=== PATIENT | female | born 1975 | race Caucasian/White ===

== ENCOUNTER 2019-08-08 11:59 | Inpatient (IN) | payer OTHER, MEDICARE ==
[~2019-08-08] VITALS: Ht 172.7 cm; Wt 72.6 kg
[~2019-08-08 11:59] MED LIST: DILAUDID2 MG PO; KEPPRA XR500 MG PO; KLONOPIN1 MG PO; LEXAPRO20 MG PO; LYRICA150 MG PO; TRAZODONE HCL150 MG PO
--- OUTSIDE RECORDS SUMMARY | 2019-08-08 12:09 | XMS REPORT ---
Author Author [facility] Address Unknown Phone Unavailable Care Team Providers Care Mechanical Test Engineer Name Role Phone Unavailable Unavailable Payers Payer Name Policy Type Policy Number Effective Date Expiration Date Problems This patient has no known problems. Allergies, Adverse Reactions, Alerts Allergy Name Allergy Type Status Severity Reaction(s) Onset Date Inactive Date Treating Clinician Comments ketorolac tromethamine DA Active CA 2019-05-03 00:00:00 Penicillins DA Active SV 2019-05-03 00:00:00 latex DA Active CA 2019-05-03 00:00:00 desvenlafaxine DA Active U 2019-05-03 00:00:00 latex DA Active CA 2018-04-27 00:00:00 desvenlafaxine DA Active U 2018-04-21 00:00:00 ketorolac tromethamine DA Active CA 2016-05-13 00:00:00 Penicillins DA Active SV 2016-05-13 00:00:00 Medications This patient has no known medications. Results Test Description Test Time Test Comments Text Results Atomic Results Result Comments BASIC METABOLIC PANEL 2019-07-31 08:18:00 SODIUM (test code=NA) 143 mmol/L 136-145 POTASSIUM (test code=K) 3.6 mmol/L 3.5-5.1 CHLORIDE (test code=CL) 118.0 mmol/L 98-107 CARBON DIOXIDE (test code=CO2) 19.0 mmol/L 21-32 ANION GAP (test code=GAP) 9.6 10-20 GLUCOSE (test code=GLU) 114 mg/dL 74-106 BLOOD UREA NITROGEN (test code=BUN) 5 mg/dL 7-18 GLOMERULAR FILTRATION RATE (test code=GFR) > 60 mL/min >=60 Estimated GFR by using Modified MDRD formula.Chronic kidney disease is defined as either kidney damageor GFR <60 mL/min/1.73 m2 for >3 months. CREATININE (test code=CREAT) 0.50 mg/dL 0.55-1.02 Note change in reference range due to change in reagent. BUN/CREATININE RATIO (test code=BUN/CREA) 9.2 10-20 CALCIUM (test code=CA) 7.2 mg/dL 8.5-10.1 BASIC METABOLIC [id number] 08:15:00* Test Item Value Reference Range Comments SODIUM (test code=NA) 143 mmol/L 136-145 POTASSIUM (test code=K) 3.6 mmol/L 3.5-5.1 CHLORIDE (test code=CL) 118.0 mmol/L 98-107 CARBON DIOXIDE (test code=CO2) mmol/L 21-32 ANION GAP (test code=GAP) 10-20 GLUCOSE (test code=GLU) mg/dL 74-106 BLOOD UREA NITROGEN (test code=BUN) mg/dL 7-18 GLOMERULAR FILTRATION RATE (test code=GFR) mL/min >=60 CREATININE (test code=CREAT) mg/dL 0.55-1.02 BUN/CREATININE RATIO (test code=BUN/CREA) 10-20 CALCIUM (test code=CA) 7.2 mg/dL 8.5-10.1 [id number] 14:40:00* Test Item Value Reference Range Comments MAGNESIUM (test code=MAG) 2.0 mg/dL 1.8-2.4 BASIC METABOLIC [id number] 07:05:00* Test Item Value Reference Range Comments SODIUM (test code=NA) 145 mmol/L 136-145 POTASSIUM (test code=K) 3.4 mmol/L 3.5-5.1 CHLORIDE (test code=CL) 117.0 mmol/L 98-107 CARBON DIOXIDE (test code=CO2) 20.0 mmol/L 21-32 ANION GAP (test code=GAP) 11.4 10-20 GLUCOSE (test code=GLU) 92 mg/dL 74-106 BLOOD UREA NITROGEN (test code=BUN) 6 mg/dL 7-18 GLOMERULAR FILTRATION RATE (test code=GFR) > 60 mL/min >=60 Estimated GFR by using Modified MDRD formula.Chronic kidney disease is defined as either kidney damageor GFR <60 mL/min/1.73 m2 for >3 months. CREATININE (test code=CREAT) 0.60 mg/dL 0.55-1.02 Note change in reference range due to change in reagent. BUN/CREATININE RATIO (test code=BUN/CREA) 9.7 10-20 CALCIUM (test code=CA) 7.5 mg/dL 8.5-10.1 BASIC METABOLIC [id number] 07:00:00* Test Item Value Reference Range Comments SODIUM (test code=NA) 145 mmol/L 136-145 POTASSIUM (test code=K) 3.4 mmol/L 3.5-5.1 CHLORIDE (test code=CL) 117.0 mmol/L 98-107 CARBON DIOXIDE (test code=CO2) mmol/L 21-32 ANION GAP (test code=GAP) 10-20 GLUCOSE (test code=GLU) mg/dL 74-106 BLOOD UREA NITROGEN (test code=BUN) mg/dL 7-18 GLOMERULAR FILTRATION RATE (test code=GFR) mL/min >=60 CREATININE (test code=CREAT) mg/dL 0.55-1.02 BUN/CREATININE RATIO (test code=BUN/CREA) 10-20 CALCIUM (test code=CA) mg/dL 8.5-10.1 BASIC METABOLIC [id number] 09:48:00* Test Item Value Reference Range Comments SODIUM (test code=NA) 146 mmol/L 136-145 POTASSIUM (test code=K) 3.4 mmol/L 3.5-5.1 CHLORIDE (test code=CL) 118.0 mmol/L 98-107 CARBON DIOXIDE (test code=CO2) 21.0 mmol/L 21-32 ANION GAP (test code=GAP) 10.4 10-20 GLUCOSE (test code=GLU) 114 mg/dL 74-106 BLOOD UREA NITROGEN (test code=BUN) 7 mg/dL 7-18 GLOMERULAR FILTRATION RATE (test code=GFR) > 60 mL/min >=60 Estimated GFR by using Modified MDRD formula.Chronic kidney disease is defined as either kidney damageor GFR <60 mL/min/1.73 m2 for >3 months. CREATININE (test code=CREAT) 0.70 mg/dL 0.55-1.02 Note change in reference range due to change in reagent. BUN/CREATININE RATIO (test code=BUN/CREA) 10.5 10-20 CALCIUM (test code=CA) 7.4 mg/dL 8.5-10.1 [id number] 09:48:00* Test Item Value Reference Range Comments MAGNESIUM (test code=MAG) 2.2 mg/dL 1.8-2.4 BASIC METABOLIC [id number] 07:42:00* Test Item Value Reference Range Comments SODIUM (test code=NA) 148 mmol/L 136-145 POTASSIUM (test code=K) 3.3 mmol/L 3.5-5.1 CHLORIDE (test code=CL) 119.0 mmol/L 98-107 CARBON DIOXIDE (test code=CO2) 22.0 mmol/L 21-32 ANION GAP (test code=GAP) 10.3 10-20 GLUCOSE (test code=GLU) 128 mg/dL 74-106 BLOOD UREA NITROGEN (test code=BUN) 9 mg/dL 7-18 GLOMERULAR FILTRATION RATE (test code=GFR) > 60 mL/min >=60 Estimated GFR by using Modified MDRD formula.Chronic kidney disease is defined as either kidney damageor GFR <60 mL/min/1.73 m2 for >3 months. CREATININE (test code=CREAT) 0.70 mg/dL 0.55-1.02 Note change in reference range due to change in reagent. BUN/CREATININE RATIO (test code=BUN/CREA) 12.9 10-20 CALCIUM (test code=CA) 7.1 mg/dL 8.5-10.1 [id number] 07:42:00* Test Item Value Reference Range Comments MAGNESIUM (test code=MAG) 1.7 mg/dL 1.8-2.4 BASIC METABOLIC [id number] 07:33:00* Test Item Value Reference Range Comments SODIUM (test code=NA) 148 mmol/L 136-145 POTASSIUM (test code=K) 3.3 mmol/L 3.5-5.1 CHLORIDE (test code=CL) 119.0 mmol/L 98-107 CARBON DIOXIDE (test code=CO2) mmol/L 21-32 ANION GAP (test code=GAP) 10-20 GLUCOSE (test code=GLU) mg/dL 74-106 BLOOD UREA NITROGEN (test code=BUN) mg/dL 7-18 GLOMERULAR FILTRATION RATE (test code=GFR) mL/min >=60 CREATININE (test code=CREAT) mg/dL 0.55-1.02 BUN/CREATININE RATIO (test code=BUN/CREA) 10-20 CALCIUM (test code=CA) mg/dL 8.5-10.1 [id number] 07:33:00* Test Item Value Reference Range Comments MAGNESIUM (test code=MAG) mg/dL 1.8-2.4 CBC W/AUTO [id number] 06:17:00* Test Item Value Reference Range Comments WHITE BLOOD CELL (test code=WBC) 6.0 K/mm3 4.5-12.5 RED BLOOD CELL (test code=RBC) 3.42 mill/mm3 3.7-5.2 HEMOGLOBIN (test code=HGB) 9.5 gram/dL 11.5-15.5 HEMATOCRIT (test code=HCT) 32.3 % 36.0-46.0 MEAN CELL VOLUME (test code=MCV) 94.4 fL 80-98 MEAN CELL HGB (test code=MCH) 27.8 picogram 27.0-33.0 MEAN CELL HGB CONCETRATION (test code=MCHC) 29.4 gram/dL 33.0-36.0 RED CELL DISTRIBUTION WIDTH (test code=RDW) 17.2 % 11.6-16.2 RED CELL DISTRIBUTION WIDTH SD (test code=RDW-SD) 60.0 fL 37.0-51.0 PLATELET COUNT (test code=PLT) 86 K/mm3 150-450 MEAN PLATELET VOLUME (test code=MPV) 10.2 fL 6.7-11.0 NEUTROPHIL % (test code=NT%) 69.6 % 39.0-69.0 IMMATURE GRANULOCYTE % (test code=IG%) 0.5 % 0.0-5.0 LYMPHOCYTE % (test code=LY%) 19.0 % 25.0-55.0 MONOCYTE % (test code=MO%) 7.2 % 0.0-10.0 EOSINOPHIL % (test code=EO%) 3.4 % 0.0-5.0 BASOPHIL % (test code=BA%) 0.3 % 0.0-1.0 NUCLEATED RBC % (test code=NRBC%) 0.0 % 0-0 NEUTROPHIL # (test code=NT#) 4.14 K/mm3 1.8-7.7 IMMATURE GRANULOCYTE # (test code=IG#) 0.03 x10 3/uL 0-0.03 LYMPHOCYTE # (test code=LY#) 1.13 K/mm3 1.0-5.0 MONOCYTE # (test code=MO#) 0.43 K/mm3 0-0.8 EOSINOPHIL # (test code=EO#) 0.20 K/mm3 0.0-0.5 BASOPHIL # (test code=BA#) 0.02 K/mm3 0.0-0.2 NUCLEATED RBC # (test code=NRBC#) 0.00 K/mm3 0.0-0.1 MANUAL DIFF REQUIRED (test code=MDIFF) NO, ONLY SCAN NEEDED DIFFERENTIAL [id number] 06:17:00* Test Item Value Reference Range Comments STAIN ACCEPTABILITY (test code=STN ACCEPTABLE) STAIN ACCEPTABLE POIKILOCYTOSIS (test code=POIK) 1+ ANISOCYTOSIS (test code=ANISO) 1+ MACROCYTOSIS (test code=MACR) 1+ PLATELET ESTIMATE (test code=PLTEST) DECREASED PLATELET MORPHOLOGY (test code=PLTMORPH) NORMAL BASIC METABOLIC [id number] 06:16:00* Test Item Value Reference Range Comments SODIUM (test code=NA) 145 mmol/L 136-145 POTASSIUM (test code=K) 3.0 mmol/L 3.5-5.1 CHLORIDE (test code=CL) 113.0 mmol/L 98-107 CARBON DIOXIDE (test code=CO2) 25.0 mmol/L 21-32 ANION GAP (test code=GAP) 10.0 10-20 GLUCOSE (test code=GLU) 148 mg/dL 74-106 BLOOD UREA NITROGEN (test code=BUN) 12 mg/dL 7-18 GLOMERULAR FILTRATION RATE (test code=GFR) > 60 mL/min >=60 Estimated GFR by using Modified MDRD formula.Chronic kidney disease is defined as either kidney damageor GFR <60 mL/min/1.73 m2 for >3 months. CREATININE (test code=CREAT) 0.90 mg/dL 0.55-1.02 Note change in reference range due to change in reagent. BUN/CREATININE RATIO (test code=BUN/CREA) 14.0 10-20 CALCIUM (test code=CA) 7.1 mg/dL 8.5-10.1 FE W/TOTAL IRON BINDING CAP.[id number] 06:16:00* Test Item Value Reference Range Comments SERUM IRON (test code=IRON) 88 ug/dL 50-175 TOTAL IRON BINDING CAPACITY (test code=TIBC) 119 mcg/dL 250-450 IRON SATURATION (test code=FESAT) 73.95 % 13-45 [id number] 06:16:00* Test Item Value Reference Range Comments FERRITIN (test code=KUSHAL) 51 ng/mL 8-388 BASIC METABOLIC [id number] 06:08:00* Test Item Value Reference Range Comments SODIUM (test code=NA) 145 mmol/L 136-145 POTASSIUM (test code=K) 3.0 mmol/L 3.5-5.1 CHLORIDE (test code=CL) 113.0 mmol/L 98-107 CARBON DIOXIDE (test code=CO2) mmol/L 21-32 ANION GAP (test code=GAP) 10-20 GLUCOSE (test code=GLU) mg/dL 74-106 BLOOD UREA NITROGEN (test code=BUN) mg/dL 7-18 GLOMERULAR FILTRATION RATE (test code=GFR) mL/min >=60 CREATININE (test code=CREAT) mg/dL 0.55-1.02 BUN/CREATININE RATIO (test code=BUN/CREA) 10-20 CALCIUM (test code=CA) mg/dL 8.5-10.1 FE W/TOTAL IRON BINDING CAP.2019-07-27 06:08:00* Test Item Value Reference Range Comments SERUM IRON (test code=IRON) ug/dL 50-175 TOTAL IRON BINDING CAPACITY (test code=TIBC) mcg/dL 250-450 IRON SATURATION (test code=FESAT) % 13-45 [id number] 06:08:00* Test Item Value Reference Range Comments FERRITIN (test code=KUSHAL) ng/mL 8-388 CBC W/AUTO [id number] 05:27:00* Test Item Value Reference Range Comments WHITE BLOOD CELL (test code=WBC) 6.0 K/mm3 4.5-12.5 RED BLOOD CELL (test code=RBC) 3.42 mill/mm3 3.7-5.2 HEMOGLOBIN (test code=HGB) 9.5 gram/dL 11.5-15.5 HEMATOCRIT (test code=HCT) 32.3 % 36.0-46.0 MEAN CELL VOLUME (test code=MCV) 94.4 fL 80-98 MEAN CELL HGB (test code=MCH) 27.8 picogram 27.0-33.0 MEAN CELL HGB CONCETRATION (test code=MCHC) 29.4 gram/dL 33.0-36.0 RED CELL DISTRIBUTION WIDTH (test code=RDW) 17.2 % 11.6-16.2 RED CELL DISTRIBUTION WIDTH SD (test code=RDW-SD) 60.0 fL 37.0-51.0 PLATELET COUNT (test code=PLT) 86 K/mm3 150-450 MEAN PLATELET VOLUME (test code=MPV) 10.2 fL 6.7-11.0 NEUTROPHIL % (test code=NT%) 69.6 % 39.0-69.0 IMMATURE GRANULOCYTE % (test code=IG%) 0.5 % 0.0-5.0 LYMPHOCYTE % (test code=LY%) 19.0 % 25.0-55.0 MONOCYTE % (test code=MO%) 7.2 % 0.0-10.0 EOSINOPHIL % (test code=EO%) 3.4 % 0.0-5.0 BASOPHIL % (test code=BA%) 0.3 % 0.0-1.0 NUCLEATED RBC % (test code=NRBC%) 0.0 % 0-0 NEUTROPHIL # (test code=NT#) 4.14 K/mm3 1.8-7.7 IMMATURE GRANULOCYTE # (test code=IG#) 0.03 x10 3/uL 0-0.03 LYMPHOCYTE # (test code=LY#) 1.13 K/mm3 1.0-5.0 MONOCYTE # (test code=MO#) 0.43 K/mm3 0-0.8 EOSINOPHIL # (test code=EO#) 0.20 K/mm3 0.0-0.5 BASOPHIL # (test code=BA#) 0.02 K/mm3 0.0-0.2 NUCLEATED RBC # (test code=NRBC#) 0.00 K/mm3 0.0-0.1 MANUAL DIFF REQUIRED (test code=MDIFF) NO, ONLY SCAN NEEDED DIFFERENTIAL [id number] 05:27:00* Test Item Value Reference Range Comments STAIN ACCEPTABILITY (test code=STN ACCEPTABLE) CABOT RINGS (test code=CAB) MORPHOLOGY COMMENT (test code=MOC) PLATELET ESTIMATE (test code=PLTEST) PLATELET MORPHOLOGY (test code=PLTMORPH) CBC W/AUTO [id number] 05:27:00* Test Item Value Reference Range Comments WHITE BLOOD CELL (test code=WBC) 6.0 K/mm3 4.5-12.5 RED BLOOD CELL (test code=RBC) 3.42 mill/mm3 3.7-5.2 HEMOGLOBIN (test code=HGB) 9.5 gram/dL 11.5-15.5 HEMATOCRIT (test code=HCT) 32.3 % 36.0-46.0 MEAN CELL VOLUME (test code=MCV) 94.4 fL 80-98 MEAN CELL HGB (test code=MCH) 27.8 picogram 27.0-33.0 MEAN CELL HGB CONCETRATION (test code=MCHC) 29.4 gram/dL 33.0-36.0 RED CELL DISTRIBUTION WIDTH (test code=RDW) 17.2 % 11.6-16.2 RED CELL DISTRIBUTION WIDTH SD (test code=RDW-SD) 60.0 fL 37.0-51.0 PLATELET COUNT (test code=PLT) 86 K/mm3 150-450 MEAN PLATELET VOLUME (test code=MPV) 10.2 fL 6.7-11.0 NEUTROPHIL % (test code=NT%) 69.6 % 39.0-69.0 IMMATURE GRANULOCYTE % (test code=IG%) 0.5 % 0.0-5.0 LYMPHOCYTE % (test code=LY%) 19.0 % 25.0-55.0 MONOCYTE % (test code=MO%) 7.2 % 0.0-10.0 EOSINOPHIL % (test code=EO%) 3.4 % 0.0-5.0 BASOPHIL % (test code=BA%) 0.3 % 0.0-1.0 NUCLEATED RBC % (test code=NRBC%) 0.0 % 0-0 NEUTROPHIL # (test code=NT#) 4.14 K/mm3 1.8-7.7 IMMATURE GRANULOCYTE # (test code=IG#) 0.03 x10 3/uL 0-0.03 LYMPHOCYTE # (test code=LY#) 1.13 K/mm3 1.0-5.0 MONOCYTE # (test code=MO#) 0.43 K/mm3 0-0.8 EOSINOPHIL # (test code=EO#) 0.20 K/mm3 0.0-0.5 BASOPHIL # (test code=BA#) 0.02 K/mm3 0.0-0.2 NUCLEATED RBC # (test code=NRBC#) 0.00 K/mm3 0.0-0.1 MANUAL DIFF REQUIRED (test code=MDIFF) NO, ONLY SCAN NEEDED DIFFERENTIAL [id number] 05:27:00* Test Item Value Reference Range Comments STAIN ACCEPTABILITY (test code=STN ACCEPTABLE) CABOT RINGS (test code=CAB) MORPHOLOGY COMMENT (test code=MOC) PLATELET ESTIMATE (test code=PLTEST) PLATELET MORPHOLOGY (test code=PLTMORPH) CBC W/AUTO [id number] 05:27:00* Test Item Value Reference Range Comments WHITE BLOOD CELL (test code=WBC) 6.0 K/mm3 4.5-12.5 RED BLOOD CELL (test code=RBC) 3.42 mill/mm3 3.7-5.2 HEMOGLOBIN (test code=HGB) 9.5 gram/dL 11.5-15.5 HEMATOCRIT (test code=HCT) 32.3 % 36.0-46.0 MEAN CELL VOLUME (test code=MCV) 94.4 fL 80-98 MEAN CELL HGB (test code=MCH) 27.8 picogram 27.0-33.0 MEAN CELL HGB CONCETRATION (test code=MCHC) 29.4 gram/dL 33.0-36.0 RED CELL DISTRIBUTION WIDTH (test code=RDW) 17.2 % 11.6-16.2 RED CELL DISTRIBUTION WIDTH SD (test code=RDW-SD) 60.0 fL 37.0-51.0 PLATELET COUNT (test code=PLT) 86 K/mm3 150-450 MEAN PLATELET VOLUME (test code=MPV) 10.2 fL 6.7-11.0 NEUTROPHIL % (test code=NT%) 69.6 % 39.0-69.0 IMMATURE GRANULOCYTE % (test code=IG%) 0.5 % 0.0-5.0 LYMPHOCYTE % (test code=LY%) 19.0 % 25.0-55.0 MONOCYTE % (test code=MO%) 7.2 % 0.0-10.0 EOSINOPHIL % (test code=EO%) 3.4 % 0.0-5.0 BASOPHIL % (test code=BA%) 0.3 % 0.0-1.0 NUCLEATED RBC % (test code=NRBC%) 0.0 % 0-0 NEUTROPHIL # (test code=NT#) 4.14 K/mm3 1.8-7.7 IMMATURE GRANULOCYTE # (test code=IG#) 0.03 x10 3/uL 0-0.03 LYMPHOCYTE # (test code=LY#) 1.13 K/mm3 1.0-5.0 MONOCYTE # (test code=MO#) 0.43 K/mm3 0-0.8 EOSINOPHIL # (test code=EO#) 0.20 K/mm3 0.0-0.5 BASOPHIL # (test code=BA#) 0.02 K/mm3 0.0-0.2 NUCLEATED RBC # (test code=NRBC#) 0.00 K/mm3 0.0-0.1 MANUAL DIFF REQUIRED (test code=MDIFF) NO, ONLY SCAN NEEDED DIFFERENTIAL [id number] 05:27:00* Test Item Value Reference Range Comments STAIN ACCEPTABILITY (test code=STN ACCEPTABLE) MORPHOLOGY COMMENT (test code=MOC) PLATELET ESTIMATE (test code=PLTEST) PLATELET MORPHOLOGY (test code=PLTMORPH) CBC W/AUTO [id number] 05:27:00* Test Item Value Reference Range Comments WHITE BLOOD CELL (test code=WBC) 6.0 K/mm3 4.5-12.5 RED BLOOD CELL (test code=RBC) 3.42 mill/mm3 3.7-5.2 HEMOGLOBIN (test code=HGB) 9.5 gram/dL 11.5-15.5 HEMATOCRIT (test code=HCT) 32.3 % 36.0-46.0 MEAN CELL VOLUME (test code=MCV) 94.4 fL 80-98 MEAN CELL HGB (test code=MCH) 27.8 picogram 27.0-33.0 MEAN CELL HGB CONCETRATION (test code=MCHC) 29.4 gram/dL 33.0-36.0 RED CELL DISTRIBUTION WIDTH (test code=RDW) 17.2 % 11.6-16.2 RED CELL DISTRIBUTION WIDTH SD (test code=RDW-SD) 60.0 fL 37.0-51.0 PLATELET COUNT (test code=PLT) 86 K/mm3 150-450 MEAN PLATELET VOLUME (test code=MPV) 10.2 fL 6.7-11.0 NEUTROPHIL % (test code=NT%) 69.6 % 39.0-69.0 IMMATURE GRANULOCYTE % (test code=IG%) 0.5 % 0.0-5.0 LYMPHOCYTE % (test code=LY%) 19.0 % 25.0-55.0 MONOCYTE % (test code=MO%) 7.2 % 0.0-10.0 EOSINOPHIL % (test code=EO%) 3.4 % 0.0-5.0 BASOPHIL % (test code=BA%) 0.3 % 0.0-1.0 NUCLEATED RBC % (test code=NRBC%) 0.0 % 0-0 NEUTROPHIL # (test code=NT#) 4.14 K/mm3 1.8-7.7 IMMATURE GRANULOCYTE # (test code=IG#) 0.03 x10 3/uL 0-0.03 LYMPHOCYTE # (test code=LY#) 1.13 K/mm3 1.0-5.0 MONOCYTE # (test code=MO#) 0.43 K/mm3 0-0.8 EOSINOPHIL # (test code=EO#) 0.20 K/mm3 0.0-0.5 BASOPHIL # (test code=BA#) 0.02 K/mm3 0.0-0.2 NUCLEATED RBC # (test code=NRBC#) 0.00 K/mm3 0.0-0.1 MANUAL DIFF REQUIRED (test code=MDIFF) NO, ONLY SCAN NEEDED DIFFERENTIAL [id number] 05:27:00* Test Item Value Reference Range Comments STAIN ACCEPTABILITY (test code=STN ACCEPTABLE) CABOT RINGS (test code=CAB) MORPHOLOGY COMMENT (test code=MOC) PLATELET ESTIMATE (test code=PLTEST) PLATELET MORPHOLOGY (test code=PLTMORPH) BASIC METABOLIC [id number] 11:17:00* Test Item Value Reference Range Comments SODIUM (test code=NA) 148 mmol/L 136-145 POTASSIUM (test code=K) 3.2 mmol/L 3.5-5.1 CHLORIDE (test code=CL) 114.0 mmol/L 98-107 CARBON DIOXIDE (test code=CO2) 26.0 mmol/L 21-32 ANION GAP (test code=GAP) 11.2 10-20 GLUCOSE (test code=GLU) 133 mg/dL 74-106 BLOOD UREA NITROGEN (test code=BUN) 14 mg/dL 7-18 GLOMERULAR FILTRATION RATE (test code=GFR) 60 mL/min >=60 Estimated GFR by using Modified MDRD formula.Chronic kidney disease is defined as either kidney damageor GFR <60 mL/min/1.73 m2 for >3 months. CREATININE (test code=CREAT) 1.00 mg/dL 0.55-1.02 Note change in reference range due to change in reagent. BUN/CREATININE RATIO (test code=BUN/CREA) 14.0 10-20 CALCIUM (test code=CA) 7.4 mg/dL 8.5-10.1 [id number] 11:17:00* Test Item Value Reference Range Comments MAGNESIUM (test code=MAG) 1.8 mg/dL 1.8-2.4 BASIC METABOLIC [id number] 11:10:00* Test Item Value Reference Range Comments SODIUM (test code=NA) 148 mmol/L 136-145 POTASSIUM (test code=K) 3.2 mmol/L 3.5-5.1 CHLORIDE (test code=CL) 114.0 mmol/L 98-107 CARBON DIOXIDE (test code=CO2) mmol/L 21-32 ANION GAP (test code=GAP) 10-20 GLUCOSE (test code=GLU) mg/dL 74-106 BLOOD UREA NITROGEN (test code=BUN) mg/dL 7-18 GLOMERULAR FILTRATION RATE (test code=GFR) mL/min >=60 CREATININE (test code=CREAT) mg/dL 0.55-1.02 BUN/CREATININE RATIO (test code=BUN/CREA) 10-20 CALCIUM (test code=CA) mg/dL 8.5-10.1 [id number] 11:10:00* Test Item Value Reference Range Comments MAGNESIUM (test code=MAG) mg/dL 1.8-2.4 BASIC METABOLIC [id number] 18:01:00* Test Item Value Reference Range Comments SODIUM (test code=NA) 153 mmol/L 136-145 POTASSIUM (test code=K) 2.6 mmol/L 3.5-5.1 Results called to [id number] by MOY 07/25/19 1801Critical results verified and read back by Nurse? Y CHLORIDE (test code=CL) 118.0 mmol/L 98-107 CARBON DIOXIDE (test code=CO2) 27.0 mmol/L 21-32 ANION GAP (test code=GAP) 10.6 10-20 GLUCOSE (test code=GLU) 195 mg/dL 74-106 BLOOD UREA NITROGEN (test code=BUN) 19 mg/dL 7-18 GLOMERULAR FILTRATION RATE (test code=GFR) 48 mL/min >=60 Estimated GFR by using Modified MDRD formula.Chronic kidney disease is defined as either kidney damageor GFR <60 mL/min/1.73 m2 for >3 months. CREATININE (test code=CREAT) 1.20 mg/dL 0.55-1.02 Note change in reference range due to change in reagent. BUN/CREATININE RATIO (test code=BUN/CREA) 15.3 10-20 CALCIUM (test code=CA) 7.0 mg/dL 8.5-10.1 CBC W/AUTO [id number] 10:23:00* Test Item Value Reference Range Comments WHITE BLOOD CELL (test code=WBC) 4.6 K/mm3 4.5-12.5 RED BLOOD CELL (test code=RBC) 3.20 mill/mm3 3.7-5.2 HEMOGLOBIN (test code=HGB) 9.0 gram/dL 11.5-15.5 HEMATOCRIT (test code=HCT) 30.1 % 36.0-46.0 MEAN CELL VOLUME (test code=MCV) 94.1 fL 80-98 MEAN CELL HGB (test code=MCH) 28.1 picogram 27.0-33.0 MEAN CELL HGB CONCETRATION (test code=MCHC) 29.9 gram/dL 33.0-36.0 RED CELL DISTRIBUTION WIDTH (test code=RDW) 17.3 % 11.6-16.2 RED CELL DISTRIBUTION WIDTH SD (test code=RDW-SD) 60.2 fL 37.0-51.0 PLATELET COUNT (test code=PLT) 117 K/mm3 150-450 MEAN PLATELET VOLUME (test code=MPV) 10.4 fL 6.7-11.0 NEUTROPHIL % (test code=NT%) 73.1 % 39.0-69.0 IMMATURE GRANULOCYTE % (test code=IG%) 0.9 % 0.0-5.0 LYMPHOCYTE % (test code=LY%) 16.9 % 25.0-55.0 MONOCYTE % (test code=MO%) 4.8 % 0.0-10.0 EOSINOPHIL % (test code=EO%) 4.1 % 0.0-5.0 BASOPHIL % (test code=BA%) 0.2 % 0.0-1.0 NUCLEATED RBC % (test code=NRBC%) 0.0 % 0-0 NEUTROPHIL # (test code=NT#) 3.37 K/mm3 1.8-7.7 IMMATURE GRANULOCYTE # (test code=IG#) 0.04 x10 3/uL 0-0.03 LYMPHOCYTE # (test code=LY#) 0.78 K/mm3 1.0-5.0 MONOCYTE # (test code=MO#) 0.22 K/mm3 0-0.8 EOSINOPHIL # (test code=EO#) 0.19 K/mm3 0.0-0.5 BASOPHIL # (test code=BA#) 0.01 K/mm3 0.0-0.2 NUCLEATED RBC # (test code=NRBC#) 0.00 K/mm3 0.0-0.1 MANUAL DIFF REQUIRED (test code=MDIFF) NO, ONLY SCAN NEEDED DIFFERENTIAL [id number] 10:23:00* Test Item Value Reference Range Comments STAIN ACCEPTABILITY (test code=STN ACCEPTABLE) STAIN ACCEPTABLE POLYCHROMASIA (test code=POLC) 1+ HYPOCHROMIA (test code=HYPO) 1+ POIKILOCYTOSIS (test code=POIK) 1+ ANISOCYTOSIS (test code=ANISO) 1+ PLATELET ESTIMATE (test code=PLTEST) SLIGHTLY DECREASED PLATELET MORPHOLOGY (test code=PLTMORPH) NORMAL CBC W/AUTO [id number] 09:32:00* Test Item Value Reference Range Comments WHITE BLOOD CELL (test code=WBC) 4.6 K/mm3 4.5-12.5 RED BLOOD CELL (test code=RBC) 3.20 mill/mm3 3.7-5.2 HEMOGLOBIN (test code=HGB) 9.0 gram/dL 11.5-15.5 HEMATOCRIT (test code=HCT) 30.1 % 36.0-46.0 MEAN CELL VOLUME (test code=MCV) 94.1 fL 80-98 MEAN CELL HGB (test code=MCH) 28.1 picogram 27.0-33.0 MEAN CELL HGB CONCETRATION (test code=MCHC) 29.9 gram/dL 33.0-36.0 RED CELL DISTRIBUTION WIDTH (test code=RDW) 17.3 % 11.6-16.2 RED CELL DISTRIBUTION WIDTH SD (test code=RDW-SD) 60.2 fL 37.0-51.0 PLATELET COUNT (test code=PLT) 117 K/mm3 150-450 MEAN PLATELET VOLUME (test code=MPV) 10.4 fL 6.7-11.0 NEUTROPHIL % (test code=NT%) 73.1 % 39.0-69.0 IMMATURE GRANULOCYTE % (test code=IG%) 0.9 % 0.0-5.0 LYMPHOCYTE % (test code=LY%) 16.9 % 25.0-55.0 MONOCYTE % (test code=MO%) 4.8 % 0.0-10.0 EOSINOPHIL % (test code=EO%) 4.1 % 0.0-5.0 BASOPHIL % (test code=BA%) 0.2 % 0.0-1.0 NUCLEATED RBC % (test code=NRBC%) 0.0 % 0-0 NEUTROPHIL # (test code=NT#) 3.37 K/mm3 1.8-7.7 IMMATURE GRANULOCYTE # (test code=IG#) 0.04 x10 3/uL 0-0.03 LYMPHOCYTE # (test code=LY#) 0.78 K/mm3 1.0-5.0 MONOCYTE # (test code=MO#) 0.22 K/mm3 0-0.8 EOSINOPHIL # (test code=EO#) 0.19 K/mm3 0.0-0.5 BASOPHIL # (test code=BA#) 0.01 K/mm3 0.0-0.2 NUCLEATED RBC # (test code=NRBC#) 0.00 K/mm3 0.0-0.1 MANUAL DIFF REQUIRED (test code=MDIFF) NO, ONLY SCAN NEEDED DIFFERENTIAL [id number] 09:32:00* Test Item Value Reference Range Comments STAIN ACCEPTABILITY (test code=STN ACCEPTABLE) MORPHOLOGY COMMENT (test code=MOC) PLATELET ESTIMATE (test code=PLTEST) PLATELET MORPHOLOGY (test code=PLTMORPH) CBC W/AUTO [id number] 09:31:00* Test Item Value Reference Range Comments WHITE BLOOD CELL (test code=WBC) 4.6 K/mm3 4.5-12.5 RED BLOOD CELL (test code=RBC) 3.20 mill/mm3 3.7-5.2 HEMOGLOBIN (test code=HGB) 9.0 gram/dL 11.5-15.5 HEMATOCRIT (test code=HCT) 30.1 % 36.0-46.0 MEAN CELL VOLUME (test code=MCV) 94.1 fL 80-98 MEAN CELL HGB (test code=MCH) 28.1 picogram 27.0-33.0 MEAN CELL HGB CONCETRATION (test code=MCHC) 29.9 gram/dL 33.0-36.0 RED CELL DISTRIBUTION WIDTH (test code=RDW) 17.3 % 11.6-16.2 RED CELL DISTRIBUTION WIDTH SD (test code=RDW-SD) 60.2 fL 37.0-51.0 PLATELET COUNT (test code=PLT) 117 K/mm3 150-450 MEAN PLATELET VOLUME (test code=MPV) 10.4 fL 6.7-11.0 NEUTROPHIL % (test code=NT%) 73.1 % 39.0-69.0 IMMATURE GRANULOCYTE % (test code=IG%) 0.9 % 0.0-5.0 LYMPHOCYTE % (test code=LY%) 16.9 % 25.0-55.0 MONOCYTE % (test code=MO%) 4.8 % 0.0-10.0 EOSINOPHIL % (test code=EO%) 4.1 % 0.0-5.0 BASOPHIL % (test code=BA%) 0.2 % 0.0-1.0 NUCLEATED RBC % (test code=NRBC%) 0.0 % 0-0 NEUTROPHIL # (test code=NT#) 3.37 K/mm3 1.8-7.7 IMMATURE GRANULOCYTE # (test code=IG#) 0.04 x10 3/uL 0-0.03 LYMPHOCYTE # (test code=LY#) 0.78 K/mm3 1.0-5.0 MONOCYTE # (test code=MO#) 0.22 K/mm3 0-0.8 EOSINOPHIL # (test code=EO#) 0.19 K/mm3 0.0-0.5 BASOPHIL # (test code=BA#) 0.01 K/mm3 0.0-0.2 NUCLEATED RBC # (test code=NRBC#) 0.00 K/mm3 0.0-0.1 MANUAL DIFF REQUIRED (test code=MDIFF) NO, ONLY SCAN NEEDED DIFFERENTIAL [id number] 09:31:00* Test Item Value Reference Range Comments STAIN ACCEPTABILITY (test code=STN ACCEPTABLE) CABOT RINGS (test code=CAB) MORPHOLOGY COMMENT (test code=MOC) PLATELET ESTIMATE (test code=PLTEST) PLATELET MORPHOLOGY (test code=PLTMORPH) CBC W/AUTO [id number] 09:31:00* Test Item Value Reference Range Comments WHITE BLOOD CELL (test code=WBC) 4.6 K/mm3 4.5-12.5 RED BLOOD CELL (test code=RBC) 3.20 mill/mm3 3.7-5.2 HEMOGLOBIN (test code=HGB) 9.0 gram/dL 11.5-15.5 HEMATOCRIT (test code=HCT) 30.1 % 36.0-46.0 MEAN CELL VOLUME (test code=MCV) 94.1 fL 80-98 MEAN CELL HGB (test code=MCH) 28.1 picogram 27.0-33.0 MEAN CELL HGB CONCETRATION (test code=MCHC) 29.9 gram/dL 33.0-36.0 RED CELL DISTRIBUTION WIDTH (test code=RDW) 17.3 % 11.6-16.2 RED CELL DISTRIBUTION WIDTH SD (test code=RDW-SD) 60.2 fL 37.0-51.0 PLATELET COUNT (test code=PLT) 117 K/mm3 150-450 MEAN PLATELET VOLUME (test code=MPV) 10.4 fL 6.7-11.0 NEUTROPHIL % (test code=NT%) 73.1 % 39.0-69.0 IMMATURE GRANULOCYTE % (test code=IG%) 0.9 % 0.0-5.0 LYMPHOCYTE % (test code=LY%) 16.9 % 25.0-55.0 MONOCYTE % (test code=MO%) 4.8 % 0.0-10.0 EOSINOPHIL % (test code=EO%) 4.1 % 0.0-5.0 BASOPHIL % (test code=BA%) 0.2 % 0.0-1.0 NUCLEATED RBC % (test code=NRBC%) 0.0 % 0-0 NEUTROPHIL # (test code=NT#) 3.37 K/mm3 1.8-7.7 IMMATURE GRANULOCYTE # (test code=IG#) 0.04 x10 3/uL 0-0.03 LYMPHOCYTE # (test code=LY#) 0.78 K/mm3 1.0-5.0 MONOCYTE # (test code=MO#) 0.22 K/mm3 0-0.8 EOSINOPHIL # (test code=EO#) 0.19 K/mm3 0.0-0.5 BASOPHIL # (test code=BA#) 0.01 K/mm3 0.0-0.2 NUCLEATED RBC # (test code=NRBC#) 0.00 K/mm3 0.0-0.1 MANUAL DIFF REQUIRED (test code=MDIFF) NO, ONLY SCAN NEEDED DIFFERENTIAL [id number] 09:31:00* Test Item Value Reference Range Comments STAIN ACCEPTABILITY (test code=STN ACCEPTABLE) MORPHOLOGY COMMENT (test code=MOC) PLATELET ESTIMATE (test code=PLTEST) PLATELET MORPHOLOGY (test code=PLTMORPH) CBC W/AUTO [id number] 09:31:00* Test Item Value Reference Range Comments WHITE BLOOD CELL (test code=WBC) 4.6 K/mm3 4.5-12.5 RED BLOOD CELL (test code=RBC) 3.20 mill/mm3 3.7-5.2 HEMOGLOBIN (test code=HGB) 9.0 gram/dL 11.5-15.5 HEMATOCRIT (test code=HCT) 30.1 % 36.0-46.0 MEAN CELL VOLUME (test code=MCV) 94.1 fL 80-98 MEAN CELL HGB (test code=MCH) 28.1 picogram 27.0-33.0 MEAN CELL HGB CONCETRATION (test code=MCHC) 29.9 gram/dL 33.0-36.0 RED CELL DISTRIBUTION WIDTH (test code=RDW) 17.3 % 11.6-16.2 RED CELL DISTRIBUTION WIDTH SD (test code=RDW-SD) 60.2 fL 37.0-51.0 PLATELET COUNT (test code=PLT) 117 K/mm3 150-450 MEAN PLATELET VOLUME (test code=MPV) 10.4 fL 6.7-11.0 NEUTROPHIL % (test code=NT%) 73.1 % 39.0-69.0 IMMATURE GRANULOCYTE % (test code=IG%) 0.9 % 0.0-5.0 LYMPHOCYTE % (test code=LY%) 16.9 % 25.0-55.0 MONOCYTE % (test code=MO%) 4.8 % 0.0-10.0 EOSINOPHIL % (test code=EO%) 4.1 % 0.0-5.0 BASOPHIL % (test code=BA%) 0.2 % 0.0-1.0 NUCLEATED RBC % (test code=NRBC%) 0.0 % 0-0 NEUTROPHIL # (test code=NT#) 3.37 K/mm3 1.8-7.7 IMMATURE GRANULOCYTE # (test code=IG#) 0.04 x10 3/uL 0-0.03 LYMPHOCYTE # (test code=LY#) 0.78 K/mm3 1.0-5.0 MONOCYTE # (test code=MO#) 0.22 K/mm3 0-0.8 EOSINOPHIL # (test code=EO#) 0.19 K/mm3 0.0-0.5 BASOPHIL # (test code=BA#) 0.01 K/mm3 0.0-0.2 NUCLEATED RBC # (test code=NRBC#) 0.00 K/mm3 0.0-0.1 MANUAL DIFF REQUIRED (test code=MDIFF) NO, ONLY SCAN NEEDED DIFFERENTIAL [id number] 09:31:00* Test Item Value Reference Range Comments STAIN ACCEPTABILITY (test code=STN ACCEPTABLE) CABOT RINGS (test code=CAB) MORPHOLOGY COMMENT (test code=MOC) PLATELET ESTIMATE (test code=PLTEST) PLATELET MORPHOLOGY (test code=PLTMORPH) BASIC METABOLIC [id number] 09:08:00* Test Item Value Reference Range Comments SODIUM (test code=NA) 156 mmol/L 136-145 Results called to [id number] by V.LAB.LAG 07/25/19 0907Critical results verified and read back by Nurse? Y POTASSIUM (test code=K) 2.3 mmol/L 3.5-5.1 Results called to [id number] by JACQUELYNLAG 07/25/19 0907Critical results verified and read back by Nurse? Y CHLORIDE (test code=CL) 119.0 mmol/L 98-107 CARBON DIOXIDE (test code=CO2) 31.0 mmol/L 21-32 ANION GAP (test code=GAP) 8.3 10-20 GLUCOSE (test code=GLU) 153 mg/dL 74-106 BLOOD UREA NITROGEN (test code=BUN) 20 mg/dL 7-18 GLOMERULAR FILTRATION RATE (test code=GFR) 48 mL/min >=60 Estimated GFR by using Modified MDRD formula.Chronic kidney disease is defined as either kidney damageor GFR <60 mL/min/1.73 m2 for >3 months. CREATININE (test code=CREAT) 1.20 mg/dL 0.55-1.02 Note change in reference range due to change in reagent. BUN/CREATININE RATIO (test code=BUN/CREA) 16.5 10-20 CALCIUM (test code=CA) 7.1 mg/dL 8.5-10.1 [id number] 11:52:00* Test Item Value Reference Range Comments MAGNESIUM (test code=MAG) 2.1 mg/dL 1.8-2.4 CBC W/AUTO [id number] 09:05:00* Test Item Value Reference Range Comments WHITE BLOOD CELL (test code=WBC) 6.0 K/mm3 4.5-12.5 RED BLOOD CELL (test code=RBC) 3.06 mill/mm3 3.7-5.2 HEMOGLOBIN (test code=HGB) 8.5 gram/dL 11.5-15.5 HEMATOCRIT (test code=HCT) 29.1 % 36.0-46.0 MEAN CELL VOLUME (test code=MCV) 95.1 fL 80-98 MEAN CELL HGB (test code=MCH) 27.8 picogram 27.0-33.0 MEAN CELL HGB CONCETRATION (test code=MCHC) 29.2 gram/dL 33.0-36.0 RED CELL DISTRIBUTION WIDTH (test code=RDW) 17.4 % 11.6-16.2 RED CELL DISTRIBUTION WIDTH SD (test code=RDW-SD) 60.8 fL 37.0-51.0 PLATELET COUNT (test code=PLT) 135 K/mm3 150-450 RESULT VERIFIED BY REPEAT ANALYSIS MEAN PLATELET VOLUME (test code=MPV) 10.3 fL 6.7-11.0 NEUTROPHIL % (test code=NT%) 67.9 % 39.0-69.0 IMMATURE GRANULOCYTE % (test code=IG%) 1.7 % 0.0-5.0 LYMPHOCYTE % (test code=LY%) 20.8 % 25.0-55.0 MONOCYTE % (test code=MO%) 7.2 % 0.0-10.0 EOSINOPHIL % (test code=EO%) 2.2 % 0.0-5.0 BASOPHIL % (test code=BA%) 0.2 % 0.0-1.0 NUCLEATED RBC % (test code=NRBC%) 0.0 % 0-0 NEUTROPHIL # (test code=NT#) 4.09 K/mm3 1.8-7.7 IMMATURE GRANULOCYTE # (test code=IG#) 0.10 x10 3/uL 0-0.03 LYMPHOCYTE # (test code=LY#) 1.25 K/mm3 1.0-5.0 MONOCYTE # (test code=MO#) 0.43 K/mm3 0-0.8 EOSINOPHIL # (test code=EO#) 0.13 K/mm3 0.0-0.5 BASOPHIL # (test code=BA#) 0.01 K/mm3 0.0-0.2 NUCLEATED RBC # (test code=NRBC#) 0.00 K/mm3 0.0-0.1 MANUAL DIFF REQUIRED (test code=MDIFF) NO, ONLY SCAN NEEDED DIFFERENTIAL [id number] 09:05:00* Test Item Value Reference Range Comments STAIN ACCEPTABILITY (test code=STN ACCEPTABLE) STAIN ACCEPTABLE POLYCHROMASIA (test code=POLC) 1+ HYPOCHROMIA (test code=HYPO) 2+ ANISOCYTOSIS (test code=ANISO) 2+ MACROCYTOSIS (test code=MACR) 1+ TARGET CELLS (test code=TGT) 1+ PLATELET ESTIMATE (test code=PLTEST) ADEQUATE PLATELET MORPHOLOGY (test code=PLTMORPH) NORMAL BASIC METABOLIC [id number] 08:02:00* Test Item Value Reference Range Comments SODIUM (test code=NA) 153 mmol/L 136-145 POTASSIUM (test code=K) 2.5 mmol/L 3.5-5.1 Results called to [id number] by LAUREN 07/24/19 0802Critical results verified and read back by Nurse? Y CHLORIDE (test code=CL) 115.0 mmol/L 98-107 CARBON DIOXIDE (test code=CO2) 29.0 mmol/L 21-32 ANION GAP (test code=GAP) 11.5 10-20 GLUCOSE (test code=GLU) 85 mg/dL 74-106 BLOOD UREA NITROGEN (test code=BUN) 23 mg/dL 7-18 GLOMERULAR FILTRATION RATE (test code=GFR) 40 mL/min >=60 Estimated GFR by using Modified MDRD formula.Chronic kidney disease is defined as either kidney damageor GFR <60 mL/min/1.73 m2 for >3 months. CREATININE (test code=CREAT) 1.40 mg/dL 0.55-1.02 Note change in reference range due to change in reagent. BUN/CREATININE RATIO (test code=BUN/CREA) 16.7 10-20 CALCIUM (test code=CA) 7.4 mg/dL 8.5-10.1 CBC W/AUTO [id number] 06:58:00* Test Item Value Reference Range Comments WHITE BLOOD CELL (test code=WBC) 6.0 K/mm3 4.5-12.5 RED BLOOD CELL (test code=RBC) 3.06 mill/mm3 3.7-5.2 HEMOGLOBIN (test code=HGB) 8.5 gram/dL 11.5-15.5 HEMATOCRIT (test code=HCT) 29.1 % 36.0-46.0 MEAN CELL VOLUME (test code=MCV) 95.1 fL 80-98 MEAN CELL HGB (test code=MCH) 27.8 picogram 27.0-33.0 MEAN CELL HGB CONCETRATION (test code=MCHC) 29.2 gram/dL 33.0-36.0 RED CELL DISTRIBUTION WIDTH (test code=RDW) 17.4 % 11.6-16.2 RED CELL DISTRIBUTION WIDTH SD (test code=RDW-SD) 60.8 fL 37.0-51.0 PLATELET COUNT (test code=PLT) 135 K/mm3 150-450 RESULT VERIFIED BY REPEAT ANALYSIS MEAN PLATELET VOLUME (test code=MPV) 10.3 fL 6.7-11.0 NEUTROPHIL % (test code=NT%) 67.9 % 39.0-69.0 IMMATURE GRANULOCYTE % (test code=IG%) 1.7 % 0.0-5.0 LYMPHOCYTE % (test code=LY%) 20.8 % 25.0-55.0 MONOCYTE % (test code=MO%) 7.2 % 0.0-10.0 EOSINOPHIL % (test code=EO%) 2.2 % 0.0-5.0 BASOPHIL % (test code=BA%) 0.2 % 0.0-1.0 NUCLEATED RBC % (test code=NRBC%) 0.0 % 0-0 NEUTROPHIL # (test code=NT#) 4.09 K/mm3 1.8-7.7 IMMATURE GRANULOCYTE # (test code=IG#) 0.10 x10 3/uL 0-0.03 LYMPHOCYTE # (test code=LY#) 1.25 K/mm3 1.0-5.0 MONOCYTE # (test code=MO#) 0.43 K/mm3 0-0.8 EOSINOPHIL # (test code=EO#) 0.13 K/mm3 0.0-0.5 BASOPHIL # (test code=BA#) 0.01 K/mm3 0.0-0.2 NUCLEATED RBC # (test code=NRBC#) 0.00 K/mm3 0.0-0.1 MANUAL DIFF REQUIRED (test code=MDIFF) NO, ONLY SCAN NEEDED DIFFERENTIAL [id number] 06:58:00* Test Item Value Reference Range Comments STAIN ACCEPTABILITY (test code=STN ACCEPTABLE) CABOT RINGS (test code=CAB) MORPHOLOGY COMMENT (test code=MOC) PLATELET ESTIMATE (test code=PLTEST) PLATELET MORPHOLOGY (test code=PLTMORPH) CBC W/AUTO [id number] 06:58:00* Test Item Value Reference Range Comments WHITE BLOOD CELL (test code=WBC) 6.0 K/mm3 4.5-12.5 RED BLOOD CELL (test code=RBC) 3.06 mill/mm3 3.7-5.2 HEMOGLOBIN (test code=HGB) 8.5 gram/dL 11.5-15.5 HEMATOCRIT (test code=HCT) 29.1 % 36.0-46.0 MEAN CELL VOLUME (test code=MCV) 95.1 fL 80-98 MEAN CELL HGB (test code=MCH) 27.8 picogram 27.0-33.0 MEAN CELL HGB CONCETRATION (test code=MCHC) 29.2 gram/dL 33.0-36.0 RED CELL DISTRIBUTION WIDTH (test code=RDW) 17.4 % 11.6-16.2 RED CELL DISTRIBUTION WIDTH SD (test code=RDW-SD) 60.8 fL 37.0-51.0 PLATELET COUNT (test code=PLT) 135 K/mm3 150-450 RESULT VERIFIED BY REPEAT ANALYSIS MEAN PLATELET VOLUME (test code=MPV) 10.3 fL 6.7-11.0 NEUTROPHIL % (test code=NT%) 67.9 % 39.0-69.0 IMMATURE GRANULOCYTE % (test code=IG%) 1.7 % 0.0-5.0 LYMPHOCYTE % (test code=LY%) 20.8 % 25.0-55.0 MONOCYTE % (test code=MO%) 7.2 % 0.0-10.0 EOSINOPHIL % (test code=EO%) 2.2 % 0.0-5.0 BASOPHIL % (test code=BA%) 0.2 % 0.0-1.0 NUCLEATED RBC % (test code=NRBC%) 0.0 % 0-0 NEUTROPHIL # (test code=NT#) 4.09 K/mm3 1.8-7.7 IMMATURE GRANULOCYTE # (test code=IG#) 0.10 x10 3/uL 0-0.03 LYMPHOCYTE # (test code=LY#) 1.25 K/mm3 1.0-5.0 MONOCYTE # (test code=MO#) 0.43 K/mm3 0-0.8 EOSINOPHIL # (test code=EO#) 0.13 K/mm3 0.0-0.5 BASOPHIL # (test code=BA#) 0.01 K/mm3 0.0-0.2 NUCLEATED RBC # (test code=NRBC#) 0.00 K/mm3 0.0-0.1 MANUAL DIFF REQUIRED (test code=MDIFF) NO, ONLY SCAN NEEDED DIFFERENTIAL [id number] 06:58:00* Test Item Value Reference Range Comments STAIN ACCEPTABILITY (test code=STN ACCEPTABLE) MORPHOLOGY COMMENT (test code=MOC) PLATELET ESTIMATE (test code=PLTEST) PLATELET MORPHOLOGY (test code=PLTMORPH) CBC W/AUTO [id number] 06:57:00* Test Item Value Reference Range Comments WHITE BLOOD CELL (test code=WBC) 6.0 K/mm3 4.5-12.5 RED BLOOD CELL (test code=RBC) 3.06 mill/mm3 3.7-5.2 HEMOGLOBIN (test code=HGB) 8.5 gram/dL 11.5-15.5 HEMATOCRIT (test code=HCT) 29.1 % 36.0-46.0 MEAN CELL VOLUME (test code=MCV) 95.1 fL 80-98 MEAN CELL HGB (test code=MCH) 27.8 picogram 27.0-33.0 MEAN CELL HGB CONCETRATION (test code=MCHC) 29.2 gram/dL 33.0-36.0 RED CELL DISTRIBUTION WIDTH (test code=RDW) 17.4 % 11.6-16.2 RED CELL DISTRIBUTION WIDTH SD (test code=RDW-SD) 60.8 fL 37.0-51.0 PLATELET COUNT (test code=PLT) 135 K/mm3 150-450 RESULT VERIFIED BY REPEAT ANALYSIS MEAN PLATELET VOLUME (test code=MPV) 10.3 fL 6.7-11.0 NEUTROPHIL % (test code=NT%) 67.9 % 39.0-69.0 IMMATURE GRANULOCYTE % (test code=IG%) 1.7 % 0.0-5.0 LYMPHOCYTE % (test code=LY%) 20.8 % 25.0-55.0 MONOCYTE % (test code=MO%) 7.2 % 0.0-10.0 EOSINOPHIL % (test code=EO%) 2.2 % 0.0-5.0 BASOPHIL % (test code=BA%) 0.2 % 0.0-1.0 NUCLEATED RBC % (test code=NRBC%) 0.0 % 0-0 NEUTROPHIL # (test code=NT#) 4.09 K/mm3 1.8-7.7 IMMATURE GRANULOCYTE # (test code=IG#) 0.10 x10 3/uL 0-0.03 LYMPHOCYTE # (test code=LY#) 1.25 K/mm3 1.0-5.0 MONOCYTE # (test code=MO#) 0.43 K/mm3 0-0.8 EOSINOPHIL # (test code=EO#) 0.13 K/mm3 0.0-0.5 BASOPHIL # (test code=BA#) 0.01 K/mm3 0.0-0.2 NUCLEATED RBC # (test code=NRBC#) 0.00 K/mm3 0.0-0.1 CBC W/AUTO [id number] 06:57:00* Test Item Value Reference Range Comments WHITE BLOOD CELL (test code=WBC) 6.0 K/mm3 4.5-12.5 RED BLOOD CELL (test code=RBC) 3.06 mill/mm3 3.7-5.2 HEMOGLOBIN (test code=HGB) 8.5 gram/dL 11.5-15.5 HEMATOCRIT (test code=HCT) 29.1 % 36.0-46.0 MEAN CELL VOLUME (test code=MCV) 95.1 fL 80-98 MEAN CELL HGB (test code=MCH) 27.8 picogram 27.0-33.0 MEAN CELL HGB CONCETRATION (test code=MCHC) 29.2 gram/dL 33.0-36.0 RED CELL DISTRIBUTION WIDTH (test code=RDW) 17.4 % 11.6-16.2 RED CELL DISTRIBUTION WIDTH SD (test code=RDW-SD) 60.8 fL 37.0-51.0 PLATELET COUNT (test code=PLT) 135 K/mm3 150-450 RESULT VERIFIED BY REPEAT ANALYSIS MEAN PLATELET VOLUME (test code=MPV) 10.3 fL 6.7-11.0 NEUTROPHIL % (test code=NT%) 67.9 % 39.0-69.0 IMMATURE GRANULOCYTE % (test code=IG%) 1.7 % 0.0-5.0 LYMPHOCYTE % (test code=LY%) 20.8 % 25.0-55.0 MONOCYTE % (test code=MO%) 7.2 % 0.0-10.0 EOSINOPHIL % (test code=EO%) 2.2 % 0.0-5.0 BASOPHIL % (test code=BA%) 0.2 % 0.0-1.0 NUCLEATED RBC % (test code=NRBC%) 0.0 % 0-0 NEUTROPHIL # (test code=NT#) 4.09 K/mm3 1.8-7.7 IMMATURE GRANULOCYTE # (test code=IG#) 0.10 x10 3/uL 0-0.03 LYMPHOCYTE # (test code=LY#) 1.25 K/mm3 1.0-5.0 MONOCYTE # (test code=MO#) 0.43 K/mm3 0-0.8 EOSINOPHIL # (test code=EO#) 0.13 K/mm3 0.0-0.5 BASOPHIL # (test code=BA#) 0.01 K/mm3 0.0-0.2 NUCLEATED RBC # (test code=NRBC#) 0.00 K/mm3 0.0-0.1 MANUAL DIFF REQUIRED (test code=MDIFF) NO, ONLY SCAN NEEDED DIFFERENTIAL [id number] 06:57:00* Test Item Value Reference Range Comments STAIN ACCEPTABILITY (test code=STN ACCEPTABLE) CABOT RINGS (test code=CAB) MORPHOLOGY COMMENT (test code=MOC) PLATELET ESTIMATE (test code=PLTEST) PLATELET MORPHOLOGY (test code=PLTMORPH) CBC W/AUTO [id number] 06:57:00* Test Item Value Reference Range Comments WHITE BLOOD CELL (test code=WBC) 6.0 K/mm3 4.5-12.5 RED BLOOD CELL (test code=RBC) 3.06 mill/mm3 3.7-5.2 HEMOGLOBIN (test code=HGB) 8.5 gram/dL 11.5-15.5 HEMATOCRIT (test code=HCT) 29.1 % 36.0-46.0 MEAN CELL VOLUME (test code=MCV) 95.1 fL 80-98 MEAN CELL HGB (test code=MCH) 27.8 picogram 27.0-33.0 MEAN CELL HGB CONCETRATION (test code=MCHC) 29.2 gram/dL 33.0-36.0 RED CELL DISTRIBUTION WIDTH (test code=RDW) 17.4 % 11.6-16.2 RED CELL DISTRIBUTION WIDTH SD (test code=RDW-SD) 60.8 fL 37.0-51.0 PLATELET COUNT (test code=PLT) 135 K/mm3 150-450 RESULT VERIFIED BY REPEAT ANALYSIS MEAN PLATELET VOLUME (test code=MPV) 10.3 fL 6.7-11.0 NEUTROPHIL % (test code=NT%) 67.9 % 39.0-69.0 IMMATURE GRANULOCYTE % (test code=IG%) 1.7 % 0.0-5.0 LYMPHOCYTE % (test code=LY%) 20.8 % 25.0-55.0 MONOCYTE % (test code=MO%) 7.2 % 0.0-10.0 EOSINOPHIL % (test code=EO%) 2.2 % 0.0-5.0 BASOPHIL % (test code=BA%) 0.2 % 0.0-1.0 NUCLEATED RBC % (test code=NRBC%) 0.0 % 0-0 NEUTROPHIL # (test code=NT#) 4.09 K/mm3 1.8-7.7 IMMATURE GRANULOCYTE # (test code=IG#) 0.10 x10 3/uL 0-0.03 LYMPHOCYTE # (test code=LY#) 1.25 K/mm3 1.0-5.0 MONOCYTE # (test code=MO#) 0.43 K/mm3 0-0.8 EOSINOPHIL # (test code=EO#) 0.13 K/mm3 0.0-0.5 BASOPHIL # (test code=BA#) 0.01 K/mm3 0.0-0.2 NUCLEATED RBC # (test code=NRBC#) 0.00 K/mm3 0.0-0.1 MANUAL DIFF REQUIRED (test code=MDIFF) NO, ONLY SCAN NEEDED DIFFERENTIAL [id number] 06:57:00* Test Item Value Reference Range Comments STAIN ACCEPTABILITY (test code=STN ACCEPTABLE) CABOT RINGS (test code=CAB) MORPHOLOGY COMMENT (test code=MOC) PLATELET ESTIMATE (test code=PLTEST) PLATELET MORPHOLOGY (test code=PLTMORPH) CBC W/AUTO [id number] 06:42:00* Test Item Value Reference Range Comments WHITE BLOOD CELL (test code=WBC) 7.9 K/mm3 4.5-12.5 RED BLOOD CELL (test code=RBC) 3.82 mill/mm3 3.7-5.2 HEMOGLOBIN (test code=HGB) 10.4 gram/dL 11.5-15.5 HEMATOCRIT (test code=HCT) 35.7 % 36.0-46.0 MEAN CELL VOLUME (test code=MCV) 93.5 fL 80-98 MEAN CELL HGB (test code=MCH) 27.2 picogram 27.0-33.0 MEAN CELL HGB CONCETRATION (test code=MCHC) 29.1 gram/dL 33.0-36.0 RED CELL DISTRIBUTION WIDTH (test code=RDW) 17.4 % 11.6-16.2 RED CELL DISTRIBUTION WIDTH SD (test code=RDW-SD) 59.4 fL 37.0-51.0 PLATELET COUNT (test code=PLT) 212 K/mm3 150-450 MEAN PLATELET VOLUME (test code=MPV) 10.4 fL 6.7-11.0 NEUTROPHIL % (test code=NT%) 78.3 % 39.0-69.0 IMMATURE GRANULOCYTE % (test code=IG%) 0.8 % 0.0-5.0 LYMPHOCYTE % (test code=LY%) 13.5 % 25.0-55.0 MONOCYTE % (test code=MO%) 7.3 % 0.0-10.0 EOSINOPHIL % (test code=EO%) 0.0 % 0.0-5.0 BASOPHIL % (test code=BA%) 0.1 % 0.0-1.0 NUCLEATED RBC % (test code=NRBC%) 0.3 % 0-0 NEUTROPHIL # (test code=NT#) 6.18 K/mm3 1.8-7.7 IMMATURE GRANULOCYTE # (test code=IG#) 0.06 x10 3/uL 0-0.03 LYMPHOCYTE # (test code=LY#) 1.07 K/mm3 1.0-5.0 MONOCYTE # (test code=MO#) 0.58 K/mm3 0-0.8 EOSINOPHIL # (test code=EO#) 0.00 K/mm3 0.0-0.5 BASOPHIL # (test code=BA#) 0.01 K/mm3 0.0-0.2 NUCLEATED RBC # (test code=NRBC#) 0.02 K/mm3 0.0-0.1 MANUAL DIFF REQUIRED (test code=MDIFF) NO, ONLY SCAN NEEDED DIFFERENTIAL [id number] 06:42:00* Test Item Value Reference Range Comments STAIN ACCEPTABILITY (test code=STN ACCEPTABLE) STAIN ACCEPTABLE POLYCHROMASIA (test code=POLC) 1+ POIKILOCYTOSIS (test code=POIK) 2+ ANISOCYTOSIS (test code=ANISO) 2+ MACROCYTOSIS (test code=MACR) 2+ SCHISTOCYTES (test code=ALEJANDRO) 1+ MORPHOLOGY COMMENT (test code=MOC) NORMAL PLATELET ESTIMATE (test code=PLTEST) ADEQUATE PLATELET MORPHOLOGY (test code=PLTMORPH) NORMAL CBC W/AUTO [id number] 06:19:00* Test Item Value Reference Range Comments WHITE BLOOD CELL (test code=WBC) 7.9 K/mm3 4.5-12.5 RED BLOOD CELL (test code=RBC) 3.82 mill/mm3 3.7-5.2 HEMOGLOBIN (test code=HGB) 10.4 gram/dL 11.5-15.5 HEMATOCRIT (test code=HCT) 35.7 % 36.0-46.0 MEAN CELL VOLUME (test code=MCV) 93.5 fL 80-98 MEAN CELL HGB (test code=MCH) 27.2 picogram 27.0-33.0 MEAN CELL HGB CONCETRATION (test code=MCHC) 29.1 gram/dL 33.0-36.0 RED CELL DISTRIBUTION WIDTH (test code=RDW) 17.4 % 11.6-16.2 RED CELL DISTRIBUTION WIDTH SD (test code=RDW-SD) 59.4 fL 37.0-51.0 PLATELET COUNT (test code=PLT) 212 K/mm3 150-450 MEAN PLATELET VOLUME (test code=MPV) 10.4 fL 6.7-11.0 NEUTROPHIL % (test code=NT%) 78.3 % 39.0-69.0 IMMATURE GRANULOCYTE % (test code=IG%) 0.8 % 0.0-5.0 LYMPHOCYTE % (test code=LY%) 13.5 % 25.0-55.0 MONOCYTE % (test code=MO%) 7.3 % 0.0-10.0 EOSINOPHIL % (test code=EO%) 0.0 % 0.0-5.0 BASOPHIL % (test code=BA%) 0.1 % 0.0-1.0 NUCLEATED RBC % (test code=NRBC%) 0.3 % 0-0 NEUTROPHIL # (test code=NT#) 6.18 K/mm3 1.8-7.7 IMMATURE GRANULOCYTE # (test code=IG#) 0.06 x10 3/uL 0-0.03 LYMPHOCYTE # (test code=LY#) 1.07 K/mm3 1.0-5.0 MONOCYTE # (test code=MO#) 0.58 K/mm3 0-0.8 EOSINOPHIL # (test code=EO#) 0.00 K/mm3 0.0-0.5 BASOPHIL # (test code=BA#) 0.01 K/mm3 0.0-0.2 NUCLEATED RBC # (test code=NRBC#) 0.02 K/mm3 0.0-0.1 MANUAL DIFF REQUIRED (test code=MDIFF) NO, ONLY SCAN NEEDED DIFFERENTIAL [id number] 06:19:00* Test Item Value Reference Range Comments STAIN ACCEPTABILITY (test code=STN ACCEPTABLE) CABOT RINGS (test code=CAB) MORPHOLOGY COMMENT (test code=MOC) PLATELET ESTIMATE (test code=PLTEST) PLATELET MORPHOLOGY (test code=PLTMORPH) CBC W/AUTO [id number] 06:19:00* Test Item Value Reference Range Comments WHITE BLOOD CELL (test code=WBC) 7.9 K/mm3 4.5-12.5 RED BLOOD CELL (test code=RBC) 3.82 mill/mm3 3.7-5.2 HEMOGLOBIN (test code=HGB) 10.4 gram/dL 11.5-15.5 HEMATOCRIT (test code=HCT) 35.7 % 36.0-46.0 MEAN CELL VOLUME (test code=MCV) 93.5 fL 80-98 MEAN CELL HGB (test code=MCH) 27.2 picogram 27.0-33.0 MEAN CELL HGB CONCETRATION (test code=MCHC) 29.1 gram/dL 33.0-36.0 RED CELL DISTRIBUTION WIDTH (test code=RDW) 17.4 % 11.6-16.2 RED CELL DISTRIBUTION WIDTH SD (test code=RDW-SD) 59.4 fL 37.0-51.0 PLATELET COUNT (test code=PLT) 212 K/mm3 150-450 MEAN PLATELET VOLUME (test code=MPV) 10.4 fL 6.7-11.0 NEUTROPHIL % (test code=NT%) 78.3 % 39.0-69.0 IMMATURE GRANULOCYTE % (test code=IG%) 0.8 % 0.0-5.0 LYMPHOCYTE % (test code=LY%) 13.5 % 25.0-55.0 MONOCYTE % (test code=MO%) 7.3 % 0.0-10.0 EOSINOPHIL % (test code=EO%) 0.0 % 0.0-5.0 BASOPHIL % (test code=BA%) 0.1 % 0.0-1.0 NUCLEATED RBC % (test code=NRBC%) 0.3 % 0-0 NEUTROPHIL # (test code=NT#) 6.18 K/mm3 1.8-7.7 IMMATURE GRANULOCYTE # (test code=IG#) 0.06 x10 3/uL 0-0.03 LYMPHOCYTE # (test code=LY#) 1.07 K/mm3 1.0-5.0 MONOCYTE # (test code=MO#) 0.58 K/mm3 0-0.8 EOSINOPHIL # (test code=EO#) 0.00 K/mm3 0.0-0.5 BASOPHIL # (test code=BA#) 0.01 K/mm3 0.0-0.2 NUCLEATED RBC # (test code=NRBC#) 0.02 K/mm3 0.0-0.1 MANUAL DIFF REQUIRED (test code=MDIFF) NO, ONLY SCAN NEEDED DIFFERENTIAL [id number] 06:19:00* Test Item Value Reference Range Comments STAIN ACCEPTABILITY (test code=STN ACCEPTABLE) CABOT RINGS (test code=CAB) MORPHOLOGY COMMENT (test code=MOC) PLATELET ESTIMATE (test code=PLTEST) PLATELET MORPHOLOGY (test code=PLTMORPH) CBC W/AUTO [id number] 06:19:00* Test Item Value Reference Range Comments WHITE BLOOD CELL (test code=WBC) 7.9 K/mm3 4.5-12.5 RED BLOOD CELL (test code=RBC) 3.82 mill/mm3 3.7-5.2 HEMOGLOBIN (test code=HGB) 10.4 gram/dL 11.5-15.5 HEMATOCRIT (test code=HCT) 35.7 % 36.0-46.0 MEAN CELL VOLUME (test code=MCV) 93.5 fL 80-98 MEAN CELL HGB (test code=MCH) 27.2 picogram 27.0-33.0 MEAN CELL HGB CONCETRATION (test code=MCHC) 29.1 gram/dL 33.0-36.0 RED CELL DISTRIBUTION WIDTH (test code=RDW) 17.4 % 11.6-16.2 RED CELL DISTRIBUTION WIDTH SD (test code=RDW-SD) 59.4 fL 37.0-51.0 PLATELET COUNT (test code=PLT) 212 K/mm3 150-450 MEAN PLATELET VOLUME (test code=MPV) 10.4 fL 6.7-11.0 NEUTROPHIL % (test code=NT%) 78.3 % 39.0-69.0 IMMATURE GRANULOCYTE % (test code=IG%) 0.8 % 0.0-5.0 LYMPHOCYTE % (test code=LY%) 13.5 % 25.0-55.0 MONOCYTE % (test code=MO%) 7.3 % 0.0-10.0 EOSINOPHIL % (test code=EO%) 0.0 % 0.0-5.0 BASOPHIL % (test code=BA%) 0.1 % 0.0-1.0 NUCLEATED RBC % (test code=NRBC%) 0.3 % 0-0 NEUTROPHIL # (test code=NT#) 6.18 K/mm3 1.8-7.7 IMMATURE GRANULOCYTE # (test code=IG#) 0.06 x10 3/uL 0-0.03 LYMPHOCYTE # (test code=LY#) 1.07 K/mm3 1.0-5.0 MONOCYTE # (test code=MO#) 0.58 K/mm3 0-0.8 EOSINOPHIL # (test code=EO#) 0.00 K/mm3 0.0-0.5 BASOPHIL # (test code=BA#) 0.01 K/mm3 0.0-0.2 NUCLEATED RBC # (test code=NRBC#) 0.02 K/mm3 0.0-0.1 MANUAL DIFF REQUIRED (test code=MDIFF) NO, ONLY SCAN NEEDED DIFFERENTIAL [id number] 06:19:00* Test Item Value Reference Range Comments STAIN ACCEPTABILITY (test code=STN ACCEPTABLE) MORPHOLOGY COMMENT (test code=MOC) PLATELET ESTIMATE (test code=PLTEST) PLATELET MORPHOLOGY (test code=PLTMORPH) CBC W/AUTO [id number] 06:19:00* Test Item Value Reference Range Comments WHITE BLOOD CELL (test code=WBC) 7.9 K/mm3 4.5-12.5 RED BLOOD CELL (test code=RBC) 3.82 mill/mm3 3.7-5.2 HEMOGLOBIN (test code=HGB) 10.4 gram/dL 11.5-15.5 HEMATOCRIT (test code=HCT) 35.7 % 36.0-46.0 MEAN CELL VOLUME (test code=MCV) 93.5 fL 80-98 MEAN CELL HGB (test code=MCH) 27.2 picogram 27.0-33.0 MEAN CELL HGB CONCETRATION (test code=MCHC) 29.1 gram/dL 33.0-36.0 RED CELL DISTRIBUTION WIDTH (test code=RDW) 17.4 % 11.6-16.2 RED CELL DISTRIBUTION WIDTH SD (test code=RDW-SD) 59.4 fL 37.0-51.0 PLATELET COUNT (test code=PLT) 212 K/mm3 150-450 MEAN PLATELET VOLUME (test code=MPV) 10.4 fL 6.7-11.0 NEUTROPHIL % (test code=NT%) 78.3 % 39.0-69.0 IMMATURE GRANULOCYTE % (test code=IG%) 0.8 % 0.0-5.0 LYMPHOCYTE % (test code=LY%) 13.5 % 25.0-55.0 MONOCYTE % (test code=MO%) 7.3 % 0.0-10.0 EOSINOPHIL % (test code=EO%) 0.0 % 0.0-5.0 BASOPHIL % (test code=BA%) 0.1 % 0.0-1.0 NUCLEATED RBC % (test code=NRBC%) 0.3 % 0-0 NEUTROPHIL # (test code=NT#) 6.18 K/mm3 1.8-7.7 IMMATURE GRANULOCYTE # (test code=IG#) 0.06 x10 3/uL 0-0.03 LYMPHOCYTE # (test code=LY#) 1.07 K/mm3 1.0-5.0 MONOCYTE # (test code=MO#) 0.58 K/mm3 0-0.8 EOSINOPHIL # (test code=EO#) 0.00 K/mm3 0.0-0.5 BASOPHIL # (test code=BA#) 0.01 K/mm3 0.0-0.2 NUCLEATED RBC # (test code=NRBC#) 0.02 K/mm3 0.0-0.1 MANUAL DIFF REQUIRED (test code=MDIFF) NO, ONLY SCAN NEEDED DIFFERENTIAL [id number] 06:19:00* Test Item Value Reference Range Comments STAIN ACCEPTABILITY (test code=STN ACCEPTABLE) CABOT RINGS (test code=CAB) MORPHOLOGY COMMENT (test code=MOC) PLATELET ESTIMATE (test code=PLTEST) PLATELET MORPHOLOGY (test code=PLTMORPH) BASIC METABOLIC [id number] 06:09:00* Test Item Value Reference Range Comments SODIUM (test code=NA) 150 mmol/L 136-145 POTASSIUM (test code=K) 3.1 mmol/L 3.5-5.1 CHLORIDE (test code=CL) 114.0 mmol/L 98-107 CARBON DIOXIDE (test code=CO2) 26.0 mmol/L 21-32 ANION GAP (test code=GAP) 13.1 10-20 GLUCOSE (test code=GLU) 60 mg/dL 74-106 BLOOD UREA NITROGEN (test code=BUN) 21 mg/dL 7-18 GLOMERULAR FILTRATION RATE (test code=GFR) 44 mL/min >=60 Estimated GFR by using Modified MDRD formula.Chronic kidney disease is defined as either kidney damageor GFR <60 mL/min/1.73 m2 for >3 months. CREATININE (test code=CREAT) 1.30 mg/dL 0.55-1.02 Note change in reference range due to change in reagent. BUN/CREATININE RATIO (test code=BUN/CREA) 16.4 10-20 CALCIUM (test code=CA) 7.7 mg/dL 8.5-10.1 CBC W/AUTO [id number] 16:04:00* Test Item Value Reference Range Comments WHITE BLOOD CELL (test code=WBC) 8.3 K/mm3 4.5-12.5 RED BLOOD CELL (test code=RBC) 3.73 mill/mm3 3.7-5.2 HEMOGLOBIN (test code=HGB) 10.3 gram/dL 11.5-15.5 HEMATOCRIT (test code=HCT) 33.6 % 36.0-46.0 MEAN CELL VOLUME (test code=MCV) 90.1 fL 80-98 MEAN CELL HGB (test code=MCH) 27.6 picogram 27.0-33.0 MEAN CELL HGB CONCETRATION (test code=MCHC) 30.7 gram/dL 33.0-36.0 RED CELL DISTRIBUTION WIDTH (test code=RDW) 16.8 % 11.6-16.2 RED CELL DISTRIBUTION WIDTH SD (test code=RDW-SD) 55.0 fL 37.0-51.0 PLATELET COUNT (test code=PLT) 242 K/mm3 150-450 RESULT VERIFIED BY REPEAT ANALYSIS MEAN PLATELET VOLUME (test code=MPV) 10.1 fL 6.7-11.0 NEUTROPHIL % (test code=NT%) 82.1 % 39.0-69.0 IMMATURE GRANULOCYTE % (test code=IG%) 0.6 % 0.0-5.0 LYMPHOCYTE % (test code=LY%) 10.2 % 25.0-55.0 MONOCYTE % (test code=MO%) 7.0 % 0.0-10.0 EOSINOPHIL % (test code=EO%) 0.0 % 0.0-5.0 BASOPHIL % (test code=BA%) 0.1 % 0.0-1.0 NUCLEATED RBC % (test code=NRBC%) 0.0 % 0-0 NEUTROPHIL # (test code=NT#) 6.81 K/mm3 1.8-7.7 IMMATURE GRANULOCYTE # (test code=IG#) 0.05 x10 3/uL 0-0.03 LYMPHOCYTE # (test code=LY#) 0.85 K/mm3 1.0-5.0 MONOCYTE # (test code=MO#) 0.58 K/mm3 0-0.8 EOSINOPHIL # (test code=EO#) 0.00 K/mm3 0.0-0.5 BASOPHIL # (test code=BA#) 0.01 K/mm3 0.0-0.2 NUCLEATED RBC # (test code=NRBC#) 0.00 K/mm3 0.0-0.1 MANUAL DIFF REQUIRED (test code=MDIFF) NO HARDSTICK COULD NOT FIND TRACEY VALLADARESKP2 07/22/19 1202Drawn From PICC LineGLUBED 2019-07-22 15:50:00* Test Item Value Reference Range Comments GLUBED (test code=GLUBED) 76 mg/dL 74-106 Performed by certified tracing lathe set up operator at [facility] BASIC METABOLIC [id number] 14:44:00* Test Item Value Reference Range Comments SODIUM (test code=NA) 149 mmol/L 136-145 POTASSIUM (test code=K) 2.5 mmol/L 3.5-5.1 Results called to [id number] by V.LAB.GP 07/22/19 1444Critical results verified and read back by Nurse? Y CHLORIDE (test code=CL) 108.0 mmol/L 98-107 CARBON DIOXIDE (test code=CO2) 31.0 mmol/L 21-32 ANION GAP (test code=GAP) 12.5 10-20 GLUCOSE (test code=GLU) 88 mg/dL 74-106 BLOOD UREA NITROGEN (test code=BUN) 19 mg/dL 7-18 GLOMERULAR FILTRATION RATE (test code=GFR) 48 mL/min >=60 Estimated GFR by using Modified MDRD formula.Chronic kidney disease is defined as either kidney damageor GFR <60 mL/min/1.73 m2 for >3 months. CREATININE (test code=CREAT) 1.20 mg/dL 0.55-1.02 Note change in reference range due to change in reagent. BUN/CREATININE RATIO (test code=BUN/CREA) 16.0 10-20 CALCIUM (test code=CA) 7.8 mg/dL 8.5-10.1 HARDSTICK COULD NOT FIND RN V.LAB.[facility] 07/22/19 [id number] 05:58:00 * Test Item Value Reference Range Comments TROPONIN-I (test code=TROPI) 0.017 ng/mL 0-0.045 COMMENTS TO FLOOR PLAN ADJUSTER: COLLECT 3 HOURS AFTER PREVIOUS [id number] 04:01:00* Test Item Value Reference Range Comments TROPONIN-I (test code=TROPI) 0.017 ng/mL 0-0.045 COMMENTS TO FLOOR PLAN ADJUSTER: COLLECT 3 HOURS AFTER PREVIOUS SAMPLEPROTHROMBIN [id number] 00:17:00* Test Item Value Reference Range Comments PROTHROMBIN TIME PATIENT (test code=PTP) 25.4 seconds 9.0-14.0 INTERNATIONAL NORMAL RATIO (test code=INR) 2.2 0.8-1.2 The therapeutic range for oral anticoagulant therapy formost indications is an international normalized ratio (INR)of between 2.0 and 3.0. The recommended therapeutic INRrange for various clinical situations is listed below: Clinical Situation INR range Pulmonary e mbolism treatment (2.0-3.0)Venous thrombosis treatmentVenous thrombosis prophylaxis (high risk surgery)Prevention of systemic embolism from: Acute myocardial infarction Valvular heart disease Atrial fibrillation Mechanical prosthetic heart valves (2.5-3.5) CBC W/O [id number] 23:57:00* Test Item Value Reference Range Comments WHITE BLOOD CELL (test code=WBC) 9.4 K/mm3 4.5-12.5 RED BLOOD CELL (test code=RBC) 4.02 mill/mm3 3.7-5.2 HEMOGLOBIN (test code=HGB) 11.2 gram/dL 11.5-15.5 HEMATOCRIT (test code=HCT) 36.2 % 36.0-46.0 MEAN CELL VOLUME (test code=MCV) 90.0 fL 80-98 MEAN CELL HGB (test code=MCH) 27.9 picogram 27.0-33.0 MEAN CELL HGB CONCETRATION (test code=MCHC) 30.9 gram/dL 33.0-36.0 RED CELL DISTRIBUTION WIDTH (test code=RDW) 16.7 % 11.6-16.2 PLATELET COUNT (test code=PLT) 304 K/mm3 150-450 MEAN PLATELET VOLUME (test code=MPV) 10.0 fL 6.7-11.0 CBC W/O [id number] 23:54:00* Test Item Value Reference Range Comments WHITE BLOOD CELL (test code=WBC) K/mm3 4.5-12.5 RED BLOOD CELL (test code=RBC) mill/mm3 3.7-5.2 HEMOGLOBIN (test code=HGB) gram/dL 11.5-15.5 HEMATOCRIT (test code=HCT) 36.2 % 36.0-46.0 MEAN CELL VOLUME (test code=MCV) fL 80-98 MEAN CELL HGB (test code=MCH) picogram 27.0-33.0 MEAN CELL HGB CONCETRATION (test code=MCHC) gram/dL 33.0-36.0 RED CELL DISTRIBUTION WIDTH (test code=RDW) % 11.6-16.2 PLATELET COUNT (test code=PLT) K/mm3 150-450 MEAN PLATELET VOLUME (test code=MPV) fL 6.7-11.0 - CT ABD PELVIS [id number] 21:54:00 Name: MARI HORVATH [facility] : 1975 Age/S: 44 / [facility] [address] [facility]: [id number] Loc: [place] [address] Phys: Jose F Hobbs MD Acct: [id number] Dis Date: Status: ADM IN PHONE #: [phone] Exam Date: 07/21/20192129 FAX #: [phone] Reason: abd pain, hematemesis EXAMS: CPT CODE: [id number] CT ABD PELVIS W/CONT 81411 HISTORY: Abdominal pain and hematemesis. COMPARISON: CT scan from May 03, 2019. CT abdomen and pelvis with IV contrast: 100 mL of Isovue-370. Automated exposure control. CT of abdomen: The lung bases are clear. The liver is severely fatty infiltrated. The liver is measuring 20.5 cm in length. Areas of fatty sparing as well. Portal vein and hepatic artery are patent. The spleen is not enlarged. The stomach is distended incompletely however it is within normal limits. Pancreas is demonstrating extensive coarse calcifications suggesting dystrophic calcifications with chronic pancreatitis. No acute pancreatitis. No ductal dilatation. Unremarkable adrenals. Kidneys are free from hydroureteronephrosis with homogeneous enhancement and bilateral excretion. 1.3 cm right interpolar Bosniak 1 lesion with average Hounsfield unit measurement of 14. Excretion is not seen which may suggest timing of imaging or renal insufficiency. Correlate with renal function tests. No pathologic adenopathy. IVC filter noted caudal to the level of the renal veins. Well-opacified abdominal and pelvic vasculature. No bowel obstruction. The small bowel loops demonstrating mild thickening of the jejunal loops suggesting mild enteritis. Severe thickening of the entire colon consistent with severe acute pancolitis. Pericolonic inflammation. CT PELVIS: Appendix is normal. Severe pancolitis with severe circumferential wall thickening of the entire colon. The small bowel loops in the pelvis are unremarkable. No free fluid or free air or abscess. Small amount of air within the urinary bladder. Correlate if patient has been instrumented. The uterus is unremarkable. Tubal l igation clips. Ovaries are not clearly visible. Small free fluid in the PAGE 1 Signed Report (CONTINUED) N tess: MARI HORVATH [facility] : 0 1975 Age/S: 44 / F [address] Unit #: [id number] Loc: [place], [place] [address] Phys: Jose F Hobbs MD Acct: [id number] Dis D ate: Status: ADM IN PHONE #: Exam Date: 07/21/20192129 FAX #: [phone] Reason: abd pain, hematemesis EXAMS: CPT CODE: [id number] CT ABD PELVIS W/ CONT 72677 <Continued> pelvis. No free air or abscess. No pelvic pathologic adenopathy. Subcutaneous tissues and the musculature are normal in appearance. No lytic or blastic lesions are noted within the bony skeleton. Osteoporosis and DJD. Severe old compression fracture deformity of L3 vertebral body noted again. Schmorl's node at T11. IMPRESSION: Severe circumferential wall thickening of the entire colon consistent with severe acute pancolitis. Mild thickening of the proximal jejunal loops with suggest mild enteritis. Severe fatty infiltration of the liver with hepatomegaly. Small amount of air within the urinary bladder. Correlate if patient has been instrumented otherwise this could re present gas-forming organism. at 2154 Reported and signed by: Aaron Timmons M.D. CC: Jose F Hobbs MD Technologist:Nando Gonzalez, RT(R)(CT) CTDI: DLP: Trnscb Date/Time: 07/21/2019 (2153) [email or web address] Orig Print D/T: S: 07/21/2019 (2) PAGE 2 Signed Report - XR CHEST 1 [id number] 21:03:00 FAX: Jose F Hobbs MD [phone] [place]: [address] St: ADM Name: MARI WILLIAM [facility] : [birth year] Age/S: 44/F Lamar Benjamin Unit #: [id number] Loc: [place] [address] Phys: Jose F Hobbs MD Acct: [id number] Dis Date: Status: ADM IN PHONE #: [phone] Exam Date: 07/21/20192039 FAX #: [phone] Reason: post central line EXAMS: CPT CODE: [id number] XR CHEST 1 V 49367 HISTORY: Post central line placement. COMPARISON: June 02, 2019. Right jugular central line with the tip projected over the SVC without pneumothorax. No acute infiltrates, effusion or congestion is noted. The c ardiac and mediastinal silhouette are within normal limits. IMP RESSION: No acute infiltrates, effusion or congestion. No pne umothorax after right jugular central line placement with the tip projec antonia over the SVC. at 2102 Reported and signed by: Aaron mccray M.D. CC: Jose F Hobbs MD Technologist: Moises Neumann, RT(R; ... Trnscrd Date/Time/By: 07/21/2019 (2102) : By: BassamTH4 Orig Print D /T: S: 07/21/2019 (2105) PAGE 1 S igned Report BASIC METABOLIC [id number] 19:15:00* Test Item Value Reference Range Comments SODIUM (test code=NA) 148 mmol/L 136-145 POTASSIUM (test code=K) 2.2 mmol/L 3.5-5.1 Results called to [id number] by JACQUELYNLT 07/21/19 1915Critical results verified and read back by Nurse? Y CHLORIDE (test code=CL) 109.0 mmol/L 98-107 CARBON DIOXIDE (test code=CO2) 32.0 mmol/L 21-32 ANION GAP (test code=GAP) 9.2 10-20 GLUCOSE (test code=GLU) 86 mg/dL 74-106 BLOOD UREA NITROGEN (test code=BUN) 18 mg/dL 7-18 GLOMERULAR FILTRATION RATE (test code=GFR) 53 mL/min >=60 Estimated GFR by using Modified MDRD formula.Chronic kidney disease is defined as either kidney damageor GFR <60 mL/min/1.73 m2 for >3 months. CREATININE (test code=CREAT) 1.10 mg/dL 0.55-1.02 Note change in reference range due to change in reagent. BUN/CREATININE RATIO (test code=BUN/CREA) 16.5 10-20 CALCIUM (test code=CA) 7.8 mg/dL 8.5-10.1 HEPATIC FUNCTION [id number] 19:15:00* Test Item Value Reference Range Comments TOTAL PROTEIN (test code=PROT) 6.3 gram/dL 6.4-8.2 ALBUMIN (test code=ALB) 1.9 g/dL 3.4-5.0 GLOBULIN (test code=GLOB) 4.4 gram/dL 2.7-4.2 ALBUMIN/GLOBULIN RATIO (test code=A/G) 0.4 0.75-1.50 BILIRUBIN TOTAL (test code=BILT) 0.70 mg/dL 0.0-1.0 BILIRUBIN DIRECT (test code=BILD) 0.41 mg/dL 0.0-0.20 SGOT/AST (test code=AST) 36 IUnit/L 15-37 SGPT/ALT (test code=ALT) 17 IUnit/L 12-78 ALKALINE PHOSPHATASE TOTAL (test code=ALKP) 229 IUnit/L 45-117 Note change in reference range due to change in reagent. [id number] 19:15:00* Test Item Value Reference Range Comments LIPASE (test code=LIP) 66 U/L 73.0-393.0 [id number] 04:32:00* Test Item Value Reference Range Comments GLUBED (test code=GLUBED) 76 mg/dL 74-106 Performed by certified tracing lathe set up operator at [facility] [id number] 21:11:00* Test Item Value Reference Range Comments GLUBED (test code=GLUBED) 116 mg/dL 74-106 Performed by certified tracing lathe set up operator at [facility] - XR CHEST 1 [id number] 19:52:00 FAX: Jayme Garcia MD [phone] [place]: St: ADM Name: MARI WILLIAM [facility] : [birth year] Age/S: 44/F [address] Unit #: [id number] Loc: V[address] [place] [address] Phys: Cuauhtemoc Benjamin MD Acct: [id number] Dis Date: Status: ADM IN PHONE #: [phone] Exam Date: 06/02/2019 174 FAX #: [phone] Reason: POST LINE REMOVAL EXAMS: CPT CODE: [id number] XR CHEST 1 V 86215 EXAM: Chest x-ray, one view; INFORMATION: HISTORY of septic shock; status post removal of central line; IMPRESSION: 1. No acute abnormalities after re moval of a right subclavian tunneled central line. 2. A previous ly seen tracheostomy tube is also been removed. 3. Small platelike atele ctasis in the right lung base; otherwise, lungs are clear; 4. Un remarkable cardiomediastinal silhouette. Electronically Sig zee by Mita Stevens on 06/02/2019 at 1951 Reported and signed by: Michael Stevens M.D. CC: Jayme Guillen Technologist: СВЕТЛАНА MUHAMMAD, RT(R); ... Trnbarbara Date/Time/By: 06/02/2019 (1951) : By: Jhonatan Orig Print D/T: S: 06/02/2019 (1954) PAGE 1 Signed R eport [id number] 16:27:00* Test Item Value Reference Range Comments GLUBED (test code=GLUBED) 96 mg/dL 74-106 Performed by certified tracing lathe set up operator at [facility] BASIC METABOLIC [id number] 09:03:00* Test Item Value Reference Range Comments SODIUM (test code=NA) 142 mmol/L 136-145 POTASSIUM (test code=K) 3.5 mmol/L 3.5-5.1 CHLORIDE (test code=CL) 105.0 mmol/L 98-107 CARBON DIOXIDE (test code=CO2) 31.0 mmol/L 21-32 ANION GAP (test code=GAP) 9.5 10-20 GLUCOSE (test code=GLU) 91 mg/dL 74-106 BLOOD UREA NITROGEN (test code=BUN) 10 mg/dL 7-18 GLOMERULAR FILTRATION RATE (test code=GFR) > 60 mL/min >=60 Estimated GFR by using Modified MDRD formula.Chronic kidney disease is defined as either kidney damageor GFR <60 mL/min/1.73 m2 for >3 months. CREATININE (test code=CREAT) 0.40 mg/dL 0.55-1.02 Note change in reference range due to change in reagent. BUN/CREATININE RATIO (test code=BUN/CREA) 24.8 10-20 CALCIUM (test code=CA) 8.4 mg/dL 8.5-10.1 BASIC METABOLIC [id number] 08:50:00* Test Item Value Reference Range Comments SODIUM (test code=NA) 142 mmol/L 136-145 POTASSIUM (test code=K) 3.5 mmol/L 3.5-5.1 CHLORIDE (test code=CL) 105.0 mmol/L 98-107 CARBON DIOXIDE (test code=CO2) mmol/L 21-32 ANION GAP (test code=GAP) 10-20 GLUCOSE (test code=GLU) mg/dL 74-106 BLOOD UREA NITROGEN (test code=BUN) mg/dL 7-18 GLOMERULAR FILTRATION RATE (test code=GFR) mL/min >=60 CREATININE (test code=CREAT) mg/dL 0.55-1.02 BUN/CREATININE RATIO (test code=BUN/CREA) 10-20 CALCIUM (test code=CA) mg/dL 8.5-10.1 [id number] 06:09:00* Test Item Value Reference Range Comments GLUBED (test code=GLUBED) 84 mg/dL 74-106 Performed by certified tracing lathe set up operator at [facility] [id number] 00:12:00* Test Item Value Reference Range Comments GLUBED (test code=GLUBED) 103 mg/dL 74-106 Performed by certified tracing lathe set up operator at [facility] [id number] 20:43:00* Test Item Value Reference Range Comments GLUBED (test code=GLUBED) 92 mg/dL 74-106 Performed by certified tracing lathe set up operator at [facility] BASIC METABOLIC [id number] 19:57:00* Test Item Value Reference Range Comments SODIUM (test code=NA) 139 mmol/L 136-145 POTASSIUM (test code=K) 3.5 mmol/L 3.5-5.1 CHLORIDE (test code=CL) 103.0 mmol/L 98-107 CARBON DIOXIDE (test code=CO2) 31.0 mmol/L 21-32 ANION GAP (test code=GAP) 8.5 10-20 GLUCOSE (test code=GLU) 128 mg/dL 74-106 BLOOD UREA NITROGEN (test code=BUN) 11 mg/dL 7-18 GLOMERULAR FILTRATION RATE (test code=GFR) > 60 mL/min >=60 Estimated GFR by using Modified MDRD formula.Chronic kidney disease is defined as either kidney damageor GFR <60 mL/min/1.73 m2 for >3 months. CREATININE (test code=CREAT) 0.50 mg/dL 0.55-1.02 Note change in reference range due to change in reagent. BUN/CREATININE RATIO (test code=BUN/CREA) 24.0 10-20 CALCIUM (test code=CA) 8.4 mg/dL 8.5-10.1 06/01/19 1201BASIC METABOLIC [id number] 19:50:00* Test Item Value Reference Range Comments SODIUM (test code=NA) 139 mmol/L 136-145 POTASSIUM (test code=K) 3.5 mmol/L 3.5-5.1 CHLORIDE (test code=CL) 103.0 mmol/L 98-107 CARBON DIOXIDE (test code=CO2) mmol/L 21-32 ANION GAP (test code=GAP) 10-20 GLUCOSE (test code=GLU) mg/dL 74-106 BLOOD UREA NITROGEN (test code=BUN) mg/dL 7-18 GLOMERULAR FILTRATION RATE (test code=GFR) mL/min >=60 CREATININE (test code=CREAT) mg/dL 0.55-1.02 BUN/CREATININE RATIO (test code=BUN/CREA) 10-20 CALCIUM (test code=CA) mg/dL 8.5-10.1 06/01/19 1201CBC W/AUTO [id number] 19:17:00* Test Item Value Reference Range Comments WHITE BLOOD CELL (test code=WBC) 4.6 K/mm3 4.5-12.5 RED BLOOD CELL (test code=RBC) 2.58 mill/mm3 3.7-5.2 HEMOGLOBIN (test code=HGB) 7.9 gram/dL 11.5-15.5 HEMATOCRIT (test code=HCT) 25.7 % 36.0-46.0 MEAN CELL VOLUME (test code=MCV) 99.6 fL 80-98 MEAN CELL HGB (test code=MCH) 30.6 picogram 27.0-33.0 MEAN CELL HGB CONCETRATION (test code=MCHC) 30.7 gram/dL 33.0-36.0 RED CELL DISTRIBUTION WIDTH (test code=RDW) 19.0 % 11.6-16.2 RED CELL DISTRIBUTION WIDTH SD (test code=RDW-SD) 69.7 fL 37.0-51.0 PLATELET COUNT (test code=PLT) 177 K/mm3 150-450 MEAN PLATELET VOLUME (test code=MPV) 10.4 fL 6.7-11.0 NEUTROPHIL % (test code=NT%) 69.0 % 39.0-69.0 IMMATURE GRANULOCYTE % (test code=IG%) 0.9 % 0.0-5.0 LYMPHOCYTE % (test code=LY%) 17.5 % 25.0-55.0 MONOCYTE % (test code=MO%) 7.5 % 0.0-10.0 EOSINOPHIL % (test code=EO%) 4.4 % 0.0-5.0 BASOPHIL % (test code=BA%) 0.7 % 0.0-1.0 NUCLEATED RBC % (test code=NRBC%) 0.0 % 0-0 NEUTROPHIL # (test code=NT#) 3.15 K/mm3 1.8-7.7 IMMATURE GRANULOCYTE # (test code=IG#) 0.04 x10 3/uL 0-0.03 LYMPHOCYTE # (test code=LY#) 0.80 K/mm3 1.0-5.0 MONOCYTE # (test code=MO#) 0.34 K/mm3 0-0.8 EOSINOPHIL # (test code=EO#) 0.20 K/mm3 0.0-0.5 BASOPHIL # (test code=BA#) 0.03 K/mm3 0.0-0.2 NUCLEATED RBC # (test code=NRBC#) 0.00 K/mm3 0.0-0.1 TRACEY ROMERO NOT WORKINGV.LAB. 06/01/19 [id number] 16:47:00* Test Item Value Reference Range Comments GLUBED (test code=GLUBED) 80 mg/dL 74-106 Performed by certified tracing lathe set up operator at [facility] [id number] 12:06:00* Test Item Value Reference Range Comments GLUBED (test code=GLUBED) 88 mg/dL 74-106 Performed by certified tracing lathe set up operator at [facility] [id number] 05:30:00* Test Item Value Reference Range Comments GLUBED (test code=GLUBED) 98 mg/dL 74-106 Performed by certified tracing lathe set up operator at [facility] [id number] 01:24:00* Test Item Value Reference Range Comments GLUBED (test code=GLUBED) 101 mg/dL 74-106 Performed by certified tracing lathe set up operator at [facility] [id number] 20:19:00* Test Item Value Reference Range Comments GLUBED (test code=GLUBED) 118 mg/dL 74-106 Performed by certified tracing lathe set up operator at [facility] [id number] 17:30:00* Test Item Value Reference Range Comments GLUBED (test code=GLUBED) 102 mg/dL 74-106 Performed by certified tracing lathe set up operator at [facility] - XR SWLW FUNC W/C [id number] 13:18:00 FAX: Jayme Garcia MD [phone] [place]: [address] St: ADM Name: MARI WILLIAM [facility] : [birth year] Age/S: 44/F [address] [facility] Unit #: [id number] Loc: [address] [place] [address] Phys: Jayme Guillen MD Acct: [id number] Dis Date: Status: ADM IN PHONE #: [phone] Exam Date: 05/31/2019 1010 FAX #: [phone] Reason: DYSPHAGIA EXAMS: CPT CODE: [id number] XR SWLW FUN W/C V 63152 REASON FOR EXAM: DYSPHAGIA EXAM ORDER DATE: 05/31/2019 12:00 AM Attending MAgustin.: Jayme Guillen MD PROCEDURE: Barium swallow FINDI NGS: The exam was performed to assist the speech pathologist in performing the barium swallow exam for assessment of aspiration, penetration, and fu nction and motility of the oropharynx. The patient was giving teaspoon, c up, straw of thin liquid, teaspoon, cup, straw of thick liquid, puree, me chanical soft food coated with barium and regular food coated with barium to swallow. Fluoroscopic time:162 sec Fluoroscopic dose:5 .3 mGy Number of images obtained: 15 IMPRESSION: Penetrati on and silent aspiration with thin liquid. Please see the speech patholo gist report. Electronically Signed by Mita Benjamin on 05/05 at 1318 Reported and signed by: Cuauhtemoc Benjamin M.D. CC: Jayme Guillen Technol ogist: Keisha Lucas RT(R) Trnscrd Date/Time/ By: 05/31/2019 (7243) : By: Shelia Orig Print D/T: S: 05/31/2019 (6 438) PAGE 1 Signed Report [id number] 11:52:00* Test Item Value Reference Range Comments GLUBED (test code=GLUBED) 118 mg/dL 74-106 Performed by certified tracing lathe set up operator at [facility] BASIC METABOLIC [id number] 11:45:00* Test Item Value Reference Range Comments SODIUM (test code=NA) 139 mmol/L 136-145 POTASSIUM (test code=K) 3.4 mmol/L 3.5-5.1 CHLORIDE (test code=CL) 101.0 mmol/L 98-107 CARBON DIOXIDE (test code=CO2) 33.0 mmol/L 21-32 ANION GAP (test code=GAP) 8.4 10-20 GLUCOSE (test code=GLU) 137 mg/dL 74-106 BLOOD UREA NITROGEN (test code=BUN) 15 mg/dL 7-18 GLOMERULAR FILTRATION RATE (test code=GFR) > 60 mL/min >=60 Estimated GFR by using Modified MDRD formula.Chronic kidney disease is defined as either kidney damageor GFR <60 mL/min/1.73 m2 for >3 months. CREATININE (test code=CREAT) 0.40 mg/dL 0.55-1.02 Note change in reference range due to change in reagent. BUN/CREATININE RATIO (test code=BUN/CREA) 37.5 10-20 CALCIUM (test code=CA) 8.5 mg/dL 8.5-10.1 [id number] 11:45:00* Test Item Value Reference Range Comments MAGNESIUM (test code=MAG) 2.1 mg/dL 1.8-2.4 BASIC METABOLIC [id number] 11:36:00* Test Item Value Reference Range Comments SODIUM (test code=NA) 139 mmol/L 136-145 POTASSIUM (test code=K) 3.4 mmol/L 3.5-5.1 CHLORIDE (test code=CL) 101.0 mmol/L 98-107 CARBON DIOXIDE (test code=CO2) mmol/L 21-32 ANION GAP (test code=GAP) 10-20 GLUCOSE (test code=GLU) mg/dL 74-106 BLOOD UREA NITROGEN (test code=BUN) mg/dL 7-18 GLOMERULAR FILTRATION RATE (test code=GFR) mL/min >=60 CREATININE (test code=CREAT) mg/dL 0.55-1.02 BUN/CREATININE RATIO (test code=BUN/CREA) 10-20 CALCIUM (test code=CA) mg/dL 8.5-10.1 [id number] 11:36:00* Test Item Value Reference Range Comments MAGNESIUM (test code=MAG) mg/dL 1.8-2.4 CBC W/AUTO [id number] 11:08:00* Test Item Value Reference Range Comments WHITE BLOOD CELL (test code=WBC) 4.4 K/mm3 4.5-12.5 RED BLOOD CELL (test code=RBC) 2.47 mill/mm3 3.7-5.2 HEMOGLOBIN (test code=HGB) 7.7 gram/dL 11.5-15.5 HEMATOCRIT (test code=HCT) 25.3 % 36.0-46.0 MEAN CELL VOLUME (test code=MCV) 102.4 fL 80-98 MEAN CELL HGB (test code=MCH) 31.2 picogram 27.0-33.0 MEAN CELL HGB CONCETRATION (test code=MCHC) 30.4 gram/dL 33.0-36.0 RED CELL DISTRIBUTION WIDTH (test code=RDW) 19.9 % 11.6-16.2 RED CELL DISTRIBUTION WIDTH SD (test code=RDW-SD) 75.7 fL 37.0-51.0 PLATELET COUNT (test code=PLT) 178 K/mm3 150-450 MEAN PLATELET VOLUME (test code=MPV) 10.3 fL 6.7-11.0 NEUTROPHIL % (test code=NT%) 64.8 % 39.0-69.0 IMMATURE GRANULOCYTE % (test code=IG%) 0.7 % 0.0-5.0 LYMPHOCYTE % (test code=LY%) 21.8 % 25.0-55.0 MONOCYTE % (test code=MO%) 7.6 % 0.0-10.0 EOSINOPHIL % (test code=EO%) 4.6 % 0.0-5.0 BASOPHIL % (test code=BA%) 0.5 % 0.0-1.0 NUCLEATED RBC % (test code=NRBC%) 0.0 % 0-0 NEUTROPHIL # (test code=NT#) 2.83 K/mm3 1.8-7.7 IMMATURE GRANULOCYTE # (test code=IG#) 0.03 x10 3/uL 0-0.03 LYMPHOCYTE # (test code=LY#) 0.95 K/mm3 1.0-5.0 MONOCYTE # (test code=MO#) 0.33 K/mm3 0-0.8 EOSINOPHIL # (test code=EO#) 0.20 K/mm3 0.0-0.5 BASOPHIL # (test code=BA#) 0.02 K/mm3 0.0-0.2 NUCLEATED RBC # (test code=NRBC#) 0.00 K/mm3 0.0-0.1 [id number] 06:17:00* Test Item Value Reference Range Comments GLUBED (test code=GLUBED) 104 mg/dL 74-106 Performed by certified tracing lathe set up operator at [facility] [id number] 02:28:00* Test Item Value Reference Range Comments GLUBED (test code=GLUBED) 106 mg/dL 74-106 Performed by certified tracing lathe set up operator at [facility] [id number] 00:07:00* Test Item Value Reference Range Comments GLUBED (test code=GLUBED) 105 mg/dL 74-106 Performed by certified tracing lathe set up operator at [facility] CBC W/AUTO [id number] 08:02:00* Test Item Value Reference Range Comments WHITE BLOOD CELL (test code=WBC) 4.6 K/mm3 4.5-12.5 RED BLOOD CELL (test code=RBC) 2.33 mill/mm3 3.7-5.2 HEMOGLOBIN (test code=HGB) 7.2 gram/dL 11.5-15.5 HEMATOCRIT (test code=HCT) 23.8 % 36.0-46.0 MEAN CELL VOLUME (test code=MCV) 102.1 fL 80-98 MEAN CELL HGB (test code=MCH) 30.9 picogram 27.0-33.0 MEAN CELL HGB CONCETRATION (test code=MCHC) 30.3 gram/dL 33.0-36.0 RED CELL DISTRIBUTION WIDTH (test code=RDW) 20.8 % 11.6-16.2 RED CELL DISTRIBUTION WIDTH SD (test code=RDW-SD) 77.1 fL 37.0-51.0 PLATELET COUNT (test code=PLT) 176 K/mm3 150-450 MEAN PLATELET VOLUME (test code=MPV) 10.3 fL 6.7-11.0 NEUTROPHIL % (test code=NT%) 61.4 % 39.0-69.0 IMMATURE GRANULOCYTE % (test code=IG%) 0.7 % 0.0-5.0 LYMPHOCYTE % (test code=LY%) 24.4 % 25.0-55.0 MONOCYTE % (test code=MO%) 8.3 % 0.0-10.0 EOSINOPHIL % (test code=EO%) 4.8 % 0.0-5.0 BASOPHIL % (test code=BA%) 0.4 % 0.0-1.0 NUCLEATED RBC % (test code=NRBC%) 0.0 % 0-0 NEUTROPHIL # (test code=NT#) 2.82 K/mm3 1.8-7.7 IMMATURE GRANULOCYTE # (test code=IG#) 0.03 x10 3/uL 0-0.03 LYMPHOCYTE # (test code=LY#) 1.12 K/mm3 1.0-5.0 MONOCYTE # (test code=MO#) 0.38 K/mm3 0-0.8 EOSINOPHIL # (test code=EO#) 0.22 K/mm3 0.0-0.5 BASOPHIL # (test code=BA#) 0.02 K/mm3 0.0-0.2 NUCLEATED RBC # (test code=NRBC#) 0.00 K/mm3 0.0-0.1 MANUAL DIFF REQUIRED (test code=MDIFF) NO, ONLY SCAN NEEDED DIFFERENTIAL [id number] 08:02:00* Test Item Value Reference Range Comments STAIN ACCEPTABILITY (test code=STN ACCEPTABLE) STAIN ACCEPTABLE POLYCHROMASIA (test code=POLC) 1+ ANISOCYTOSIS (test code=ANISO) 2+ MACROCYTOSIS (test code=MACR) 1+ PLATELET ESTIMATE (test code=PLTEST) ADEQUATE PLATELET MORPHOLOGY (test code=PLTMORPH) NORMAL BASIC METABOLIC [id number] 07:07:00* Test Item Value Reference Range Comments SODIUM (test code=NA) 142 mmol/L 136-145 POTASSIUM (test code=K) 3.5 mmol/L 3.5-5.1 CHLORIDE (test code=CL) 103.0 mmol/L 98-107 CARBON DIOXIDE (test code=CO2) 32.0 mmol/L 21-32 ANION GAP (test code=GAP) 10.5 10-20 GLUCOSE (test code=GLU) 121 mg/dL 74-106 BLOOD UREA NITROGEN (test code=BUN) 15 mg/dL 7-18 GLOMERULAR FILTRATION RATE (test code=GFR) > 60 mL/min >=60 Estimated GFR by using Modified MDRD formula.Chronic kidney disease is defined as either kidney damageor GFR <60 mL/min/1.73 m2 for >3 months. CREATININE (test code=CREAT) 0.40 mg/dL 0.55-1.02 Note change in reference range due to change in reagent. BUN/CREATININE RATIO (test code=BUN/CREA) 37.5 10-20 CALCIUM (test code=CA) 8.2 mg/dL 8.5-10.1 [id number] 07:07:00* Test Item Value Reference Range Comments MAGNESIUM (test code=MAG) 1.7 mg/dL 1.8-2.4 BASIC METABOLIC [id number] 06:59:00* Test Item Value Reference Range Comments SODIUM (test code=NA) 142 mmol/L 136-145 POTASSIUM (test code=K) 3.5 mmol/L 3.5-5.1 CHLORIDE (test code=CL) 103.0 mmol/L 98-107 CARBON DIOXIDE (test code=CO2) mmol/L 21-32 ANION GAP (test code=GAP) 10-20 GLUCOSE (test code=GLU) mg/dL 74-106 BLOOD UREA NITROGEN (test code=BUN) mg/dL 7-18 GLOMERULAR FILTRATION RATE (test code=GFR) mL/min >=60 CREATININE (test code=CREAT) mg/dL 0.55-1.02 BUN/CREATININE RATIO (test code=BUN/CREA) 10-20 CALCIUM (test code=CA) mg/dL 8.5-10.1 [id number] 06:59:00* Test Item Value Reference Range Comments MAGNESIUM (test code=MAG) mg/dL 1.8-2.4 CBC W/AUTO [id number] 06:47:00* Test Item Value Reference Range Comments WHITE BLOOD CELL (test code=WBC) 4.6 K/mm3 4.5-12.5 RED BLOOD CELL (test code=RBC) 2.33 mill/mm3 3.7-5.2 HEMOGLOBIN (test code=HGB) 7.2 gram/dL 11.5-15.5 HEMATOCRIT (test code=HCT) 23.8 % 36.0-46.0 MEAN CELL VOLUME (test code=MCV) 102.1 fL 80-98 MEAN CELL HGB (test code=MCH) 30.9 picogram 27.0-33.0 MEAN CELL HGB CONCETRATION (test code=MCHC) 30.3 gram/dL 33.0-36.0 RED CELL DISTRIBUTION WIDTH (test code=RDW) 20.8 % 11.6-16.2 RED CELL DISTRIBUTION WIDTH SD (test code=RDW-SD) 77.1 fL 37.0-51.0 PLATELET COUNT (test code=PLT) 176 K/mm3 150-450 MEAN PLATELET VOLUME (test code=MPV) 10.3 fL 6.7-11.0 NEUTROPHIL % (test code=NT%) 61.4 % 39.0-69.0 IMMATURE GRANULOCYTE % (test code=IG%) 0.7 % 0.0-5.0 LYMPHOCYTE % (test code=LY%) 24.4 % 25.0-55.0 MONOCYTE % (test code=MO%) 8.3 % 0.0-10.0 EOSINOPHIL % (test code=EO%) 4.8 % 0.0-5.0 BASOPHIL % (test code=BA%) 0.4 % 0.0-1.0 NUCLEATED RBC % (test code=NRBC%) 0.0 % 0-0 NEUTROPHIL # (test code=NT#) 2.82 K/mm3 1.8-7.7 IMMATURE GRANULOCYTE # (test code=IG#) 0.03 x10 3/uL 0-0.03 LYMPHOCYTE # (test code=LY#) 1.12 K/mm3 1.0-5.0 MONOCYTE # (test code=MO#) 0.38 K/mm3 0-0.8 EOSINOPHIL # (test code=EO#) 0.22 K/mm3 0.0-0.5 BASOPHIL # (test code=BA#) 0.02 K/mm3 0.0-0.2 NUCLEATED RBC # (test code=NRBC#) 0.00 K/mm3 0.0-0.1 MANUAL DIFF REQUIRED (test code=MDIFF) NO, ONLY SCAN NEEDED DIFFERENTIAL [id number] 06:47:00* Test Item Value Reference Range Comments STAIN ACCEPTABILITY (test code=STN ACCEPTABLE) CABOT RINGS (test code=CAB) MORPHOLOGY COMMENT (test code=MOC) PLATELET ESTIMATE (test code=PLTEST) PLATELET MORPHOLOGY (test code=PLTMORPH) CBC W/AUTO [id number] 06:47:00* Test Item Value Reference Range Comments WHITE BLOOD CELL (test code=WBC) 4.6 K/mm3 4.5-12.5 RED BLOOD CELL (test code=RBC) 2.33 mill/mm3 3.7-5.2 HEMOGLOBIN (test code=HGB) 7.2 gram/dL 11.5-15.5 HEMATOCRIT (test code=HCT) 23.8 % 36.0-46.0 MEAN CELL VOLUME (test code=MCV) 102.1 fL 80-98 MEAN CELL HGB (test code=MCH) 30.9 picogram 27.0-33.0 MEAN CELL HGB CONCETRATION (test code=MCHC) 30.3 gram/dL 33.0-36.0 RED CELL DISTRIBUTION WIDTH (test code=RDW) 20.8 % 11.6-16.2 RED CELL DISTRIBUTION WIDTH SD (test code=RDW-SD) 77.1 fL 37.0-51.0 PLATELET COUNT (test code=PLT) 176 K/mm3 150-450 MEAN PLATELET VOLUME (test code=MPV) 10.3 fL 6.7-11.0 NEUTROPHIL % (test code=NT%) 61.4 % 39.0-69.0 IMMATURE GRANULOCYTE % (test code=IG%) 0.7 % 0.0-5.0 LYMPHOCYTE % (test code=LY%) 24.4 % 25.0-55.0 MONOCYTE % (test code=MO%) 8.3 % 0.0-10.0 EOSINOPHIL % (test code=EO%) 4.8 % 0.0-5.0 BASOPHIL % (test code=BA%) 0.4 % 0.0-1.0 NUCLEATED RBC % (test code=NRBC%) 0.0 % 0-0 NEUTROPHIL # (test code=NT#) 2.82 K/mm3 1.8-7.7 IMMATURE GRANULOCYTE # (test code=IG#) 0.03 x10 3/uL 0-0.03 LYMPHOCYTE # (test code=LY#) 1.12 K/mm3 1.0-5.0 MONOCYTE # (test code=MO#) 0.38 K/mm3 0-0.8 EOSINOPHIL # (test code=EO#) 0.22 K/mm3 0.0-0.5 BASOPHIL # (test code=BA#) 0.02 K/mm3 0.0-0.2 NUCLEATED RBC # (test code=NRBC#) 0.00 K/mm3 0.0-0.1 MANUAL DIFF REQUIRED (test code=MDIFF) NO, ONLY SCAN NEEDED DIFFERENTIAL [id number] 06:47:00* Test Item Value Reference Range Comments STAIN ACCEPTABILITY (test code=STN ACCEPTABLE) MORPHOLOGY COMMENT (test code=MOC) PLATELET ESTIMATE (test code=PLTEST) PLATELET MORPHOLOGY (test code=PLTMORPH) CBC W/AUTO [id number] 06:47:00* Test Item Value Reference Range Comments WHITE BLOOD CELL (test code=WBC) 4.6 K/mm3 4.5-12.5 RED BLOOD CELL (test code=RBC) 2.33 mill/mm3 3.7-5.2 HEMOGLOBIN (test code=HGB) 7.2 gram/dL 11.5-15.5 HEMATOCRIT (test code=HCT) 23.8 % 36.0-46.0 MEAN CELL VOLUME (test code=MCV) 102.1 fL 80-98 MEAN CELL HGB (test code=MCH) 30.9 picogram 27.0-33.0 MEAN CELL HGB CONCETRATION (test code=MCHC) 30.3 gram/dL 33.0-36.0 RED CELL DISTRIBUTION WIDTH (test code=RDW) 20.8 % 11.6-16.2 RED CELL DISTRIBUTION WIDTH SD (test code=RDW-SD) 77.1 fL 37.0-51.0 PLATELET COUNT (test code=PLT) 176 K/mm3 150-450 MEAN PLATELET VOLUME (test code=MPV) 10.3 fL 6.7-11.0 NEUTROPHIL % (test code=NT%) 61.4 % 39.0-69.0 IMMATURE GRANULOCYTE % (test code=IG%) 0.7 % 0.0-5.0 LYMPHOCYTE % (test code=LY%) 24.4 % 25.0-55.0 MONOCYTE % (test code=MO%) 8.3 % 0.0-10.0 EOSINOPHIL % (test code=EO%) 4.8 % 0.0-5.0 BASOPHIL % (test code=BA%) 0.4 % 0.0-1.0 NUCLEATED RBC % (test code=NRBC%) 0.0 % 0-0 NEUTROPHIL # (test code=NT#) 2.82 K/mm3 1.8-7.7 IMMATURE GRANULOCYTE # (test code=IG#) 0.03 x10 3/uL 0-0.03 LYMPHOCYTE # (test code=LY#) 1.12 K/mm3 1.0-5.0 MONOCYTE # (test code=MO#) 0.38 K/mm3 0-0.8 EOSINOPHIL # (test code=EO#) 0.22 K/mm3 0.0-0.5 BASOPHIL # (test code=BA#) 0.02 K/mm3 0.0-0.2 NUCLEATED RBC # (test code=NRBC#) 0.00 K/mm3 0.0-0.1 MANUAL DIFF REQUIRED (test code=MDIFF) NO, ONLY SCAN NEEDED DIFFERENTIAL [id number] 06:47:00* Test Item Value Reference Range Comments STAIN ACCEPTABILITY (test code=STN ACCEPTABLE) MORPHOLOGY COMMENT (test code=MOC) PLATELET ESTIMATE (test code=PLTEST) PLATELET MORPHOLOGY (test code=PLTMORPH) CBC W/AUTO [id number] 06:47:00* Test Item Value Reference Range Comments WHITE BLOOD CELL (test code=WBC) 4.6 K/mm3 4.5-12.5 RED BLOOD CELL (test code=RBC) 2.33 mill/mm3 3.7-5.2 HEMOGLOBIN (test code=HGB) 7.2 gram/dL 11.5-15.5 HEMATOCRIT (test code=HCT) 23.8 % 36.0-46.0 MEAN CELL VOLUME (test code=MCV) 102.1 fL 80-98 MEAN CELL HGB (test code=MCH) 30.9 picogram 27.0-33.0 MEAN CELL HGB CONCETRATION (test code=MCHC) 30.3 gram/dL 33.0-36.0 RED CELL DISTRIBUTION WIDTH (test code=RDW) 20.8 % 11.6-16.2 RED CELL DISTRIBUTION WIDTH SD (test code=RDW-SD) 77.1 fL 37.0-51.0 PLATELET COUNT (test code=PLT) 176 K/mm3 150-450 MEAN PLATELET VOLUME (test code=MPV) 10.3 fL 6.7-11.0 NEUTROPHIL % (test code=NT%) 61.4 % 39.0-69.0 IMMATURE GRANULOCYTE % (test code=IG%) 0.7 % 0.0-5.0 LYMPHOCYTE % (test code=LY%) 24.4 % 25.0-55.0 MONOCYTE % (test code=MO%) 8.3 % 0.0-10.0 EOSINOPHIL % (test code=EO%) 4.8 % 0.0-5.0 BASOPHIL % (test code=BA%) 0.4 % 0.0-1.0 NUCLEATED RBC % (test code=NRBC%) 0.0 % 0-0 NEUTROPHIL # (test code=NT#) 2.82 K/mm3 1.8-7.7 IMMATURE GRANULOCYTE # (test code=IG#) 0.03 x10 3/uL 0-0.03 LYMPHOCYTE # (test code=LY#) 1.12 K/mm3 1.0-5.0 MONOCYTE # (test code=MO#) 0.38 K/mm3 0-0.8 EOSINOPHIL # (test code=EO#) 0.22 K/mm3 0.0-0.5 BASOPHIL # (test code=BA#) 0.02 K/mm3 0.0-0.2 NUCLEATED RBC # (test code=NRBC#) 0.00 K/mm3 0.0-0.1 MANUAL DIFF REQUIRED (test code=MDIFF) NO, ONLY SCAN NEEDED DIFFERENTIAL [id number] 06:47:00* Test Item Value Reference Range Comments STAIN ACCEPTABILITY (test code=STN ACCEPTABLE) CABOT RINGS (test code=CAB) MORPHOLOGY COMMENT (test code=MOC) PLATELET ESTIMATE (test code=PLTEST) PLATELET MORPHOLOGY (test code=PLTMORPH) [id number] 06:01:00* Test Item Value Reference Range Comments GLUBED (test code=GLUBED) 111 mg/dL 74-106 Performed by certified tracing lathe set up operator at [facility] [id number] 01:07:00* Test Item Value Reference Range Comments GLUBED (test code=GLUBED) 107 mg/dL 74-106 Performed by certified tracing lathe set up operator at [facility] [id number] 17:49:00* Test Item Value Reference Range Comments GLUBED (test code=GLUBED) 125 mg/dL 74-106 Performed by certified tracing lathe set up operator at [facility] [id number] 11:35:00* Test Item Value Reference Range Comments GLUBED (test code=GLUBED) 143 mg/dL 74-106 Performed by certified tracing lathe set up operator at [facility] CBC W/AUTO [id number] 06:23:00* Test Item Value Reference Range Comments WHITE BLOOD CELL (test code=WBC) 4.4 K/mm3 4.5-12.5 RED BLOOD CELL (test code=RBC) 2.55 mill/mm3 3.7-5.2 HEMOGLOBIN (test code=HGB) 7.9 gram/dL 11.5-15.5 HEMATOCRIT (test code=HCT) 26.0 % 36.0-46.0 MEAN CELL VOLUME (test code=MCV) 102.0 fL 80-98 MEAN CELL HGB (test code=MCH) 31.0 picogram 27.0-33.0 MEAN CELL HGB CONCETRATION (test code=MCHC) 30.4 gram/dL 33.0-36.0 RED CELL DISTRIBUTION WIDTH (test code=RDW) 21.2 % 11.6-16.2 RED CELL DISTRIBUTION WIDTH SD (test code=RDW-SD) 78.8 fL 37.0-51.0 PLATELET COUNT (test code=PLT) 181 K/mm3 150-450 MEAN PLATELET VOLUME (test code=MPV) 9.6 fL 6.7-11.0 NEUTROPHIL % (test code=NT%) 64.9 % 39.0-69.0 IMMATURE GRANULOCYTE % (test code=IG%) 0.9 % 0.0-5.0 LYMPHOCYTE % (test code=LY%) 21.9 % 25.0-55.0 MONOCYTE % (test code=MO%) 7.5 % 0.0-10.0 EOSINOPHIL % (test code=EO%) 3.9 % 0.0-5.0 BASOPHIL % (test code=BA%) 0.9 % 0.0-1.0 NUCLEATED RBC % (test code=NRBC%) 0.0 % 0-0 NEUTROPHIL # (test code=NT#) 2.84 K/mm3 1.8-7.7 IMMATURE GRANULOCYTE # (test code=IG#) 0.04 x10 3/uL 0-0.03 LYMPHOCYTE # (test code=LY#) 0.96 K/mm3 1.0-5.0 MONOCYTE # (test code=MO#) 0.33 K/mm3 0-0.8 EOSINOPHIL # (test code=EO#) 0.17 K/mm3 0.0-0.5 BASOPHIL # (test code=BA#) 0.04 K/mm3 0.0-0.2 NUCLEATED RBC # (test code=NRBC#) 0.00 K/mm3 0.0-0.1 MANUAL DIFF REQUIRED (test code=MDIFF) NO, ONLY SCAN NEEDED DIFFERENTIAL [id number] 06:23:00* Test Item Value Reference Range Comments STAIN ACCEPTABILITY (test code=STN ACCEPTABLE) STAIN ACCEPTABLE POLYCHROMASIA (test code=POLC) 1+ POIKILOCYTOSIS (test code=POIK) 1+ ANISOCYTOSIS (test code=ANISO) 1+ MACROCYTOSIS (test code=MACR) 1+ ELLIPTOCYTES (test code=ELL) 1+ PLATELET ESTIMATE (test code=PLTEST) ADEQUATE PLATELET MORPHOLOGY (test code=PLTMORPH) NORMAL BASIC METABOLIC [id number] 06:13:00* Test Item Value Reference Range Comments SODIUM (test code=NA) 141 mmol/L 136-145 POTASSIUM (test code=K) 3.5 mmol/L 3.5-5.1 CHLORIDE (test code=CL) 103.0 mmol/L 98-107 CARBON DIOXIDE (test code=CO2) 33.0 mmol/L 21-32 ANION GAP (test code=GAP) 8.5 10-20 GLUCOSE (test code=GLU) 124 mg/dL 74-106 BLOOD UREA NITROGEN (test code=BUN) 14 mg/dL 7-18 GLOMERULAR FILTRATION RATE (test code=GFR) > 60 mL/min >=60 Estimated GFR by using Modified MDRD formula.Chronic kidney disease is defined as either kidney damageor GFR <60 mL/min/1.73 m2 for >3 months. CREATININE (test code=CREAT) 0.40 mg/dL 0.55-1.02 Note change in reference range due to change in reagent. BUN/CREATININE RATIO (test code=BUN/CREA) 33.8 10-20 CALCIUM (test code=CA) 8.4 mg/dL 8.5-10.1 [id number] 06:13:00* Test Item Value Reference Range Comments MAGNESIUM (test code=MAG) 1.6 mg/dL 1.8-2.4 BASIC METABOLIC [id number] 06:04:00* Test Item Value Reference Range Comments SODIUM (test code=NA) 141 mmol/L 136-145 POTASSIUM (test code=K) 3.5 mmol/L 3.5-5.1 CHLORIDE (test code=CL) 103.0 mmol/L 98-107 CARBON DIOXIDE (test code=CO2) mmol/L 21-32 ANION GAP (test code=GAP) 10-20 GLUCOSE (test code=GLU) mg/dL 74-106 BLOOD UREA NITROGEN (test code=BUN) mg/dL 7-18 GLOMERULAR FILTRATION RATE (test code=GFR) mL/min >=60 CREATININE (test code=CREAT) mg/dL 0.55-1.02 BUN/CREATININE RATIO (test code=BUN/CREA) 10-20 CALCIUM (test code=CA) mg/dL 8.5-10.1 [id number] 06:04:00* Test Item Value Reference Range Comments MAGNESIUM (test code=MAG) mg/dL 1.8-2.4 [id number] 06:00:00* Test Item Value Reference Range Comments GLUBED (test code=GLUBED) 115 mg/dL 74-106 Performed by certified tracing lathe set up operator at [facility] CBC W/AUTO [id number] 05:57:00* Test Item Value Reference Range Comments WHITE BLOOD CELL (test code=WBC) 4.4 K/mm3 4.5-12.5 RED BLOOD CELL (test code=RBC) 2.55 mill/mm3 3.7-5.2 HEMOGLOBIN (test code=HGB) 7.9 gram/dL 11.5-15.5 HEMATOCRIT (test code=HCT) 26.0 % 36.0-46.0 MEAN CELL VOLUME (test code=MCV) 102.0 fL 80-98 MEAN CELL HGB (test code=MCH) 31.0 picogram 27.0-33.0 MEAN CELL HGB CONCETRATION (test code=MCHC) 30.4 gram/dL 33.0-36.0 RED CELL DISTRIBUTION WIDTH (test code=RDW) 21.2 % 11.6-16.2 RED CELL DISTRIBUTION WIDTH SD (test code=RDW-SD) 78.8 fL 37.0-51.0 PLATELET COUNT (test code=PLT) 181 K/mm3 150-450 MEAN PLATELET VOLUME (test code=MPV) 9.6 fL 6.7-11.0 NEUTROPHIL % (test code=NT%) 64.9 % 39.0-69.0 IMMATURE GRANULOCYTE % (test code=IG%) 0.9 % 0.0-5.0 LYMPHOCYTE % (test code=LY%) 21.9 % 25.0-55.0 MONOCYTE % (test code=MO%) 7.5 % 0.0-10.0 EOSINOPHIL % (test code=EO%) 3.9 % 0.0-5.0 BASOPHIL % (test code=BA%) 0.9 % 0.0-1.0 NUCLEATED RBC % (test code=NRBC%) 0.0 % 0-0 NEUTROPHIL # (test code=NT#) 2.84 K/mm3 1.8-7.7 IMMATURE GRANULOCYTE # (test code=IG#) 0.04 x10 3/uL 0-0.03 LYMPHOCYTE # (test code=LY#) 0.96 K/mm3 1.0-5.0 MONOCYTE # (test code=MO#) 0.33 K/mm3 0-0.8 EOSINOPHIL # (test code=EO#) 0.17 K/mm3 0.0-0.5 BASOPHIL # (test code=BA#) 0.04 K/mm3 0.0-0.2 NUCLEATED RBC # (test code=NRBC#) 0.00 K/mm3 0.0-0.1 MANUAL DIFF REQUIRED (test code=MDIFF) NO, ONLY SCAN NEEDED DIFFERENTIAL [id number] 05:57:00* Test Item Value Reference Range Comments STAIN ACCEPTABILITY (test code=STN ACCEPTABLE) CABOT RINGS (test code=CAB) MORPHOLOGY COMMENT (test code=MOC) PLATELET ESTIMATE (test code=PLTEST) PLATELET MORPHOLOGY (test code=PLTMORPH) CBC W/AUTO [id number] 05:57:00* Test Item Value Reference Range Comments WHITE BLOOD CELL (test code=WBC) 4.4 K/mm3 4.5-12.5 RED BLOOD CELL (test code=RBC) 2.55 mill/mm3 3.7-5.2 HEMOGLOBIN (test code=HGB) 7.9 gram/dL 11.5-15.5 HEMATOCRIT (test code=HCT) 26.0 % 36.0-46.0 MEAN CELL VOLUME (test code=MCV) 102.0 fL 80-98 MEAN CELL HGB (test code=MCH) 31.0 picogram 27.0-33.0 MEAN CELL HGB CONCETRATION (test code=MCHC) 30.4 gram/dL 33.0-36.0 RED CELL DISTRIBUTION WIDTH (test code=RDW) 21.2 % 11.6-16.2 RED CELL DISTRIBUTION WIDTH SD (test code=RDW-SD) 78.8 fL 37.0-51.0 PLATELET COUNT (test code=PLT) 181 K/mm3 150-450 MEAN PLATELET VOLUME (test code=MPV) 9.6 fL 6.7-11.0 NEUTROPHIL % (test code=NT%) 64.9 % 39.0-69.0 IMMATURE GRANULOCYTE % (test code=IG%) 0.9 % 0.0-5.0 LYMPHOCYTE % (test code=LY%) 21.9 % 25.0-55.0 MONOCYTE % (test code=MO%) 7.5 % 0.0-10.0 EOSINOPHIL % (test code=EO%) 3.9 % 0.0-5.0 BASOPHIL % (test code=BA%) 0.9 % 0.0-1.0 NUCLEATED RBC % (test code=NRBC%) 0.0 % 0-0 NEUTROPHIL # (test code=NT#) 2.84 K/mm3 1.8-7.7 IMMATURE GRANULOCYTE # (test code=IG#) 0.04 x10 3/uL 0-0.03 LYMPHOCYTE # (test code=LY#) 0.96 K/mm3 1.0-5.0 MONOCYTE # (test code=MO#) 0.33 K/mm3 0-0.8 EOSINOPHIL # (test code=EO#) 0.17 K/mm3 0.0-0.5 BASOPHIL # (test code=BA#) 0.04 K/mm3 0.0-0.2 NUCLEATED RBC # (test code=NRBC#) 0.00 K/mm3 0.0-0.1 MANUAL DIFF REQUIRED (test code=MDIFF) NO, ONLY SCAN NEEDED DIFFERENTIAL [id number] 05:57:00* Test Item Value Reference Range Comments STAIN ACCEPTABILITY (test code=STN ACCEPTABLE) MORPHOLOGY COMMENT (test code=MOC) PLATELET ESTIMATE (test code=PLTEST) PLATELET MORPHOLOGY (test code=PLTMORPH) CBC W/AUTO [id number] 05:56:00* Test Item Value Reference Range Comments WHITE BLOOD CELL (test code=WBC) 4.4 K/mm3 4.5-12.5 RED BLOOD CELL (test code=RBC) 2.55 mill/mm3 3.7-5.2 HEMOGLOBIN (test code=HGB) 7.9 gram/dL 11.5-15.5 HEMATOCRIT (test code=HCT) 26.0 % 36.0-46.0 MEAN CELL VOLUME (test code=MCV) 102.0 fL 80-98 MEAN CELL HGB (test code=MCH) 31.0 picogram 27.0-33.0 MEAN CELL HGB CONCETRATION (test code=MCHC) 30.4 gram/dL 33.0-36.0 RED CELL DISTRIBUTION WIDTH (test code=RDW) 21.2 % 11.6-16.2 RED CELL DISTRIBUTION WIDTH SD (test code=RDW-SD) 78.8 fL 37.0-51.0 PLATELET COUNT (test code=PLT) 181 K/mm3 150-450 MEAN PLATELET VOLUME (test code=MPV) 9.6 fL 6.7-11.0 NEUTROPHIL % (test code=NT%) 64.9 % 39.0-69.0 IMMATURE GRANULOCYTE % (test code=IG%) 0.9 % 0.0-5.0 LYMPHOCYTE % (test code=LY%) 21.9 % 25.0-55.0 MONOCYTE % (test code=MO%) 7.5 % 0.0-10.0 EOSINOPHIL % (test code=EO%) 3.9 % 0.0-5.0 BASOPHIL % (test code=BA%) 0.9 % 0.0-1.0 NUCLEATED RBC % (test code=NRBC%) 0.0 % 0-0 NEUTROPHIL # (test code=NT#) 2.84 K/mm3 1.8-7.7 IMMATURE GRANULOCYTE # (test code=IG#) 0.04 x10 3/uL 0-0.03 LYMPHOCYTE # (test code=LY#) 0.96 K/mm3 1.0-5.0 MONOCYTE # (test code=MO#) 0.33 K/mm3 0-0.8 EOSINOPHIL # (test code=EO#) 0.17 K/mm3 0.0-0.5 BASOPHIL # (test code=BA#) 0.04 K/mm3 0.0-0.2 NUCLEATED RBC # (test code=NRBC#) 0.00 K/mm3 0.0-0.1 MANUAL DIFF REQUIRED (test code=MDIFF) NO, ONLY SCAN NEEDED DIFFERENTIAL [id number] 05:56:00* Test Item Value Reference Range Comments STAIN ACCEPTABILITY (test code=STN ACCEPTABLE) CABOT RINGS (test code=CAB) MORPHOLOGY COMMENT (test code=MOC) PLATELET ESTIMATE (test code=PLTEST) PLATELET MORPHOLOGY (test code=PLTMORPH) CBC W/AUTO [id number] 05:56:00* Test Item Value Reference Range Comments WHITE BLOOD CELL (test code=WBC) 4.4 K/mm3 4.5-12.5 RED BLOOD CELL (test code=RBC) 2.55 mill/mm3 3.7-5.2 HEMOGLOBIN (test code=HGB) 7.9 gram/dL 11.5-15.5 HEMATOCRIT (test code=HCT) 26.0 % 36.0-46.0 MEAN CELL VOLUME (test code=MCV) 102.0 fL 80-98 MEAN CELL HGB (test code=MCH) 31.0 picogram 27.0-33.0 MEAN CELL HGB CONCETRATION (test code=MCHC) 30.4 gram/dL 33.0-36.0 RED CELL DISTRIBUTION WIDTH (test code=RDW) 21.2 % 11.6-16.2 RED CELL DISTRIBUTION WIDTH SD (test code=RDW-SD) 78.8 fL 37.0-51.0 PLATELET COUNT (test code=PLT) 181 K/mm3 150-450 MEAN PLATELET VOLUME (test code=MPV) 9.6 fL 6.7-11.0 NEUTROPHIL % (test code=NT%) 64.9 % 39.0-69.0 IMMATURE GRANULOCYTE % (test code=IG%) 0.9 % 0.0-5.0 LYMPHOCYTE % (test code=LY%) 21.9 % 25.0-55.0 MONOCYTE % (test code=MO%) 7.5 % 0.0-10.0 EOSINOPHIL % (test code=EO%) 3.9 % 0.0-5.0 BASOPHIL % (test code=BA%) 0.9 % 0.0-1.0 NUCLEATED RBC % (test code=NRBC%) 0.0 % 0-0 NEUTROPHIL # (test code=NT#) 2.84 K/mm3 1.8-7.7 IMMATURE GRANULOCYTE # (test code=IG#) 0.04 x10 3/uL 0-0.03 LYMPHOCYTE # (test code=LY#) 0.96 K/mm3 1.0-5.0 MONOCYTE # (test code=MO#) 0.33 K/mm3 0-0.8 EOSINOPHIL # (test code=EO#) 0.17 K/mm3 0.0-0.5 BASOPHIL # (test code=BA#) 0.04 K/mm3 0.0-0.2 NUCLEATED RBC # (test code=NRBC#) 0.00 K/mm3 0.0-0.1 MANUAL DIFF REQUIRED (test code=MDIFF) NO, ONLY SCAN NEEDED DIFFERENTIAL [id number] 05:56:00* Test Item Value Reference Range Comments STAIN ACCEPTABILITY (test code=STN ACCEPTABLE) CABOT RINGS (test code=CAB) MORPHOLOGY COMMENT (test code=MOC) PLATELET ESTIMATE (test code=PLTEST) PLATELET MORPHOLOGY (test code=PLTMORPH) [id number] 21:08:00* Test Item Value Reference Range Comments GLUBED (test code=GLUBED) 110 mg/dL 74-106 Performed by certified tracing lathe set up operator at [facility] [id number] 19:02:00* Test Item Value Reference Range Comments GLUBED (test code=GLUBED) 94 mg/dL 74-106 Performed by certified tracing lathe set up operator at [facility] [id number] 17:05:00* Test Item Value Reference Range Comments GLUBED (test code=GLUBED) 110 mg/dL 74-106 Performed by certified tracing lathe set up operator at [facility] [id number] 05:35:00* Test Item Value Reference Range Comments GLUBED (test code=GLUBED) 92 mg/dL 74-106 Performed by certified tracing lathe set up operator at [facility] [id number] 20:33:00* Test Item Value Reference Range Comments GLUBED (test code=GLUBED) 90 mg/dL 74-106 Performed by certified tracing lathe set up operator at [facility] [id number] 17:02:00* Test Item Value Reference Range Comments GLUBED (test code=GLUBED) 94 mg/dL 74-106 Performed by certified tracing lathe set up operator at [facility] [id number] 11:11:00* Test Item Value Reference Range Comments GLUBED (test code=GLUBED) 90 mg/dL 74-106 Performed by certified tracing lathe set up operator at [facility] [id number] 05:39:00* Test Item Value Reference Range Comments GLUBED (test code=GLUBED) 95 mg/dL 74-106 Performed by certified tracing lathe set up operator at [facility] [id number] 21:26:00* Test Item Value Reference Range Comments GLUBED (test code=GLUBED) 89 mg/dL 74-106 Performed by certified tracing lathe set up operator at [facility] [id number] 18:52:00* Test Item Value Reference Range Comments GLUBED (test code=GLUBED) 119 mg/dL 74-106 Performed by certified tracing lathe set up operator at [facility] BASIC METABOLIC [id number] 14:22:00* Test Item Value Reference Range Comments SODIUM (test code=NA) 142 mmol/L 136-145 POTASSIUM (test code=K) 3.9 mmol/L 3.5-5.1 CHLORIDE (test code=CL) 105.0 mmol/L 98-107 CARBON DIOXIDE (test code=CO2) 31.0 mmol/L 21-32 ANION GAP (test code=GAP) 9.9 10-20 GLUCOSE (test code=GLU) 118 mg/dL 74-106 BLOOD UREA NITROGEN (test code=BUN) 17 mg/dL 7-18 GLOMERULAR FILTRATION RATE (test code=GFR) > 60 mL/min >=60 Estimated GFR by using Modified MDRD formula.Chronic kidney disease is defined as either kidney damageor GFR <60 mL/min/1.73 m2 for >3 months. CREATININE (test code=CREAT) 0.40 mg/dL 0.55-1.02 Note change in reference range due to change in reagent. BUN/CREATININE RATIO (test code=BUN/CREA) 46.2 10-20 CALCIUM (test code=CA) 8.1 mg/dL 8.5-10.1 NOTIFIED NURSE OF RECOLLECT @ 1015 AM, NURSE [id number].LAB.IN 05/26/19 10 16 TRACEY PAN [id number] WILL COLLECT V.LAB.EP 05/26/19 0627[facility] METABOLIC PANEL 2019-05-26 14:19:00* Test Item Value Reference Range Comments SODIUM (test code=NA) 142 mmol/L 136-145 POTASSIUM (test code=K) 3.9 mmol/L 3.5-5.1 CHLORIDE (test code=CL) 105.0 mmol/L 98-107 CARBON DIOXIDE (test code=CO2) mmol/L 21-32 ANION GAP (test code=GAP) 10-20 GLUCOSE (test code=GLU) mg/dL 74-106 BLOOD UREA NITROGEN (test code=BUN) mg/dL 7-18 GLOMERULAR FILTRATION RATE (test code=GFR) mL/min >=60 CREATININE (test code=CREAT) mg/dL 0.55-1.02 BUN/CREATININE RATIO (test code=BUN/CREA) 10-20 CALCIUM (test code=CA) mg/dL 8.5-10.1 NOTIFIED NURSE OF RECOLLECT @ 1015 AM, NURSE RAMÓNNDT2494U.LAB.IN 05/26/19 10 16 TRACEY PAN [id number] WILL COLLECT V.LAB. 05/26/19 [id number] 12:42:00* Test Item Value Reference Range Comments GLUBED (test code=GLUBED) 116 mg/dL 74-106 Performed by certified tracing lathe set up operator at [facility] - [facility] MRTL GS/DU/JJ/GJ/[id number] 10:27:00 Name: MARI HORVATH [facility] : 1975 Age/S: 44 / F [address] [facility] Unit #: [id number] Loc: [place] [address] Phys: Jayme Guillen MD Acct: [id number] Dis Date: Status: ADM IN PHONE #: [phone] Exam Date: 05/25/2019 1247 FAX #: [phone] Reason: / EXAMS: CPT CODE: [id number] RMV MRTL GS/DU/JJ/GJ/CC 98312 Fluoro Time: 480 DAP (Gy m2): 73104 Air Kerma (mGy): 0.292 EXAM: Mechanical recanalization of an occluded jejunal feeding tube under fluoroscopic guidance; INFORMATION: Patient with history of CVA and dysphagia. She status post surgical jejunostomy and presents with an occluded jejunal feeding tube. FINDINGS: Informed consent was obtained and the patient was placed supine on the CT table. Initial fluoroscopic imaging showed a an IVC filter in place. Attempts were made to flush the feeding tube but the feeding tube was completely occluded. With some difficulty and using several guidewires and catheters the lumen of the feeding tube was eventually declogged. Contrast material was injected demonstrating restored patency of the feeding tube outlining a a slightly distended jejunal loop with normal fold pattern. No complications. IMPRESSION: Successful mechanical recanalization of an occluded jejunal feeding tube. Fluoroscopy Time: 480 sec CAK : 292.73 mGy DAP : 11896 mGy sq cm at 1027 Reported and signed by: Michael Stevens M.D. CC: Jayme Guillen Technologist: [facility] Trnscb Date/Time: 05/26/2019 (1027) JorgeW Orig Print D/T: S: 05/26/2019 (2722) PAGE 1 Signed Report [id number] 05:52:00* Test Item Value Reference Range Comments GLUBED (test code=GLUBED) 113 mg/dL 74-106 Performed by certified tracing lathe set up operator at [facility] - CT CHEST W/O [id number] 00:01:00 Name: MARI HORVATH [facility] : 1975 Age/S: 44 / F [address] [facility] Unit #: [id number] Loc: [place] [address] Phys: Mono Bentley MD Acct: [id number] Dis Date: Status: ADM IN PHONE #: [phone] Exam Date: 05/25/20191715 FAX #: [phone] Reason: hemoptysis, lost crown EXAMS: CPT CODE: [id number] CT CHEST W/O CONTRAST 37723 REASON FOR EXAM: hemoptysis, lost crown EXAM ORDER DATE: 05/25/2019 11:14 AM Ordering M.Jae.: Mono Bentley MD PROCEDURE: - CT CHEST W/O CONTRAST Comparison:Frontal chest x-ray the previous afternoon. Axial CT images of the chest were obtained without the use of IV contrast. Reconstructed sagittal and coronal images of the chest were provided for interpretation. Dose reduction techniques were applied. FINDINGS: The absence of IV contrast limits the sensitivity of this exam for detecting soft tissue pathology and differentiating atelec tasis from consolidations. Visualized neck: Tracheostomy tub e is present. Thyroid gland is within normal limits. Airways , Lungs and Pleura: Tracheostomy tube terminates at the level of the aorti c arch. There is a small amount of mucus within the trachea. The airways a re otherwise patent. There is a small right-sided pleural effusion. There is subsegmental atelectasis in the lung bases. Superimposed consolidation in the right lung base cannot be excluded. Heart, great vess els, pulmonary vessels, mediastinum: Right subclavian central line termina juan josé in the distal SVC. Pulmonary trunk and aorta are within normal limits and size. No appreciable atherosclerotic disease. No cardiomegaly. Lymph nodes: No mediastinal or internal mammary or axillary adenopa thy. Hilar lymph nodes are suboptimally evaluated due to the absence of IV contrast. Musculoskeletal/chest wall: Mild degenerative changes a re present in the spine. Visualized upper abdomen: Severe he patic steatosis. Spleen appears prominent in size. PAGE 1 Signed Report (CONTINUED) Name: MARI HORVATH [facility] : 1975 Age/S: 44 / F [address] [facility] Unit #: [id number] [place] [address] Phys: Mono Bentley MD Acct: [id number] Dis Date: atus: ADM IN PHONE #: [phone] Exam Julián e: 05/25/20191715 FAX #: [phone] Reason: hemopty sis, lost crown EXAMS: CPT CODE: [id number] CT CHEST W/O CONTRAST 86186 <Continued> IMPRESSION: Small right-sided pleural effusion with subsegmental atelectasis in the bilateral lower lobes, worse on the right side. Superimposed aspiration and/or infection cannot be excluded. No radiodense foreign bodies in the airways or lungs to suggest aspirated crown. Severe hepatic steatosis. at 0001 Reported and signed by: Lincoln Pace MD CC: Mono Bentley MD; Jayme Guillen Technologist:Paula Cooney RT(R); PRABHA rBitton CTDI: DLP: Trnscb Date/Time: 05/26/2019 (0001) t.SDR.RR31 Orig Print D/T: S: 05/26/2019 (0004) PAGE 2 Signed Report [id number] 23:51:00* Test Item Value Reference Range Comments GLUBED (test code=GLUBED) 119 mg/dL 74-106 Performed by certified tracing lathe set up operator at [facility] [id number] 20:14:00* Test Item Value Reference Range Comments GLUBED (test code=GLUBED) 119 mg/dL 74-106 Performed by certified tracing lathe set up operator at [facility] [id number] 18:35:00* Test Item Value Reference Range Comments MAGNESIUM (test code=MAG) 1.6 mg/dL 1.8-2.4 [id number] 16:26:00* Test Item Value Reference Range Comments GLUBED (test code=GLUBED) 131 mg/dL 74-106 Performed by certified tracing lathe set up operator at [facility] [id number] 14:28:00* Test Item Value Reference Range Comments GLUBED (test code=GLUBED) 112 mg/dL 74-106 Performed by certified tracing lathe set up operator at [facility] [id number] 11:39:00* Test Item Value Reference Range Comments MAGNESIUM (test code=MAG) 1.7 mg/dL 1.8-2.4 CBC W/AUTO [id number] 10:49:00* Test Item Value Reference Range Comments WHITE BLOOD CELL (test code=WBC) 5.5 K/mm3 4.5-12.5 RED BLOOD CELL (test code=RBC) 2.93 mill/mm3 3.7-5.2 HEMOGLOBIN (test code=HGB) 9.0 gram/dL 11.5-15.5 HEMATOCRIT (test code=HCT) 29.9 % 36.0-46.0 MEAN CELL VOLUME (test code=MCV) 102.0 fL 80-98 MEAN CELL HGB (test code=MCH) 30.7 picogram 27.0-33.0 MEAN CELL HGB CONCETRATION (test code=MCHC) 30.1 gram/dL 33.0-36.0 RED CELL DISTRIBUTION WIDTH (test code=RDW) 22.3 % 11.6-16.2 RED CELL DISTRIBUTION WIDTH SD (test code=RDW-SD) 82.4 fL 37.0-51.0 PLATELET COUNT (test code=PLT) 183 K/mm3 150-450 MEAN PLATELET VOLUME (test code=MPV) 9.4 fL 6.7-11.0 NEUTROPHIL % (test code=NT%) 70.9 % 39.0-69.0 IMMATURE GRANULOCYTE % (test code=IG%) 0.9 % 0.0-5.0 LYMPHOCYTE % (test code=LY%) 17.9 % 25.0-55.0 MONOCYTE % (test code=MO%) 6.9 % 0.0-10.0 EOSINOPHIL % (test code=EO%) 2.7 % 0.0-5.0 BASOPHIL % (test code=BA%) 0.7 % 0.0-1.0 NUCLEATED RBC % (test code=NRBC%) 0.0 % 0-0 NEUTROPHIL # (test code=NT#) 3.92 K/mm3 1.8-7.7 IMMATURE GRANULOCYTE # (test code=IG#) 0.05 x10 3/uL 0-0.03 LYMPHOCYTE # (test code=LY#) 0.99 K/mm3 1.0-5.0 MONOCYTE # (test code=MO#) 0.38 K/mm3 0-0.8 EOSINOPHIL # (test code=EO#) 0.15 K/mm3 0.0-0.5 BASOPHIL # (test code=BA#) 0.04 K/mm3 0.0-0.2 NUCLEATED RBC # (test code=NRBC#) 0.00 K/mm3 0.0-0.1 MANUAL DIFF REQUIRED (test code=MDIFF) NO, ONLY SCAN NEEDED PT LINE DRAW RN MM [id number] WILL DRAWV.LAB. [id number] SCAN 2019-05-25 10:49:00* Test Item Value Reference Range Comments STAIN ACCEPTABILITY (test code=STN ACCEPTABLE) STAIN ACCEPTABLE ANISOCYTOSIS (test code=ANISO) 2+ MACROCYTOSIS (test code=MACR) 1+ PLATELET ESTIMATE (test code=PLTEST) ADEQUATE PLATELET MORPHOLOGY (test code=PLTMORPH) CLUMPING PRESENT PT LINE DRAW TRACEY GALLEGOS [id number] WILL DRAWV.LAB. [id number] TIME 2019-05-25 10:46:00* Test Item Value Reference Range Comments PROTHROMBIN TIME PATIENT (test code=PTP) 17.8 seconds 9.0-14.0 INTERNATIONAL NORMAL RATIO (test code=INR) 1.5 0.8-1.2 The therapeutic range for oral anticoagulant therapy formost indications is an international normalized ratio (INR)of between 2.0 and 3.0. The recommended therapeutic INRrange for various clinical situations is listed below: Clinical Situation INR range Pulmonary e mbolism treatment (2.0-3.0)Venous thrombosis treatmentVenous thrombosis prophylaxis (high risk surgery)Prevention of systemic embolism from: Acute myocardial infarction Valvular heart disease Atrial fibrillation Mechanical prosthetic heart valves (2.5-3.5) IS PATIENT ON ANTICOAGULANTS? YLIST ANTICOAGULANTS HEPARINCOMMENTS TO PHLEBO TOMIST: NEED FOR PROCEDURE 05/25/19THROMBOPLASTIN TIME [id number] 10:46:00* Test Item Value Reference Range Comments THROMBOPLASTIN TIME PARTIAL (test code=PTT) 31.1 seconds 25.0-36.5 IS PATIENT ON ANTICOAGULANTS? YLIST ANTICOAGULANTS HEPARINCOMMENTS TO PHLEBO TOMIST: NEED FOR PROCEDURE 05/25/19BASIC METABOLIC [id number] 10:37:00* Test Item Value Reference Range Comments SODIUM (test code=NA) 143 mmol/L 136-145 POTASSIUM (test code=K) 3.1 mmol/L 3.5-5.1 CHLORIDE (test code=CL) 105.0 mmol/L 98-107 CARBON DIOXIDE (test code=CO2) 31.0 mmol/L 21-32 ANION GAP (test code=GAP) 10.1 10-20 GLUCOSE (test code=GLU) 128 mg/dL 74-106 BLOOD UREA NITROGEN (test code=BUN) 15 mg/dL 7-18 GLOMERULAR FILTRATION RATE (test code=GFR) > 60 mL/min >=60 Estimated GFR by using Modified MDRD formula.Chronic kidney disease is defined as either kidney damageor GFR <60 mL/min/1.73 m2 for >3 months. CREATININE (test code=CREAT) 0.40 mg/dL 0.55-1.02 Note change in reference range due to change in reagent. BUN/CREATININE RATIO (test code=BUN/CREA) 37.5 10-20 CALCIUM (test code=CA) 8.2 mg/dL 8.5-10.1 PT IS LINE DRAW RN MM [id number] WILL DRAW V.LAB. [id number] METABOLIC [id number] 10:31:00* Test Item Value Reference Range Comments SODIUM (test code=NA) 143 mmol/L 136-145 POTASSIUM (test code=K) 3.1 mmol/L 3.5-5.1 CHLORIDE (test code=CL) 105.0 mmol/L 98-107 CARBON DIOXIDE (test code=CO2) mmol/L 21-32 ANION GAP (test code=GAP) 10-20 GLUCOSE (test code=GLU) mg/dL 74-106 BLOOD UREA NITROGEN (test code=BUN) mg/dL 7-18 GLOMERULAR FILTRATION RATE (test code=GFR) mL/min >=60 CREATININE (test code=CREAT) mg/dL 0.55-1.02 BUN/CREATININE RATIO (test code=BUN/CREA) 10-20 CALCIUM (test code=CA) mg/dL 8.5-10.1 PT IS LINE DRAW RN MM [id number] WILL DRAW V.LAB. [id number] W/AUTO DIFF 2019-05-25 10:15:00* Test Item Value Reference Range Comments WHITE BLOOD CELL (test code=WBC) 5.5 K/mm3 4.5-12.5 RED BLOOD CELL (test code=RBC) 2.93 mill/mm3 3.7-5.2 HEMOGLOBIN (test code=HGB) 9.0 gram/dL 11.5-15.5 HEMATOCRIT (test code=HCT) 29.9 % 36.0-46.0 MEAN CELL VOLUME (test code=MCV) 102.0 fL 80-98 MEAN CELL HGB (test code=MCH) 30.7 picogram 27.0-33.0 MEAN CELL HGB CONCETRATION (test code=MCHC) 30.1 gram/dL 33.0-36.0 RED CELL DISTRIBUTION WIDTH (test code=RDW) 22.3 % 11.6-16.2 RED CELL DISTRIBUTION WIDTH SD (test code=RDW-SD) 82.4 fL 37.0-51.0 PLATELET COUNT (test code=PLT) 183 K/mm3 150-450 MEAN PLATELET VOLUME (test code=MPV) 9.4 fL 6.7-11.0 NEUTROPHIL % (test code=NT%) 70.9 % 39.0-69.0 IMMATURE GRANULOCYTE % (test code=IG%) 0.9 % 0.0-5.0 LYMPHOCYTE % (test code=LY%) 17.9 % 25.0-55.0 MONOCYTE % (test code=MO%) 6.9 % 0.0-10.0 EOSINOPHIL % (test code=EO%) 2.7 % 0.0-5.0 BASOPHIL % (test code=BA%) 0.7 % 0.0-1.0 NUCLEATED RBC % (test code=NRBC%) 0.0 % 0-0 NEUTROPHIL # (test code=NT#) 3.92 K/mm3 1.8-7.7 IMMATURE GRANULOCYTE # (test code=IG#) 0.05 x10 3/uL 0-0.03 LYMPHOCYTE # (test code=LY#) 0.99 K/mm3 1.0-5.0 MONOCYTE # (test code=MO#) 0.38 K/mm3 0-0.8 EOSINOPHIL # (test code=EO#) 0.15 K/mm3 0.0-0.5 BASOPHIL # (test code=BA#) 0.04 K/mm3 0.0-0.2 NUCLEATED RBC # (test code=NRBC#) 0.00 K/mm3 0.0-0.1 MANUAL DIFF REQUIRED (test code=MDIFF) NO, ONLY SCAN NEEDED PT LINE DRAW RN MM [id number] WILL DRAWV.LAB. [id number] SCAN 2019-05-25 10:15:00* Test Item Value Reference Range Comments STAIN ACCEPTABILITY (test code=STN ACCEPTABLE) CABOT RINGS (test code=CAB) MORPHOLOGY COMMENT (test code=MOC) PLATELET ESTIMATE (test code=PLTEST) PLATELET MORPHOLOGY (test code=PLTMORPH) PT LINE DRAW RN MM [id number] WILL DRAWV.LAB. [id number] W/AUTO DIFF 2019-05-25 10:15:00* Test Item Value Reference Range Comments WHITE BLOOD CELL (test code=WBC) 5.5 K/mm3 4.5-12.5 RED BLOOD CELL (test code=RBC) 2.93 mill/mm3 3.7-5.2 HEMOGLOBIN (test code=HGB) 9.0 gram/dL 11.5-15.5 HEMATOCRIT (test code=HCT) 29.9 % 36.0-46.0 MEAN CELL VOLUME (test code=MCV) 102.0 fL 80-98 MEAN CELL HGB (test code=MCH) 30.7 picogram 27.0-33.0 MEAN CELL HGB CONCETRATION (test code=MCHC) 30.1 gram/dL 33.0-36.0 RED CELL DISTRIBUTION WIDTH (test code=RDW) 22.3 % 11.6-16.2 RED CELL DISTRIBUTION WIDTH SD (test code=RDW-SD) 82.4 fL 37.0-51.0 PLATELET COUNT (test code=PLT) 183 K/mm3 150-450 MEAN PLATELET VOLUME (test code=MPV) 9.4 fL 6.7-11.0 NEUTROPHIL % (test code=NT%) 70.9 % 39.0-69.0 IMMATURE GRANULOCYTE % (test code=IG%) 0.9 % 0.0-5.0 LYMPHOCYTE % (test code=LY%) 17.9 % 25.0-55.0 MONOCYTE % (test code=MO%) 6.9 % 0.0-10.0 EOSINOPHIL % (test code=EO%) 2.7 % 0.0-5.0 BASOPHIL % (test code=BA%) 0.7 % 0.0-1.0 NUCLEATED RBC % (test code=NRBC%) 0.0 % 0-0 NEUTROPHIL # (test code=NT#) 3.92 K/mm3 1.8-7.7 IMMATURE GRANULOCYTE # (test code=IG#) 0.05 x10 3/uL 0-0.03 LYMPHOCYTE # (test code=LY#) 0.99 K/mm3 1.0-5.0 MONOCYTE # (test code=MO#) 0.38 K/mm3 0-0.8 EOSINOPHIL # (test code=EO#) 0.15 K/mm3 0.0-0.5 BASOPHIL # (test code=BA#) 0.04 K/mm3 0.0-0.2 NUCLEATED RBC # (test code=NRBC#) 0.00 K/mm3 0.0-0.1 MANUAL DIFF REQUIRED (test code=MDIFF) NO, ONLY SCAN NEEDED PT LINE DRAW RN MM [id number] WILL DRAWV.LAB. [id number] SCAN 2019-05-25 10:15:00* Test Item Value Reference Range Comments STAIN ACCEPTABILITY (test code=STN ACCEPTABLE) MORPHOLOGY COMMENT (test code=MOC) PLATELET ESTIMATE (test code=PLTEST) PLATELET MORPHOLOGY (test code=PLTMORPH) PT LINE DRAW RN MM [id number] WILL DRAWV.LAB. [id number] W/AUTO DIFF 2019-05-25 10:14:00* Test Item Value Reference Range Comments WHITE BLOOD CELL (test code=WBC) 5.5 K/mm3 4.5-12.5 RED BLOOD CELL (test code=RBC) 2.93 mill/mm3 3.7-5.2 HEMOGLOBIN (test code=HGB) 9.0 gram/dL 11.5-15.5 HEMATOCRIT (test code=HCT) 29.9 % 36.0-46.0 MEAN CELL VOLUME (test code=MCV) 102.0 fL 80-98 MEAN CELL HGB (test code=MCH) 30.7 picogram 27.0-33.0 MEAN CELL HGB CONCETRATION (test code=MCHC) 30.1 gram/dL 33.0-36.0 RED CELL DISTRIBUTION WIDTH (test code=RDW) 22.3 % 11.6-16.2 RED CELL DISTRIBUTION WIDTH SD (test code=RDW-SD) 82.4 fL 37.0-51.0 PLATELET COUNT (test code=PLT) 183 K/mm3 150-450 MEAN PLATELET VOLUME (test code=MPV) 9.4 fL 6.7-11.0 NEUTROPHIL % (test code=NT%) 70.9 % 39.0-69.0 IMMATURE GRANULOCYTE % (test code=IG%) 0.9 % 0.0-5.0 LYMPHOCYTE % (test code=LY%) 17.9 % 25.0-55.0 MONOCYTE % (test code=MO%) 6.9 % 0.0-10.0 EOSINOPHIL % (test code=EO%) 2.7 % 0.0-5.0 BASOPHIL % (test code=BA%) 0.7 % 0.0-1.0 NUCLEATED RBC % (test code=NRBC%) 0.0 % 0-0 NEUTROPHIL # (test code=NT#) 3.92 K/mm3 1.8-7.7 IMMATURE GRANULOCYTE # (test code=IG#) 0.05 x10 3/uL 0-0.03 LYMPHOCYTE # (test code=LY#) 0.99 K/mm3 1.0-5.0 MONOCYTE # (test code=MO#) 0.38 K/mm3 0-0.8 EOSINOPHIL # (test code=EO#) 0.15 K/mm3 0.0-0.5 BASOPHIL # (test code=BA#) 0.04 K/mm3 0.0-0.2 NUCLEATED RBC # (test code=NRBC#) 0.00 K/mm3 0.0-0.1 MANUAL DIFF REQUIRED (test code=MDIFF) NO, ONLY SCAN NEEDED PT LINE DRAW RN MM [id number] WILL DRAWV.LAB. [id number] SCAN 2019-05-25 10:14:00* Test Item Value Reference Range Comments STAIN ACCEPTABILITY (test code=STN ACCEPTABLE) CABOT RINGS (test code=CAB) MORPHOLOGY COMMENT (test code=MOC) PLATELET ESTIMATE (test code=PLTEST) PLATELET MORPHOLOGY (test code=PLTMORPH) PT LINE DRAW RN MM [id number] WILL DRAWV.LAB. [id number] W/AUTO DIFF 2019-05-25 10:14:00* Test Item Value Reference Range Comments WHITE BLOOD CELL (test code=WBC) 5.5 K/mm3 4.5-12.5 RED BLOOD CELL (test code=RBC) 2.93 mill/mm3 3.7-5.2 HEMOGLOBIN (test code=HGB) 9.0 gram/dL 11.5-15.5 HEMATOCRIT (test code=HCT) 29.9 % 36.0-46.0 MEAN CELL VOLUME (test code=MCV) 102.0 fL 80-98 MEAN CELL HGB (test code=MCH) 30.7 picogram 27.0-33.0 MEAN CELL HGB CONCETRATION (test code=MCHC) 30.1 gram/dL 33.0-36.0 RED CELL DISTRIBUTION WIDTH (test code=RDW) 22.3 % 11.6-16.2 RED CELL DISTRIBUTION WIDTH SD (test code=RDW-SD) 82.4 fL 37.0-51.0 PLATELET COUNT (test code=PLT) 183 K/mm3 150-450 MEAN PLATELET VOLUME (test code=MPV) 9.4 fL 6.7-11.0 NEUTROPHIL % (test code=NT%) 70.9 % 39.0-69.0 IMMATURE GRANULOCYTE % (test code=IG%) 0.9 % 0.0-5.0 LYMPHOCYTE % (test code=LY%) 17.9 % 25.0-55.0 MONOCYTE % (test code=MO%) 6.9 % 0.0-10.0 EOSINOPHIL % (test code=EO%) 2.7 % 0.0-5.0 BASOPHIL % (test code=BA%) 0.7 % 0.0-1.0 NUCLEATED RBC % (test code=NRBC%) 0.0 % 0-0 NEUTROPHIL # (test code=NT#) 3.92 K/mm3 1.8-7.7 IMMATURE GRANULOCYTE # (test code=IG#) 0.05 x10 3/uL 0-0.03 LYMPHOCYTE # (test code=LY#) 0.99 K/mm3 1.0-5.0 MONOCYTE # (test code=MO#) 0.38 K/mm3 0-0.8 EOSINOPHIL # (test code=EO#) 0.15 K/mm3 0.0-0.5 BASOPHIL # (test code=BA#) 0.04 K/mm3 0.0-0.2 NUCLEATED RBC # (test code=NRBC#) 0.00 K/mm3 0.0-0.1 MANUAL DIFF REQUIRED (test code=MDIFF) NO, ONLY SCAN NEEDED PT LINE DRAW RN MM [id number] WILL DRAWV.LAB. 05/25/[id number] SCAN 2019-05-25 10:14:00* Test Item Value Reference Range Comments STAIN ACCEPTABILITY (test code=STN ACCEPTABLE) CABOT RINGS (test code=CAB) MORPHOLOGY COMMENT (test code=MOC) PLATELET ESTIMATE (test code=PLTEST) PLATELET MORPHOLOGY (test code=PLTMORPH) PT LINE DRAW RN MM [id number] WILL DRAWV.LAB. [id number] 06:57:00* Test Item Value Reference Range Comments GLUBED (test code=GLUBED) 103 mg/dL 74-106 Performed by certified tracing lathe set up operator at [facility] [id number] 00:53:00* Test Item Value Reference Range Comments GLUBED (test code=GLUBED) 129 mg/dL 74-106 Performed by certified tracing lathe set up operator at [facility] [id number] 21:53:00* Test Item Value Reference Range Comments GLUBED (test code=GLUBED) 128 mg/dL 74-106 Performed by certified tracing lathe set up operator at [facility] BASIC METABOLIC [id number] 20:28:00* Test Item Value Reference Range Comments SODIUM (test code=NA) 140 mmol/L 136-145 RESULT VERIFIED BY REPEAT ANALYSIS POTASSIUM (test code=K) 4.6 mmol/L 3.5-5.1 CHLORIDE (test code=CL) 102.0 mmol/L 98-107 CARBON DIOXIDE (test code=CO2) 26.0 mmol/L 21-32 ANION GAP (test code=GAP) 16.6 10-20 GLUCOSE (test code=GLU) 353 mg/dL 74-106 BLOOD UREA NITROGEN (test code=BUN) 12 mg/dL 7-18 GLOMERULAR FILTRATION RATE (test code=GFR) > 60 mL/min >=60 Estimated GFR by using Modified MDRD formula.Chronic kidney disease is defined as either kidney damageor GFR <60 mL/min/1.73 m2 for >3 months. CREATININE (test code=CREAT) 0.50 mg/dL 0.55-1.02 Note change in reference range due to change in reagent. BUN/CREATININE RATIO (test code=BUN/CREA) 24.0 10-20 CALCIUM (test code=CA) 8.0 mg/dL 8.5-10.1 - XR CHEST 1 [id number] 17:58:00 FAX: Mono Preciado MD [phone] [place]: St: ADM FAX: Jayme Garcia MD [phone] Name: MARI HORVATH [facility] : 1975 Age/S: 44/F [address] [facility] Unit #: [id number] Loc: V.2078 [place] [address] Phys: Mono Bentley MD Acct: [id number] Dis Date: Status: ADM IN PHONE #: [phone] Exam Date: 05/24/2019 1640 FAX #: [phone] Reason: POSSIBLY ASPIRATED CROWN EXAMS: CPT CODE: [id number] XR CHEST 1 V [id number] REASON FOR EXAM: POSSIBLY ASPIRATED CROWN Exam Order Date: 05/24/2019 12:00 AM Ordering M.D.: Mono Bentley MD PROCEDURE: - XR CHEST 1 V COMPARISON: Frontal chest x-ray May 18, 2019 6 FINDINGS: Right lung volume is diminished. There is a right-sided pleural effusion. There is subsegmental atelectasis in the right lung base. The left lung is clear. No radiopaque foreign bodies are seen in the lungs. Tracheostomy tube and right subclavian central line are unchanged in position. C ardiomediastinal silhouette is normal in size for technique. The mediastin al contours are within normal limits. Musculoskeletal structures a re within normal limits. Incompletely visualized IVC filter is pre sent. There is been a prior cholecystectomy. Additional hardware projects over the midline of the abdomen. IMPRESSION: Elevation of the right hemidiaphragm with subsegmental atelectasis in the right lung base and right-sided pleural effusion. This is unchanged from the previous exam. The left lung is clear. No visualized r adiopaque foreign bodies in either lung. at 1758 Reported and signed b y: Lincoln Pace MD PAGE 1 Signed Report (CONTINUED) FAX: Mono Preciado MD [phone] [place]: St: ADM FAX: Jayme Garcia MD [phone] Name: MARI HORVATH [facility] : 1975 Age/S: 44/F [address] [facility] Unit #: [id number] Loc: V. [address] [place] [address] Phys: Mono Bentley MD Acct: [id number] Dis Date: Status: ADM IN PHONE #: [phone] Exam Date: 05/24/2019 1640 FAX #: [phone] Reason: POSSIBLY ASPIRATED CROWN EXAMS: CPT CODE: [id number] XR CHEST 1 V [id number] <Continued> CC: Mono Bentley MD; Jayme Guillen Technologist: ANI NOLASCO, RT(R); ... Rajeevscrd Date/Time/By: 05/24/2019 (520) : By: [email or web address] Orig Print D/T: S: 05/24/2019 (1307) PAGE 2 Signed Report [id number] 17:15:00* Test Item Value Reference Range Comments GLUBED (test code=GLUBED) 124 mg/dL 74-106 Performed by certified tracing lathe set up operator at [facility] [id number] 14:47:00* Test Item Value Reference Range Comments MAGNESIUM (test code=MAG) 1.5 mg/dL 1.8-2.4 [id number] 12:07:00* Test Item Value Reference Range Comments GLUBED (test code=GLUBED) 134 mg/dL 74-106 Performed by certified tracing lathe set up operator at [facility] PROTHROMBIN [id number] 09:09:00* Test Item Value Reference Range Comments PROTHROMBIN TIME PATIENT (test code=PTP) 42.3 seconds 9.0-14.0 INTERNATIONAL NORMAL RATIO (test code=INR) 3.6 0.8-1.2 The therapeutic range for oral anticoagulant therapy formost indications is an international normalized ratio (INR)of between 2.0 and 3.0. The recommended therapeutic INRrange for various clinical situations is listed below: Clinical Situation INR range Pulmonary e mbolism treatment (2.0-3.0)Venous thrombosis treatmentVenous thrombosis prophylaxis (high risk surgery)Prevention of systemic embolism from: Acute myocardial infarction Valvular heart disease Atrial fibrillation Mechanical prosthetic heart valves (2.5-3.5) IS PATIENT ON ANTICOAGULANTS? YLIST ANTICOAGULANTS HEPARINTHROMBOPLASTIN TIME [id number] 09:09:00* Test Item Value Reference Range Comments THROMBOPLASTIN TIME PARTIAL (test code=PTT) 44.2 seconds 25.0-36.5 IS PATIENT ON ANTICOAGULANTS? YLIST ANTICOAGULANTS [id number] 05:34:00* Test Item Value Reference Range Comments GLUBED (test code=GLUBED) 119 mg/dL 74-106 Performed by certified tracing lathe set up operator at [facility] CBC W/AUTO [id number] 04:30:00* Test Item Value Reference Range Comments WHITE BLOOD CELL (test code=WBC) 6.4 K/mm3 4.5-12.5 RED BLOOD CELL (test code=RBC) 2.70 mill/mm3 3.7-5.2 HEMOGLOBIN (test code=HGB) 8.4 gram/dL 11.5-15.5 HEMATOCRIT (test code=HCT) 27.6 % 36.0-46.0 MEAN CELL VOLUME (test code=MCV) 102.2 fL 80-98 MEAN CELL HGB (test code=MCH) 31.1 picogram 27.0-33.0 MEAN CELL HGB CONCETRATION (test code=MCHC) 30.4 gram/dL 33.0-36.0 RED CELL DISTRIBUTION WIDTH (test code=RDW) 22.9 % 11.6-16.2 RED CELL DISTRIBUTION WIDTH SD (test code=RDW-SD) 82.7 fL 37.0-51.0 PLATELET COUNT (test code=PLT) 179 K/mm3 150-450 MEAN PLATELET VOLUME (test code=MPV) 9.6 fL 6.7-11.0 NEUTROPHIL % (test code=NT%) 64.1 % 39.0-69.0 IMMATURE GRANULOCYTE % (test code=IG%) 0.8 % 0.0-5.0 LYMPHOCYTE % (test code=LY%) 24.1 % 25.0-55.0 MONOCYTE % (test code=MO%) 7.3 % 0.0-10.0 EOSINOPHIL % (test code=EO%) 2.8 % 0.0-5.0 BASOPHIL % (test code=BA%) 0.9 % 0.0-1.0 NUCLEATED RBC % (test code=NRBC%) 0.0 % 0-0 NEUTROPHIL # (test code=NT#) 4.12 K/mm3 1.8-7.7 IMMATURE GRANULOCYTE # (test code=IG#) 0.05 x10 3/uL 0-0.03 LYMPHOCYTE # (test code=LY#) 1.55 K/mm3 1.0-5.0 MONOCYTE # (test code=MO#) 0.47 K/mm3 0-0.8 EOSINOPHIL # (test code=EO#) 0.18 K/mm3 0.0-0.5 BASOPHIL # (test code=BA#) 0.06 K/mm3 0.0-0.2 NUCLEATED RBC # (test code=NRBC#) 0.00 K/mm3 0.0-0.1 MANUAL DIFF REQUIRED (test code=MDIFF) NO, ONLY SCAN NEEDED DIFFERENTIAL [id number] 04:30:00* Test Item Value Reference Range Comments STAIN ACCEPTABILITY (test code=STN ACCEPTABLE) STAIN ACCEPTABLE ANISOCYTOSIS (test code=ANISO) 1+ MACROCYTOSIS (test code=MACR) 1+ PLATELET ESTIMATE (test code=PLTEST) ADEQUATE PLATELET MORPHOLOGY (test code=PLTMORPH) NORMAL PROTHROMBIN [id number] 04:14:00* Test Item Value Reference Range Comments PROTHROMBIN TIME PATIENT (test code=PTP) 38.7 seconds 9.0-14.0 INTERNATIONAL NORMAL RATIO (test code=INR) 3.3 0.8-1.2 The therapeutic range for oral anticoagulant therapy formost indications is an international normalized ratio (INR)of between 2.0 and 3.0. The recommended therapeutic INRrange for various clinical situations is listed below: Clinical Situation INR range Pulmonary e mbolism treatment (2.0-3.0)Venous thrombosis treatmentVenous thrombosis prophylaxis (high risk surgery)Prevention of systemic embolism from: Acute myocardial infarction Valvular heart disease Atrial fibrillation Mechanical prosthetic heart valves (2.5-3.5) IS PATIENT ON ANTICOAGULANTS? YLIST ANTICOAGULANTS HEPARINCOMMENTS TO PHLEBO TOMIST: NEED FOR PROCEDURE 05/24/19THROMBOPLASTIN TIME [id number] 04:14:00* Test Item Value Reference Range Comments THROMBOPLASTIN TIME PARTIAL (test code=PTT) 38.9 seconds 25.0-36.5 IS PATIENT ON ANTICOAGULANTS? YLIST ANTICOAGULANTS HEPARINCOMMENTS TO PHLEBO TOMIST: NEED FOR PROCEDURE 05/24/19BASIC METABOLIC [id number] 04:05:00* Test Item Value Reference Range Comments SODIUM (test code=NA) 146 mmol/L 136-145 POTASSIUM (test code=K) 3.1 mmol/L 3.5-5.1 CHLORIDE (test code=CL) 106.0 mmol/L 98-107 CARBON DIOXIDE (test code=CO2) 32.0 mmol/L 21-32 ANION GAP (test code=GAP) 11.1 10-20 GLUCOSE (test code=GLU) 108 mg/dL 74-106 BLOOD UREA NITROGEN (test code=BUN) 10 mg/dL 7-18 GLOMERULAR FILTRATION RATE (test code=GFR) > 60 mL/min >=60 Estimated GFR by using Modified MDRD formula.Chronic kidney disease is defined as either kidney damageor GFR <60 mL/min/1.73 m2 for >3 months. CREATININE (test code=CREAT) 0.50 mg/dL 0.55-1.02 Note change in reference range due to change in reagent. BUN/CREATININE RATIO (test code=BUN/CREA) 20.1 10-20 CALCIUM (test code=CA) 7.7 mg/dL 8.5-10.1 NURSE WILL SEND LAB DOWN [id number] 05/24/19 0241CBC W/AUTO [id number] 04:02:00* Test Item Value Reference Range Comments WHITE BLOOD CELL (test code=WBC) 6.4 K/mm3 4.5-12.5 RED BLOOD CELL (test code=RBC) 2.70 mill/mm3 3.7-5.2 HEMOGLOBIN (test code=HGB) 8.4 gram/dL 11.5-15.5 HEMATOCRIT (test code=HCT) 27.6 % 36.0-46.0 MEAN CELL VOLUME (test code=MCV) 102.2 fL 80-98 MEAN CELL HGB (test code=MCH) 31.1 picogram 27.0-33.0 MEAN CELL HGB CONCETRATION (test code=MCHC) 30.4 gram/dL 33.0-36.0 RED CELL DISTRIBUTION WIDTH (test code=RDW) 22.9 % 11.6-16.2 RED CELL DISTRIBUTION WIDTH SD (test code=RDW-SD) 82.7 fL 37.0-51.0 PLATELET COUNT (test code=PLT) 179 K/mm3 150-450 MEAN PLATELET VOLUME (test code=MPV) 9.6 fL 6.7-11.0 NEUTROPHIL % (test code=NT%) 64.1 % 39.0-69.0 IMMATURE GRANULOCYTE % (test code=IG%) 0.8 % 0.0-5.0 LYMPHOCYTE % (test code=LY%) 24.1 % 25.0-55.0 MONOCYTE % (test code=MO%) 7.3 % 0.0-10.0 EOSINOPHIL % (test code=EO%) 2.8 % 0.0-5.0 BASOPHIL % (test code=BA%) 0.9 % 0.0-1.0 NUCLEATED RBC % (test code=NRBC%) 0.0 % 0-0 NEUTROPHIL # (test code=NT#) 4.12 K/mm3 1.8-7.7 IMMATURE GRANULOCYTE # (test code=IG#) 0.05 x10 3/uL 0-0.03 LYMPHOCYTE # (test code=LY#) 1.55 K/mm3 1.0-5.0 MONOCYTE # (test code=MO#) 0.47 K/mm3 0-0.8 EOSINOPHIL # (test code=EO#) 0.18 K/mm3 0.0-0.5 BASOPHIL # (test code=BA#) 0.06 K/mm3 0.0-0.2 NUCLEATED RBC # (test code=NRBC#) 0.00 K/mm3 0.0-0.1 MANUAL DIFF REQUIRED (test code=MDIFF) NO, ONLY SCAN NEEDED DIFFERENTIAL [id number] 04:02:00* Test Item Value Reference Range Comments STAIN ACCEPTABILITY (test code=STN ACCEPTABLE) MORPHOLOGY COMMENT (test code=MOC) PLATELET ESTIMATE (test code=PLTEST) PLATELET MORPHOLOGY (test code=PLTMORPH) CBC W/AUTO [id number] 03:59:00* Test Item Value Reference Range Comments WHITE BLOOD CELL (test code=WBC) 6.4 K/mm3 4.5-12.5 RED BLOOD CELL (test code=RBC) 2.70 mill/mm3 3.7-5.2 HEMOGLOBIN (test code=HGB) 8.4 gram/dL 11.5-15.5 HEMATOCRIT (test code=HCT) 27.6 % 36.0-46.0 MEAN CELL VOLUME (test code=MCV) 102.2 fL 80-98 MEAN CELL HGB (test code=MCH) 31.1 picogram 27.0-33.0 MEAN CELL HGB CONCETRATION (test code=MCHC) 30.4 gram/dL 33.0-36.0 RED CELL DISTRIBUTION WIDTH (test code=RDW) 22.9 % 11.6-16.2 RED CELL DISTRIBUTION WIDTH SD (test code=RDW-SD) 82.7 fL 37.0-51.0 PLATELET COUNT (test code=PLT) 179 K/mm3 150-450 MEAN PLATELET VOLUME (test code=MPV) 9.6 fL 6.7-11.0 NEUTROPHIL % (test code=NT%) 64.1 % 39.0-69.0 IMMATURE GRANULOCYTE % (test code=IG%) 0.8 % 0.0-5.0 LYMPHOCYTE % (test code=LY%) 24.1 % 25.0-55.0 MONOCYTE % (test code=MO%) 7.3 % 0.0-10.0 EOSINOPHIL % (test code=EO%) 2.8 % 0.0-5.0 BASOPHIL % (test code=BA%) 0.9 % 0.0-1.0 NUCLEATED RBC % (test code=NRBC%) 0.0 % 0-0 NEUTROPHIL # (test code=NT#) 4.12 K/mm3 1.8-7.7 IMMATURE GRANULOCYTE # (test code=IG#) 0.05 x10 3/uL 0-0.03 LYMPHOCYTE # (test code=LY#) 1.55 K/mm3 1.0-5.0 MONOCYTE # (test code=MO#) 0.47 K/mm3 0-0.8 EOSINOPHIL # (test code=EO#) 0.18 K/mm3 0.0-0.5 BASOPHIL # (test code=BA#) 0.06 K/mm3 0.0-0.2 NUCLEATED RBC # (test code=NRBC#) 0.00 K/mm3 0.0-0.1 MANUAL DIFF REQUIRED (test code=MDIFF) NO, ONLY SCAN NEEDED DIFFERENTIAL [id number] 03:59:00* Test Item Value Reference Range Comments STAIN ACCEPTABILITY (test code=STN ACCEPTABLE) CABOT RINGS (test code=CAB) MORPHOLOGY COMMENT (test code=MOC) PLATELET ESTIMATE (test code=PLTEST) PLATELET MORPHOLOGY (test code=PLTMORPH) CBC W/AUTO [id number] 03:59:00* Test Item Value Reference Range Comments WHITE BLOOD CELL (test code=WBC) 6.4 K/mm3 4.5-12.5 RED BLOOD CELL (test code=RBC) 2.70 mill/mm3 3.7-5.2 HEMOGLOBIN (test code=HGB) 8.4 gram/dL 11.5-15.5 HEMATOCRIT (test code=HCT) 27.6 % 36.0-46.0 MEAN CELL VOLUME (test code=MCV) 102.2 fL 80-98 MEAN CELL HGB (test code=MCH) 31.1 picogram 27.0-33.0 MEAN CELL HGB CONCETRATION (test code=MCHC) 30.4 gram/dL 33.0-36.0 RED CELL DISTRIBUTION WIDTH (test code=RDW) 22.9 % 11.6-16.2 RED CELL DISTRIBUTION WIDTH SD (test code=RDW-SD) 82.7 fL 37.0-51.0 PLATELET COUNT (test code=PLT) 179 K/mm3 150-450 MEAN PLATELET VOLUME (test code=MPV) 9.6 fL 6.7-11.0 NEUTROPHIL % (test code=NT%) 64.1 % 39.0-69.0 IMMATURE GRANULOCYTE % (test code=IG%) 0.8 % 0.0-5.0 LYMPHOCYTE % (test code=LY%) 24.1 % 25.0-55.0 MONOCYTE % (test code=MO%) 7.3 % 0.0-10.0 EOSINOPHIL % (test code=EO%) 2.8 % 0.0-5.0 BASOPHIL % (test code=BA%) 0.9 % 0.0-1.0 NUCLEATED RBC % (test code=NRBC%) 0.0 % 0-0 NEUTROPHIL # (test code=NT#) 4.12 K/mm3 1.8-7.7 IMMATURE GRANULOCYTE # (test code=IG#) 0.05 x10 3/uL 0-0.03 LYMPHOCYTE # (test code=LY#) 1.55 K/mm3 1.0-5.0 MONOCYTE # (test code=MO#) 0.47 K/mm3 0-0.8 EOSINOPHIL # (test code=EO#) 0.18 K/mm3 0.0-0.5 BASOPHIL # (test code=BA#) 0.06 K/mm3 0.0-0.2 NUCLEATED RBC # (test code=NRBC#) 0.00 K/mm3 0.0-0.1 MANUAL DIFF REQUIRED (test code=MDIFF) NO, ONLY SCAN NEEDED DIFFERENTIAL [id number] 03:59:00* Test Item Value Reference Range Comments STAIN ACCEPTABILITY (test code=STN ACCEPTABLE) MORPHOLOGY COMMENT (test code=MOC) PLATELET ESTIMATE (test code=PLTEST) PLATELET MORPHOLOGY (test code=PLTMORPH) CBC W/AUTO [id number] 03:59:00* Test Item Value Reference Range Comments WHITE BLOOD CELL (test code=WBC) 6.4 K/mm3 4.5-12.5 RED BLOOD CELL (test code=RBC) 2.70 mill/mm3 3.7-5.2 HEMOGLOBIN (test code=HGB) 8.4 gram/dL 11.5-15.5 HEMATOCRIT (test code=HCT) 27.6 % 36.0-46.0 MEAN CELL VOLUME (test code=MCV) 102.2 fL 80-98 MEAN CELL HGB (test code=MCH) 31.1 picogram 27.0-33.0 MEAN CELL HGB CONCETRATION (test code=MCHC) 30.4 gram/dL 33.0-36.0 RED CELL DISTRIBUTION WIDTH (test code=RDW) 22.9 % 11.6-16.2 RED CELL DISTRIBUTION WIDTH SD (test code=RDW-SD) 82.7 fL 37.0-51.0 PLATELET COUNT (test code=PLT) 179 K/mm3 150-450 MEAN PLATELET VOLUME (test code=MPV) 9.6 fL 6.7-11.0 NEUTROPHIL % (test code=NT%) 64.1 % 39.0-69.0 IMMATURE GRANULOCYTE % (test code=IG%) 0.8 % 0.0-5.0 LYMPHOCYTE % (test code=LY%) 24.1 % 25.0-55.0 MONOCYTE % (test code=MO%) 7.3 % 0.0-10.0 EOSINOPHIL % (test code=EO%) 2.8 % 0.0-5.0 BASOPHIL % (test code=BA%) 0.9 % 0.0-1.0 NUCLEATED RBC % (test code=NRBC%) 0.0 % 0-0 NEUTROPHIL # (test code=NT#) 4.12 K/mm3 1.8-7.7 IMMATURE GRANULOCYTE # (test code=IG#) 0.05 x10 3/uL 0-0.03 LYMPHOCYTE # (test code=LY#) 1.55 K/mm3 1.0-5.0 MONOCYTE # (test code=MO#) 0.47 K/mm3 0-0.8 EOSINOPHIL # (test code=EO#) 0.18 K/mm3 0.0-0.5 BASOPHIL # (test code=BA#) 0.06 K/mm3 0.0-0.2 NUCLEATED RBC # (test code=NRBC#) 0.00 K/mm3 0.0-0.1 MANUAL DIFF REQUIRED (test code=MDIFF) NO, ONLY SCAN NEEDED DIFFERENTIAL [id number] 03:59:00* Test Item Value Reference Range Comments STAIN ACCEPTABILITY (test code=STN ACCEPTABLE) CABOT RINGS (test code=CAB) MORPHOLOGY COMMENT (test code=MOC) PLATELET ESTIMATE (test code=PLTEST) PLATELET MORPHOLOGY (test code=PLTMORPH) [id number] 21:01:00* Test Item Value Reference Range Comments GLUBED (test code=GLUBED) 103 mg/dL 74-106 Performed by certified tracing lathe set up operator at [facility] [id number] 16:19:00* Test Item Value Reference Range Comments GLUBED (test code=GLUBED) 101 mg/dL 74-106 Performed by certified tracing lathe set up operator at [facility] [id number] 05:11:00* Test Item Value Reference Range Comments GLUBED (test code=GLUBED) 96 mg/dL 74-106 Performed by certified tracing lathe set up operator at [facility] [id number] 01:20:00* Test Item Value Reference Range Comments GLUBED (test code=GLUBED) 79 mg/dL 74-106 Performed by certified tracing lathe set up operator at [facility] BASIC METABOLIC [id number] 21:38:00* Test Item Value Reference Range Comments SODIUM (test code=NA) 144 mmol/L 136-145 POTASSIUM (test code=K) 3.1 mmol/L 3.5-5.1 CHLORIDE (test code=CL) 105.0 mmol/L 98-107 CARBON DIOXIDE (test code=CO2) 31.0 mmol/L 21-32 ANION GAP (test code=GAP) 11.1 10-20 GLUCOSE (test code=GLU) 94 mg/dL 74-106 BLOOD UREA NITROGEN (test code=BUN) 11 mg/dL 7-18 GLOMERULAR FILTRATION RATE (test code=GFR) > 60 mL/min >=60 Estimated GFR by using Modified MDRD formula.Chronic kidney disease is defined as either kidney damageor GFR <60 mL/min/1.73 m2 for >3 months. CREATININE (test code=CREAT) 0.60 mg/dL 0.55-1.02 Note change in reference range due to change in reagent. BUN/CREATININE RATIO (test code=BUN/CREA) 17.9 10-20 CALCIUM (test code=CA) 8.0 mg/dL 8.5-10.1 TRACEY MARTIN([id number]) COULDNT DRAW FROM LINE, WILL LET NIGHTNURSE KNOW TO DRAW.V.L AB.SE 05/22/19 [id number] 06:23:00* Test Item Value Reference Range Comments GLUBED (test code=GLUBED) 97 mg/dL 74-106 Performed by certified tracing lathe set up operator at [facility] [id number] 17:12:00* Test Item Value Reference Range Comments GLUBED (test code=GLUBED) 103 mg/dL 74-106 Performed by certified tracing lathe set up operator at [facility] [id number] 12:41:00* Test Item Value Reference Range Comments GLUBED (test code=GLUBED) 115 mg/dL 74-106 Performed by certified tracing lathe set up operator at [facility] [id number] 08:15:00* Test Item Value Reference Range Comments POTASSIUM (test code=K) 3.4 mmol/L 3.5-5.1 [id number] 05:47:00* Test Item Value Reference Range Comments GLUBED (test code=GLUBED) 98 mg/dL 74-106 Performed by certified tracing lathe set up operator at [facility] [id number] 20:21:00* Test Item Value Reference Range Comments GLUBED (test code=GLUBED) 80 mg/dL 74-106 Performed by certified tracing lathe set up operator at [facility] [id number] 17:37:00* Test Item Value Reference Range Comments GLUBED (test code=GLUBED) 107 mg/dL 74-106 Performed by certified tracing lathe set up operator at [facility] [id number] 16:31:00* Test Item Value Reference Range Comments POTASSIUM (test code=K) 3.2 mmol/L 3.5-5.1 [id number] 12:35:00* Test Item Value Reference Range Comments GLUBED (test code=GLUBED) 115 mg/dL 74-106 Performed by certified tracing lathe set up operator at [facility] BASIC METABOLIC [id number] 07:44:00* Test Item Value Reference Range Comments SODIUM (test code=NA) 142 mmol/L 136-145 POTASSIUM (test code=K) 2.8 mmol/L 3.5-5.1 Results called [place] [address] by V.LAB.CF2 05/20/19 0744Critical results verified and read back by Nurse? Y CHLORIDE (test code=CL) 105.0 mmol/L 98-107 CARBON DIOXIDE (test code=CO2) 28.0 mmol/L 21-32 ANION GAP (test code=GAP) 11.8 10-20 GLUCOSE (test code=GLU) 114 mg/dL 74-106 BLOOD UREA NITROGEN (test code=BUN) 8 mg/dL 7-18 GLOMERULAR FILTRATION RATE (test code=GFR) > 60 mL/min >=60 Estimated GFR by using Modified MDRD formula.Chronic kidney disease is defined as either kidney damageor GFR <60 mL/min/1.73 m2 for >3 months. CREATININE (test code=CREAT) 0.60 mg/dL 0.55-1.02 Note change in reference range due to change in reagent. BUN/CREATININE RATIO (test code=BUN/CREA) 13.2 10-20 CALCIUM (test code=CA) 7.9 mg/dL 8.5-10.1 [id number] 06:44:00* Test Item Value Reference Range Comments GLUBED (test code=GLUBED) 107 mg/dL 74-106 Performed by certified tracing lathe set up operator at [facility] [id number] 22:27:00* Test Item Value Reference Range Comments GLUBED (test code=GLUBED) 117 mg/dL 74-106 Performed by certified tracing lathe set up operator at [facility] [id number] 22:27:00* Test Item Value Reference Range Comments GLUBED (test code=GLUBED) 100 mg/dL 74-106 Performed by certified tracing lathe set up operator at [facility] BASIC METABOLIC [id number] 19:55:00* Test Item Value Reference Range Comments SODIUM (test code=NA) 143 mmol/L 136-145 POTASSIUM (test code=K) 3.0 mmol/L 3.5-5.1 CHLORIDE (test code=CL) 104.0 mmol/L 98-107 CARBON DIOXIDE (test code=CO2) 30.0 mmol/L 21-32 ANION GAP (test code=GAP) 12.0 10-20 GLUCOSE (test code=GLU) 102 mg/dL 74-106 BLOOD UREA NITROGEN (test code=BUN) 8 mg/dL 7-18 GLOMERULAR FILTRATION RATE (test code=GFR) > 60 mL/min >=60 Estimated GFR by using Modified MDRD formula.Chronic kidney disease is defined as either kidney damageor GFR <60 mL/min/1.73 m2 for >3 months. CREATININE (test code=CREAT) 0.60 mg/dL 0.55-1.02 Note change in reference range due to change in reagent. BUN/CREATININE RATIO (test code=BUN/CREA) 13.2 10-20 CALCIUM (test code=CA) 7.9 mg/dL 8.5-10.1 [id number] 19:55:00* Test Item Value Reference Range Comments MAGNESIUM (test code=MAG) 1.8 mg/dL 1.8-2.4 [id number] 16:55:00* Test Item Value Reference Range Comments GLUBED (test code=GLUBED) 115 mg/dL 74-106 Performed by certified tracing lathe set up operator at [facility] [id number] 13:09:00* Test Item Value Reference Range Comments GLUBED (test code=GLUBED) 103 mg/dL 74-106 Performed by certified tracing lathe set up operator at [facility] BASIC METABOLIC [id number] 11:20:00* Test Item Value Reference Range Comments SODIUM (test code=NA) 145 mmol/L 136-145 POTASSIUM (test code=K) 3.1 mmol/L 3.5-5.1 CHLORIDE (test code=CL) 105.0 mmol/L 98-107 CARBON DIOXIDE (test code=CO2) 29.0 mmol/L 21-32 ANION GAP (test code=GAP) 14.1 10-20 GLUCOSE (test code=GLU) 97 mg/dL 74-106 BLOOD UREA NITROGEN (test code=BUN) 8 mg/dL 7-18 GLOMERULAR FILTRATION RATE (test code=GFR) > 60 mL/min >=60 Estimated GFR by using Modified MDRD formula.Chronic kidney disease is defined as either kidney damageor GFR <60 mL/min/1.73 m2 for >3 months. CREATININE (test code=CREAT) 0.70 mg/dL 0.55-1.02 Note change in reference range due to change in reagent. BUN/CREATININE RATIO (test code=BUN/CREA) 11.7 10-20 CALCIUM (test code=CA) 8.2 mg/dL 8.5-10.1 PATIENT HAS A MID LINE TRACEY JAY V.LAB. 0621MAGNESIUM 2019-05-19 11:20:00* Test Item Value Reference Range Comments MAGNESIUM (test code=MAG) 1.8 mg/dL 1.8-2.4 PATIENT HAS A MID LINE TRACEY JAY V.LAB. 0621- SP FLUORO GUID CTRL ACC [id number] 09:49:00 Name: MARI HORVATH [facility] : 1975 Age/S: 44 / F [address] [facility] Unit #: [id number] Loc: [place] [address] Phys: Jayme Guillen MD Acct: [id number] Dis Date: Status: ADM IN PHONE #: [phone] Exam Date: 05/18/2019 1025 FAX #: [phone] Reason: UTI EXAMS: CPT CODE: [id number] SP FLUORO GUID CTRL ACC DEV Fluoro Time: 102 DAP (Gy m2): 2.326 Air Kerma (mGy): 16.85 EXAM: Insertion of a tunneled central line with sonographic and fluoroscopic guidance; CPT: 20031, 92148, 44181; INFORMATION: UTI TECHNIQUE and FINDINGS: After obtaining informed consent, the patient was placed supine on the procedure table and the right neck region was prepped and draped in the usual sterile fashion, applying all elements of maximal sterile barrier technique. Ultrasound of the upper chest region demonstrated a patent and compressible right subclavian vein. Sonographic images were stored in PACS. Xylocaine was administered and using sonographic guidance the right subclavian vein was accessed with a micropuncture system, followed by insertion of a guidewire. Under fluoroscopic guidance, sequential dilata tion was performed and a 7-[place] Islander peel-away sheath was then inserted over the wire. A subcutaneous tunnel was created in the usual sterile fashion a nd a 6 [place] dual-lumen tunneled central line was inserted. The tip of the central line was positioned in the cranial aspect of the right atr ium as demonstrated fluoroscopically. There was no evidence of a pneumoth orax; The patient tolerated the procedure well and there were no apparent complications. IMPRESSION: Successful insertion of a central line via right IJ access, using sonographic and fluoroscopic guidance. Fluoroscopy time:102 sec CAK:16.85 mGy DAP:2326 mGy-sqcm at 0949 Reported and signed by: Michael Stevens M.D. CC: Sendy Guillen Technologist: Luciana Church Trn[facility] Date/Time: 05/19/2019 (0949) oJrgeW Orig Print D/T: S: 05/19/2019 (2453) PAGE 1 Signed Report - US GUIDANCE VASC ACCESS 2019-05-19 09:49:00 Name: MARI HORVATH [facility] : 1975 Age/S: 44 / F [address] [facility] Unit #: [id number] Loc: [place] [address] Phys: Jayme Guillen MD Acct: [id number] Dis Date: Status: ADM IN PHONE #: [phone] Exam Date: 05/18/2019 1024 FAX #: [phone] Reason: UTI EXAMS: CPT CODE: [id number] US GUIDANCE VASC ACCESS 14398 Fluoro Time: DAP (Gy m2): Air Kerma (mGy): EXAM: Insertion of a tunneled central line with sonographic and fluoroscopic guidance; CPT: 43745, 54007, 43049; INFORMATION: UTI TECHNIQUE and FINDINGS: After obtaining informed consent, the patient was placed supine on the procedure table and the right neck region was prepped and draped in the usual sterile fashion, applying all elements of maximal sterile barrier technique. Ultrasound of the upper chest region demonstrated a patent and compressible right subclavian vein. Sonographic images were stored in PACS. Xylocaine was administered and using sonographic guidance the right subclavian vein was accessed with a micropuncture system, followed by insertion of a guidewire. Under fluoroscopic guidance, sequential dilatation was performed and a 7-[place] peel-away sheath was then inserted over the wire. A subcutaneous tunnel was created in the usual sterile fashion and a 6 [place] dual-lumen tunneled central line was inserted. The tip of the central line was positioned in the cranial aspect of the right atrium as demonstrated fluoroscopically. There was no evidence of a pneumothorax; The patient tolerated the procedure well and there were no apparent complications. IMPRESSION: Successful insertion of a central line via right IJ access, using sonographic and fluoroscopic guidance. Fluoroscopy time:102 sec CAK:16.85 mGy DAP:2326 mGy-sqcm at 0949 Reported and signed by: Michael Stevens M.D. CC: Sendy Guillen Technologist: [facility] Date/Time: 05/19/2019 (49) BassamGRW Orig Print D/T: S: 05/19/2019 (0929) PAGE 1 Signed Report [id number] 05:20:00 * Test Item Value Reference Range Comments GLUBED (test code=GLUBED) 94 mg/dL 74-106 Performed by certified tracing lathe set up operator at [facility] [id number] 20:07:00* Test Item Value Reference Range Comments GLUBED (test code=GLUBED) 101 mg/dL 74-106 Performed by certified tracing lathe set up operator at [facility] CBC W/AUTO [id number] 19:47:00* Test Item Value Reference Range Comments WHITE BLOOD CELL (test code=WBC) 8.8 K/mm3 4.5-12.5 RED BLOOD CELL (test code=RBC) 2.84 mill/mm3 3.7-5.2 HEMOGLOBIN (test code=HGB) 8.5 gram/dL 11.5-15.5 HEMATOCRIT (test code=HCT) 27.9 % 36.0-46.0 MEAN CELL VOLUME (test code=MCV) 98.2 fL 80-98 MEAN CELL HGB (test code=MCH) 29.9 picogram 27.0-33.0 MEAN CELL HGB CONCETRATION (test code=MCHC) 30.5 gram/dL 33.0-36.0 RED CELL DISTRIBUTION WIDTH (test code=RDW) 23.1 % 11.6-16.2 RED CELL DISTRIBUTION WIDTH SD (test code=RDW-SD) 82.1 fL 37.0-51.0 PLATELET COUNT (test code=PLT) 169 K/mm3 150-450 MEAN PLATELET VOLUME (test code=MPV) 9.6 fL 6.7-11.0 NEUTROPHIL % (test code=NT%) 73.7 % 39.0-69.0 IMMATURE GRANULOCYTE % (test code=IG%) 2.7 % 0.0-5.0 LYMPHOCYTE % (test code=LY%) 15.7 % 25.0-55.0 MONOCYTE % (test code=MO%) 6.2 % 0.0-10.0 EOSINOPHIL % (test code=EO%) 1.0 % 0.0-5.0 BASOPHIL % (test code=BA%) 0.7 % 0.0-1.0 NUCLEATED RBC % (test code=NRBC%) 0.0 % 0-0 NEUTROPHIL # (test code=NT#) 6.45 K/mm3 1.8-7.7 IMMATURE GRANULOCYTE # (test code=IG#) 0.24 x10 3/uL 0-0.03 LYMPHOCYTE # (test code=LY#) 1.37 K/mm3 1.0-5.0 MONOCYTE # (test code=MO#) 0.54 K/mm3 0-0.8 EOSINOPHIL # (test code=EO#) 0.09 K/mm3 0.0-0.5 BASOPHIL # (test code=BA#) 0.06 K/mm3 0.0-0.2 NUCLEATED RBC # (test code=NRBC#) 0.00 K/mm3 0.0-0.1 MANUAL DIFF REQUIRED (test code=MDIFF) NO, ONLY SCAN NEEDED DIFFERENTIAL [id number] 19:47:00* Test Item Value Reference Range Comments STAIN ACCEPTABILITY (test code=STN ACCEPTABLE) STAIN ACCEPTABLE POLYCHROMASIA (test code=POLC) 1+ ANISOCYTOSIS (test code=ANISO) 1+ MACROCYTOSIS (test code=MACR) 1+ PLATELET ESTIMATE (test code=PLTEST) ADEQUATE PLATELET MORPHOLOGY (test code=PLTMORPH) NORMAL [id number] 16:47:00* Test Item Value Reference Range Comments MAGNESIUM (test code=MAG) 1.6 mg/dL 1.8-2.4 BASIC METABOLIC [id number] 16:46:00* Test Item Value Reference Range Comments SODIUM (test code=NA) 148 mmol/L 136-145 POTASSIUM (test code=K) 3.2 mmol/L 3.5-5.1 CHLORIDE (test code=CL) 107.0 mmol/L 98-107 CARBON DIOXIDE (test code=CO2) 30.0 mmol/L 21-32 ANION GAP (test code=GAP) 14.2 10-20 GLUCOSE (test code=GLU) 102 mg/dL 74-106 BLOOD UREA NITROGEN (test code=BUN) 9 mg/dL 7-18 GLOMERULAR FILTRATION RATE (test code=GFR) > 60 mL/min >=60 Estimated GFR by using Modified MDRD formula.Chronic kidney disease is defined as either kidney damageor GFR <60 mL/min/1.73 m2 for >3 months. CREATININE (test code=CREAT) 0.50 mg/dL 0.55-1.02 Note change in reference range due to change in reagent. BUN/CREATININE RATIO (test code=BUN/CREA) 17.1 10-20 CALCIUM (test code=CA) 7.7 mg/dL 8.5-10.1 PT GETTING MIDLINE PUT IN. PER NURSE [id number] V.LAB.05/18/19 0959CBC W/AUTO [id number] 16:42:00* Test Item Value Reference Range Comments WHITE BLOOD CELL (test code=WBC) 8.8 K/mm3 4.5-12.5 RED BLOOD CELL (test code=RBC) 2.84 mill/mm3 3.7-5.2 HEMOGLOBIN (test code=HGB) 8.5 gram/dL 11.5-15.5 HEMATOCRIT (test code=HCT) 27.9 % 36.0-46.0 MEAN CELL VOLUME (test code=MCV) 98.2 fL 80-98 MEAN CELL HGB (test code=MCH) 29.9 picogram 27.0-33.0 MEAN CELL HGB CONCETRATION (test code=MCHC) 30.5 gram/dL 33.0-36.0 RED CELL DISTRIBUTION WIDTH (test code=RDW) 23.1 % 11.6-16.2 RED CELL DISTRIBUTION WIDTH SD (test code=RDW-SD) 82.1 fL 37.0-51.0 PLATELET COUNT (test code=PLT) 169 K/mm3 150-450 MEAN PLATELET VOLUME (test code=MPV) 9.6 fL 6.7-11.0 NEUTROPHIL % (test code=NT%) 73.7 % 39.0-69.0 IMMATURE GRANULOCYTE % (test code=IG%) 2.7 % 0.0-5.0 LYMPHOCYTE % (test code=LY%) 15.7 % 25.0-55.0 MONOCYTE % (test code=MO%) 6.2 % 0.0-10.0 EOSINOPHIL % (test code=EO%) 1.0 % 0.0-5.0 BASOPHIL % (test code=BA%) 0.7 % 0.0-1.0 NUCLEATED RBC % (test code=NRBC%) 0.0 % 0-0 NEUTROPHIL # (test code=NT#) 6.45 K/mm3 1.8-7.7 IMMATURE GRANULOCYTE # (test code=IG#) 0.24 x10 3/uL 0-0.03 LYMPHOCYTE # (test code=LY#) 1.37 K/mm3 1.0-5.0 MONOCYTE # (test code=MO#) 0.54 K/mm3 0-0.8 EOSINOPHIL # (test code=EO#) 0.09 K/mm3 0.0-0.5 BASOPHIL # (test code=BA#) 0.06 K/mm3 0.0-0.2 NUCLEATED RBC # (test code=NRBC#) 0.00 K/mm3 0.0-0.1 MANUAL DIFF REQUIRED (test code=MDIFF) NO, ONLY SCAN NEEDED DIFFERENTIAL [id number] 16:42:00* Test Item Value Reference Range Comments STAIN ACCEPTABILITY (test code=STN ACCEPTABLE) CABOT RINGS (test code=CAB) MORPHOLOGY COMMENT (test code=MOC) PLATELET ESTIMATE (test code=PLTEST) PLATELET MORPHOLOGY (test code=PLTMORPH) CBC W/AUTO [id number] 16:42:00* Test Item Value Reference Range Comments WHITE BLOOD CELL (test code=WBC) 8.8 K/mm3 4.5-12.5 RED BLOOD CELL (test code=RBC) 2.84 mill/mm3 3.7-5.2 HEMOGLOBIN (test code=HGB) 8.5 gram/dL 11.5-15.5 HEMATOCRIT (test code=HCT) 27.9 % 36.0-46.0 MEAN CELL VOLUME (test code=MCV) 98.2 fL 80-98 MEAN CELL HGB (test code=MCH) 29.9 picogram 27.0-33.0 MEAN CELL HGB CONCETRATION (test code=MCHC) 30.5 gram/dL 33.0-36.0 RED CELL DISTRIBUTION WIDTH (test code=RDW) 23.1 % 11.6-16.2 RED CELL DISTRIBUTION WIDTH SD (test code=RDW-SD) 82.1 fL 37.0-51.0 PLATELET COUNT (test code=PLT) 169 K/mm3 150-450 MEAN PLATELET VOLUME (test code=MPV) 9.6 fL 6.7-11.0 NEUTROPHIL % (test code=NT%) 73.7 % 39.0-69.0 IMMATURE GRANULOCYTE % (test code=IG%) 2.7 % 0.0-5.0 LYMPHOCYTE % (test code=LY%) 15.7 % 25.0-55.0 MONOCYTE % (test code=MO%) 6.2 % 0.0-10.0 EOSINOPHIL % (test code=EO%) 1.0 % 0.0-5.0 BASOPHIL % (test code=BA%) 0.7 % 0.0-1.0 NUCLEATED RBC % (test code=NRBC%) 0.0 % 0-0 NEUTROPHIL # (test code=NT#) 6.45 K/mm3 1.8-7.7 IMMATURE GRANULOCYTE # (test code=IG#) 0.24 x10 3/uL 0-0.03 LYMPHOCYTE # (test code=LY#) 1.37 K/mm3 1.0-5.0 MONOCYTE # (test code=MO#) 0.54 K/mm3 0-0.8 EOSINOPHIL # (test code=EO#) 0.09 K/mm3 0.0-0.5 BASOPHIL # (test code=BA#) 0.06 K/mm3 0.0-0.2 NUCLEATED RBC # (test code=NRBC#) 0.00 K/mm3 0.0-0.1 MANUAL DIFF REQUIRED (test code=MDIFF) NO, ONLY SCAN NEEDED DIFFERENTIAL [id number] 16:42:00* Test Item Value Reference Range Comments STAIN ACCEPTABILITY (test code=STN ACCEPTABLE) CABOT RINGS (test code=CAB) MORPHOLOGY COMMENT (test code=MOC) PLATELET ESTIMATE (test code=PLTEST) PLATELET MORPHOLOGY (test code=PLTMORPH) CBC W/AUTO [id number] 16:42:00* Test Item Value Reference Range Comments WHITE BLOOD CELL (test code=WBC) 8.8 K/mm3 4.5-12.5 RED BLOOD CELL (test code=RBC) 2.84 mill/mm3 3.7-5.2 HEMOGLOBIN (test code=HGB) 8.5 gram/dL 11.5-15.5 HEMATOCRIT (test code=HCT) 27.9 % 36.0-46.0 MEAN CELL VOLUME (test code=MCV) 98.2 fL 80-98 MEAN CELL HGB (test code=MCH) 29.9 picogram 27.0-33.0 MEAN CELL HGB CONCETRATION (test code=MCHC) 30.5 gram/dL 33.0-36.0 RED CELL DISTRIBUTION WIDTH (test code=RDW) 23.1 % 11.6-16.2 RED CELL DISTRIBUTION WIDTH SD (test code=RDW-SD) 82.1 fL 37.0-51.0 PLATELET COUNT (test code=PLT) 169 K/mm3 150-450 MEAN PLATELET VOLUME (test code=MPV) 9.6 fL 6.7-11.0 NEUTROPHIL % (test code=NT%) 73.7 % 39.0-69.0 IMMATURE GRANULOCYTE % (test code=IG%) 2.7 % 0.0-5.0 LYMPHOCYTE % (test code=LY%) 15.7 % 25.0-55.0 MONOCYTE % (test code=MO%) 6.2 % 0.0-10.0 EOSINOPHIL % (test code=EO%) 1.0 % 0.0-5.0 BASOPHIL % (test code=BA%) 0.7 % 0.0-1.0 NUCLEATED RBC % (test code=NRBC%) 0.0 % 0-0 NEUTROPHIL # (test code=NT#) 6.45 K/mm3 1.8-7.7 IMMATURE GRANULOCYTE # (test code=IG#) 0.24 x10 3/uL 0-0.03 LYMPHOCYTE # (test code=LY#) 1.37 K/mm3 1.0-5.0 MONOCYTE # (test code=MO#) 0.54 K/mm3 0-0.8 EOSINOPHIL # (test code=EO#) 0.09 K/mm3 0.0-0.5 BASOPHIL # (test code=BA#) 0.06 K/mm3 0.0-0.2 NUCLEATED RBC # (test code=NRBC#) 0.00 K/mm3 0.0-0.1 MANUAL DIFF REQUIRED (test code=MDIFF) NO, ONLY SCAN NEEDED DIFFERENTIAL [id number] 16:42:00* Test Item Value Reference Range Comments STAIN ACCEPTABILITY (test code=STN ACCEPTABLE) MORPHOLOGY COMMENT (test code=MOC) PLATELET ESTIMATE (test code=PLTEST) PLATELET MORPHOLOGY (test code=PLTMORPH) CBC W/AUTO [id number] 16:42:00* Test Item Value Reference Range Comments WHITE BLOOD CELL (test code=WBC) 8.8 K/mm3 4.5-12.5 RED BLOOD CELL (test code=RBC) 2.84 mill/mm3 3.7-5.2 HEMOGLOBIN (test code=HGB) 8.5 gram/dL 11.5-15.5 HEMATOCRIT (test code=HCT) 27.9 % 36.0-46.0 MEAN CELL VOLUME (test code=MCV) 98.2 fL 80-98 MEAN CELL HGB (test code=MCH) 29.9 picogram 27.0-33.0 MEAN CELL HGB CONCETRATION (test code=MCHC) 30.5 gram/dL 33.0-36.0 RED CELL DISTRIBUTION WIDTH (test code=RDW) 23.1 % 11.6-16.2 RED CELL DISTRIBUTION WIDTH SD (test code=RDW-SD) 82.1 fL 37.0-51.0 PLATELET COUNT (test code=PLT) 169 K/mm3 150-450 MEAN PLATELET VOLUME (test code=MPV) 9.6 fL 6.7-11.0 NEUTROPHIL % (test code=NT%) 73.7 % 39.0-69.0 IMMATURE GRANULOCYTE % (test code=IG%) 2.7 % 0.0-5.0 LYMPHOCYTE % (test code=LY%) 15.7 % 25.0-55.0 MONOCYTE % (test code=MO%) 6.2 % 0.0-10.0 EOSINOPHIL % (test code=EO%) 1.0 % 0.0-5.0 BASOPHIL % (test code=BA%) 0.7 % 0.0-1.0 NUCLEATED RBC % (test code=NRBC%) 0.0 % 0-0 NEUTROPHIL # (test code=NT#) 6.45 K/mm3 1.8-7.7 IMMATURE GRANULOCYTE # (test code=IG#) 0.24 x10 3/uL 0-0.03 LYMPHOCYTE # (test code=LY#) 1.37 K/mm3 1.0-5.0 MONOCYTE # (test code=MO#) 0.54 K/mm3 0-0.8 EOSINOPHIL # (test code=EO#) 0.09 K/mm3 0.0-0.5 BASOPHIL # (test code=BA#) 0.06 K/mm3 0.0-0.2 NUCLEATED RBC # (test code=NRBC#) 0.00 K/mm3 0.0-0.1 MANUAL DIFF REQUIRED (test code=MDIFF) NO, ONLY SCAN NEEDED DIFFERENTIAL [id number] 16:42:00* Test Item Value Reference Range Comments STAIN ACCEPTABILITY (test code=STN ACCEPTABLE) CABOT RINGS (test code=CAB) MORPHOLOGY COMMENT (test code=MOC) PLATELET ESTIMATE (test code=PLTEST) PLATELET MORPHOLOGY (test code=PLTMORPH) [id number] 16:31:00* Test Item Value Reference Range Comments GLUBED (test code=GLUBED) 98 mg/dL 74-106 Performed by certified tracing lathe set up operator at [facility] BASIC METABOLIC [id number] 16:30:00* Test Item Value Reference Range Comments SODIUM (test code=NA) 148 mmol/L 136-145 POTASSIUM (test code=K) 3.2 mmol/L 3.5-5.1 CHLORIDE (test code=CL) 107.0 mmol/L 98-107 CARBON DIOXIDE (test code=CO2) mmol/L 21-32 ANION GAP (test code=GAP) 10-20 GLUCOSE (test code=GLU) mg/dL 74-106 BLOOD UREA NITROGEN (test code=BUN) mg/dL 7-18 GLOMERULAR FILTRATION RATE (test code=GFR) mL/min >=60 CREATININE (test code=CREAT) mg/dL 0.55-1.02 BUN/CREATININE RATIO (test code=BUN/CREA) 10-20 CALCIUM (test code=CA) mg/dL 8.5-10.1 PT GETTING MIDLINE PUT IN. PER NURSE [id number] V.LAB.05/18/19 0959GLUBED 2019-05-18 11:29:00* Test Item Value Reference Range Comments GLUBED (test code=GLUBED) 95 mg/dL 74-106 Performed by certified tracing lathe set up operator at [facility] - XR CHEST 1 [id number] 11:11:00 FAX: Jayme Garcia MD [phone] [place]: St: ADM Name: MARI WILLIAM [facility] : [birth year] Age/S: 44/F [address] Unit #: [id number] Loc: V.2078 [place] [address] Phys: Michael Stevens MD Acct: [id number] Dis Date: Status: ADM IN PHONE #: [phone] Exam Date: 05/18/2019 1034 FAX #: [phone] Reason: UTI; st.p. central line; EXAMS: CPT CODE: [id number] XR CHEST 1 V 98060 REASON FOR EXAM: UTI; st.p. central line; Exam Order Date: 05/18/2019 10:23 AM Ordering Mita: Michael Stevens MD PROCEDURE: - XR CHEST 1 V COMPARISON: Frontal chest x-ray May 11, 2019 FINDING S: Right-sided subclavian central line has been placed into the distal SVC. Previous left IJ central line has been removed. Tracheostomy is unchanged. Previous enteric suction tube has been removed. Lung vo lumes are diminished and there is elevation of the right hemidiaphragm, si milar to the prior exam. There is also a right-sided pleural effusion. The re is subsegmental atelectasis in the lung bases. No pneumothorax. Cardiomediastinal silhouette is prominent however this may be due to low lung volumes. No acute musculoskeletal abnormality. Bone min eralization is decreased. Opacity in the left upper abdomen may represent residual oral contrast from a previous swallow study May 17, 2019. IMPRESSION: No pneumothorax following placemen t of right subclavian central line. Previous left IJ central line and en teric suction tube have been removed. Low lung volumes with biba silar subsegmental atelectasis and right-sided pleural effusion are rede monstrated. at 1111 Reported and signed by: Lincoln Pace MD PA GE 1 Signed Report (CONTINUED) FAX: Jayme Garcia MD [phone] [place]: B St: ADM Name: RAY HORVATH [facility] : 1975 Age /S: 44/F [address] [facility] Unit #: [id number] Loc: V.2077 [place] [address] Phys: Michael Stevens MD Acct: [id number] Dis Date: Status: ADM IN PHONE #: [phone] Exam Date: 05/18/2019 1034 FAX #: [phone] Reason: UTI; st.p. central line; EXAMS: CPT CODE: [id number] XR CHEST 1 V 60124 <Continued> CC: Jayme Guillen Technologist: Keisha Lucas RT(R) Trnscrd Date/Time/By: 05/18/2019 (1111) : By: BassamRR31 Orig Print D/T: S: 05/18/2019 (1115) PAGE 2 Signed Report [id number] 08:43:00* Test Item Value Reference Range Comments GLUBED (test code=GLUBED) 98 mg/dL 74-106 Performed by certified tracing lathe set up operator at [facility] [id number] 08:43:00* Test Item Value Reference Range Comments GLUBED (test code=GLUBED) 104 mg/dL 74-106 Performed by certified tracing lathe set up operator at [facility] [id number] 06:41:00* Test Item Value Reference Range Comments GLUBED (test code=GLUBED) 94 mg/dL 74-106 Performed by certified tracing lathe set up operator at [facility] [id number] 06:41:00* Test Item Value Reference Range Comments GLUBED (test code=GLUBED) 116 mg/dL 74-106 [facility] certified tracing lathe set [facility]~ [id number] 06:41:00* Test Item Value Reference Range Comments GLUBED (test code=GLUBED) 77 mg/dL 74-106 Performed by certified tracing lathe set up operator at [facility] - XR SWLW FUNC W/C [id number] 15:48:00 FAX: Mono Preciado MD [phone] [place]: B St: ADM FAX: Jayme Garcia MD [phone] Name: MARI HORVATH [facility] : 1975 Age/S: 44/F [place] Unit #: [id number] Loc: V.[address] [place] [address] Phys: Mono Bentley MD Acct: [id number] Dis Date: Status: ADM IN PHONE #: [phone] Exam Date: 05/17/2019 1540 FAX #: [phone] Reason: APHASIA EVAL AND TREAT EXAMS: CPT CODE: [id number] XR SWLW FUNC W/C V 70168 REASON FOR EXAM: APHASIA EVAL AND TREAT EXAM ORDER DATE: 05/17/2019 12:00 AM Attending MAgustin.: Mono Bentley MD PROCEDURE: Barium swallow FINDINGS: The exam was p erformed to assist the speech pathologist in performing the barium swallow exam for assessment of aspiration, penetration, and function and motility of the oropharynx. The patient was giving teaspoon, cup, straw of thin l iquid, teaspoon, cup, straw of thick liquid, puree, mechanical soft food coated with barium and regular food coated with barium to swallow. Fluoroscopic time:99.6 sec Fluoroscopic dose:3.3 mGy Number of images obtained: 11 IMPRESSION: Minimal aspiration with thin liquid. Please see the speech pathologist report. at 3911 Reported and signed by: Cuauhtemoc Benjamin M.D. CC: Mono Bentley MD; Jayme Guillen Technologist: Keisha OLIVO(R) Trnscrd Date/Time/By: 05/17/2019 (0983) : By: Shelia Orig Print D/T: S: 05/17/2019 (6337) PAGE 1 Signed Report [id number] 00:47:00* Test Item Value Reference Range Comments GLUBED (test code=GLUBED) 97 mg/dL 74-106 Performed by certified tracing lathe set up operator at [facility] [id number] 17:01:00* Test Item Value Reference Range Comments GLUBED (test code=GLUBED) 76 mg/dL 74-106 Performed by certified tracing lathe set up operator at [facility] BASIC METABOLIC [id number] 13:02:00* Test Item Value Reference Range Comments SODIUM (test code=NA) 160 mmol/L 136-145 Results called to [id number] by V.LAB. 05/16/19 1252Critical results verified and read back by Nurse? Y POTASSIUM (test code=K) 1.8 mmol/L 3.5-5.1 Results called to [id number] by V.LAB. 05/16/19 1252Critical results verified and read back by Nurse? Y CHLORIDE (test code=CL) 137.0 mmol/L 98-107 CARBON DIOXIDE (test code=CO2) 15.0 mmol/L 21-32 ANION GAP (test code=GAP) 9.8 10-20 GLUCOSE (test code=GLU) 54 mg/dL 74-106 BLOOD UREA NITROGEN (test code=BUN) 4 mg/dL 7-18 GLOMERULAR FILTRATION RATE (test code=GFR) > 60 mL/min >=60 Estimated GFR by using Modified MDRD formula.Chronic kidney disease is defined as either kidney damageor GFR <60 mL/min/1.73 m2 for >3 months. CREATININE (test code=CREAT) < 0.20 mg/dL 0.55-1.02 Note change in reference range due to change in reagent. BUN/CREATININE RATIO (test code=BUN/CREA) 26.7 10-20 CALCIUM (test code=CA) < 5.0 mg/dL 8.5-10.1 Results called to [id number] by V.LAB. 05/16/19 1302Critical results verified and read back by Nurse? Y TRACEY MENDOZA [id number] SENDING SPECIMENS DOWN, PULLING FROM LINE.SUPPLIES LEFT IN YELENA [employer].LAB.RP1 05/16/19 [id number] 13:02:00* Test Item Value Reference Range Comments MAGNESIUM (test code=MAG) 0.6 mg/dL 1.8-2.4 Results called to [id number] by V.LAB. 05/16/19 1252Critical results verified and read back by Nurse? Y TRACEY MENDOZA [id number] SENDING SPECIMENS DOWN, PULLING FROM LINE.SUPPLIES LEFT IN YELENA [employer] 05/16/19 0609BASIC METABOLIC [id number] 12:53:00* Test Item Value Reference Range Comments SODIUM (test code=NA) 160 mmol/L 136-145 Results called to [id number] by V.LAB. 05/16/19 1252Critical results verified and read back by Nurse? Y POTASSIUM (test code=K) 1.8 mmol/L 3.5-5.1 Results called to [id number] by V.LAB. 05/16/19 1252Critical results verified and read back by Nurse? Y CHLORIDE (test code=CL) 137.0 mmol/L 98-107 CARBON DIOXIDE (test code=CO2) 15.0 mmol/L 21-32 ANION GAP (test code=GAP) 9.8 10-20 GLUCOSE (test code=GLU) 54 mg/dL 74-106 BLOOD UREA NITROGEN (test code=BUN) 4 mg/dL 7-18 GLOMERULAR FILTRATION RATE (test code=GFR) > 60 mL/min >=60 Estimated GFR by using Modified MDRD formula.Chronic kidney disease is defined as either kidney damageor GFR <60 mL/min/1.73 m2 for >3 months. CREATININE (test code=CREAT) < 0.20 mg/dL 0.55-1.02 Note change in reference range due to change in reagent. BUN/CREATININE RATIO (test code=BUN/CREA) 26.7 10-20 CALCIUM (test code=CA) mg/dL 8.5-10.1 TRACEY [id number] SENDING SPECIMENS DOWN, PULLING FROM LINE.SUPPLIES LEFT IN YELENA [employer]LAB.[facility] 05/16/19 [id number] 12:53:00* Test Item Value Reference Range Comments MAGNESIUM (test code=MAG) 0.6 mg/dL 1.8-2.4 Results called to [id number] by V.LAB. 05/16/19 1252Critical results verified and read back by Nurse? Y TRACEY [id number] SENDING SPECIMENS DOWN, PULLING FROM LINE.SUPPLIES LEFT IN YELENA [employer].LAB.[facility] 05/16/19 0609PROTHROMBIN [id number] 12:32:00* Test Item Value Reference Range Comments PROTHROMBIN TIME PATIENT (test code=PTP) 21.0 seconds 9.0-14.0 INTERNATIONAL NORMAL RATIO (test code=INR) 1.8 0.8-1.2 The therapeutic range for oral anticoagulant therapy formost indications is an international normalized ratio (INR)of between 2.0 and 3.0. The recommended therapeutic INRrange for various clinical situations is listed below: Clinical Situation INR range Pulmonary e mbolism treatment (2.0-3.0)Venous thrombosis treatmentVenous thrombosis prophylaxis (high risk surgery)Prevention of systemic embolism from: Acute myocardial infarction Valvular heart disease Atrial fibrillation Mechanical prosthetic heart valves (2.5-3.5) 05/15/19 224[employer] 05/15/19 1241PCAROLANN BELTRAN([id number]) TO WAIT UNTILL THEY FIX PICC LINE.PTHARD STICK.@[email or web address] 05/15/19 0628THROMBOPLASTIN TIME PARTIAL 2019-05-16 12:32:00* Test Item Value Reference Range Comments THROMBOPLASTIN TIME PARTIAL (test code=PTT) 29.9 seconds 25.0-36.5 05/15/19 2240LAB[employer] 05/15/19 1241PCAROLANN BELTRAN([id number]) TO WAIT UNTILL THEY FIX PICC LINE.PTHARD STICK.@[employer].3 05/15/19 [id number] 11:45:00* Test Item Value Reference Range Comments GLUBED (test code=GLUBED) 95 mg/dL 74-106 Performed by certified tracing lathe set up operator at [facility] [id number] 07:51:00* Test Item Value Reference Range Comments GLUBED (test code=GLUBED) 88 mg/dL 74-106 Performed by certified tracing lathe set up operator at [facility] [id number] 21:27:00* Test Item Value Reference Range Comments GLUBED (test code=GLUBED) 113 mg/dL 74-106 Performed by certified tracing lathe set up operator at [facility] [id number] 21:27:00* Test Item Value Reference Range Comments GLUBED (test code=GLUBED) 122 mg/dL 74-106 Performed by certified tracing lathe set up operator at [facility] [id number] 16:55:00* Test Item Value Reference Range Comments GLUBED (test code=GLUBED) 110 mg/dL 74-106 Performed by certified tracing lathe set up operator at [facility] CBC W/AUTO [id number] 06:26:00* Test Item Value Reference Range Comments WHITE BLOOD CELL (test code=WBC) 5.9 K/mm3 4.5-12.5 RED BLOOD CELL (test code=RBC) 3.05 mill/mm3 3.7-5.2 HEMOGLOBIN (test code=HGB) 9.0 gram/dL 11.5-15.5 RESULT VERIFIED BY REPEAT ANALYSIS HEMATOCRIT (test code=HCT) 31.9 % 36.0-46.0 MEAN CELL VOLUME (test code=MCV) 104.6 fL 80-98 RESULT VERIFIED BY REPEAT ANALYSIS MEAN CELL HGB (test code=MCH) 29.5 picogram 27.0-33.0 MEAN CELL HGB CONCETRATION (test code=MCHC) 28.2 gram/dL 33.0-36.0 RED CELL DISTRIBUTION WIDTH (test code=RDW) 23.6 % 11.6-16.2 RED CELL DISTRIBUTION WIDTH SD (test code=RDW-SD) 69.9 fL 37.0-51.0 PLATELET COUNT (test code=PLT) 142 K/mm3 150-450 MEAN PLATELET VOLUME (test code=MPV) 9.8 fL 6.7-11.0 NEUTROPHIL % (test code=NT%) 51.1 % 39.0-69.0 IMMATURE GRANULOCYTE % (test code=IG%) 10.8 % 0.0-5.0 "The appearance of immature granulocytes (myelocytes,pro-myelocytes, meta-myelocytes) in the peripheral blood ofnon- individuals can indicate a response toinfection, inflammation, or other stimulus to the bonemarrow" LYMPHOCYTE % (test code=LY%) 23.3 % 25.0-55.0 MONOCYTE % (test code=MO%) 10.6 % 0.0-10.0 EOSINOPHIL % (test code=EO%) 3.2 % 0.0-5.0 BASOPHIL % (test code=BA%) 1.0 % 0.0-1.0 NUCLEATED RBC % (test code=NRBC%) 1.9 % 0-0 NEUTROPHIL # (test code=NT#) 3.03 K/mm3 1.8-7.7 IMMATURE GRANULOCYTE # (test code=IG#) 0.64 x10 3/uL 0-0.03 LYMPHOCYTE # (test code=LY#) 1.38 K/mm3 1.0-5.0 MONOCYTE # (test code=MO#) 0.63 K/mm3 0-0.8 EOSINOPHIL # (test code=EO#) 0.19 K/mm3 0.0-0.5 BASOPHIL # (test code=BA#) 0.06 K/mm3 0.0-0.2 NUCLEATED RBC # (test code=NRBC#) 0.11 K/mm3 0.0-0.1 MANUAL DIFF REQUIRED (test code=MDIFF) NO, ONLY SCAN NEEDED WBC [id number] 06:26:00* Test Item Value Reference Range Comments STAIN ACCEPTABILITY (test code=STN ACCEPTABLE) STAIN ACCEPTABLE TOTAL CELLS COUNTED (test code=TCC) 100 #CELLS SEGMENTED NEUTROPHILS (test code=SEG) 58 % 39-69 LYMPHOCYTE (test code=LYMPH) 36 % 25-55 MONOCYTE (test code=MON) 3 % 0-10 EOSINOPHIL (test code=EOS) 3 % 0.0-5.0 NUCLEATED RED BLOOD CELL (test code=NRBC) 2 % 0.0-1.0 POLYCHROMASIA (test code=POLC) 2+ HYPOCHROMIA (test code=HYPO) 1+ MACROCYTOSIS (test code=MACR) 2+ MORPHOLOGY COMMENT (test code=MOC) NORMAL PLATELET ESTIMATE (test code=PLTEST) ADEQUATE PLATELET MORPHOLOGY (test code=PLTMORPH) NORMAL BASIC METABOLIC [id number] 06:19:00* Test Item Value Reference Range Comments SODIUM (test code=NA) 143 mmol/L 136-145 POTASSIUM (test code=K) 4.4 mmol/L 3.5-5.1 CHLORIDE (test code=CL) 109.0 mmol/L 98-107 CARBON DIOXIDE (test code=CO2) 26.0 mmol/L 21-32 ANION GAP (test code=GAP) 12.4 10-20 GLUCOSE (test code=GLU) 117 mg/dL 74-106 BLOOD UREA NITROGEN (test code=BUN) 11 mg/dL 7-18 GLOMERULAR FILTRATION RATE (test code=GFR) > 60 mL/min >=60 Estimated GFR by using Modified MDRD formula.Chronic kidney disease is defined as either kidney damageor GFR <60 mL/min/1.73 m2 for >3 months. CREATININE (test code=CREAT) 0.60 mg/dL 0.55-1.02 Note change in reference range due to change in reagent. BUN/CREATININE RATIO (test code=BUN/CREA) 18.6 10-20 CALCIUM (test code=CA) 7.8 mg/dL 8.5-10.1 [id number] 06:18:00* Test Item Value Reference Range Comments GLUBED (test code=GLUBED) 107 mg/dL 74-106 Performed by certified tracing lathe set up operator at [facility] BASIC METABOLIC [id number] 06:17:00* Test Item Value Reference Range Comments SODIUM (test code=NA) 143 mmol/L 136-145 POTASSIUM (test code=K) 4.4 mmol/L 3.5-5.1 CHLORIDE (test code=CL) 109.0 mmol/L 98-107 CARBON DIOXIDE (test code=CO2) mmol/L 21-32 ANION GAP (test code=GAP) 10-20 GLUCOSE (test code=GLU) mg/dL 74-106 BLOOD UREA NITROGEN (test code=BUN) mg/dL 7-18 GLOMERULAR FILTRATION RATE (test code=GFR) mL/min >=60 CREATININE (test code=CREAT) mg/dL 0.55-1.02 BUN/CREATININE RATIO (test code=BUN/CREA) 10-20 CALCIUM (test code=CA) mg/dL 8.5-10.1 CBC W/AUTO [id number] 05:50:00* Test Item Value Reference Range Comments WHITE BLOOD CELL (test code=WBC) 5.9 K/mm3 4.5-12.5 RED BLOOD CELL (test code=RBC) 3.05 mill/mm3 3.7-5.2 HEMOGLOBIN (test code=HGB) 9.0 gram/dL 11.5-15.5 RESULT VERIFIED BY REPEAT ANALYSIS HEMATOCRIT (test code=HCT) 31.9 % 36.0-46.0 MEAN CELL VOLUME (test code=MCV) 104.6 fL 80-98 RESULT VERIFIED BY REPEAT ANALYSIS MEAN CELL HGB (test code=MCH) 29.5 picogram 27.0-33.0 MEAN CELL HGB CONCETRATION (test code=MCHC) 28.2 gram/dL 33.0-36.0 RED CELL DISTRIBUTION WIDTH (test code=RDW) 23.6 % 11.6-16.2 RED CELL DISTRIBUTION WIDTH SD (test code=RDW-SD) 69.9 fL 37.0-51.0 PLATELET COUNT (test code=PLT) 142 K/mm3 150-450 MEAN PLATELET VOLUME (test code=MPV) 9.8 fL 6.7-11.0 NEUTROPHIL % (test code=NT%) 51.1 % 39.0-69.0 IMMATURE GRANULOCYTE % (test code=IG%) 10.8 % 0.0-5.0 "The appearance of immature granulocytes (myelocytes,pro-myelocytes, meta-myelocytes) in the peripheral blood ofnon- individuals can indicate a response toinfection, inflammation, or other stimulus to the bonemarrow" LYMPHOCYTE % (test code=LY%) 23.3 % 25.0-55.0 MONOCYTE % (test code=MO%) 10.6 % 0.0-10.0 EOSINOPHIL % (test code=EO%) 3.2 % 0.0-5.0 BASOPHIL % (test code=BA%) 1.0 % 0.0-1.0 NUCLEATED RBC % (test code=NRBC%) 1.9 % 0-0 NEUTROPHIL # (test code=NT#) 3.03 K/mm3 1.8-7.7 IMMATURE GRANULOCYTE # (test code=IG#) 0.64 x10 3/uL 0-0.03 LYMPHOCYTE # (test code=LY#) 1.38 K/mm3 1.0-5.0 MONOCYTE # (test code=MO#) 0.63 K/mm3 0-0.8 EOSINOPHIL # (test code=EO#) 0.19 K/mm3 0.0-0.5 BASOPHIL # (test code=BA#) 0.06 K/mm3 0.0-0.2 NUCLEATED RBC # (test code=NRBC#) 0.11 K/mm3 0.0-0.1 MANUAL DIFF REQUIRED (test code=MDIFF) NO, ONLY SCAN NEEDED WBC [id number] 05:50:00* Test Item Value Reference Range Comments STAIN ACCEPTABILITY (test code=STN ACCEPTABLE) TOTAL CELLS COUNTED (test code=TCC) #CELLS SEGMENTED NEUTROPHILS (test code=SEG) % 39-69 LYMPHOCYTE (test code=LYMPH) % 25-55 MONOCYTE (test code=MON) % 0-10 EOSINOPHIL (test code=EOS) % 0.0-5.0 CABOT RINGS (test code=CAB) MORPHOLOGY COMMENT (test code=MOC) PLATELET ESTIMATE (test code=PLTEST) PLATELET MORPHOLOGY (test code=PLTMORPH) CBC W/AUTO [id number] 05:50:00* Test Item Value Reference Range Comments WHITE BLOOD CELL (test code=WBC) 5.9 K/mm3 4.5-12.5 RED BLOOD CELL (test code=RBC) 3.05 mill/mm3 3.7-5.2 HEMOGLOBIN (test code=HGB) 9.0 gram/dL 11.5-15.5 RESULT VERIFIED BY REPEAT ANALYSIS HEMATOCRIT (test code=HCT) 31.9 % 36.0-46.0 MEAN CELL VOLUME (test code=MCV) 104.6 fL 80-98 RESULT VERIFIED BY REPEAT ANALYSIS MEAN CELL HGB (test code=MCH) 29.5 picogram 27.0-33.0 MEAN CELL HGB CONCETRATION (test code=MCHC) 28.2 gram/dL 33.0-36.0 RED CELL DISTRIBUTION WIDTH (test code=RDW) 23.6 % 11.6-16.2 RED CELL DISTRIBUTION WIDTH SD (test code=RDW-SD) 69.9 fL 37.0-51.0 PLATELET COUNT (test code=PLT) 142 K/mm3 150-450 MEAN PLATELET VOLUME (test code=MPV) 9.8 fL 6.7-11.0 NEUTROPHIL % (test code=NT%) 51.1 % 39.0-69.0 IMMATURE GRANULOCYTE % (test code=IG%) 10.8 % 0.0-5.0 "The appearance of immature granulocytes (myelocytes,pro-myelocytes, meta-myelocytes) in the peripheral blood ofnon- individuals can indicate a response toinfection, inflammation, or other stimulus to the bonemarrow" LYMPHOCYTE % (test code=LY%) 23.3 % 25.0-55.0 MONOCYTE % (test code=MO%) 10.6 % 0.0-10.0 EOSINOPHIL % (test code=EO%) 3.2 % 0.0-5.0 BASOPHIL % (test code=BA%) 1.0 % 0.0-1.0 NUCLEATED RBC % (test code=NRBC%) 1.9 % 0-0 NEUTROPHIL # (test code=NT#) 3.03 K/mm3 1.8-7.7 IMMATURE GRANULOCYTE # (test code=IG#) 0.64 x10 3/uL 0-0.03 LYMPHOCYTE # (test code=LY#) 1.38 K/mm3 1.0-5.0 MONOCYTE # (test code=MO#) 0.63 K/mm3 0-0.8 EOSINOPHIL # (test code=EO#) 0.19 K/mm3 0.0-0.5 BASOPHIL # (test code=BA#) 0.06 K/mm3 0.0-0.2 NUCLEATED RBC # (test code=NRBC#) 0.11 K/mm3 0.0-0.1 MANUAL DIFF REQUIRED (test code=MDIFF) NO, ONLY SCAN NEEDED WBC [id number] 05:50:00* Test Item Value Reference Range Comments STAIN ACCEPTABILITY (test code=STN ACCEPTABLE) TOTAL CELLS COUNTED (test code=TCC) #CELLS SEGMENTED NEUTROPHILS (test code=SEG) % 39-69 LYMPHOCYTE (test code=LYMPH) % 25-55 MONOCYTE (test code=MON) % 0-10 EOSINOPHIL (test code=EOS) % 0.0-5.0 MORPHOLOGY COMMENT (test code=MOC) PLATELET ESTIMATE (test code=PLTEST) PLATELET MORPHOLOGY (test code=PLTMORPH) CBC W/AUTO [id number] 05:50:00* Test Item Value Reference Range Comments WHITE BLOOD CELL (test code=WBC) 5.9 K/mm3 4.5-12.5 RED BLOOD CELL (test code=RBC) 3.05 mill/mm3 3.7-5.2 HEMOGLOBIN (test code=HGB) 9.0 gram/dL 11.5-15.5 RESULT VERIFIED BY REPEAT ANALYSIS HEMATOCRIT (test code=HCT) 31.9 % 36.0-46.0 MEAN CELL VOLUME (test code=MCV) 104.6 fL 80-98 RESULT VERIFIED BY REPEAT ANALYSIS MEAN CELL HGB (test code=MCH) 29.5 picogram 27.0-33.0 MEAN CELL HGB CONCETRATION (test code=MCHC) 28.2 gram/dL 33.0-36.0 RED CELL DISTRIBUTION WIDTH (test code=RDW) 23.6 % 11.6-16.2 RED CELL DISTRIBUTION WIDTH SD (test code=RDW-SD) 69.9 fL 37.0-51.0 PLATELET COUNT (test code=PLT) 142 K/mm3 150-450 MEAN PLATELET VOLUME (test code=MPV) 9.8 fL 6.7-11.0 NEUTROPHIL % (test code=NT%) 51.1 % 39.0-69.0 IMMATURE GRANULOCYTE % (test code=IG%) 10.8 % 0.0-5.0 "The appearance of immature granulocytes (myelocytes,pro-myelocytes, meta-myelocytes) in the peripheral blood ofnon- individuals can indicate a response toinfection, inflammation, or other stimulus to the bonemarrow" LYMPHOCYTE % (test code=LY%) 23.3 % 25.0-55.0 MONOCYTE % (test code=MO%) 10.6 % 0.0-10.0 EOSINOPHIL % (test code=EO%) 3.2 % 0.0-5.0 BASOPHIL % (test code=BA%) 1.0 % 0.0-1.0 NUCLEATED RBC % (test code=NRBC%) 1.9 % 0-0 NEUTROPHIL # (test code=NT#) 3.03 K/mm3 1.8-7.7 IMMATURE GRANULOCYTE # (test code=IG#) 0.64 x10 3/uL 0-0.03 LYMPHOCYTE # (test code=LY#) 1.38 K/mm3 1.0-5.0 MONOCYTE # (test code=MO#) 0.63 K/mm3 0-0.8 EOSINOPHIL # (test code=EO#) 0.19 K/mm3 0.0-0.5 BASOPHIL # (test code=BA#) 0.06 K/mm3 0.0-0.2 NUCLEATED RBC # (test code=NRBC#) 0.11 K/mm3 0.0-0.1 MANUAL DIFF REQUIRED (test code=MDIFF) NO, ONLY SCAN NEEDED WBC [id number] 05:50:00* Test Item Value Reference Range Comments STAIN ACCEPTABILITY (test code=STN ACCEPTABLE) TOTAL CELLS COUNTED (test code=TCC) #CELLS SEGMENTED NEUTROPHILS (test code=SEG) % 39-69 LYMPHOCYTE (test code=LYMPH) % 25-55 MONOCYTE (test code=MON) % 0-10 MORPHOLOGY COMMENT (test code=MOC) PLATELET ESTIMATE (test code=PLTEST) PLATELET MORPHOLOGY (test code=PLTMORPH) CBC W/AUTO [id number] 05:49:00* Test Item Value Reference Range Comments WHITE BLOOD CELL (test code=WBC) 5.9 K/mm3 4.5-12.5 RED BLOOD CELL (test code=RBC) 3.05 mill/mm3 3.7-5.2 HEMOGLOBIN (test code=HGB) 9.0 gram/dL 11.5-15.5 RESULT VERIFIED BY REPEAT ANALYSIS HEMATOCRIT (test code=HCT) 31.9 % 36.0-46.0 MEAN CELL VOLUME (test code=MCV) 104.6 fL 80-98 RESULT VERIFIED BY REPEAT ANALYSIS MEAN CELL HGB (test code=MCH) 29.5 picogram 27.0-33.0 MEAN CELL HGB CONCETRATION (test code=MCHC) 28.2 gram/dL 33.0-36.0 RED CELL DISTRIBUTION WIDTH (test code=RDW) 23.6 % 11.6-16.2 RED CELL DISTRIBUTION WIDTH SD (test code=RDW-SD) 69.9 fL 37.0-51.0 PLATELET COUNT (test code=PLT) 142 K/mm3 150-450 MEAN PLATELET VOLUME (test code=MPV) 9.8 fL 6.7-11.0 NEUTROPHIL % (test code=NT%) 51.1 % 39.0-69.0 IMMATURE GRANULOCYTE % (test code=IG%) 10.8 % 0.0-5.0 "The appearance of immature granulocytes (myelocytes,pro-myelocytes, meta-myelocytes) in the peripheral blood ofnon- individuals can indicate a response toinfection, inflammation, or other stimulus to the bonemarrow" LYMPHOCYTE % (test code=LY%) 23.3 % 25.0-55.0 MONOCYTE % (test code=MO%) 10.6 % 0.0-10.0 EOSINOPHIL % (test code=EO%) 3.2 % 0.0-5.0 BASOPHIL % (test code=BA%) 1.0 % 0.0-1.0 NUCLEATED RBC % (test code=NRBC%) 1.9 % 0-0 NEUTROPHIL # (test code=NT#) 3.03 K/mm3 1.8-7.7 IMMATURE GRANULOCYTE # (test code=IG#) 0.64 x10 3/uL 0-0.03 LYMPHOCYTE # (test code=LY#) 1.38 K/mm3 1.0-5.0 MONOCYTE # (test code=MO#) 0.63 K/mm3 0-0.8 EOSINOPHIL # (test code=EO#) 0.19 K/mm3 0.0-0.5 BASOPHIL # (test code=BA#) 0.06 K/mm3 0.0-0.2 NUCLEATED RBC # (test code=NRBC#) 0.11 K/mm3 0.0-0.1 MANUAL DIFF REQUIRED (test code=MDIFF) NO, ONLY SCAN NEEDED DIFFERENTIAL [id number] 05:49:00* Test Item Value Reference Range Comments STAIN ACCEPTABILITY (test code=STN ACCEPTABLE) CABOT RINGS (test code=CAB) MORPHOLOGY COMMENT (test code=MOC) PLATELET ESTIMATE (test code=PLTEST) PLATELET MORPHOLOGY (test code=PLTMORPH) CBC W/AUTO [id number] 05:49:00* Test Item Value Reference Range Comments WHITE BLOOD CELL (test code=WBC) 5.9 K/mm3 4.5-12.5 RED BLOOD CELL (test code=RBC) 3.05 mill/mm3 3.7-5.2 HEMOGLOBIN (test code=HGB) 9.0 gram/dL 11.5-15.5 RESULT VERIFIED BY REPEAT ANALYSIS HEMATOCRIT (test code=HCT) 31.9 % 36.0-46.0 MEAN CELL VOLUME (test code=MCV) 104.6 fL 80-98 RESULT VERIFIED BY REPEAT ANALYSIS MEAN CELL HGB (test code=MCH) 29.5 picogram 27.0-33.0 MEAN CELL HGB CONCETRATION (test code=MCHC) 28.2 gram/dL 33.0-36.0 RED CELL DISTRIBUTION WIDTH (test code=RDW) 23.6 % 11.6-16.2 RED CELL DISTRIBUTION WIDTH SD (test code=RDW-SD) 69.9 fL 37.0-51.0 PLATELET COUNT (test code=PLT) 142 K/mm3 150-450 MEAN PLATELET VOLUME (test code=MPV) 9.8 fL 6.7-11.0 NEUTROPHIL % (test code=NT%) 51.1 % 39.0-69.0 IMMATURE GRANULOCYTE % (test code=IG%) 10.8 % 0.0-5.0 "The appearance of immature granulocytes (myelocytes,pro-myelocytes, meta-myelocytes) in the peripheral blood ofnon- individuals can indicate a response toinfection, inflammation, or other stimulus to the bonemarrow" LYMPHOCYTE % (test code=LY%) 23.3 % 25.0-55.0 MONOCYTE % (test code=MO%) 10.6 % 0.0-10.0 EOSINOPHIL % (test code=EO%) 3.2 % 0.0-5.0 BASOPHIL % (test code=BA%) 1.0 % 0.0-1.0 NUCLEATED RBC % (test code=NRBC%) 1.9 % 0-0 NEUTROPHIL # (test code=NT#) 3.03 K/mm3 1.8-7.7 IMMATURE GRANULOCYTE # (test code=IG#) 0.64 x10 3/uL 0-0.03 LYMPHOCYTE # (test code=LY#) 1.38 K/mm3 1.0-5.0 MONOCYTE # (test code=MO#) 0.63 K/mm3 0-0.8 EOSINOPHIL # (test code=EO#) 0.19 K/mm3 0.0-0.5 BASOPHIL # (test code=BA#) 0.06 K/mm3 0.0-0.2 NUCLEATED RBC # (test code=NRBC#) 0.11 K/mm3 0.0-0.1 MANUAL DIFF REQUIRED (test code=MDIFF) NO, ONLY SCAN NEEDED DIFFERENTIAL [id number] 05:49:00* Test Item Value Reference Range Comments STAIN ACCEPTABILITY (test code=STN ACCEPTABLE) CABOT RINGS (test code=CAB) MORPHOLOGY COMMENT (test code=MOC) PLATELET ESTIMATE (test code=PLTEST) PLATELET MORPHOLOGY (test code=PLTMORPH) [id number] 20:56:00* Test Item Value Reference Range Comments GLUBED (test code=GLUBED) 130 mg/dL 74-106 [facility] [id number] 18:04:00* Test Item Value Reference Range Comments GLUBED (test code=GLUBED) 105 mg/dL 74-106 Performed [facility] certified tracing [facility] BASIC METABOLIC [id number] 13:29:00* Test Item Value Reference Range Comments SODIUM (test code=NA) 141 mmol/L 136-145 POTASSIUM (test code=K) 4.7 mmol/L 3.5-5.1 CHLORIDE (test code=CL) 108.0 mmol/L 98-107 CARBON DIOXIDE (test code=CO2) 25.0 mmol/L 21-32 ANION GAP (test code=GAP) 12.7 10-20 GLUCOSE (test code=GLU) 115 mg/dL 74-106 BLOOD UREA NITROGEN (test code=BUN) 10 mg/dL 7-18 GLOMERULAR FILTRATION RATE (test code=GFR) > 60 mL/min >=60 Estimated GFR by using Modified MDRD formula.Chronic kidney disease is defined as either kidney damageor GFR <60 mL/min/1.73 m2 for >3 months. CREATININE (test code=CREAT) 0.60 mg/dL 0.55-1.02 Note change in reference range due to change in reagent. BUN/CREATININE RATIO (test code=BUN/CREA) 15.5 10-20 CALCIUM (test code=CA) 7.0 mg/dL 8.5-10.1 V.[email or web address].[email or web address] 05/14/19 [id number]/14/[id number] 11:22:00* Test Item Value Reference Range Comments GLUBED (test code=GLUBED) 116 mg/dL 74-106 Performed [facility] certified tracing [facility] [id number] 06:35:00* Test Item Value Reference Range Comments GLUBED (test code=GLUBED) 113 mg/dL 74-106 Performed by certified tracing lathe set up operator at [facility] [id number] 06:35:00* Test Item Value Reference Range Comments GLUBED (test code=GLUBED) 121 mg/dL 74-106 Performed by certified tracing lathe set up operator at [facility] [id number] 18:31:00* Test Item Value Reference Range Comments GLUBED (test code=GLUBED) 91 mg/dL 74-106 Performed by certified tracing lathe set up operator at [facility] [id number] 16:16:00* Test Item Value Reference Range Comments GLUBED (test code=GLUBED) 110 mg/dL 74-106 Performed by certified tracing lathe set up operator at [facility] BASIC METABOLIC [id number] 07:25:00* Test Item Value Reference Range Comments SODIUM (test code=NA) 146 mmol/L 136-145 POTASSIUM (test code=K) 2.6 mmol/L 3.5-5.1 Results called to + by V.LAB.NOLBERTO 05/13/19 0724Critical results verified and read back by Nurse? Results called to [id number] by [employer].LAB.[facility] 05/13/19 0724Critical results verified and read back by Nurse? Y CHLORIDE (test code=CL) 115.0 mmol/L 98-107 CARBON DIOXIDE (test code=CO2) 23.0 mmol/L 21-32 ANION GAP (test code=GAP) 10.6 10-20 GLUCOSE (test code=GLU) 129 mg/dL 74-106 BLOOD UREA NITROGEN (test code=BUN) 11 mg/dL 7-18 GLOMERULAR FILTRATION RATE (test code=GFR) > 60 mL/min >=60 Estimated GFR by using Modified MDRD formula.Chronic kidney disease is defined as either kidney damageor GFR <60 mL/min/1.73 m2 for >3 months. CREATININE (test code=CREAT) 0.40 mg/dL 0.55-1.02 Note change in reference range due to change in reagent. BUN/CREATININE RATIO (test code=BUN/CREA) 30.0 10-20 CALCIUM (test code=CA) 6.1 mg/dL 8.5-10.1 Results called to [id number] by [employer].LAB.NOLBERTO 05/13/19 0724Critical results verified and read back by Nurse? Y CBC W/MANUAL [id number] 06:38:00* Test Item Value Reference Range Comments WHITE BLOOD CELL (test code=WBC) 7.1 K/mm3 4.5-12.5 RED BLOOD CELL (test code=RBC) 2.18 mill/mm3 3.7-5.2 HEMOGLOBIN (test code=HGB) 6.2 gram/dL 11.5-15.5 HEMATOCRIT (test code=HCT) 21.3 % 36.0-46.0 Results called to [id number] by JACQUELYNAG1 05/13/19 0610Critical results verified and read back by Nurse? Y MEAN CELL VOLUME (test code=MCV) 97.7 fL 80-98 MEAN CELL HGB (test code=MCH) 28.4 picogram 27.0-33.0 MEAN CELL HGB CONCETRATION (test code=MCHC) 29.1 gram/dL 33.0-36.0 RED CELL DISTRIBUTION WIDTH (test code=RDW) 22.8 % 11.6-16.2 RED CELL DISTRIBUTION WIDTH SD (test code=RDW-SD) 66.0 fL 37.0-51.0 PLATELET COUNT (test code=PLT) 113 K/mm3 150-450 MEAN PLATELET VOLUME (test code=MPV) 10.7 fL 6.7-11.0 IMMATURE GRANULOCYTE % (test code=IG%) 11.2 % 0.0-5.0 "The appearance of immature granulocytes (myelocytes,pro-myelocytes, meta-myelocytes) in the peripheral blood ofnon- individuals can indicate a response toinfection, inflammation, or other stimulus to the bonemarrow" NUCLEATED RBC % (test code=NRBC%) 3.0 % 0-0 NEUTROPHIL # (test code=NT#) 3.92 K/mm3 1.8-7.7 IMMATURE GRANULOCYTE # (test code=IG#) 0.79 x10 3/uL 0-0.03 LYMPHOCYTE # (test code=LY#) 1.42 K/mm3 1.0-5.0 MONOCYTE # (test code=MO#) 0.79 K/mm3 0-0.8 EOSINOPHIL # (test code=EO#) 0.12 K/mm3 0.0-0.5 BASOPHIL # (test code=BA#) 0.02 K/mm3 0.0-0.2 NUCLEATED RBC # (test code=NRBC#) 0.21 K/mm3 0.0-0.1 MANUAL DIFF REQUIRED (test code=MDIFF) YES STAIN ACCEPTABILITY (test code=STN ACCEPTABLE) STAIN ACCEPTABLE TOTAL CELLS COUNTED (test code=TCC) 112 #CELLS SEGMENTED NEUTROPHILS (test code=SEG) 75.0 % 39-69 BAND NEUTROPHIL (test code=BAND) 0 % 0-10 LYMPHOCYTE (test code=LYMPH) 14.3 % 25-55 REACTIVE LYMPH (test code=RELYMPH) 0 % MONOCYTE (test code=MON) 7.1 % 0-10 EOSINOPHIL (test code=EOS) 2.7 % 0.0-5.0 BASOPHIL (test code=BASO) 0 % 0-1.0 METAMYELOCYTE (test code=META) 0.9 % 0-0 MYELOCYTE (test code=MYELO) 0 % 0.0-0.0 PROMYELOCYTE (test code=PROM) 0 % 0-0 POLYCHROMASIA (test code=POLC) 1+ HYPOCHROMIA (test code=HYPO) 1+ POIKILOCYTOSIS (test code=POIK) 1+ ANISOCYTOSIS (test code=ANISO) 2+ MACROCYTOSIS (test code=MACR) 2+ PLATELET ESTIMATE (test code=PLTEST) DECREASED PLATELET MORPHOLOGY (test code=PLTMORPH) NORMAL IMMATURE FORMS (test code=IMMAT) 0 % 0-0 CBC W/MANUAL [id number] 06:12:00* Test Item Value Reference Range Comments WHITE BLOOD CELL (test code=WBC) 7.1 K/mm3 4.5-12.5 RED BLOOD CELL (test code=RBC) 2.18 mill/mm3 3.7-5.2 HEMOGLOBIN (test code=HGB) 6.2 gram/dL 11.5-15.5 HEMATOCRIT (test code=HCT) 21.3 % 36.0-46.0 Results called to [id number] by V.LAB.AG1 05/13/19 0610Critical results verified and read back by Nurse? Y MEAN CELL VOLUME (test code=MCV) 97.7 fL 80-98 MEAN CELL HGB (test code=MCH) 28.4 picogram 27.0-33.0 MEAN CELL HGB CONCETRATION (test code=MCHC) 29.1 gram/dL 33.0-36.0 RED CELL DISTRIBUTION WIDTH (test code=RDW) 22.8 % 11.6-16.2 RED CELL DISTRIBUTION WIDTH SD (test code=RDW-SD) 66.0 fL 37.0-51.0 PLATELET COUNT (test code=PLT) 113 K/mm3 150-450 MEAN PLATELET VOLUME (test code=MPV) 10.7 fL 6.7-11.0 IMMATURE GRANULOCYTE % (test code=IG%) 11.2 % 0.0-5.0 "The appearance of immature granulocytes (myelocytes,pro-myelocytes, meta-myelocytes) in the peripheral blood ofnon- individuals can indicate a response toinfection, inflammation, or other stimulus to the bonemarrow" NUCLEATED RBC % (test code=NRBC%) 3.0 % 0-0 NEUTROPHIL # (test code=NT#) 3.92 K/mm3 1.8-7.7 IMMATURE GRANULOCYTE # (test code=IG#) 0.79 x10 3/uL 0-0.03 LYMPHOCYTE # (test code=LY#) 1.42 K/mm3 1.0-5.0 MONOCYTE # (test code=MO#) 0.79 K/mm3 0-0.8 EOSINOPHIL # (test code=EO#) 0.12 K/mm3 0.0-0.5 BASOPHIL # (test code=BA#) 0.02 K/mm3 0.0-0.2 NUCLEATED RBC # (test code=NRBC#) 0.21 K/mm3 0.0-0.1 MANUAL DIFF REQUIRED (test code=MDIFF) YES STAIN ACCEPTABILITY (test code=STN ACCEPTABLE) TOTAL CELLS COUNTED (test code=TCC) #CELLS SEGMENTED NEUTROPHILS (test code=SEG) % 39-69 LYMPHOCYTE (test code=LYMPH) % 25-55 MONOCYTE (test code=MON) % 0-10 EOSINOPHIL (test code=EOS) % 0.0-5.0 CABOT RINGS (test code=CAB) MORPHOLOGY COMMENT (test code=MOC) PLATELET ESTIMATE (test code=PLTEST) PLATELET MORPHOLOGY (test code=PLTMORPH) CBC W/MANUAL [id number] 06:12:00* Test Item Value Reference Range Comments WHITE BLOOD CELL (test code=WBC) 7.1 K/mm3 4.5-12.5 RED BLOOD CELL (test code=RBC) 2.18 mill/mm3 3.7-5.2 HEMOGLOBIN (test code=HGB) 6.2 gram/dL 11.5-15.5 HEMATOCRIT (test code=HCT) 21.3 % 36.0-46.0 Results called to [id number] by JACQUELYNAG1 05/13/19 0610Critical results verified and read back by Nurse? Y MEAN CELL VOLUME (test code=MCV) 97.7 fL 80-98 MEAN CELL HGB (test code=MCH) 28.4 picogram 27.0-33.0 MEAN CELL HGB CONCETRATION (test code=MCHC) 29.1 gram/dL 33.0-36.0 RED CELL DISTRIBUTION WIDTH (test code=RDW) 22.8 % 11.6-16.2 RED CELL DISTRIBUTION WIDTH SD (test code=RDW-SD) 66.0 fL 37.0-51.0 PLATELET COUNT (test code=PLT) 113 K/mm3 150-450 MEAN PLATELET VOLUME (test code=MPV) 10.7 fL 6.7-11.0 IMMATURE GRANULOCYTE % (test code=IG%) 11.2 % 0.0-5.0 "The appearance of immature granulocytes (myelocytes,pro-myelocytes, meta-myelocytes) in the peripheral blood ofnon- individuals can indicate a response toinfection, inflammation, or other stimulus to the bonemarrow" NUCLEATED RBC % (test code=NRBC%) 3.0 % 0-0 NEUTROPHIL # (test code=NT#) 3.92 K/mm3 1.8-7.7 IMMATURE GRANULOCYTE # (test code=IG#) 0.79 x10 3/uL 0-0.03 LYMPHOCYTE # (test code=LY#) 1.42 K/mm3 1.0-5.0 MONOCYTE # (test code=MO#) 0.79 K/mm3 0-0.8 EOSINOPHIL # (test code=EO#) 0.12 K/mm3 0.0-0.5 BASOPHIL # (test code=BA#) 0.02 K/mm3 0.0-0.2 NUCLEATED RBC # (test code=NRBC#) 0.21 K/mm3 0.0-0.1 MANUAL DIFF REQUIRED (test code=MDIFF) YES STAIN ACCEPTABILITY (test code=STN ACCEPTABLE) TOTAL CELLS COUNTED (test code=TCC) #CELLS SEGMENTED NEUTROPHILS (test code=SEG) % 39-69 LYMPHOCYTE (test code=LYMPH) % 25-55 MONOCYTE (test code=MON) % 0-10 EOSINOPHIL (test code=EOS) % 0.0-5.0 MORPHOLOGY COMMENT (test code=MOC) PLATELET ESTIMATE (test code=PLTEST) PLATELET MORPHOLOGY (test code=PLTMORPH) CBC W/MANUAL [id number] 06:12:00* Test Item Value Reference Range Comments WHITE BLOOD CELL (test code=WBC) 7.1 K/mm3 4.5-12.5 RED BLOOD CELL (test code=RBC) 2.18 mill/mm3 3.7-5.2 HEMOGLOBIN (test code=HGB) 6.2 gram/dL 11.5-15.5 HEMATOCRIT (test code=HCT) 21.3 % 36.0-46.0 Results called to [id number] by JACQUELYNAG1 05/13/19 0610Critical results verified and read back by Nurse? Y MEAN CELL VOLUME (test code=MCV) 97.7 fL 80-98 MEAN CELL HGB (test code=MCH) 28.4 picogram 27.0-33.0 MEAN CELL HGB CONCETRATION (test code=MCHC) 29.1 gram/dL 33.0-36.0 RED CELL DISTRIBUTION WIDTH (test code=RDW) 22.8 % 11.6-16.2 RED CELL DISTRIBUTION WIDTH SD (test code=RDW-SD) 66.0 fL 37.0-51.0 PLATELET COUNT (test code=PLT) 113 K/mm3 150-450 MEAN PLATELET VOLUME (test code=MPV) 10.7 fL 6.7-11.0 IMMATURE GRANULOCYTE % (test code=IG%) 11.2 % 0.0-5.0 "The appearance of immature granulocytes (myelocytes,pro-myelocytes, meta-myelocytes) in the peripheral blood ofnon- individuals can indicate a response toinfection, inflammation, or other stimulus to the bonemarrow" NUCLEATED RBC % (test code=NRBC%) 3.0 % 0-0 NEUTROPHIL # (test code=NT#) 3.92 K/mm3 1.8-7.7 IMMATURE GRANULOCYTE # (test code=IG#) 0.79 x10 3/uL 0-0.03 LYMPHOCYTE # (test code=LY#) 1.42 K/mm3 1.0-5.0 MONOCYTE # (test code=MO#) 0.79 K/mm3 0-0.8 EOSINOPHIL # (test code=EO#) 0.12 K/mm3 0.0-0.5 BASOPHIL # (test code=BA#) 0.02 K/mm3 0.0-0.2 NUCLEATED RBC # (test code=NRBC#) 0.21 K/mm3 0.0-0.1 MANUAL DIFF REQUIRED (test code=MDIFF) YES STAIN ACCEPTABILITY (test code=STN ACCEPTABLE) TOTAL CELLS COUNTED (test code=TCC) #CELLS SEGMENTED NEUTROPHILS (test code=SEG) % 39-69 LYMPHOCYTE (test code=LYMPH) % 25-55 MONOCYTE (test code=MON) % 0-10 MORPHOLOGY COMMENT (test code=MOC) PLATELET ESTIMATE (test code=PLTEST) PLATELET MORPHOLOGY (test code=PLTMORPH) CBC W/MANUAL [id number] 06:11:00* Test Item Value Reference Range Comments WHITE BLOOD CELL (test code=WBC) 7.1 K/mm3 4.5-12.5 RED BLOOD CELL (test code=RBC) 2.18 mill/mm3 3.7-5.2 HEMOGLOBIN (test code=HGB) 6.2 gram/dL 11.5-15.5 HEMATOCRIT (test code=HCT) 21.3 % 36.0-46.0 Results called to [id number] by [email or web address] 05/13/19 0610Critical results verified and read back by Nurse? Y MEAN CELL VOLUME (test code=MCV) 97.7 fL 80-98 MEAN CELL HGB (test code=MCH) 28.4 picogram 27.0-33.0 MEAN CELL HGB CONCETRATION (test code=MCHC) 29.1 gram/dL 33.0-36.0 RED CELL DISTRIBUTION WIDTH (test code=RDW) 22.8 % 11.6-16.2 RED CELL DISTRIBUTION WIDTH SD (test code=RDW-SD) 66.0 fL 37.0-51.0 PLATELET COUNT (test code=PLT) 113 K/mm3 150-450 MEAN PLATELET VOLUME (test code=MPV) 10.7 fL 6.7-11.0 IMMATURE GRANULOCYTE % (test code=IG%) 11.2 % 0.0-5.0 "The appearance of immature granulocytes (myelocytes,pro-myelocytes, meta-myelocytes) in the peripheral blood ofnon- individuals can indicate a response toinfection, inflammation, or other stimulus to the bonemarrow" NUCLEATED RBC % (test code=NRBC%) 3.0 % 0-0 NEUTROPHIL # (test code=NT#) 3.92 K/mm3 1.8-7.7 IMMATURE GRANULOCYTE # (test code=IG#) 0.79 x10 3/uL 0-0.03 LYMPHOCYTE # (test code=LY#) 1.42 K/mm3 1.0-5.0 MONOCYTE # (test code=MO#) 0.79 K/mm3 0-0.8 EOSINOPHIL # (test code=EO#) 0.12 K/mm3 0.0-0.5 BASOPHIL # (test code=BA#) 0.02 K/mm3 0.0-0.2 NUCLEATED RBC # (test code=NRBC#) 0.21 K/mm3 0.0-0.1 MANUAL DIFF REQUIRED (test code=MDIFF) YES STAIN ACCEPTABILITY (test code=STN ACCEPTABLE) TOTAL CELLS COUNTED (test code=TCC) #CELLS SEGMENTED NEUTROPHILS (test code=SEG) % 39-69 LYMPHOCYTE (test code=LYMPH) % 25-55 MONOCYTE (test code=MON) % 0-10 EOSINOPHIL (test code=EOS) % 0.0-5.0 CABOT RINGS (test code=CAB) MORPHOLOGY COMMENT (test code=MOC) PLATELET ESTIMATE (test code=PLTEST) PLATELET MORPHOLOGY (test code=PLTMORPH) CBC W/MANUAL [id number] 06:11:00* Test Item Value Reference Range Comments WHITE BLOOD CELL (test code=WBC) 7.1 K/mm3 4.5-12.5 RED BLOOD CELL (test code=RBC) 2.18 mill/mm3 3.7-5.2 HEMOGLOBIN (test code=HGB) 6.2 gram/dL 11.5-15.5 HEMATOCRIT (test code=HCT) 21.3 % 36.0-46.0 Results called to [id number] by [email or web address] 05/13/19 0610Critical results verified and read back by Nurse? Y MEAN CELL VOLUME (test code=MCV) 97.7 fL 80-98 MEAN CELL HGB (test code=MCH) 28.4 picogram 27.0-33.0 MEAN CELL HGB CONCETRATION (test code=MCHC) 29.1 gram/dL 33.0-36.0 RED CELL DISTRIBUTION WIDTH (test code=RDW) 22.8 % 11.6-16.2 RED CELL DISTRIBUTION WIDTH SD (test code=RDW-SD) 66.0 fL 37.0-51.0 PLATELET COUNT (test code=PLT) 113 K/mm3 150-450 MEAN PLATELET VOLUME (test code=MPV) 10.7 fL 6.7-11.0 IMMATURE GRANULOCYTE % (test code=IG%) 11.2 % 0.0-5.0 "The appearance of immature granulocytes (myelocytes,pro-myelocytes, meta-myelocytes) in the peripheral blood ofnon- individuals can indicate a response toinfection, inflammation, or other stimulus to the bonemarrow" NUCLEATED RBC % (test code=NRBC%) 3.0 % 0-0 NEUTROPHIL # (test code=NT#) 3.92 K/mm3 1.8-7.7 IMMATURE GRANULOCYTE # (test code=IG#) 0.79 x10 3/uL 0-0.03 LYMPHOCYTE # (test code=LY#) 1.42 K/mm3 1.0-5.0 MONOCYTE # (test code=MO#) 0.79 K/mm3 0-0.8 EOSINOPHIL # (test code=EO#) 0.12 K/mm3 0.0-0.5 BASOPHIL # (test code=BA#) 0.02 K/mm3 0.0-0.2 NUCLEATED RBC # (test code=NRBC#) 0.21 K/mm3 0.0-0.1 MANUAL DIFF REQUIRED (test code=MDIFF) YES STAIN ACCEPTABILITY (test code=STN ACCEPTABLE) TOTAL CELLS COUNTED (test code=TCC) #CELLS SEGMENTED NEUTROPHILS (test code=SEG) % 39-69 LYMPHOCYTE (test code=LYMPH) % 25-55 MONOCYTE (test code=MON) % 0-10 EOSINOPHIL (test code=EOS) % 0.0-5.0 CABOT RINGS (test code=CAB) MORPHOLOGY COMMENT (test code=MOC) PLATELET ESTIMATE (test code=PLTEST) PLATELET MORPHOLOGY (test code=PLTMORPH) [id number] 05:49:00* Test Item Value Reference Range Comments GLUBED (test code=GLUBED) 112 mg/dL 74-106 Performed by certified tracing lathe set up operator at [facility] [place] [id number] 01:56:00* Test Item Value Reference Range Comments GLUBED (test code=GLUBED) 116 mg/dL 74-106 Performed by certified tracing lathe set up operator at [facility] [id number] 18:12:00* Test Item Value Reference Range Comments GLUBED (test code=GLUBED) 108 mg/dL 74-106 Performed by certified tracing lathe set up operator at [facility] PROTHROMBIN [id number] 13:23:00* Test Item Value Reference Range Comments PROTHROMBIN TIME PATIENT (test code=PTP) 15.3 seconds 9.0-14.0 INTERNATIONAL NORMAL RATIO (test code=INR) 1.3 0.8-1.2 The therapeutic range for oral anticoagulant therapy formost indications is an international normalized ratio (INR)of between 2.0 and 3.0. The recommended therapeutic INRrange for various clinical situations is listed below: Clinical Situation INR range Pulmonary e mbolism treatment (2.0-3.0)Venous thrombosis treatmentVenous thrombosis prophylaxis (high risk surgery)Prevention of systemic embolism from: Acute myocardial infarction Valvular heart disease Atrial fibrillation Mechanical prosthetic heart valves (2.5-3.5) IS PATIENT ON ANTICOAGULANTS? YLIST ANTICOAGULANTS PLAVIXTHROMBOPLASTIN TIME [id number] 13:23:00* Test Item Value Reference Range Comments THROMBOPLASTIN TIME PARTIAL (test code=PTT) 24.9 seconds 25.0-36.5 IS PATIENT ON ANTICOAGULANTS? YLIST ANTICOAGULANTS [id number] 12:55:00* Test Item Value Reference Range Comments GLUBED (test code=GLUBED) 97 mg/dL 74-106 Performed by certified tracing lathe set up operator at [facility] BASIC METABOLIC [id number] 06:41:00* Test Item Value Reference Range Comments SODIUM (test code=NA) 142 mmol/L 136-145 POTASSIUM (test code=K) 3.0 mmol/L 3.5-5.1 CHLORIDE (test code=CL) 106.0 mmol/L 98-107 CARBON DIOXIDE (test code=CO2) 27.0 mmol/L 21-32 ANION GAP (test code=GAP) 12.0 10-20 GLUCOSE (test code=GLU) 128 mg/dL 74-106 BLOOD UREA NITROGEN (test code=BUN) 19 mg/dL 7-18 GLOMERULAR FILTRATION RATE (test code=GFR) > 60 mL/min >=60 Estimated GFR by using Modified MDRD formula.Chronic kidney disease is defined as either kidney damageor GFR <60 mL/min/1.73 m2 for >3 months. CREATININE (test code=CREAT) 0.70 mg/dL 0.55-1.02 Note change in reference range due to change in reagent. BUN/CREATININE RATIO (test code=BUN/CREA) 25.8 10-20 CALCIUM (test code=CA) 7.9 mg/dL 8.5-10.1 CBC W/MANUAL [id number] 06:34:00* Test Item Value Reference Range Comments WHITE BLOOD CELL (test code=WBC) 9.7 K/mm3 4.5-12.5 RED BLOOD CELL (test code=RBC) 2.63 mill/mm3 3.7-5.2 HEMOGLOBIN (test code=HGB) 7.4 gram/dL 11.5-15.5 HEMATOCRIT (test code=HCT) 24.3 % 36.0-46.0 MEAN CELL VOLUME (test code=MCV) 92.4 fL 80-98 MEAN CELL HGB (test code=MCH) 28.1 picogram 27.0-33.0 MEAN CELL HGB CONCETRATION (test code=MCHC) 30.5 gram/dL 33.0-36.0 RED CELL DISTRIBUTION WIDTH (test code=RDW) 21.9 % 11.6-16.2 RED CELL DISTRIBUTION WIDTH SD (test code=RDW-SD) 63.0 fL 37.0-51.0 PLATELET COUNT (test code=PLT) 132 K/mm3 150-450 MEAN PLATELET VOLUME (test code=MPV) 10.6 fL 6.7-11.0 IMMATURE GRANULOCYTE % (test code=IG%) 9.2 % 0.0-5.0 "The appearance of immature granulocytes (myelocytes,pro-myelocytes, meta-myelocytes) in the peripheral blood ofnon- individuals can indicate a response toinfection, inflammation, or other stimulus to the bonemarrow" NUCLEATED RBC % (test code=NRBC%) 2.7 % 0-0 RESULT VERIFIED BY REPEAT ANALYSIS NEUTROPHIL # (test code=NT#) 5.88 K/mm3 1.8-7.7 IMMATURE GRANULOCYTE # (test code=IG#) 0.89 x10 3/uL 0-0.03 LYMPHOCYTE # (test code=LY#) 1.54 K/mm3 1.0-5.0 MONOCYTE # (test code=MO#) 1.06 K/mm3 0-0.8 EOSINOPHIL # (test code=EO#) 0.30 K/mm3 0.0-0.5 BASOPHIL # (test code=BA#) 0.05 K/mm3 0.0-0.2 NUCLEATED RBC # (test code=NRBC#) 0.26 K/mm3 0.0-0.1 MANUAL DIFF REQUIRED (test code=MDIFF) YES STAIN ACCEPTABILITY (test code=STN ACCEPTABLE) STAIN ACCEPTABLE TOTAL CELLS COUNTED (test code=TCC) 114 #CELLS SEGMENTED NEUTROPHILS (test code=SEG) 72.8 % 39-69 BAND NEUTROPHIL (test code=BAND) 2.6 % 0-10 LYMPHOCYTE (test code=LYMPH) 13.1 % 25-55 REACTIVE LYMPH (test code=RELYMPH) 0 % MONOCYTE (test code=MON) 5.3 % 0-10 EOSINOPHIL (test code=EOS) 0.9 % 0.0-5.0 BASOPHIL (test code=BASO) 0 % 0-1.0 METAMYELOCYTE (test code=META) 4.4 % 0-0 MYELOCYTE (test code=MYELO) 0.9 % 0.0-0.0 PROMYELOCYTE (test code=PROM) 0 % 0-0 POLYCHROMASIA (test code=POLC) 1+ HYPOCHROMIA (test code=HYPO) 1+ POIKILOCYTOSIS (test code=POIK) 1+ ANISOCYTOSIS (test code=ANISO) 2+ MACROCYTOSIS (test code=MACR) 2+ STOMATOCYTES (test code=STO) 1+ PLATELET ESTIMATE (test code=PLTEST) DECREASED PLATELET MORPHOLOGY (test code=PLTMORPH) NORMAL IMMATURE FORMS (test code=IMMAT) 0 % 0-0 CBC W/MANUAL [id number] 05:59:00* Test Item Value Reference Range Comments WHITE BLOOD CELL (test code=WBC) 9.7 K/mm3 4.5-12.5 RED BLOOD CELL (test code=RBC) 2.63 mill/mm3 3.7-5.2 HEMOGLOBIN (test code=HGB) 7.4 gram/dL 11.5-15.5 HEMATOCRIT (test code=HCT) 24.3 % 36.0-46.0 MEAN CELL VOLUME (test code=MCV) 92.4 fL 80-98 MEAN CELL HGB (test code=MCH) 28.1 picogram 27.0-33.0 MEAN CELL HGB CONCETRATION (test code=MCHC) 30.5 gram/dL 33.0-36.0 RED CELL DISTRIBUTION WIDTH (test code=RDW) 21.9 % 11.6-16.2 RED CELL DISTRIBUTION WIDTH SD (test code=RDW-SD) 63.0 fL 37.0-51.0 PLATELET COUNT (test code=PLT) 132 K/mm3 150-450 MEAN PLATELET VOLUME (test code=MPV) 10.6 fL 6.7-11.0 IMMATURE GRANULOCYTE % (test code=IG%) 9.2 % 0.0-5.0 "The appearance of immature granulocytes (myelocytes,pro-myelocytes, meta-myelocytes) in the peripheral blood ofnon- individuals can indicate a response toinfection, inflammation, or other stimulus to the bonemarrow" NUCLEATED RBC % (test code=NRBC%) 2.7 % 0-0 RESULT VERIFIED BY REPEAT ANALYSIS NEUTROPHIL # (test code=NT#) 5.88 K/mm3 1.8-7.7 IMMATURE GRANULOCYTE # (test code=IG#) 0.89 x10 3/uL 0-0.03 LYMPHOCYTE # (test code=LY#) 1.54 K/mm3 1.0-5.0 MONOCYTE # (test code=MO#) 1.06 K/mm3 0-0.8 EOSINOPHIL # (test code=EO#) 0.30 K/mm3 0.0-0.5 BASOPHIL # (test code=BA#) 0.05 K/mm3 0.0-0.2 NUCLEATED RBC # (test code=NRBC#) 0.26 K/mm3 0.0-0.1 MANUAL DIFF REQUIRED (test code=MDIFF) YES STAIN ACCEPTABILITY (test code=STN ACCEPTABLE) TOTAL CELLS COUNTED (test code=TCC) #CELLS SEGMENTED NEUTROPHILS (test code=SEG) % 39-69 LYMPHOCYTE (test code=LYMPH) % 25-55 MONOCYTE (test code=MON) % 0-10 EOSINOPHIL (test code=EOS) % 0.0-5.0 CABOT RINGS (test code=CAB) MORPHOLOGY COMMENT (test code=MOC) PLATELET ESTIMATE (test code=PLTEST) PLATELET MORPHOLOGY (test code=PLTMORPH) CBC W/MANUAL [id number] 05:59:00* Test Item Value Reference Range Comments WHITE BLOOD CELL (test code=WBC) 9.7 K/mm3 4.5-12.5 RED BLOOD CELL (test code=RBC) 2.63 mill/mm3 3.7-5.2 HEMOGLOBIN (test code=HGB) 7.4 gram/dL 11.5-15.5 HEMATOCRIT (test code=HCT) 24.3 % 36.0-46.0 MEAN CELL VOLUME (test code=MCV) 92.4 fL 80-98 MEAN CELL HGB (test code=MCH) 28.1 picogram 27.0-33.0 MEAN CELL HGB CONCETRATION (test code=MCHC) 30.5 gram/dL 33.0-36.0 RED CELL DISTRIBUTION WIDTH (test code=RDW) 21.9 % 11.6-16.2 RED CELL DISTRIBUTION WIDTH SD (test code=RDW-SD) 63.0 fL 37.0-51.0 PLATELET COUNT (test code=PLT) 132 K/mm3 150-450 MEAN PLATELET VOLUME (test code=MPV) 10.6 fL 6.7-11.0 IMMATURE GRANULOCYTE % (test code=IG%) 9.2 % 0.0-5.0 "The appearance of immature granulocytes (myelocytes,pro-myelocytes, meta-myelocytes) in the peripheral blood ofnon- individuals can indicate a response toinfection, inflammation, or other stimulus to the bonemarrow" NUCLEATED RBC % (test code=NRBC%) 2.7 % 0-0 RESULT VERIFIED BY REPEAT ANALYSIS NEUTROPHIL # (test code=NT#) 5.88 K/mm3 1.8-7.7 IMMATURE GRANULOCYTE # (test code=IG#) 0.89 x10 3/uL 0-0.03 LYMPHOCYTE # (test code=LY#) 1.54 K/mm3 1.0-5.0 MONOCYTE # (test code=MO#) 1.06 K/mm3 0-0.8 EOSINOPHIL # (test code=EO#) 0.30 K/mm3 0.0-0.5 BASOPHIL # (test code=BA#) 0.05 K/mm3 0.0-0.2 NUCLEATED RBC # (test code=NRBC#) 0.26 K/mm3 0.0-0.1 MANUAL DIFF REQUIRED (test code=MDIFF) YES STAIN ACCEPTABILITY (test code=STN ACCEPTABLE) TOTAL CELLS COUNTED (test code=TCC) #CELLS SEGMENTED NEUTROPHILS (test code=SEG) % 39-69 LYMPHOCYTE (test code=LYMPH) % 25-55 MONOCYTE (test code=MON) % 0-10 EOSINOPHIL (test code=EOS) % 0.0-5.0 CABOT RINGS (test code=CAB) MORPHOLOGY COMMENT (test code=MOC) PLATELET ESTIMATE (test code=PLTEST) PLATELET MORPHOLOGY (test code=PLTMORPH) CBC W/MANUAL [id number] 05:59:00* Test Item Value Reference Range Comments WHITE BLOOD CELL (test code=WBC) 9.7 K/mm3 4.5-12.5 RED BLOOD CELL (test code=RBC) 2.63 mill/mm3 3.7-5.2 HEMOGLOBIN (test code=HGB) 7.4 gram/dL 11.5-15.5 HEMATOCRIT (test code=HCT) 24.3 % 36.0-46.0 MEAN CELL VOLUME (test code=MCV) 92.4 fL 80-98 MEAN CELL HGB (test code=MCH) 28.1 picogram 27.0-33.0 MEAN CELL HGB CONCETRATION (test code=MCHC) 30.5 gram/dL 33.0-36.0 RED CELL DISTRIBUTION WIDTH (test code=RDW) 21.9 % 11.6-16.2 RED CELL DISTRIBUTION WIDTH SD (test code=RDW-SD) 63.0 fL 37.0-51.0 PLATELET COUNT (test code=PLT) 132 K/mm3 150-450 MEAN PLATELET VOLUME (test code=MPV) 10.6 fL 6.7-11.0 IMMATURE GRANULOCYTE % (test code=IG%) 9.2 % 0.0-5.0 "The appearance of immature granulocytes (myelocytes,pro-myelocytes, meta-myelocytes) in the peripheral blood ofnon- individuals can indicate a response toinfection, inflammation, or other stimulus to the bonemarrow" NUCLEATED RBC % (test code=NRBC%) 2.7 % 0-0 RESULT VERIFIED BY REPEAT ANALYSIS NEUTROPHIL # (test code=NT#) 5.88 K/mm3 1.8-7.7 IMMATURE GRANULOCYTE # (test code=IG#) 0.89 x10 3/uL 0-0.03 LYMPHOCYTE # (test code=LY#) 1.54 K/mm3 1.0-5.0 MONOCYTE # (test code=MO#) 1.06 K/mm3 0-0.8 EOSINOPHIL # (test code=EO#) 0.30 K/mm3 0.0-0.5 BASOPHIL # (test code=BA#) 0.05 K/mm3 0.0-0.2 NUCLEATED RBC # (test code=NRBC#) 0.26 K/mm3 0.0-0.1 MANUAL DIFF REQUIRED (test code=MDIFF) YES STAIN ACCEPTABILITY (test code=STN ACCEPTABLE) TOTAL CELLS COUNTED (test code=TCC) #CELLS SEGMENTED NEUTROPHILS (test code=SEG) % 39-69 LYMPHOCYTE (test code=LYMPH) % 25-55 MONOCYTE (test code=MON) % 0-10 EOSINOPHIL (test code=EOS) % 0.0-5.0 MORPHOLOGY COMMENT (test code=MOC) PLATELET ESTIMATE (test code=PLTEST) PLATELET MORPHOLOGY (test code=PLTMORPH) CBC W/MANUAL [id number] 05:59:00* Test Item Value Reference Range Comments WHITE BLOOD CELL (test code=WBC) 9.7 K/mm3 4.5-12.5 RED BLOOD CELL (test code=RBC) 2.63 mill/mm3 3.7-5.2 HEMOGLOBIN (test code=HGB) 7.4 gram/dL 11.5-15.5 HEMATOCRIT (test code=HCT) 24.3 % 36.0-46.0 MEAN CELL VOLUME (test code=MCV) 92.4 fL 80-98 MEAN CELL HGB (test code=MCH) 28.1 picogram 27.0-33.0 MEAN CELL HGB CONCETRATION (test code=MCHC) 30.5 gram/dL 33.0-36.0 RED CELL DISTRIBUTION WIDTH (test code=RDW) 21.9 % 11.6-16.2 RED CELL DISTRIBUTION WIDTH SD (test code=RDW-SD) 63.0 fL 37.0-51.0 PLATELET COUNT (test code=PLT) 132 K/mm3 150-450 MEAN PLATELET VOLUME (test code=MPV) 10.6 fL 6.7-11.0 IMMATURE GRANULOCYTE % (test code=IG%) 9.2 % 0.0-5.0 "The appearance of immature granulocytes (myelocytes,pro-myelocytes, meta-myelocytes) in the peripheral blood ofnon- individuals can indicate a response toinfection, inflammation, or other stimulus to the bonemarrow" NUCLEATED RBC % (test code=NRBC%) 2.7 % 0-0 RESULT VERIFIED BY REPEAT ANALYSIS NEUTROPHIL # (test code=NT#) 5.88 K/mm3 1.8-7.7 IMMATURE GRANULOCYTE # (test code=IG#) 0.89 x10 3/uL 0-0.03 LYMPHOCYTE # (test code=LY#) 1.54 K/mm3 1.0-5.0 MONOCYTE # (test code=MO#) 1.06 K/mm3 0-0.8 EOSINOPHIL # (test code=EO#) 0.30 K/mm3 0.0-0.5 BASOPHIL # (test code=BA#) 0.05 K/mm3 0.0-0.2 NUCLEATED RBC # (test code=NRBC#) 0.26 K/mm3 0.0-0.1 MANUAL DIFF REQUIRED (test code=MDIFF) YES STAIN ACCEPTABILITY (test code=STN ACCEPTABLE) TOTAL CELLS COUNTED (test code=TCC) #CELLS SEGMENTED NEUTROPHILS (test code=SEG) % 39-69 LYMPHOCYTE (test code=LYMPH) % 25-55 MONOCYTE (test code=MON) % 0-10 MORPHOLOGY COMMENT (test code=MOC) PLATELET ESTIMATE (test code=PLTEST) PLATELET MORPHOLOGY (test code=PLTMORPH) CBC W/MANUAL [id number] 05:59:00* Test Item Value Reference Range Comments WHITE BLOOD CELL (test code=WBC) 9.7 K/mm3 4.5-12.5 RED BLOOD CELL (test code=RBC) 2.63 mill/mm3 3.7-5.2 HEMOGLOBIN (test code=HGB) 7.4 gram/dL 11.5-15.5 HEMATOCRIT (test code=HCT) 24.3 % 36.0-46.0 MEAN CELL VOLUME (test code=MCV) 92.4 fL 80-98 MEAN CELL HGB (test code=MCH) 28.1 picogram 27.0-33.0 MEAN CELL HGB CONCETRATION (test code=MCHC) 30.5 gram/dL 33.0-36.0 RED CELL DISTRIBUTION WIDTH (test code=RDW) 21.9 % 11.6-16.2 RED CELL DISTRIBUTION WIDTH SD (test code=RDW-SD) 63.0 fL 37.0-51.0 PLATELET COUNT (test code=PLT) 132 K/mm3 150-450 MEAN PLATELET VOLUME (test code=MPV) 10.6 fL 6.7-11.0 IMMATURE GRANULOCYTE % (test code=IG%) 9.2 % 0.0-5.0 "The appearance of immature granulocytes (myelocytes,pro-myelocytes, meta-myelocytes) in the peripheral blood ofnon- individuals can indicate a response toinfection, inflammation, or other stimulus to the bonemarrow" NUCLEATED RBC % (test code=NRBC%) 2.7 % 0-0 RESULT VERIFIED BY REPEAT ANALYSIS NEUTROPHIL # (test code=NT#) 5.88 K/mm3 1.8-7.7 IMMATURE GRANULOCYTE # (test code=IG#) 0.89 x10 3/uL 0-0.03 LYMPHOCYTE # (test code=LY#) 1.54 K/mm3 1.0-5.0 MONOCYTE # (test code=MO#) 1.06 K/mm3 0-0.8 EOSINOPHIL # (test code=EO#) 0.30 K/mm3 0.0-0.5 BASOPHIL # (test code=BA#) 0.05 K/mm3 0.0-0.2 NUCLEATED RBC # (test code=NRBC#) 0.26 K/mm3 0.0-0.1 MANUAL DIFF REQUIRED (test code=MDIFF) YES STAIN ACCEPTABILITY (test code=STN ACCEPTABLE) TOTAL CELLS COUNTED (test code=TCC) #CELLS SEGMENTED NEUTROPHILS (test code=SEG) % 39-69 LYMPHOCYTE (test code=LYMPH) % 25-55 MONOCYTE (test code=MON) % 0-10 EOSINOPHIL (test code=EOS) % 0.0-5.0 CABOT RINGS (test code=CAB) MORPHOLOGY COMMENT (test code=MOC) PLATELET ESTIMATE (test code=PLTEST) PLATELET MORPHOLOGY (test code=PLTMORPH) [id number] 05:57:00* Test Item Value Reference Range Comments GLUBED (test code=GLUBED) 127 mg/dL 74-106 Performed by certified tracing lathe set up operator at [facility] [id number] 00:07:00* Test Item Value Reference Range Comments GLUBED (test code=GLUBED) 121 mg/dL 74-106 Performed by certified tracing lathe set up operator at [facility] [id number] 18:25:00* Test Item Value Reference Range Comments GLUBED (test code=GLUBED) 114 mg/dL 74-106 Performed by certified tracing lathe set up operator at [facility] [id number] 12:24:00* Test Item Value Reference Range Comments GLUBED (test code=GLUBED) 139 mg/dL 74-106 Performed by certified tracing lathe set up operator at [facility] - XR CHEST 1 [id number] 07:13:00 FAX: Darrel Garcia [phone] [place]: [address] St: ADM FAX: Jayme Garcia MD [phone] Name: MARI HORVATH [facility] : 1975 Age/S: 44/F [address] Unit #: [id number] Loc: V.S02 [facility] [place] [address] Phys: Darrel Garcia Acct: [id number] Dis Date: Status: ADM IN PHONE #: [phone] Exam Date: 05/11/2019521 FAX #: [phone] Reason: TRACH EXAMS: CPT CODE: [id number] XR CHEST 1 V 17283 HISTORY: Tracheostomy and septic shock with seizures. COMPARISON: Previous day. Tracheostomy tube and the left catheter and NG tube are unchanged. Suboptimal inspiration with bibasal subsegmental atelectasis with small basilar effusions. Elevated right hemidiaphragm. No infiltrates or congestion. Moderate cardiomegaly. IMPRESSION: Suboptimal inspiration with bibasal subsegmental atelectasis without infiltrates or congestion. Small effusions. at 0713 Reported and signed by: Aaron Timmons M.D. CC: Darrel Garcia; Jayme Guillen Technologist: NICOLE Thompson Trnscrd Date/Time/By: 05/11 (0713) : By: [email or web address] Orig Print D/T: S: 05/11/2019 (0717) PAGE 1 Signed Report CBC W/MANUAL [id number] 06:55:00* Test Item Value Reference Range Comments WHITE BLOOD CELL (test code=WBC) 11.9 K/mm3 4.5-12.5 RED BLOOD CELL (test code=RBC) 2.81 mill/mm3 3.7-5.2 HEMOGLOBIN (test code=HGB) 7.8 gram/dL 11.5-15.5 HEMATOCRIT (test code=HCT) 25.5 % 36.0-46.0 MEAN CELL VOLUME (test code=MCV) 90.7 fL 80-98 MEAN CELL HGB (test code=MCH) 27.8 picogram 27.0-33.0 MEAN CELL HGB CONCETRATION (test code=MCHC) 30.6 gram/dL 33.0-36.0 RED CELL DISTRIBUTION WIDTH (test code=RDW) 21.2 % 11.6-16.2 RED CELL DISTRIBUTION WIDTH SD (test code=RDW-SD) 63.1 fL 37.0-51.0 PLATELET COUNT (test code=PLT) 118 K/mm3 150-450 MEAN PLATELET VOLUME (test code=MPV) 10.6 fL 6.7-11.0 IMMATURE GRANULOCYTE % (test code=IG%) 7.2 % 0.0-5.0 "The appearance of immature granulocytes (myelocytes,pro-myelocytes, meta-myelocytes) in the peripheral blood ofnon- individuals can indicate a response toinfection, inflammation, or other stimulus to the bonemarrow" NUCLEATED RBC % (test code=NRBC%) 1.7 % 0-0 NEUTROPHIL # (test code=NT#) 7.40 K/mm3 1.8-7.7 IMMATURE GRANULOCYTE # (test code=IG#) 0.86 x10 3/uL 0-0.03 LYMPHOCYTE # (test code=LY#) 1.76 K/mm3 1.0-5.0 MONOCYTE # (test code=MO#) 1.53 K/mm3 0-0.8 EOSINOPHIL # (test code=EO#) 0.31 K/mm3 0.0-0.5 BASOPHIL # (test code=BA#) 0.03 K/mm3 0.0-0.2 NUCLEATED RBC # (test code=NRBC#) 0.20 K/mm3 0.0-0.1 MANUAL DIFF REQUIRED (test code=MDIFF) YES STAIN ACCEPTABILITY (test code=STN ACCEPTABLE) STAIN ACCEPTABLE TOTAL CELLS COUNTED (test code=TCC) 115 #CELLS SEGMENTED NEUTROPHILS (test code=SEG) 73.9 % 39-69 BAND NEUTROPHIL (test code=BAND) 0 % 0-10 LYMPHOCYTE (test code=LYMPH) 13.0 % 25-55 REACTIVE LYMPH (test code=RELYMPH) 0 % MONOCYTE (test code=MON) 5.2 % 0-10 EOSINOPHIL (test code=EOS) 6.1 % 0.0-5.0 BASOPHIL (test code=BASO) 0 % 0-1.0 METAMYELOCYTE (test code=META) 0.9 % 0-0 MYELOCYTE (test code=MYELO) 0.9 % 0.0-0.0 PROMYELOCYTE (test code=PROM) 0 % 0-0 POLYCHROMASIA (test code=POLC) 2+ HYPOCHROMIA (test code=HYPO) 1+ POIKILOCYTOSIS (test code=POIK) 2+ ANISOCYTOSIS (test code=ANISO) 2+ MACROCYTOSIS (test code=MACR) 2+ TARGET CELLS (test code=TGT) 1+ MORPHOLOGY COMMENT (test code=MOC) NORMAL PLATELET ESTIMATE (test code=PLTEST) DECREASED PLATELET MORPHOLOGY (test code=PLTMORPH) NORMAL IMMATURE FORMS (test code=IMMAT) 0 % 0-0 BASIC METABOLIC [id number] 06:12:00* Test Item Value Reference Range Comments SODIUM (test code=NA) 143 mmol/L 136-145 POTASSIUM (test code=K) 3.0 mmol/L 3.5-5.1 CHLORIDE (test code=CL) 106.0 mmol/L 98-107 CARBON DIOXIDE (test code=CO2) 28.0 mmol/L 21-32 ANION GAP (test code=GAP) 12.0 10-20 GLUCOSE (test code=GLU) 144 mg/dL 74-106 BLOOD UREA NITROGEN (test code=BUN) 24 mg/dL 7-18 GLOMERULAR FILTRATION RATE (test code=GFR) 60 mL/min >=60 Estimated GFR by using Modified MDRD formula.Chronic kidney disease is defined as either kidney damageor GFR <60 mL/min/1.73 m2 for >3 months. CREATININE (test code=CREAT) 1.00 mg/dL 0.55-1.02 Note change in reference range due to change in reagent. BUN/CREATININE RATIO (test code=BUN/CREA) 24.5 10-20 CALCIUM (test code=CA) 8.0 mg/dL 8.5-10.1 [id number] 06:12:00* Test Item Value Reference Range Comments MAGNESIUM (test code=MAG) 1.9 mg/dL 1.8-2.4 [id number] 05:30:00* Test Item Value Reference Range Comments GLUBED (test code=GLUBED) 138 mg/dL 74-106 Performed by certified tracing lathe set up operator at [facility] CBC W/MANUAL [id number] 05:29:00* Test Item Value Reference Range Comments WHITE BLOOD CELL (test code=WBC) 11.9 K/mm3 4.5-12.5 RED BLOOD CELL (test code=RBC) 2.81 mill/mm3 3.7-5.2 HEMOGLOBIN (test code=HGB) 7.8 gram/dL 11.5-15.5 HEMATOCRIT (test code=HCT) 25.5 % 36.0-46.0 MEAN CELL VOLUME (test code=MCV) 90.7 fL 80-98 MEAN CELL HGB (test code=MCH) 27.8 picogram 27.0-33.0 MEAN CELL HGB CONCETRATION (test code=MCHC) 30.6 gram/dL 33.0-36.0 RED CELL DISTRIBUTION WIDTH (test code=RDW) 21.2 % 11.6-16.2 RED CELL DISTRIBUTION WIDTH SD (test code=RDW-SD) 63.1 fL 37.0-51.0 PLATELET COUNT (test code=PLT) 118 K/mm3 150-450 MEAN PLATELET VOLUME (test code=MPV) 10.6 fL 6.7-11.0 IMMATURE GRANULOCYTE % (test code=IG%) 7.2 % 0.0-5.0 "The appearance of immature granulocytes (myelocytes,pro-myelocytes, meta-myelocytes) in the peripheral blood ofnon- individuals can indicate a response toinfection, inflammation, or other stimulus to the bonemarrow" NUCLEATED RBC % (test code=NRBC%) 1.7 % 0-0 NEUTROPHIL # (test code=NT#) 7.40 K/mm3 1.8-7.7 IMMATURE GRANULOCYTE # (test code=IG#) 0.86 x10 3/uL 0-0.03 LYMPHOCYTE # (test code=LY#) 1.76 K/mm3 1.0-5.0 MONOCYTE # (test code=MO#) 1.53 K/mm3 0-0.8 EOSINOPHIL # (test code=EO#) 0.31 K/mm3 0.0-0.5 BASOPHIL # (test code=BA#) 0.03 K/mm3 0.0-0.2 NUCLEATED RBC # (test code=NRBC#) 0.20 K/mm3 0.0-0.1 MANUAL DIFF REQUIRED (test code=MDIFF) YES STAIN ACCEPTABILITY (test code=STN ACCEPTABLE) TOTAL CELLS COUNTED (test code=TCC) #CELLS SEGMENTED NEUTROPHILS (test code=SEG) % 39-69 LYMPHOCYTE (test code=LYMPH) % 25-55 MONOCYTE (test code=MON) % 0-10 EOSINOPHIL (test code=EOS) % 0.0-5.0 CABOT RINGS (test code=CAB) MORPHOLOGY COMMENT (test code=MOC) PLATELET ESTIMATE (test code=PLTEST) PLATELET MORPHOLOGY (test code=PLTMORPH) CBC W/MANUAL [id number] 05:29:00* Test Item Value Reference Range Comments WHITE BLOOD CELL (test code=WBC) 11.9 K/mm3 4.5-12.5 RED BLOOD CELL (test code=RBC) 2.81 mill/mm3 3.7-5.2 HEMOGLOBIN (test code=HGB) 7.8 gram/dL 11.5-15.5 HEMATOCRIT (test code=HCT) 25.5 % 36.0-46.0 MEAN CELL VOLUME (test code=MCV) 90.7 fL 80-98 MEAN CELL HGB (test code=MCH) 27.8 picogram 27.0-33.0 MEAN CELL HGB CONCETRATION (test code=MCHC) 30.6 gram/dL 33.0-36.0 RED CELL DISTRIBUTION WIDTH (test code=RDW) 21.2 % 11.6-16.2 RED CELL DISTRIBUTION WIDTH SD (test code=RDW-SD) 63.1 fL 37.0-51.0 PLATELET COUNT (test code=PLT) 118 K/mm3 150-450 MEAN PLATELET VOLUME (test code=MPV) 10.6 fL 6.7-11.0 IMMATURE GRANULOCYTE % (test code=IG%) 7.2 % 0.0-5.0 "The appearance of immature granulocytes (myelocytes,pro-myelocytes, meta-myelocytes) in the peripheral blood ofnon- individuals can indicate a response toinfection, inflammation, or other stimulus to the bonemarrow" NUCLEATED RBC % (test code=NRBC%) 1.7 % 0-0 NEUTROPHIL # (test code=NT#) 7.40 K/mm3 1.8-7.7 IMMATURE GRANULOCYTE # (test code=IG#) 0.86 x10 3/uL 0-0.03 LYMPHOCYTE # (test code=LY#) 1.76 K/mm3 1.0-5.0 MONOCYTE # (test code=MO#) 1.53 K/mm3 0-0.8 EOSINOPHIL # (test code=EO#) 0.31 K/mm3 0.0-0.5 BASOPHIL # (test code=BA#) 0.03 K/mm3 0.0-0.2 NUCLEATED RBC # (test code=NRBC#) 0.20 K/mm3 0.0-0.1 MANUAL DIFF REQUIRED (test code=MDIFF) YES STAIN ACCEPTABILITY (test code=STN ACCEPTABLE) TOTAL CELLS COUNTED (test code=TCC) #CELLS SEGMENTED NEUTROPHILS (test code=SEG) % 39-69 LYMPHOCYTE (test code=LYMPH) % 25-55 MONOCYTE (test code=MON) % 0-10 EOSINOPHIL (test code=EOS) % 0.0-5.0 CABOT RINGS (test code=CAB) MORPHOLOGY COMMENT (test code=MOC) PLATELET ESTIMATE (test code=PLTEST) PLATELET MORPHOLOGY (test code=PLTMORPH) CBC W/MANUAL [id number] 05:29:00* Test Item Value Reference Range Comments WHITE BLOOD CELL (test code=WBC) 11.9 K/mm3 4.5-12.5 RED BLOOD CELL (test code=RBC) 2.81 mill/mm3 3.7-5.2 HEMOGLOBIN (test code=HGB) 7.8 gram/dL 11.5-15.5 HEMATOCRIT (test code=HCT) 25.5 % 36.0-46.0 MEAN CELL VOLUME (test code=MCV) 90.7 fL 80-98 MEAN CELL HGB (test code=MCH) 27.8 picogram 27.0-33.0 MEAN CELL HGB CONCETRATION (test code=MCHC) 30.6 gram/dL 33.0-36.0 RED CELL DISTRIBUTION WIDTH (test code=RDW) 21.2 % 11.6-16.2 RED CELL DISTRIBUTION WIDTH SD (test code=RDW-SD) 63.1 fL 37.0-51.0 PLATELET COUNT (test code=PLT) 118 K/mm3 150-450 MEAN PLATELET VOLUME (test code=MPV) 10.6 fL 6.7-11.0 IMMATURE GRANULOCYTE % (test code=IG%) 7.2 % 0.0-5.0 "The appearance of immature granulocytes (myelocytes,pro-myelocytes, meta-myelocytes) in the peripheral blood ofnon- individuals can indicate a response toinfection, inflammation, or other stimulus to the bonemarrow" NUCLEATED RBC % (test code=NRBC%) 1.7 % 0-0 NEUTROPHIL # (test code=NT#) 7.40 K/mm3 1.8-7.7 IMMATURE GRANULOCYTE # (test code=IG#) 0.86 x10 3/uL 0-0.03 LYMPHOCYTE # (test code=LY#) 1.76 K/mm3 1.0-5.0 MONOCYTE # (test code=MO#) 1.53 K/mm3 0-0.8 EOSINOPHIL # (test code=EO#) 0.31 K/mm3 0.0-0.5 BASOPHIL # (test code=BA#) 0.03 K/mm3 0.0-0.2 NUCLEATED RBC # (test code=NRBC#) 0.20 K/mm3 0.0-0.1 MANUAL DIFF REQUIRED (test code=MDIFF) YES STAIN ACCEPTABILITY (test code=STN ACCEPTABLE) TOTAL CELLS COUNTED (test code=TCC) #CELLS SEGMENTED NEUTROPHILS (test code=SEG) % 39-69 LYMPHOCYTE (test code=LYMPH) % 25-55 MONOCYTE (test code=MON) % 0-10 EOSINOPHIL (test code=EOS) % 0.0-5.0 MORPHOLOGY COMMENT (test code=MOC) PLATELET ESTIMATE (test code=PLTEST) PLATELET MORPHOLOGY (test code=PLTMORPH) CBC W/MANUAL [id number] 05:29:00* Test Item Value Reference Range Comments WHITE BLOOD CELL (test code=WBC) 11.9 K/mm3 4.5-12.5 RED BLOOD CELL (test code=RBC) 2.81 mill/mm3 3.7-5.2 HEMOGLOBIN (test code=HGB) 7.8 gram/dL 11.5-15.5 HEMATOCRIT (test code=HCT) 25.5 % 36.0-46.0 MEAN CELL VOLUME (test code=MCV) 90.7 fL 80-98 MEAN CELL HGB (test code=MCH) 27.8 picogram 27.0-33.0 MEAN CELL HGB CONCETRATION (test code=MCHC) 30.6 gram/dL 33.0-36.0 RED CELL DISTRIBUTION WIDTH (test code=RDW) 21.2 % 11.6-16.2 RED CELL DISTRIBUTION WIDTH SD (test code=RDW-SD) 63.1 fL 37.0-51.0 PLATELET COUNT (test code=PLT) 118 K/mm3 150-450 MEAN PLATELET VOLUME (test code=MPV) 10.6 fL 6.7-11.0 IMMATURE GRANULOCYTE % (test code=IG%) 7.2 % 0.0-5.0 "The appearance of immature granulocytes (myelocytes,pro-myelocytes, meta-myelocytes) in the peripheral blood ofnon- individuals can indicate a response toinfection, inflammation, or other stimulus to the bonemarrow" NUCLEATED RBC % (test code=NRBC%) 1.7 % 0-0 NEUTROPHIL # (test code=NT#) 7.40 K/mm3 1.8-7.7 IMMATURE GRANULOCYTE # (test code=IG#) 0.86 x10 3/uL 0-0.03 LYMPHOCYTE # (test code=LY#) 1.76 K/mm3 1.0-5.0 MONOCYTE # (test code=MO#) 1.53 K/mm3 0-0.8 EOSINOPHIL # (test code=EO#) 0.31 K/mm3 0.0-0.5 BASOPHIL # (test code=BA#) 0.03 K/mm3 0.0-0.2 NUCLEATED RBC # (test code=NRBC#) 0.20 K/mm3 0.0-0.1 MANUAL DIFF REQUIRED (test code=MDIFF) YES STAIN ACCEPTABILITY (test code=STN ACCEPTABLE) TOTAL CELLS COUNTED (test code=TCC) #CELLS SEGMENTED NEUTROPHILS (test code=SEG) % 39-69 LYMPHOCYTE (test code=LYMPH) % 25-55 MONOCYTE (test code=MON) % 0-10 MORPHOLOGY COMMENT (test code=MOC) PLATELET ESTIMATE (test code=PLTEST) PLATELET MORPHOLOGY (test code=PLTMORPH) CBC W/MANUAL [id number] 05:29:00* Test Item Value Reference Range Comments WHITE BLOOD CELL (test code=WBC) 11.9 K/mm3 4.5-12.5 RED BLOOD CELL (test code=RBC) 2.81 mill/mm3 3.7-5.2 HEMOGLOBIN (test code=HGB) 7.8 gram/dL 11.5-15.5 HEMATOCRIT (test code=HCT) 25.5 % 36.0-46.0 MEAN CELL VOLUME (test code=MCV) 90.7 fL 80-98 MEAN CELL HGB (test code=MCH) 27.8 picogram 27.0-33.0 MEAN CELL HGB CONCETRATION (test code=MCHC) 30.6 gram/dL 33.0-36.0 RED CELL DISTRIBUTION WIDTH (test code=RDW) 21.2 % 11.6-16.2 RED CELL DISTRIBUTION WIDTH SD (test code=RDW-SD) 63.1 fL 37.0-51.0 PLATELET COUNT (test code=PLT) 118 K/mm3 150-450 MEAN PLATELET VOLUME (test code=MPV) 10.6 fL 6.7-11.0 IMMATURE GRANULOCYTE % (test code=IG%) 7.2 % 0.0-5.0 "The appearance of immature granulocytes (myelocytes,pro-myelocytes, meta-myelocytes) in the peripheral blood ofnon- individuals can indicate a response toinfection, inflammation, or other stimulus to the bonemarrow" NUCLEATED RBC % (test code=NRBC%) 1.7 % 0-0 NEUTROPHIL # (test code=NT#) 7.40 K/mm3 1.8-7.7 IMMATURE GRANULOCYTE # (test code=IG#) 0.86 x10 3/uL 0-0.03 LYMPHOCYTE # (test code=LY#) 1.76 K/mm3 1.0-5.0 MONOCYTE # (test code=MO#) 1.53 K/mm3 0-0.8 EOSINOPHIL # (test code=EO#) 0.31 K/mm3 0.0-0.5 BASOPHIL # (test code=BA#) 0.03 K/mm3 0.0-0.2 NUCLEATED RBC # (test code=NRBC#) 0.20 K/mm3 0.0-0.1 MANUAL DIFF REQUIRED (test code=MDIFF) YES STAIN ACCEPTABILITY (test code=STN ACCEPTABLE) TOTAL CELLS COUNTED (test code=TCC) #CELLS SEGMENTED NEUTROPHILS (test code=SEG) % 39-69 LYMPHOCYTE (test code=LYMPH) % 25-55 MONOCYTE (test code=MON) % 0-10 EOSINOPHIL (test code=EOS) % 0.0-5.0 CABOT RINGS (test code=CAB) MORPHOLOGY COMMENT (test code=MOC) PLATELET ESTIMATE (test code=PLTEST) PLATELET MORPHOLOGY (test code=PLTMORPH) [id number] 00:01:00* Test Item Value Reference Range Comments GLUBED (test code=GLUBED) 111 mg/dL 74-106 Performed by certified tracing lathe set up operator at [facility] [id number] 18:04:00* Test Item Value Reference Range Comments GLUBED (test code=GLUBED) 150 mg/dL 74-106 Performed by certified tracing lathe set up operator at [facility] [id number] 12:17:00* Test Item Value Reference Range Comments GLUTOMMY (test code=GLUBED) 125 mg/dL 74-106 Performed by certified tracing lathe set up operator at [facility] - XR CHEST 1 [id number] 11:43:00 FAX: Cam Brumfield [place]: St: ADM FAX: Jayme Garcia MD [phone] Name: MARI HORVATH [facility] : 1975 Age/S: 44/F [address] [facility] Unit #: [id number] Loc: .[address] [place] [id number] Phys: Cam Brumfield Acct: [id number] Dis Date: Status: ADM IN PHONE #: [phone] Exam Date: 05/10/2019 1045 FAX #: [phone] Reason: NG TUBE PLACEMENT EXAMS: CPT CODE: [id number] XR CHEST 1 V 51354 REASON FOR EXAM: NG TUBE PLACEMENT Exam Order Date: 05/10/2019 10:15 AM Ordering M.D.: DUANE Camara PROCEDURE: - XR CHEST 1 V COMPARISON: AP chest radiograph May 09, 2019 FINDINGS: The ET tube has been replaced with an tracheostomy tube. Enteric suction tube remains within the stomach. Right IJ central line is stable in position and terminates in the right atrium. Left IJ central line is also stable in position and terminates in the cavoatrial junction. Elevation of the right hemidiaphragm is redemonstrated. There is atelectasis in the lung bases, worse on the right side. Superimposed pleural effusion on the right cannot be excluded. Compared to the previous exam the left lung is unchanged but there is worsening opacification of the right mid and lower lung. Cardiomediastinal silhouette is normal in size for technique. The mediast inal contours are within normal limits. Musculoskeletal structures are within normal limits. IVC filter is stable in position. IMPRESSION: Interval replacement of endotracheal tube with tracheostomy tube. Remaining lines and tubes are unchanged. Specif ically the NG tube remains within the stomach. Worsening opacification o f the right mid and lower lung may represent worsening atelectasis howev er superimposed aspiration, pneumonia, or layering effusion cannot be ex cluded. Atelectasis in the left lung base is unchanged. PAGE 1 Signed Report (CONTINUED) FAX: Cam Brumfield [place]: St: ADM FAX: Jayme Garcia MD [phone] Name: YULIETMARI ADONAY [facility] : 1975 Age/S: 44/F [address] [facility] Unit #: [id number] Loc: V.S02 [place] [address] Phys: Cam Brumfield Acct: [id number] Dis Date: Status: ADM IN PHONE #: [phone] Exam Date: 05/10/2019 1045 FAX #: [phone] Reason: NG TUBE PLACEMENT EXAMS: CPT CODE: [id number] XR CHEST 1 V 62022 < Continued> at 1143 Reported and signed by: Lincoln Pace MD CC: Cma Brumfield; Jayme Guillen Technologist: RT HILDA(R) Trnscrd Date/Time/By: 05/10/2019 (5153) : By: [email or web address] Orig Print D/T: S: 05/10/2019 (6894) PAGE 2 Signed Report ARTERIAL BLOOD [id number] 09:50:00* Test Item Value Reference Range Comments ARTERIAL BLOOD GAS PH (test code=PHA) 7.52 7.35-7.45 ARTERIAL BLOOD GAS PCO2 (test code=PCO2A) 28.9 mm Hg 35-45 ARTERIAL BLOOD GAS PO2 (test code=PO2A) 146.6 mmHg 80-100 BICARBONATE TOTAL HCO3 (test code=HCO3) 23.2 mmol/L 23.0-27.0 BASE EXCESS (test code=SUMMER) 0.8 mmol/L -3.0-5.0 ABG O2 SATURATION (test code=SATA) 98.1 % 90.0-98.0 ABG TYPE (test code=TYPEA) Arterial FIO2 (test code=FIO2A) 60.0 ABG VENT MODE (test code=MODEA) Assist Control ABG VENT RESP RATE (test code=RRA) 16.0 per min ABG TIDAL VOLUME (test code=TVA) 430.0 mL ABG PEEP (test code=PEEPA) 5.0 cmH2O ABG SITE (test code=SITEA) ARTERIAL LINE HEMATOCRIT (test code=HCT/ABG) 26 % 35-47 TOTAL HGB (test code=THB) 9.0 gram/dL 11.5-15.5 HGB O2 SAT (test code=HBOSAT) 97.1 % 94.00-98.00 CARBOXYHEMOGLOBIN (test code=HOHGBT) 0.3 %totalHg 0.5-1.5 Results called to and read back by dr land 09:50 - 05/10/2019; by bryan METHEMOGLOBIN (test code=METHGB) 0.7 % 0.0-1.50 O2 CONTENT (test code=O2CT) 12.6 % vol 18.0-22.0 CBC W/AUTO [id number] 07:00:00* Test Item Value Reference Range Comments WHITE BLOOD CELL (test code=WBC) 11.5 K/mm3 4.5-12.5 RED BLOOD CELL (test code=RBC) 2.87 mill/mm3 3.7-5.2 HEMOGLOBIN (test code=HGB) 7.9 gram/dL 11.5-15.5 HEMATOCRIT (test code=HCT) 25.4 % 36.0-46.0 MEAN CELL VOLUME (test code=MCV) 88.5 fL 80-98 MEAN CELL HGB (test code=MCH) 27.5 picogram 27.0-33.0 MEAN CELL HGB CONCETRATION (test code=MCHC) 31.1 gram/dL 33.0-36.0 RED CELL DISTRIBUTION WIDTH (test code=RDW) 20.0 % 11.6-16.2 RED CELL DISTRIBUTION WIDTH SD (test code=RDW-SD) 62.5 fL 37.0-51.0 PLATELET COUNT (test code=PLT) 114 K/mm3 150-450 MEAN PLATELET VOLUME (test code=MPV) 11.9 fL 6.7-11.0 NEUTROPHIL % (test code=NT%) 68.4 % 39.0-69.0 IMMATURE GRANULOCYTE % (test code=IG%) 5.6 % 0.0-5.0 "The appearance of immature granulocytes (myelocytes,pro-myelocytes, meta-myelocytes) in the peripheral blood ofnon- individuals can indicate a response toinfection, inflammation, or other stimulus to the bonemarrow" LYMPHOCYTE % (test code=LY%) 11.4 % 25.0-55.0 MONOCYTE % (test code=MO%) 12.0 % 0.0-10.0 EOSINOPHIL % (test code=EO%) 2.4 % 0.0-5.0 BASOPHIL % (test code=BA%) 0.2 % 0.0-1.0 NUCLEATED RBC % (test code=NRBC%) 1.4 % 0-0 RESULT VERIFIED BY REPEAT ANALYSIS NEUTROPHIL # (test code=NT#) 7.89 K/mm3 1.8-7.7 IMMATURE GRANULOCYTE # (test code=IG#) 0.65 x10 3/uL 0-0.03 LYMPHOCYTE # (test code=LY#) 1.31 K/mm3 1.0-5.0 MONOCYTE # (test code=MO#) 1.39 K/mm3 0-0.8 EOSINOPHIL # (test code=EO#) 0.28 K/mm3 0.0-0.5 BASOPHIL # (test code=BA#) 0.02 K/mm3 0.0-0.2 NUCLEATED RBC # (test code=NRBC#) 0.16 K/mm3 0.0-0.1 MANUAL DIFF REQUIRED (test code=MDIFF) NO, ONLY SCAN NEEDED DIFFERENTIAL [id number] 07:00:00* Test Item Value Reference Range Comments STAIN ACCEPTABILITY (test code=STN ACCEPTABLE) STAIN ACCEPTABLE POLYCHROMASIA (test code=POLC) 1+ HYPOCHROMIA (test code=HYPO) 1+ POIKILOCYTOSIS (test code=POIK) 1+ ANISOCYTOSIS (test code=ANISO) 1+ MICROCYTOSIS (test code=MICR) 1+ MACROCYTOSIS (test code=MACR) 1+ PLATELET ESTIMATE (test code=PLTEST) DECREASED PLATELET MORPHOLOGY (test code=PLTMORPH) NORMAL BASIC METABOLIC [id number] 06:09:00* Test Item Value Reference Range Comments SODIUM (test code=NA) 143 mmol/L 136-145 POTASSIUM (test code=K) 3.1 mmol/L 3.5-5.1 CHLORIDE (test code=CL) 107.0 mmol/L 98-107 CARBON DIOXIDE (test code=CO2) 26.0 mmol/L 21-32 ANION GAP (test code=GAP) 13.1 10-20 GLUCOSE (test code=GLU) 135 mg/dL 74-106 BLOOD UREA NITROGEN (test code=BUN) 24 mg/dL 7-18 GLOMERULAR FILTRATION RATE (test code=GFR) 44 mL/min >=60 Estimated GFR by using Modified MDRD formula.Chronic kidney disease is defined as either kidney damageor GFR <60 mL/min/1.73 m2 for >3 months. CREATININE (test code=CREAT) 1.30 mg/dL 0.55-1.02 Note change in reference range due to change in reagent. BUN/CREATININE RATIO (test code=BUN/CREA) 18.5 10-20 CALCIUM (test code=CA) 8.1 mg/dL 8.5-10.1 CBC W/AUTO [id number] 06:02:00* Test Item Value Reference Range Comments WHITE BLOOD CELL (test code=WBC) 11.5 K/mm3 4.5-12.5 RED BLOOD CELL (test code=RBC) 2.87 mill/mm3 3.7-5.2 HEMOGLOBIN (test code=HGB) 7.9 gram/dL 11.5-15.5 HEMATOCRIT (test code=HCT) 25.4 % 36.0-46.0 MEAN CELL VOLUME (test code=MCV) 88.5 fL 80-98 MEAN CELL HGB (test code=MCH) 27.5 picogram 27.0-33.0 MEAN CELL HGB CONCETRATION (test code=MCHC) 31.1 gram/dL 33.0-36.0 RED CELL DISTRIBUTION WIDTH (test code=RDW) 20.0 % 11.6-16.2 RED CELL DISTRIBUTION WIDTH SD (test code=RDW-SD) 62.5 fL 37.0-51.0 PLATELET COUNT (test code=PLT) 114 K/mm3 150-450 MEAN PLATELET VOLUME (test code=MPV) 11.9 fL 6.7-11.0 NEUTROPHIL % (test code=NT%) 68.4 % 39.0-69.0 IMMATURE GRANULOCYTE % (test code=IG%) 5.6 % 0.0-5.0 "The appearance of immature granulocytes (myelocytes,pro-myelocytes, meta-myelocytes) in the peripheral blood ofnon- individuals can indicate a response toinfection, inflammation, or other stimulus to the bonemarrow" LYMPHOCYTE % (test code=LY%) 11.4 % 25.0-55.0 MONOCYTE % (test code=MO%) 12.0 % 0.0-10.0 EOSINOPHIL % (test code=EO%) 2.4 % 0.0-5.0 BASOPHIL % (test code=BA%) 0.2 % 0.0-1.0 NUCLEATED RBC % (test code=NRBC%) 1.4 % 0-0 RESULT VERIFIED BY REPEAT ANALYSIS NEUTROPHIL # (test code=NT#) 7.89 K/mm3 1.8-7.7 IMMATURE GRANULOCYTE # (test code=IG#) 0.65 x10 3/uL 0-0.03 LYMPHOCYTE # (test code=LY#) 1.31 K/mm3 1.0-5.0 MONOCYTE # (test code=MO#) 1.39 K/mm3 0-0.8 EOSINOPHIL # (test code=EO#) 0.28 K/mm3 0.0-0.5 BASOPHIL # (test code=BA#) 0.02 K/mm3 0.0-0.2 NUCLEATED RBC # (test code=NRBC#) 0.16 K/mm3 0.0-0.1 MANUAL DIFF REQUIRED (test code=MDIFF) NO, ONLY SCAN NEEDED DIFFERENTIAL [id number] 06:02:00* Test Item Value Reference Range Comments STAIN ACCEPTABILITY (test code=STN ACCEPTABLE) CABOT RINGS (test code=CAB) MORPHOLOGY COMMENT (test code=MOC) PLATELET ESTIMATE (test code=PLTEST) PLATELET MORPHOLOGY (test code=PLTMORPH) CBC W/AUTO [id number] 06:02:00* Test Item Value Reference Range Comments WHITE BLOOD CELL (test code=WBC) 11.5 K/mm3 4.5-12.5 RED BLOOD CELL (test code=RBC) 2.87 mill/mm3 3.7-5.2 HEMOGLOBIN (test code=HGB) 7.9 gram/dL 11.5-15.5 HEMATOCRIT (test code=HCT) 25.4 % 36.0-46.0 MEAN CELL VOLUME (test code=MCV) 88.5 fL 80-98 MEAN CELL HGB (test code=MCH) 27.5 picogram 27.0-33.0 MEAN CELL HGB CONCETRATION (test code=MCHC) 31.1 gram/dL 33.0-36.0 RED CELL DISTRIBUTION WIDTH (test code=RDW) 20.0 % 11.6-16.2 RED CELL DISTRIBUTION WIDTH SD (test code=RDW-SD) 62.5 fL 37.0-51.0 PLATELET COUNT (test code=PLT) 114 K/mm3 150-450 MEAN PLATELET VOLUME (test code=MPV) 11.9 fL 6.7-11.0 NEUTROPHIL % (test code=NT%) 68.4 % 39.0-69.0 IMMATURE GRANULOCYTE % (test code=IG%) 5.6 % 0.0-5.0 "The appearance of immature granulocytes (myelocytes,pro-myelocytes, meta-myelocytes) in the peripheral blood ofnon- individuals can indicate a response toinfection, inflammation, or other stimulus to the bonemarrow" LYMPHOCYTE % (test code=LY%) 11.4 % 25.0-55.0 MONOCYTE % (test code=MO%) 12.0 % 0.0-10.0 EOSINOPHIL % (test code=EO%) 2.4 % 0.0-5.0 BASOPHIL % (test code=BA%) 0.2 % 0.0-1.0 NUCLEATED RBC % (test code=NRBC%) 1.4 % 0-0 RESULT VERIFIED BY REPEAT ANALYSIS NEUTROPHIL # (test code=NT#) 7.89 K/mm3 1.8-7.7 IMMATURE GRANULOCYTE # (test code=IG#) 0.65 x10 3/uL 0-0.03 LYMPHOCYTE # (test code=LY#) 1.31 K/mm3 1.0-5.0 MONOCYTE # (test code=MO#) 1.39 K/mm3 0-0.8 EOSINOPHIL # (test code=EO#) 0.28 K/mm3 0.0-0.5 BASOPHIL # (test code=BA#) 0.02 K/mm3 0.0-0.2 NUCLEATED RBC # (test code=NRBC#) 0.16 K/mm3 0.0-0.1 MANUAL DIFF REQUIRED (test code=MDIFF) NO, ONLY SCAN NEEDED DIFFERENTIAL [id number] 06:02:00* Test Item Value Reference Range Comments STAIN ACCEPTABILITY (test code=STN ACCEPTABLE) CABOT RINGS (test code=CAB) MORPHOLOGY COMMENT (test code=MOC) PLATELET ESTIMATE (test code=PLTEST) PLATELET MORPHOLOGY (test code=PLTMORPH) CBC W/AUTO [id number] 06:02:00* Test Item Value Reference Range Comments WHITE BLOOD CELL (test code=WBC) 11.5 K/mm3 4.5-12.5 RED BLOOD CELL (test code=RBC) 2.87 mill/mm3 3.7-5.2 HEMOGLOBIN (test code=HGB) 7.9 gram/dL 11.5-15.5 HEMATOCRIT (test code=HCT) 25.4 % 36.0-46.0 MEAN CELL VOLUME (test code=MCV) 88.5 fL 80-98 MEAN CELL HGB (test code=MCH) 27.5 picogram 27.0-33.0 MEAN CELL HGB CONCETRATION (test code=MCHC) 31.1 gram/dL 33.0-36.0 RED CELL DISTRIBUTION WIDTH (test code=RDW) 20.0 % 11.6-16.2 RED CELL DISTRIBUTION WIDTH SD (test code=RDW-SD) 62.5 fL 37.0-51.0 PLATELET COUNT (test code=PLT) 114 K/mm3 150-450 MEAN PLATELET VOLUME (test code=MPV) 11.9 fL 6.7-11.0 NEUTROPHIL % (test code=NT%) 68.4 % 39.0-69.0 IMMATURE GRANULOCYTE % (test code=IG%) 5.6 % 0.0-5.0 "The appearance of immature granulocytes (myelocytes,pro-myelocytes, meta-myelocytes) in the peripheral blood ofnon- individuals can indicate a response toinfection, inflammation, or other stimulus to the bonemarrow" LYMPHOCYTE % (test code=LY%) 11.4 % 25.0-55.0 MONOCYTE % (test code=MO%) 12.0 % 0.0-10.0 EOSINOPHIL % (test code=EO%) 2.4 % 0.0-5.0 BASOPHIL % (test code=BA%) 0.2 % 0.0-1.0 NUCLEATED RBC % (test code=NRBC%) 1.4 % 0-0 RESULT VERIFIED BY REPEAT ANALYSIS NEUTROPHIL # (test code=NT#) 7.89 K/mm3 1.8-7.7 IMMATURE GRANULOCYTE # (test code=IG#) 0.65 x10 3/uL 0-0.03 LYMPHOCYTE # (test code=LY#) 1.31 K/mm3 1.0-5.0 MONOCYTE # (test code=MO#) 1.39 K/mm3 0-0.8 EOSINOPHIL # (test code=EO#) 0.28 K/mm3 0.0-0.5 BASOPHIL # (test code=BA#) 0.02 K/mm3 0.0-0.2 NUCLEATED RBC # (test code=NRBC#) 0.16 K/mm3 0.0-0.1 MANUAL DIFF REQUIRED (test code=MDIFF) NO, ONLY SCAN NEEDED DIFFERENTIAL [id number] 06:02:00* Test Item Value Reference Range Comments STAIN ACCEPTABILITY (test code=STN ACCEPTABLE) MORPHOLOGY COMMENT (test code=MOC) PLATELET ESTIMATE (test code=PLTEST) PLATELET MORPHOLOGY (test code=PLTMORPH) CBC W/AUTO [id number] 06:02:00* Test Item Value Reference Range Comments WHITE BLOOD CELL (test code=WBC) 11.5 K/mm3 4.5-12.5 RED BLOOD CELL (test code=RBC) 2.87 mill/mm3 3.7-5.2 HEMOGLOBIN (test code=HGB) 7.9 gram/dL 11.5-15.5 HEMATOCRIT (test code=HCT) 25.4 % 36.0-46.0 MEAN CELL VOLUME (test code=MCV) 88.5 fL 80-98 MEAN CELL HGB (test code=MCH) 27.5 picogram 27.0-33.0 MEAN CELL HGB CONCETRATION (test code=MCHC) 31.1 gram/dL 33.0-36.0 RED CELL DISTRIBUTION WIDTH (test code=RDW) 20.0 % 11.6-16.2 RED CELL DISTRIBUTION WIDTH SD (test code=RDW-SD) 62.5 fL 37.0-51.0 PLATELET COUNT (test code=PLT) 114 K/mm3 150-450 MEAN PLATELET VOLUME (test code=MPV) 11.9 fL 6.7-11.0 NEUTROPHIL % (test code=NT%) 68.4 % 39.0-69.0 IMMATURE GRANULOCYTE % (test code=IG%) 5.6 % 0.0-5.0 "The appearance of immature granulocytes (myelocytes,pro-myelocytes, meta-myelocytes) in the peripheral blood ofnon- individuals can indicate a response toinfection, inflammation, or other stimulus to the bonemarrow" LYMPHOCYTE % (test code=LY%) 11.4 % 25.0-55.0 MONOCYTE % (test code=MO%) 12.0 % 0.0-10.0 EOSINOPHIL % (test code=EO%) 2.4 % 0.0-5.0 BASOPHIL % (test code=BA%) 0.2 % 0.0-1.0 NUCLEATED RBC % (test code=NRBC%) 1.4 % 0-0 RESULT VERIFIED BY REPEAT ANALYSIS NEUTROPHIL # (test code=NT#) 7.89 K/mm3 1.8-7.7 IMMATURE GRANULOCYTE # (test code=IG#) 0.65 x10 3/uL 0-0.03 LYMPHOCYTE # (test code=LY#) 1.31 K/mm3 1.0-5.0 MONOCYTE # (test code=MO#) 1.39 K/mm3 0-0.8 EOSINOPHIL # (test code=EO#) 0.28 K/mm3 0.0-0.5 BASOPHIL # (test code=BA#) 0.02 K/mm3 0.0-0.2 NUCLEATED RBC # (test code=NRBC#) 0.16 K/mm3 0.0-0.1 MANUAL DIFF REQUIRED (test code=MDIFF) NO, ONLY SCAN NEEDED DIFFERENTIAL [id number] 06:02:00* Test Item Value Reference Range Comments STAIN ACCEPTABILITY (test code=STN ACCEPTABLE) CABOT RINGS (test code=CAB) MORPHOLOGY COMMENT (test code=MOC) PLATELET ESTIMATE (test code=PLTEST) PLATELET MORPHOLOGY (test code=PLTMORPH) [id number] 00:15:00* Test Item Value Reference Range Comments GLUBED (test code=GLUBED) 117 mg/dL 74-106 Performed by certified tracing lathe set up operator at [facility] - CT HEAD/BRAIN W/O [id number] 20:24:00 Name: MARI HORVATH [facility] : 1975 Age/S: 44 / F [address] [facility] #: [id number] Loc: [place] [address] Phys: Nancy Santos MD Acct: [id number] Dis Date: Status: ADM IN PHONE #: [phone] Exam Date: 05/09/20192014 FAX #: [phone] Reason: Status Epilepticus, H/o CVA's EXAMS: CPT CODE: [id number] CT HEAD/BRAIN W/O CONT [id number] REASON FOR EXAM: Status Epilepticus, H/o CVA's EXAM ORDER DATE: 05/09/2019 5:39 PM Ordering M.D.: Nancy Santos MD PROCEDURE: - CT HEAD/BRAIN W/O CONT COMPARISON: 05/08/2019 FINDINGS: CT images of the brain were obtained without IV contrast. Dose modulation, iterative reconstruction, and/or weight based adjustment of the MA/KV was utilized to reduce the radiation dose to as low as reasonably achievable. The brain parenchyma is within normal limits. The hauser-white matter delineation is unremarkable. The ventricles, cisterns, and sulci are unremarkable. There is no evidence of hemorrhage, mass, mass effect. There is no evidence of acute infarct. 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 No acute findings. Electro nically Signed by Mita Benjamin on 05/09/2019 at 2024 Rep orted and signed by: Cuauhtemoc Benjamin M.D. CC: Nancy Santos MD; Jayme Haddad Technologist:PRABHA MADDEN, RT(R) CT CTDI: DLP: Trnscb Date/Time: 05/09/2019 (2023) Shelia Orig Print D/T: S: 05/09/2019 (2026) PAGE 1 Signed Report [id number] 19:14:00* Test Item Value Reference Range Comments MAGNESIUM (test code=MAG) 2.2 mg/dL 1.8-2.4 [id number] 17:57:00* Test Item Value Reference Range Comments GLUBED (test code=GLUBED) 138 mg/dL 74-106 Performed by certified tracing lathe set up operator at [facility] [id number] 16:48:00* Test Item Value Reference Range Comments GLUBED (test code=GLUBED) 125 mg/dL 74-106 Performed by certified tracing lathe set up operator at [facility] [id number] 07:37:00* Test Item Value Reference Range Comments GLUBED (test code=GLUBED) 82 mg/dL 74-106 Performed by certified tracing lathe set up operator at [facility] - XR CHEST 1 [id number] 07:13:00 FAX: Elodia Scott NP [phone] [place]: [address] St: [facility] FAX: Jayme Garcia MD [phone] Name: MARI HORVATH [facility] : 1975 Age/S: 44/F [address] Unit #: [id number] Loc: Angela [place] [address] Phys: Elodia Scott NP Acct: [id number] Dis Date: Status: ADM IN PHONE #: [phone] Exam Date: 05/09/2019 0512 FAX #: [phone] Reason: sob EXAMS: CPT CODE: [id number] XR CHEST 1 V 45609 HISTORY: Shortness of breath. COMPARISON: Previous day. The bilateral lines and tubes are unchanged. Suboptimal inspiration with bibasal subsegmental atelectasis. No acute infiltrates, effusion or congestion. Cardiac silhouette is mildly enlarged. IMPRESSION: No acute infiltrates, effusion or congestion. Suboptimal inspiration. at 0713 Reported and signed by: Aaron Timmons M.D. CC: Elodia Scott PACKAGE LINER; Jayme Guillen Technologist: NICOLE BUTLER JR Trnscrd Date/Time/By: 05/09/2019 (07) : By: [email or web address] Orig Print D/T: S: 05/09/2019 (0765) PAGE 1 Signed Report BASIC METABOLIC [id number] 06:11:00* Test Item Value Reference Range Comments SODIUM (test code=NA) 142 mmol/L 136-145 POTASSIUM (test code=K) 3.2 mmol/L 3.5-5.1 CHLORIDE (test code=CL) 107.0 mmol/L 98-107 CARBON DIOXIDE (test code=CO2) 22.0 mmol/L 21-32 ANION GAP (test code=GAP) 16.2 10-20 GLUCOSE (test code=GLU) 62 mg/dL 74-106 BLOOD UREA NITROGEN (test code=BUN) 20 mg/dL 7-18 GLOMERULAR FILTRATION RATE (test code=GFR) 35 mL/min >=60 Estimated GFR by using Modified MDRD formula.Chronic kidney disease is defined as either kidney damageor GFR <60 mL/min/1.73 m2 for >3 months. CREATININE (test code=CREAT) 1.60 mg/dL 0.55-1.02 Note change in reference range due to change in reagent. BUN/CREATININE RATIO (test code=BUN/CREA) 12.5 10-20 CALCIUM (test code=CA) 8.0 mg/dL 8.5-10.1 COMPREHENSIVE METABOLIC [id number] 06:11:00* Test Item Value Reference Range Comments TOTAL PROTEIN (test code=PROT) 5.0 gram/dL 6.4-8.2 ALBUMIN (test code=ALB) 2.3 g/dL 3.4-5.0 GLOBULIN (test code=GLOB) 2.7 gram/dL 2.7-4.2 ALBUMIN/GLOBULIN RATIO (test code=A/G) 0.9 0.75-1.50 BILIRUBIN TOTAL (test code=BILT) 1.50 mg/dL 0.0-1.0 SGOT/AST (test code=AST) 26 IUnit/L 15-37 SGPT/ALT (test code=ALT) 25 IUnit/L 12-78 ALKALINE PHOSPHATASE TOTAL (test code=ALKP) 243 IUnit/L 45-117 Note change in reference range due to change in reagent. CALCIUM [id number] 06:11:00* Test Item Value Reference Range Comments CALCIUM IONIZED (test code=JULIETA) 1.23 mmol/L 1.12-1.32 CBC W/AUTO [id number] 06:07:00* Test Item Value Reference Range Comments WHITE BLOOD CELL (test code=WBC) 15.0 K/mm3 4.5-12.5 RED BLOOD CELL (test code=RBC) 3.09 mill/mm3 3.7-5.2 HEMOGLOBIN (test code=HGB) 8.5 gram/dL 11.5-15.5 HEMATOCRIT (test code=HCT) 27.3 % 36.0-46.0 MEAN CELL VOLUME (test code=MCV) 88.3 fL 80-98 MEAN CELL HGB (test code=MCH) 27.5 picogram 27.0-33.0 MEAN CELL HGB CONCETRATION (test code=MCHC) 31.1 gram/dL 33.0-36.0 RED CELL DISTRIBUTION WIDTH (test code=RDW) 20.3 % 11.6-16.2 RED CELL DISTRIBUTION WIDTH SD (test code=RDW-SD) 63.2 fL 37.0-51.0 PLATELET COUNT (test code=PLT) 115 K/mm3 150-450 MEAN PLATELET VOLUME (test code=MPV) 11.6 fL 6.7-11.0 NEUTROPHIL % (test code=NT%) 74.6 % 39.0-69.0 IMMATURE GRANULOCYTE % (test code=IG%) 2.2 % 0.0-5.0 LYMPHOCYTE % (test code=LY%) 9.6 % 25.0-55.0 MONOCYTE % (test code=MO%) 10.8 % 0.0-10.0 EOSINOPHIL % (test code=EO%) 2.6 % 0.0-5.0 BASOPHIL % (test code=BA%) 0.2 % 0.0-1.0 NUCLEATED RBC % (test code=NRBC%) 0.6 % 0-0 NEUTROPHIL # (test code=NT#) 11.15 K/mm3 1.8-7.7 IMMATURE GRANULOCYTE # (test code=IG#) 0.33 x10 3/uL 0-0.03 LYMPHOCYTE # (test code=LY#) 1.44 K/mm3 1.0-5.0 MONOCYTE # (test code=MO#) 1.62 K/mm3 0-0.8 EOSINOPHIL # (test code=EO#) 0.39 K/mm3 0.0-0.5 BASOPHIL # (test code=BA#) 0.03 K/mm3 0.0-0.2 NUCLEATED RBC # (test code=NRBC#) 0.09 K/mm3 0.0-0.1 MANUAL DIFF REQUIRED (test code=MDIFF) NO, ONLY SCAN NEEDED DIFFERENTIAL [id number] 06:07:00* Test Item Value Reference Range Comments STAIN ACCEPTABILITY (test code=STN ACCEPTABLE) STAIN ACCEPTABLE POLYCHROMASIA (test code=POLC) 1+ POIKILOCYTOSIS (test code=POIK) 1+ ANISOCYTOSIS (test code=ANISO) 2+ MACROCYTOSIS (test code=MACR) 1+ OVALOCYTES (test code=OVAL) 1+ PLATELET ESTIMATE (test code=PLTEST) DECREASED PLATELET MORPHOLOGY (test code=PLTMORPH) NORMAL BASIC METABOLIC [id number] 06:06:00* Test Item Value Reference Range Comments SODIUM (test code=NA) 142 mmol/L 136-145 POTASSIUM (test code=K) 3.2 mmol/L 3.5-5.1 CHLORIDE (test code=CL) 107.0 mmol/L 98-107 CARBON DIOXIDE (test code=CO2) mmol/L 21-32 ANION GAP (test code=GAP) 10-20 GLUCOSE (test code=GLU) mg/dL 74-106 BLOOD UREA NITROGEN (test code=BUN) mg/dL 7-18 GLOMERULAR FILTRATION RATE (test code=GFR) mL/min >=60 CREATININE (test code=CREAT) mg/dL 0.55-1.02 BUN/CREATININE RATIO (test code=BUN/CREA) 10-20 CALCIUM (test code=CA) mg/dL 8.5-10.1 COMPREHENSIVE METABOLIC [id number] 06:06:00* Test Item Value Reference Range Comments TOTAL PROTEIN (test code=PROT) gram/dL 6.4-8.2 ALBUMIN (test code=ALB) g/dL 3.4-5.0 GLOBULIN (test code=GLOB) gram/dL 2.7-4.2 ALBUMIN/GLOBULIN RATIO (test code=A/G) 0.75-1.50 BILIRUBIN TOTAL (test code=BILT) mg/dL 0.0-1.0 SGOT/AST (test code=AST) IUnit/L 15-37 SGPT/ALT (test code=ALT) IUnit/L 12-78 ALKALINE PHOSPHATASE TOTAL (test code=ALKP) IUnit/L 45-117 CALCIUM [id number] 06:06:00* Test Item Value Reference Range Comments CALCIUM IONIZED (test code=JULIETA) 1.23 mmol/L 1.12-1.32 BASIC METABOLIC [id number] 06:05:00* Test Item Value Reference Range Comments SODIUM (test code=NA) 142 mmol/L 136-145 POTASSIUM (test code=K) 3.2 mmol/L 3.5-5.1 CHLORIDE (test code=CL) 107.0 mmol/L 98-107 CARBON DIOXIDE (test code=CO2) mmol/L 21-32 ANION GAP (test code=GAP) 10-20 GLUCOSE (test code=GLU) mg/dL 74-106 BLOOD UREA NITROGEN (test code=BUN) mg/dL 7-18 GLOMERULAR FILTRATION RATE (test code=GFR) mL/min >=60 CREATININE (test code=CREAT) mg/dL 0.55-1.02 BUN/CREATININE RATIO (test code=BUN/CREA) 10-20 CALCIUM (test code=CA) mg/dL 8.5-10.1 COMPREHENSIVE METABOLIC [id number] 06:05:00* Test Item Value Reference Range Comments TOTAL PROTEIN (test code=PROT) gram/dL 6.4-8.2 ALBUMIN (test code=ALB) g/dL 3.4-5.0 GLOBULIN (test code=GLOB) gram/dL 2.7-4.2 ALBUMIN/GLOBULIN RATIO (test code=A/G) 0.75-1.50 BILIRUBIN TOTAL (test code=BILT) mg/dL 0.0-1.0 SGOT/AST (test code=AST) IUnit/L 15-37 SGPT/ALT (test code=ALT) IUnit/L 12-78 ALKALINE PHOSPHATASE TOTAL (test code=ALKP) IUnit/L 45-117 CALCIUM [id number] 06:05:00* Test Item Value Reference Range Comments CALCIUM IONIZED (test code=JULIETA) mmol/L 1.12-1.32 CBC W/AUTO [id number] 05:40:00* Test Item Value Reference Range Comments WHITE BLOOD CELL (test code=WBC) 15.0 K/mm3 4.5-12.5 RED BLOOD CELL (test code=RBC) 3.09 mill/mm3 3.7-5.2 HEMOGLOBIN (test code=HGB) 8.5 gram/dL 11.5-15.5 HEMATOCRIT (test code=HCT) 27.3 % 36.0-46.0 MEAN CELL VOLUME (test code=MCV) 88.3 fL 80-98 MEAN CELL HGB (test code=MCH) 27.5 picogram 27.0-33.0 MEAN CELL HGB CONCETRATION (test code=MCHC) 31.1 gram/dL 33.0-36.0 RED CELL DISTRIBUTION WIDTH (test code=RDW) 20.3 % 11.6-16.2 RED CELL DISTRIBUTION WIDTH SD (test code=RDW-SD) 63.2 fL 37.0-51.0 PLATELET COUNT (test code=PLT) 115 K/mm3 150-450 MEAN PLATELET VOLUME (test code=MPV) 11.6 fL 6.7-11.0 NEUTROPHIL % (test code=NT%) 74.6 % 39.0-69.0 IMMATURE GRANULOCYTE % (test code=IG%) 2.2 % 0.0-5.0 LYMPHOCYTE % (test code=LY%) 9.6 % 25.0-55.0 MONOCYTE % (test code=MO%) 10.8 % 0.0-10.0 EOSINOPHIL % (test code=EO%) 2.6 % 0.0-5.0 BASOPHIL % (test code=BA%) 0.2 % 0.0-1.0 NUCLEATED RBC % (test code=NRBC%) 0.6 % 0-0 NEUTROPHIL # (test code=NT#) 11.15 K/mm3 1.8-7.7 IMMATURE GRANULOCYTE # (test code=IG#) 0.33 x10 3/uL 0-0.03 LYMPHOCYTE # (test code=LY#) 1.44 K/mm3 1.0-5.0 MONOCYTE # (test code=MO#) 1.62 K/mm3 0-0.8 EOSINOPHIL # (test code=EO#) 0.39 K/mm3 0.0-0.5 BASOPHIL # (test code=BA#) 0.03 K/mm3 0.0-0.2 NUCLEATED RBC # (test code=NRBC#) 0.09 K/mm3 0.0-0.1 MANUAL DIFF REQUIRED (test code=MDIFF) NO, ONLY SCAN NEEDED DIFFERENTIAL [id number] 05:40:00* Test Item Value Reference Range Comments STAIN ACCEPTABILITY (test code=STN ACCEPTABLE) MORPHOLOGY COMMENT (test code=MOC) PLATELET ESTIMATE (test code=PLTEST) PLATELET MORPHOLOGY (test code=PLTMORPH) CBC W/AUTO [id number] 05:39:00* Test Item Value Reference Range Comments WHITE BLOOD CELL (test code=WBC) 15.0 K/mm3 4.5-12.5 RED BLOOD CELL (test code=RBC) 3.09 mill/mm3 3.7-5.2 HEMOGLOBIN (test code=HGB) 8.5 gram/dL 11.5-15.5 HEMATOCRIT (test code=HCT) 27.3 % 36.0-46.0 MEAN CELL VOLUME (test code=MCV) 88.3 fL 80-98 MEAN CELL HGB (test code=MCH) 27.5 picogram 27.0-33.0 MEAN CELL HGB CONCETRATION (test code=MCHC) 31.1 gram/dL 33.0-36.0 RED CELL DISTRIBUTION WIDTH (test code=RDW) 20.3 % 11.6-16.2 RED CELL DISTRIBUTION WIDTH SD (test code=RDW-SD) 63.2 fL 37.0-51.0 PLATELET COUNT (test code=PLT) 115 K/mm3 150-450 MEAN PLATELET VOLUME (test code=MPV) 11.6 fL 6.7-11.0 NEUTROPHIL % (test code=NT%) 74.6 % 39.0-69.0 IMMATURE GRANULOCYTE % (test code=IG%) 2.2 % 0.0-5.0 LYMPHOCYTE % (test code=LY%) 9.6 % 25.0-55.0 MONOCYTE % (test code=MO%) 10.8 % 0.0-10.0 EOSINOPHIL % (test code=EO%) 2.6 % 0.0-5.0 BASOPHIL % (test code=BA%) 0.2 % 0.0-1.0 NUCLEATED RBC % (test code=NRBC%) 0.6 % 0-0 NEUTROPHIL # (test code=NT#) 11.15 K/mm3 1.8-7.7 IMMATURE GRANULOCYTE # (test code=IG#) 0.33 x10 3/uL 0-0.03 LYMPHOCYTE # (test code=LY#) 1.44 K/mm3 1.0-5.0 MONOCYTE # (test code=MO#) 1.62 K/mm3 0-0.8 EOSINOPHIL # (test code=EO#) 0.39 K/mm3 0.0-0.5 BASOPHIL # (test code=BA#) 0.03 K/mm3 0.0-0.2 NUCLEATED RBC # (test code=NRBC#) 0.09 K/mm3 0.0-0.1 MANUAL DIFF REQUIRED (test code=MDIFF) NO, ONLY SCAN NEEDED DIFFERENTIAL [id number] 05:39:00* Test Item Value Reference Range Comments STAIN ACCEPTABILITY (test code=STN ACCEPTABLE) CABOT RINGS (test code=CAB) MORPHOLOGY COMMENT (test code=MOC) PLATELET ESTIMATE (test code=PLTEST) PLATELET MORPHOLOGY (test code=PLTMORPH) CBC W/AUTO [id number] 05:39:00* Test Item Value Reference Range Comments WHITE BLOOD CELL (test code=WBC) 15.0 K/mm3 4.5-12.5 RED BLOOD CELL (test code=RBC) 3.09 mill/mm3 3.7-5.2 HEMOGLOBIN (test code=HGB) 8.5 gram/dL 11.5-15.5 HEMATOCRIT (test code=HCT) 27.3 % 36.0-46.0 MEAN CELL VOLUME (test code=MCV) 88.3 fL 80-98 MEAN CELL HGB (test code=MCH) 27.5 picogram 27.0-33.0 MEAN CELL HGB CONCETRATION (test code=MCHC) 31.1 gram/dL 33.0-36.0 RED CELL DISTRIBUTION WIDTH (test code=RDW) 20.3 % 11.6-16.2 RED CELL DISTRIBUTION WIDTH SD (test code=RDW-SD) 63.2 fL 37.0-51.0 PLATELET COUNT (test code=PLT) 115 K/mm3 150-450 MEAN PLATELET VOLUME (test code=MPV) 11.6 fL 6.7-11.0 NEUTROPHIL % (test code=NT%) 74.6 % 39.0-69.0 IMMATURE GRANULOCYTE % (test code=IG%) 2.2 % 0.0-5.0 LYMPHOCYTE % (test code=LY%) 9.6 % 25.0-55.0 MONOCYTE % (test code=MO%) 10.8 % 0.0-10.0 EOSINOPHIL % (test code=EO%) 2.6 % 0.0-5.0 BASOPHIL % (test code=BA%) 0.2 % 0.0-1.0 NUCLEATED RBC % (test code=NRBC%) 0.6 % 0-0 NEUTROPHIL # (test code=NT#) 11.15 K/mm3 1.8-7.7 IMMATURE GRANULOCYTE # (test code=IG#) 0.33 x10 3/uL 0-0.03 LYMPHOCYTE # (test code=LY#) 1.44 K/mm3 1.0-5.0 MONOCYTE # (test code=MO#) 1.62 K/mm3 0-0.8 EOSINOPHIL # (test code=EO#) 0.39 K/mm3 0.0-0.5 BASOPHIL # (test code=BA#) 0.03 K/mm3 0.0-0.2 NUCLEATED RBC # (test code=NRBC#) 0.09 K/mm3 0.0-0.1 MANUAL DIFF REQUIRED (test code=MDIFF) NO, ONLY SCAN NEEDED DIFFERENTIAL [id number] 05:39:00* Test Item Value Reference Range Comments STAIN ACCEPTABILITY (test code=STN ACCEPTABLE) MORPHOLOGY COMMENT (test code=MOC) PLATELET ESTIMATE (test code=PLTEST) PLATELET MORPHOLOGY (test code=PLTMORPH) CBC W/AUTO [id number] 05:39:00* Test Item Value Reference Range Comments WHITE BLOOD CELL (test code=WBC) 15.0 K/mm3 4.5-12.5 RED BLOOD CELL (test code=RBC) 3.09 mill/mm3 3.7-5.2 HEMOGLOBIN (test code=HGB) 8.5 gram/dL 11.5-15.5 HEMATOCRIT (test code=HCT) 27.3 % 36.0-46.0 MEAN CELL VOLUME (test code=MCV) 88.3 fL 80-98 MEAN CELL HGB (test code=MCH) 27.5 picogram 27.0-33.0 MEAN CELL HGB CONCETRATION (test code=MCHC) 31.1 gram/dL 33.0-36.0 RED CELL DISTRIBUTION WIDTH (test code=RDW) 20.3 % 11.6-16.2 RED CELL DISTRIBUTION WIDTH SD (test code=RDW-SD) 63.2 fL 37.0-51.0 PLATELET COUNT (test code=PLT) 115 K/mm3 150-450 MEAN PLATELET VOLUME (test code=MPV) 11.6 fL 6.7-11.0 NEUTROPHIL % (test code=NT%) 74.6 % 39.0-69.0 IMMATURE GRANULOCYTE % (test code=IG%) 2.2 % 0.0-5.0 LYMPHOCYTE % (test code=LY%) 9.6 % 25.0-55.0 MONOCYTE % (test code=MO%) 10.8 % 0.0-10.0 EOSINOPHIL % (test code=EO%) 2.6 % 0.0-5.0 BASOPHIL % (test code=BA%) 0.2 % 0.0-1.0 NUCLEATED RBC % (test code=NRBC%) 0.6 % 0-0 NEUTROPHIL # (test code=NT#) 11.15 K/mm3 1.8-7.7 IMMATURE GRANULOCYTE # (test code=IG#) 0.33 x10 3/uL 0-0.03 LYMPHOCYTE # (test code=LY#) 1.44 K/mm3 1.0-5.0 MONOCYTE # (test code=MO#) 1.62 K/mm3 0-0.8 EOSINOPHIL # (test code=EO#) 0.39 K/mm3 0.0-0.5 BASOPHIL # (test code=BA#) 0.03 K/mm3 0.0-0.2 NUCLEATED RBC # (test code=NRBC#) 0.09 K/mm3 0.0-0.1 MANUAL DIFF REQUIRED (test code=MDIFF) NO, ONLY SCAN NEEDED DIFFERENTIAL [id number] 05:39:00* Test Item Value Reference Range Comments STAIN ACCEPTABILITY (test code=STN ACCEPTABLE) CABOT RINGS (test code=CAB) MORPHOLOGY COMMENT (test code=MOC) PLATELET ESTIMATE (test code=PLTEST) PLATELET MORPHOLOGY (test code=PLTMORPH) ARTERIAL BLOOD [id number] 05:11:00* Test Item Value Reference Range Comments ARTERIAL BLOOD GAS PH (test code=PHA) 7.51 7.35-7.45 ARTERIAL BLOOD GAS PCO2 (test code=PCO2A) 27.6 mm Hg 35-45 ARTERIAL BLOOD GAS PO2 (test code=PO2A) 96.0 mmHg 80-100 BICARBONATE TOTAL HCO3 (test code=HCO3) 21.6 mmol/L 23.0-27.0 BASE EXCESS (test code=SUMMER) -0.7 mmol/L -3.0-5.0 ABG O2 SATURATION (test code=SATA) 96.7 % 90.0-98.0 ABG TYPE (test code=TYPEA) Arterial FIO2 (test code=FIO2A) 30.0 ABG VENT MODE (test code=MODEA) Assist Control ABG VENT RESP RATE (test code=RRA) 18.0 per min ABG TIDAL VOLUME (test code=TVA) 430.0 mL ABG PEEP (test code=PEEPA) 5.0 cmH2O ABG SITE (test code=SITEA) ARTERIAL LINE SODIUM (test code=NA/ABG) 134.0 mEq/L 135-148 POTASSIUM (test code=K/ABG) 3.4 mEq/L 3.5-4.5 CHLORIDE (test code=CL/ABG) 105 mEq/L 98-106 GLUCOSE (test code=GLU/ABG) 59 mg/dL 74-99 HEMATOCRIT (test code=HCT/ABG) 28 % 35-47 IONIZED CALCIUM (test code=CAIABG) 1.15 mmol/L 1.1-1.37 TOTAL HGB (test code=THB) 9.4 gram/dL 11.5-15.5 HGB O2 SAT (test code=HBOSAT) 96.0 % 94.00-98.00 CARBOXYHEMOGLOBIN (test code=HOHGBT) 0.3 %totalHg 0.5-1.5 Results called to and read back by Juan 04:38 - 05/09/2019; by William METHEMOGLOBIN (test code=METHGB) 0.4 % 0.0-1.50 O2 CONTENT (test code=O2CT) 12.8 % vol 18.0-22.0 [id number] 00:30:00* Test Item Value Reference Range Comments GLUBED (test code=GLUBED) 154 mg/dL 74-106 [facility] [id number] 18:37:00* Test Item Value Reference Range Comments GLUBED (test code=GLUBED) 129 mg/dL 74-106 Performed by certified tracing lathe set up operator at [facility] LACTIC [id number] 16:27:00* Test Item Value Reference Range Comments LACTIC ACID (test code=LACT) 2.6 mmol/L 0.4-1.9 Results called to [id number] [facility] 05/08/19 1627Critical results verified and read back by Nurse? Y BASIC METABOLIC [id number] 16:19:00* Test Item Value Reference Range Comments SODIUM (test code=NA) 140 mmol/L 136-145 POTASSIUM (test code=K) 3.3 mmol/L 3.5-5.1 CHLORIDE (test code=CL) 106.0 mmol/L 98-107 CARBON DIOXIDE (test code=CO2) 22.0 mmol/L 21-32 ANION GAP (test code=GAP) 15.3 10-20 GLUCOSE (test code=GLU) 131 mg/dL 74-106 BLOOD UREA NITROGEN (test code=BUN) 19 mg/dL 7-18 GLOMERULAR FILTRATION RATE (test code=GFR) 32 mL/min >=60 Estimated GFR by using Modified MDRD formula.Chronic kidney disease is defined as either kidney damageor GFR <60 mL/min/1.73 m2 for >3 months. CREATININE (test code=CREAT) 1.70 mg/dL 0.55-1.02 Note change in reference range due to change in reagent. BUN/CREATININE RATIO (test code=BUN/CREA) 11.2 10-20 CALCIUM (test code=CA) 7.8 mg/dL 8.5-10.1 [id number] 16:19:00* Test Item Value Reference Range Comments PHOSPHORUS (test code=PHOS) 2.3 mg/dL 2.5-4.9 [id number] 16:19:00* Test Item Value Reference Range Comments MAGNESIUM (test code=MAG) 2.3 mg/dL 1.8-2.4 CALCIUM [id number] 16:19:00* Test Item Value Reference Range Comments CALCIUM IONIZED (test code=JULIETA) 1.14 mmol/L 1.12-1.32 BASIC METABOLIC [id number] 16:14:00* Test Item Value Reference Range Comments SODIUM (test code=NA) 140 mmol/L 136-145 POTASSIUM (test code=K) 3.3 mmol/L 3.5-5.1 CHLORIDE (test code=CL) 106.0 mmol/L 98-107 CARBON DIOXIDE (test code=CO2) mmol/L 21-32 ANION GAP (test code=GAP) 10-20 GLUCOSE (test code=GLU) mg/dL 74-106 BLOOD UREA NITROGEN (test code=BUN) mg/dL 7-18 GLOMERULAR FILTRATION RATE (test code=GFR) mL/min >=60 CREATININE (test code=CREAT) mg/dL 0.55-1.02 BUN/CREATININE RATIO (test code=BUN/CREA) 10-20 CALCIUM (test code=CA) mg/dL 8.5-10.1 [id number] 16:14:00* Test Item Value Reference Range Comments PHOSPHORUS (test code=PHOS) mg/dL 2.5-4.9 [id number] 16:14:00* Test Item Value Reference Range Comments MAGNESIUM (test code=MAG) mg/dL 1.8-2.4 CALCIUM [id number] 16:14:00* Test Item Value Reference Range Comments CALCIUM IONIZED (test code=JULIETA) 1.14 mmol/L 1.12-1.32 BASIC METABOLIC [id number] 16:10:00* Test Item Value Reference Range Comments SODIUM (test code=NA) mmol/L 136-145 POTASSIUM (test code=K) mmol/L 3.5-5.1 CHLORIDE (test code=CL) mmol/L 98-107 CARBON DIOXIDE (test code=CO2) mmol/L 21-32 ANION GAP (test code=GAP) 10-20 GLUCOSE (test code=GLU) mg/dL 74-106 BLOOD UREA NITROGEN (test code=BUN) mg/dL 7-18 GLOMERULAR FILTRATION RATE (test code=GFR) mL/min >=60 CREATININE (test code=CREAT) mg/dL 0.55-1.02 BUN/CREATININE RATIO (test code=BUN/CREA) 10-20 CALCIUM (test code=CA) mg/dL 8.5-10.1 [id number] 16:10:00* Test Item Value Reference Range Comments PHOSPHORUS (test code=PHOS) mg/dL 2.5-4.9 [id number] 16:10:00* Test Item Value Reference Range Comments MAGNESIUM (test code=MAG) mg/dL 1.8-2.4 CALCIUM [id number] 16:10:00* Test Item Value Reference Range Comments CALCIUM IONIZED (test code=JULIETA) 1.14 mmol/L 1.12-1.32 [id number] 13:45:00* Test Item Value Reference Range Comments GLUBED (test code=GLUBED) 144 mg/dL 74-106 Performed by certified tracing lathe set up operator at [facility] - CT HEAD/BRAIN W/O [id number] 11:32:00 Name: MARI HORVATH [facility] : 1975 Age/S: 44 / F [address] [facility] Unit #: [id number] Loc: [place] [address] Phys: Elodia Scott PACKAGE LINER Acct: [id number] Dis Date: Status: ADM IN PHONE #: [phone] Exam Date: 05/08/2019 1100 FAX #: [phone] Reason: AMS EXAMS: CPT CODE: [id number] CT HEAD/BRAIN W/O CONT 03331 HISTORY: AMS TECHNIQUE: Noncontrast 2.[address] of the head. Examination acquired within 24 hours of arrival. Automated exposure control for dose reduction. COMPARISON: Noncontrast CT brain May 03, 2019 FINDINGS: No acute hemorrhage. No intracranial mass, mass effect, or midline shift. There is extensive encephalomalacia in the left cerebral hemisphere that is unchanged from the prior exam. Right cerebral hemisphere is grossly within normal limits. Visualized paranasal sinuses are clear. Mastoid air cells and middle ear cavities are clear. . Orbital contents are unremarkable. Postsurgical changes of right temporal craniotomy are redemonstrated. IMPRESSION: No acute intracranial process. 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 at 1132 Reported and signed by: Lincoln Pace MD CC: Elodia Scott NP; Jayme Guillen Technologist:Gabby Melissa RT(R),CT; CTDI: DLP: Trnscb Date/Time: 05/08/2019 (3722) [email or web address] Orig Print D/T: S: 05/08/2019 (8442) PAGE 1 Signed Report ARTERIAL BLOOD [id number] 09:46:00* Test Item Value Reference Range Comments ARTERIAL BLOOD GAS PH (test code=PHA) 7.47 7.35-7.45 ARTERIAL BLOOD GAS PCO2 (test code=PCO2A) 22.0 mm Hg 35-45 Results called to and read back by Dr fontanez 09:46 - 05/08/2019; by [id number] ARTERIAL BLOOD GAS PO2 (test code=PO2A) 101.6 mmHg 80-100 BICARBONATE TOTAL HCO3 (test code=HCO3) 15.7 mmol/L 23.0-27.0 BASE EXCESS (test code=SUMMER) -6.7 mmol/L -3.0-5.0 Results called to and read back by Dr fontanez 09:46 05/08/2019; by [id number] ABG O2 SATURATION (test code=SATA) 97.2 % 90.0-98.0 ABG TYPE (test code=TYPEA) Arterial FIO2 (test code=FIO2A) 30.0 ABG VENT MODE (test code=MODEA) Assist Control ABG VENT RESP RATE (test code=RRA) 24.0 per min ABG TIDAL VOLUME (test code=TVA) 430.0 mL ABG PEEP (test code=PEEPA) 5.0 cmH2O ABG SITE (test code=SITEA) ARTERIAL LINE HEMATOCRIT (test code=HCT/ABG) 26 % 35-47 TOTAL HGB (test code=THB) 8.8 gram/dL 11.5-15.5 HGB O2 SAT (test code=HBOSAT) 96.6 % 94.00-98.00 CARBOXYHEMOGLOBIN (test code=HOHGBT) 0.3 %totalHg 0.5-1.5 Results called to and read back by Dr fontanez 09:46 - 05/08/2019; by [id number] METHEMOGLOBIN (test code=METHGB) 0.3 % 0.0-1.50 O2 CONTENT (test code=O2CT) 12.1 % vol 18.0-22.0 [id number] 07:36:00* Test Item Value Reference Range Comments GLUBED (test code=GLUBED) 146 mg/dL 74-106 Performed by certified tracing lathe set up operator at [facility] - XR CHEST 1 [id number] 07:14:00 FAX: Elodia Scott NP [phone] [place]: B St: ADM FAX: Jayme Garcia MD [phone] Name: MARI HORVATH [facility] : 1975 Age/S: 44/F [address] [facility] Unit #: [id number] Loc: [facility] [place] [address] Phys: Elodia Scott NP Acct: [id number] Dis Date: Status: ADM IN PHONE #: [phone] Exam Date: 05/08/2019 0510 FAX #: [phone] Reason: sob EXAMS: CPT CODE: [id number] XR CHEST 1 V 65889 HISTORY: Shortness of breath. COMPARISON: Previous day. The line and tubes are unchanged. Suboptimal inspiration. Dependent changes. No infiltrates, effusion or congestion. Cardiomegaly. IMPRESSION: No acute infiltrates, effusion or congestion. at 0714 Reported and signed by: Aaron Timmons M.D. CC: Elodia Scott PACKAGE [employer]ER; Jayme Guillen Technologist: NICOLE BUTLER JR Trnscrd Date/Time/By: 05/08/2019 (07) : By: [email or web address] Orig Print D/T: S: 05/08/2019 (0725) PAGE 1 Signed Report LACTIC [id number] 06:54:00* Test Item Value Reference Range Comments LACTIC ACID (test code=LACT) 3.9 mmol/L 0.4-1.9 Results called to [id number] by LUNA 05/08/19 0654Critical results verified and read back by Nurse? Y CBC W/AUTO [id number] 06:41:00* Test Item Value Reference Range Comments WHITE BLOOD CELL (test code=WBC) 12.5 K/mm3 4.5-12.5 RED BLOOD CELL (test code=RBC) 2.98 mill/mm3 3.7-5.2 HEMOGLOBIN (test code=HGB) 8.2 gram/dL 11.5-15.5 HEMATOCRIT (test code=HCT) 26.7 % 36.0-46.0 MEAN CELL VOLUME (test code=MCV) 89.6 fL 80-98 MEAN CELL HGB (test code=MCH) 27.5 picogram 27.0-33.0 MEAN CELL HGB CONCETRATION (test code=MCHC) 30.7 gram/dL 33.0-36.0 RED CELL DISTRIBUTION WIDTH (test code=RDW) 20.6 % 11.6-16.2 RED CELL DISTRIBUTION WIDTH SD (test code=RDW-SD) 66.2 fL 37.0-51.0 PLATELET COUNT (test code=PLT) 130 K/mm3 150-450 MEAN PLATELET VOLUME (test code=MPV) 10.6 fL 6.7-11.0 NEUTROPHIL % (test code=NT%) 81.0 % 39.0-69.0 IMMATURE GRANULOCYTE % (test code=IG%) 2.2 % 0.0-5.0 LYMPHOCYTE % (test code=LY%) 9.5 % 25.0-55.0 MONOCYTE % (test code=MO%) 5.0 % 0.0-10.0 EOSINOPHIL % (test code=EO%) 2.1 % 0.0-5.0 BASOPHIL % (test code=BA%) 0.2 % 0.0-1.0 NUCLEATED RBC % (test code=NRBC%) 0.3 % 0-0 NEUTROPHIL # (test code=NT#) 10.14 K/mm3 1.8-7.7 IMMATURE GRANULOCYTE # (test code=IG#) 0.27 x10 3/uL 0-0.03 LYMPHOCYTE # (test code=LY#) 1.19 K/mm3 1.0-5.0 MONOCYTE # (test code=MO#) 0.62 K/mm3 0-0.8 EOSINOPHIL # (test code=EO#) 0.26 K/mm3 0.0-0.5 BASOPHIL # (test code=BA#) 0.03 K/mm3 0.0-0.2 NUCLEATED RBC # (test code=NRBC#) 0.04 K/mm3 0.0-0.1 MANUAL DIFF REQUIRED (test code=MDIFF) NO, ONLY SCAN NEEDED DIFFERENTIAL [id number] 06:41:00* Test Item Value Reference Range Comments STAIN ACCEPTABILITY (test code=STN ACCEPTABLE) STAIN ACCEPTABLE HYPOCHROMIA (test code=HYPO) 1+ ANISOCYTOSIS (test code=ANISO) 1+ MICROCYTOSIS (test code=MICR) 1+ MACROCYTOSIS (test code=MACR) 1+ PLATELET ESTIMATE (test code=PLTEST) DECREASED PLATELET MORPHOLOGY (test code=PLTMORPH) NORMAL COMPREHENSIVE METABOLIC [id number] 06:36:00* Test Item Value Reference Range Comments SODIUM (test code=NA) 136 mmol/L 136-145 POTASSIUM (test code=K) 3.1 mmol/L 3.5-5.1 CHLORIDE (test code=CL) 96.0 mmol/L 98-107 CARBON DIOXIDE (test code=CO2) 22.0 mmol/L 21-32 ANION GAP (test code=GAP) 21.1 10-20 GLUCOSE (test code=GLU) 178 mg/dL 74-106 BLOOD UREA NITROGEN (test code=BUN) 15 mg/dL 7-18 GLOMERULAR FILTRATION RATE (test code=GFR) 32 mL/min >=60 Estimated GFR by using Modified MDRD formula.Chronic kidney disease is defined as either kidney damageor GFR <60 mL/min/1.73 m2 for >3 months. CREATININE (test code=CREAT) 1.70 mg/dL 0.55-1.02 Note change in reference range due to change in reagent. BUN/CREATININE RATIO (test code=BUN/CREA) 8.9 10-20 TOTAL PROTEIN (test code=PROT) 4.8 gram/dL 6.4-8.2 ALBUMIN (test code=ALB) 2.4 g/dL 3.4-5.0 GLOBULIN (test code=GLOB) 2.4 gram/dL 2.7-4.2 ALBUMIN/GLOBULIN RATIO (test code=A/G) 1.0 0.75-1.50 CALCIUM (test code=CA) 7.2 mg/dL 8.5-10.1 BILIRUBIN TOTAL (test code=BILT) 2.00 mg/dL 0.0-1.0 SGOT/AST (test code=AST) 24 IUnit/L 15-37 SGPT/ALT (test code=ALT) 25 IUnit/L 12-78 ALKALINE PHOSPHATASE TOTAL (test code=ALKP) 200 IUnit/L 45-117 Note change in reference range due to change in reagent. [id number] 06:36:00* Test Item Value Reference Range Comments PHOSPHORUS (test code=PHOS) 7.5 mg/dL 2.5-4.9 [id number] 06:36:00* Test Item Value Reference Range Comments MAGNESIUM (test code=MAG) 1.6 mg/dL 1.8-2.4 CALCIUM [id number] 06:36:00* Test Item Value Reference Range Comments CALCIUM IONIZED (test code=JULIETA) 1.14 mmol/L 1.12-1.32 COMPREHENSIVE METABOLIC [id number] 06:26:00* Test Item Value Reference Range Comments SODIUM (test code=NA) 136 mmol/L 136-145 POTASSIUM (test code=K) 3.1 mmol/L 3.5-5.1 CHLORIDE (test code=CL) 96.0 mmol/L 98-107 CARBON DIOXIDE (test code=CO2) mmol/L 21-32 ANION GAP (test code=GAP) 10-20 GLUCOSE (test code=GLU) mg/dL 74-106 BLOOD UREA NITROGEN (test code=BUN) mg/dL 7-18 GLOMERULAR FILTRATION RATE (test code=GFR) mL/min >=60 CREATININE (test code=CREAT) mg/dL 0.55-1.02 BUN/CREATININE RATIO (test code=BUN/CREA) 10-20 TOTAL PROTEIN (test code=PROT) gram/dL 6.4-8.2 ALBUMIN (test code=ALB) g/dL 3.4-5.0 GLOBULIN (test code=GLOB) gram/dL 2.7-4.2 ALBUMIN/GLOBULIN RATIO (test code=A/G) 0.75-1.50 CALCIUM (test code=CA) mg/dL 8.5-10.1 BILIRUBIN TOTAL (test code=BILT) mg/dL 0.0-1.0 SGOT/AST (test code=AST) IUnit/L 15-37 SGPT/ALT (test code=ALT) IUnit/L 12-78 ALKALINE PHOSPHATASE TOTAL (test code=ALKP) IUnit/L 45-117 [id number] 06:26:00* Test Item Value Reference Range Comments PHOSPHORUS (test code=PHOS) mg/dL 2.5-4.9 [id number] 06:26:00* Test Item Value Reference Range Comments MAGNESIUM (test code=MAG) mg/dL 1.8-2.4 CALCIUM [id number] 06:26:00* Test Item Value Reference Range Comments CALCIUM IONIZED (test code=JULIETA) 1.14 mmol/L 1.12-1.32 COMPREHENSIVE METABOLIC [id number] 06:25:00* Test Item Value Reference Range Comments SODIUM (test code=NA) 136 mmol/L 136-145 POTASSIUM (test code=K) 3.1 mmol/L 3.5-5.1 CHLORIDE (test code=CL) 96.0 mmol/L 98-107 CARBON DIOXIDE (test code=CO2) mmol/L 21-32 ANION GAP (test code=GAP) 10-20 GLUCOSE (test code=GLU) mg/dL 74-106 BLOOD UREA NITROGEN (test code=BUN) mg/dL 7-18 GLOMERULAR FILTRATION RATE (test code=GFR) mL/min >=60 CREATININE (test code=CREAT) mg/dL 0.55-1.02 BUN/CREATININE RATIO (test code=BUN/CREA) 10-20 TOTAL PROTEIN (test code=PROT) gram/dL 6.4-8.2 ALBUMIN (test code=ALB) g/dL 3.4-5.0 GLOBULIN (test code=GLOB) gram/dL 2.7-4.2 ALBUMIN/GLOBULIN RATIO (test code=A/G) 0.75-1.50 CALCIUM (test code=CA) mg/dL 8.5-10.1 BILIRUBIN TOTAL (test code=BILT) mg/dL 0.0-1.0 SGOT/AST (test code=AST) IUnit/L 15-37 SGPT/ALT (test code=ALT) IUnit/L 12-78 ALKALINE PHOSPHATASE TOTAL (test code=ALKP) IUnit/L 45-117 [id number] 06:25:00* Test Item Value Reference Range Comments PHOSPHORUS (test code=PHOS) mg/dL 2.5-4.9 [id number] 06:25:00* Test Item Value Reference Range Comments MAGNESIUM (test code=MAG) mg/dL 1.8-2.4 CALCIUM [id number] 06:25:00* Test Item Value Reference Range Comments CALCIUM IONIZED (test code=JULIETA) mmol/L 1.12-1.32 CBC W/AUTO [id number] 06:06:00* Test Item Value Reference Range Comments WHITE BLOOD CELL (test code=WBC) 12.5 K/mm3 4.5-12.5 RED BLOOD CELL (test code=RBC) 2.98 mill/mm3 3.7-5.2 HEMOGLOBIN (test code=HGB) 8.2 gram/dL 11.5-15.5 HEMATOCRIT (test code=HCT) 26.7 % 36.0-46.0 MEAN CELL VOLUME (test code=MCV) 89.6 fL 80-98 MEAN CELL HGB (test code=MCH) 27.5 picogram 27.0-33.0 MEAN CELL HGB CONCETRATION (test code=MCHC) 30.7 gram/dL 33.0-36.0 RED CELL DISTRIBUTION WIDTH (test code=RDW) 20.6 % 11.6-16.2 RED CELL DISTRIBUTION WIDTH SD (test code=RDW-SD) 66.2 fL 37.0-51.0 PLATELET COUNT (test code=PLT) 130 K/mm3 150-450 MEAN PLATELET VOLUME (test code=MPV) 10.6 fL 6.7-11.0 NEUTROPHIL % (test code=NT%) 81.0 % 39.0-69.0 IMMATURE GRANULOCYTE % (test code=IG%) 2.2 % 0.0-5.0 LYMPHOCYTE % (test code=LY%) 9.5 % 25.0-55.0 MONOCYTE % (test code=MO%) 5.0 % 0.0-10.0 EOSINOPHIL % (test code=EO%) 2.1 % 0.0-5.0 BASOPHIL % (test code=BA%) 0.2 % 0.0-1.0 NUCLEATED RBC % (test code=NRBC%) 0.3 % 0-0 NEUTROPHIL # (test code=NT#) 10.14 K/mm3 1.8-7.7 IMMATURE GRANULOCYTE # (test code=IG#) 0.27 x10 3/uL 0-0.03 LYMPHOCYTE # (test code=LY#) 1.19 K/mm3 1.0-5.0 MONOCYTE # (test code=MO#) 0.62 K/mm3 0-0.8 EOSINOPHIL # (test code=EO#) 0.26 K/mm3 0.0-0.5 BASOPHIL # (test code=BA#) 0.03 K/mm3 0.0-0.2 NUCLEATED RBC # (test code=NRBC#) 0.04 K/mm3 0.0-0.1 MANUAL DIFF REQUIRED (test code=MDIFF) NO, ONLY SCAN NEEDED DIFFERENTIAL [id number] 06:06:00* Test Item Value Reference Range Comments STAIN ACCEPTABILITY (test code=STN ACCEPTABLE) CABOT RINGS (test code=CAB) MORPHOLOGY COMMENT (test code=MOC) PLATELET ESTIMATE (test code=PLTEST) PLATELET MORPHOLOGY (test code=PLTMORPH) CBC W/AUTO [id number] 06:06:00* Test Item Value Reference Range Comments WHITE BLOOD CELL (test code=WBC) 12.5 K/mm3 4.5-12.5 RED BLOOD CELL (test code=RBC) 2.98 mill/mm3 3.7-5.2 HEMOGLOBIN (test code=HGB) 8.2 gram/dL 11.5-15.5 HEMATOCRIT (test code=HCT) 26.7 % 36.0-46.0 MEAN CELL VOLUME (test code=MCV) 89.6 fL 80-98 MEAN CELL HGB (test code=MCH) 27.5 picogram 27.0-33.0 MEAN CELL HGB CONCETRATION (test code=MCHC) 30.7 gram/dL 33.0-36.0 RED CELL DISTRIBUTION WIDTH (test code=RDW) 20.6 % 11.6-16.2 RED CELL DISTRIBUTION WIDTH SD (test code=RDW-SD) 66.2 fL 37.0-51.0 PLATELET COUNT (test code=PLT) 130 K/mm3 150-450 MEAN PLATELET VOLUME (test code=MPV) 10.6 fL 6.7-11.0 NEUTROPHIL % (test code=NT%) 81.0 % 39.0-69.0 IMMATURE GRANULOCYTE % (test code=IG%) 2.2 % 0.0-5.0 LYMPHOCYTE % (test code=LY%) 9.5 % 25.0-55.0 MONOCYTE % (test code=MO%) 5.0 % 0.0-10.0 EOSINOPHIL % (test code=EO%) 2.1 % 0.0-5.0 BASOPHIL % (test code=BA%) 0.2 % 0.0-1.0 NUCLEATED RBC % (test code=NRBC%) 0.3 % 0-0 NEUTROPHIL # (test code=NT#) 10.14 K/mm3 1.8-7.7 IMMATURE GRANULOCYTE # (test code=IG#) 0.27 x10 3/uL 0-0.03 LYMPHOCYTE # (test code=LY#) 1.19 K/mm3 1.0-5.0 MONOCYTE # (test code=MO#) 0.62 K/mm3 0-0.8 EOSINOPHIL # (test code=EO#) 0.26 K/mm3 0.0-0.5 BASOPHIL # (test code=BA#) 0.03 K/mm3 0.0-0.2 NUCLEATED RBC # (test code=NRBC#) 0.04 K/mm3 0.0-0.1 MANUAL DIFF REQUIRED (test code=MDIFF) NO, ONLY SCAN NEEDED DIFFERENTIAL [id number] 06:06:00* Test Item Value Reference Range Comments STAIN ACCEPTABILITY (test code=STN ACCEPTABLE) MORPHOLOGY COMMENT (test code=MOC) PLATELET ESTIMATE (test code=PLTEST) PLATELET MORPHOLOGY (test code=PLTMORPH) CBC W/AUTO [id number] 06:06:00* Test Item Value Reference Range Comments WHITE BLOOD CELL (test code=WBC) 12.5 K/mm3 4.5-12.5 RED BLOOD CELL (test code=RBC) 2.98 mill/mm3 3.7-5.2 HEMOGLOBIN (test code=HGB) 8.2 gram/dL 11.5-15.5 HEMATOCRIT (test code=HCT) 26.7 % 36.0-46.0 MEAN CELL VOLUME (test code=MCV) 89.6 fL 80-98 MEAN CELL HGB (test code=MCH) 27.5 picogram 27.0-33.0 MEAN CELL HGB CONCETRATION (test code=MCHC) 30.7 gram/dL 33.0-36.0 RED CELL DISTRIBUTION WIDTH (test code=RDW) 20.6 % 11.6-16.2 RED CELL DISTRIBUTION WIDTH SD (test code=RDW-SD) 66.2 fL 37.0-51.0 PLATELET COUNT (test code=PLT) 130 K/mm3 150-450 MEAN PLATELET VOLUME (test code=MPV) 10.6 fL 6.7-11.0 NEUTROPHIL % (test code=NT%) 81.0 % 39.0-69.0 IMMATURE GRANULOCYTE % (test code=IG%) 2.2 % 0.0-5.0 LYMPHOCYTE % (test code=LY%) 9.5 % 25.0-55.0 MONOCYTE % (test code=MO%) 5.0 % 0.0-10.0 EOSINOPHIL % (test code=EO%) 2.1 % 0.0-5.0 BASOPHIL % (test code=BA%) 0.2 % 0.0-1.0 NUCLEATED RBC % (test code=NRBC%) 0.3 % 0-0 NEUTROPHIL # (test code=NT#) 10.14 K/mm3 1.8-7.7 IMMATURE GRANULOCYTE # (test code=IG#) 0.27 x10 3/uL 0-0.03 LYMPHOCYTE # (test code=LY#) 1.19 K/mm3 1.0-5.0 MONOCYTE # (test code=MO#) 0.62 K/mm3 0-0.8 EOSINOPHIL # (test code=EO#) 0.26 K/mm3 0.0-0.5 BASOPHIL # (test code=BA#) 0.03 K/mm3 0.0-0.2 NUCLEATED RBC # (test code=NRBC#) 0.04 K/mm3 0.0-0.1 MANUAL DIFF REQUIRED (test code=MDIFF) NO, ONLY SCAN NEEDED DIFFERENTIAL [id number] 06:06:00* Test Item Value Reference Range Comments STAIN ACCEPTABILITY (test code=STN ACCEPTABLE) MORPHOLOGY COMMENT (test code=MOC) PLATELET ESTIMATE (test code=PLTEST) PLATELET MORPHOLOGY (test code=PLTMORPH) CBC W/AUTO [id number] 06:06:00* Test Item Value Reference Range Comments WHITE BLOOD CELL (test code=WBC) 12.5 K/mm3 4.5-12.5 RED BLOOD CELL (test code=RBC) 2.98 mill/mm3 3.7-5.2 HEMOGLOBIN (test code=HGB) 8.2 gram/dL 11.5-15.5 HEMATOCRIT (test code=HCT) 26.7 % 36.0-46.0 MEAN CELL VOLUME (test code=MCV) 89.6 fL 80-98 MEAN CELL HGB (test code=MCH) 27.5 picogram 27.0-33.0 MEAN CELL HGB CONCETRATION (test code=MCHC) 30.7 gram/dL 33.0-36.0 RED CELL DISTRIBUTION WIDTH (test code=RDW) 20.6 % 11.6-16.2 RED CELL DISTRIBUTION WIDTH SD (test code=RDW-SD) 66.2 fL 37.0-51.0 PLATELET COUNT (test code=PLT) 130 K/mm3 150-450 MEAN PLATELET VOLUME (test code=MPV) 10.6 fL 6.7-11.0 NEUTROPHIL % (test code=NT%) 81.0 % 39.0-69.0 IMMATURE GRANULOCYTE % (test code=IG%) 2.2 % 0.0-5.0 LYMPHOCYTE % (test code=LY%) 9.5 % 25.0-55.0 MONOCYTE % (test code=MO%) 5.0 % 0.0-10.0 EOSINOPHIL % (test code=EO%) 2.1 % 0.0-5.0 BASOPHIL % (test code=BA%) 0.2 % 0.0-1.0 NUCLEATED RBC % (test code=NRBC%) 0.3 % 0-0 NEUTROPHIL # (test code=NT#) 10.14 K/mm3 1.8-7.7 IMMATURE GRANULOCYTE # (test code=IG#) 0.27 x10 3/uL 0-0.03 LYMPHOCYTE # (test code=LY#) 1.19 K/mm3 1.0-5.0 MONOCYTE # (test code=MO#) 0.62 K/mm3 0-0.8 EOSINOPHIL # (test code=EO#) 0.26 K/mm3 0.0-0.5 BASOPHIL # (test code=BA#) 0.03 K/mm3 0.0-0.2 NUCLEATED RBC # (test code=NRBC#) 0.04 K/mm3 0.0-0.1 MANUAL DIFF REQUIRED (test code=MDIFF) NO, ONLY SCAN NEEDED DIFFERENTIAL [id number] 06:06:00* Test Item Value Reference Range Comments STAIN ACCEPTABILITY (test code=STN ACCEPTABLE) CABOT RINGS (test code=CAB) MORPHOLOGY COMMENT (test code=MOC) PLATELET ESTIMATE (test code=PLTEST) PLATELET MORPHOLOGY (test code=PLTMORPH) [id number] 23:59:00* Test Item Value Reference Range Comments GLUBED (test code=GLUBED) 189 mg/dL 74-106 Performed by certified tracing lathe set up operator at [facility] LACTIC [id number] 21:50:00* Test Item Value Reference Range Comments LACTIC ACID (test code=LACT) 4.3 mmol/L 0.4-1.9 Results called to [id number] by DAVINA 05/07/19 2146Critical results verified and read back by Nurse? Y - XR CHEST 1 [id number] 19:26:00 FAX: Elodia Scott NP [phone] [place]: B St: ADM FAX: Jayme Garcia MD [phone] Name: MARI HORVATH [facility] : 1975 Age/S: 44/F [address] Unit #: [id number] Loc: V.S[address] [place] [address] Phys: Elodia Scott NP Acct: [id number] Dis Date: Status: ADM IN PHONE #: [phone] Exam Date: 05/07/20191919 FAX #: [phone] Reason: LEFT IJ DIALYSIS CATHETER PLACEMENT EXAMS: CPT CODE: [id number] XR CHEST 1 V 88041 REASON FOR EXAM: LEFT IJ DIALYSIS CATHETER PLACEMENT EXAM ORDER DATE: 05/07/2019 12:00 AM Ordering Mita: Elodia Scott NP PROCEDURE: - XR CHEST 1 V COMPARISON: 05/07/2019 at 4:37 AM FINDINGS: Portable AP frontal view of the chest obtained at 7:19 PM shows clear lungs without evidence of consolidation. There is no evidence of effusion. The heart size is within normal limits. Pulmonary vasculatures are unremarkable. Stable appearance of the right IJ central line, ET tube, NG tube. IMPRESSION: Left IJ dialysis catheter tip is in the SVC at 192 Reported and signed by: Cuauhtemoc Benjamin M.D. CC: Elodia Scott PACKAGE LINER; Jayme Guillen Technologist: SUMAYA OLIVO(R) Trnscrd Date/Time/By: 05/07/2019 (1925) : By: Shelia Orig Print D/T: S: 05/07/2019 (1928) PAGE 1 Signed Report [id number] 17:45:00* Test Item Value Reference Range Comments GLUBED (test code=GLUBED) 144 mg/dL 74-106 Performed by certified tracing lathe set up operator at [facility] BASIC METABOLIC [id number] 17:27:00* Test Item Value Reference Range Comments SODIUM (test code=NA) 137 mmol/L 136-145 POTASSIUM (test code=K) 4.0 mmol/L 3.5-5.1 CHLORIDE (test code=CL) 108.0 mmol/L 98-107 CARBON DIOXIDE (test code=CO2) 13.0 mmol/L 21-32 ANION GAP (test code=GAP) 20.0 10-20 GLUCOSE (test code=GLU) 137 mg/dL 74-106 BLOOD UREA NITROGEN (test code=BUN) 17 mg/dL 7-18 GLOMERULAR FILTRATION RATE (test code=GFR) 25 mL/min >=60 Estimated GFR by using Modified MDRD formula.Chronic kidney disease is defined as either kidney damageor GFR <60 mL/min/1.73 m2 for >3 months. CREATININE (test code=CREAT) 2.10 mg/dL 0.55-1.02 Note change in reference range due to change in reagent. BUN/CREATININE RATIO (test code=BUN/CREA) 8.0 10-20 CALCIUM (test code=CA) 7.5 mg/dL 8.5-10.1 [id number] 17:27:00* Test Item Value Reference Range Comments PHOSPHORUS (test code=PHOS) 3.0 mg/dL 2.5-4.9 [id number] 17:27:00* Test Item Value Reference Range Comments MAGNESIUM (test code=MAG) 1.6 mg/dL 1.8-2.4 CALCIUM [id number] 17:27:00* Test Item Value Reference Range Comments CALCIUM IONIZED (test code=JULIETA) 1.10 mmol/L 1.12-1.32 BASIC METABOLIC [id number] 17:25:00* Test Item Value Reference Range Comments SODIUM (test code=NA) 137 mmol/L 136-145 POTASSIUM (test code=K) 4.0 mmol/L 3.5-5.1 CHLORIDE (test code=CL) 108.0 mmol/L 98-107 CARBON DIOXIDE (test code=CO2) 13.0 mmol/L 21-32 ANION GAP (test code=GAP) 20.0 10-20 GLUCOSE (test code=GLU) 137 mg/dL 74-106 BLOOD UREA NITROGEN (test code=BUN) 17 mg/dL 7-18 GLOMERULAR FILTRATION RATE (test code=GFR) 25 mL/min >=60 Estimated GFR by using Modified MDRD formula.Chronic kidney disease is defined as either kidney damageor GFR <60 mL/min/1.73 m2 for >3 months. CREATININE (test code=CREAT) 2.10 mg/dL 0.55-1.02 Note change in reference range due to change in reagent. BUN/CREATININE RATIO (test code=BUN/CREA) 8.0 10-20 CALCIUM (test code=CA) 7.5 mg/dL 8.5-10.1 [id number] 17:25:00* Test Item Value Reference Range Comments PHOSPHORUS (test code=PHOS) 3.0 mg/dL 2.5-4.9 [id number] 17:25:00* Test Item Value Reference Range Comments MAGNESIUM (test code=MAG) 1.6 mg/dL 1.8-2.4 CALCIUM [id number] 17:25:00* Test Item Value Reference Range Comments CALCIUM IONIZED (test code=JULIETA) mmol/L 1.12-1.32 BASIC METABOLIC [id number] 17:21:00* Test Item Value Reference Range Comments SODIUM (test code=NA) 137 mmol/L 136-145 POTASSIUM (test code=K) 4.0 mmol/L 3.5-5.1 CHLORIDE (test code=CL) 108.0 mmol/L 98-107 CARBON DIOXIDE (test code=CO2) 13.0 mmol/L 21-32 ANION GAP (test code=GAP) 20.0 10-20 GLUCOSE (test code=GLU) mg/dL 74-106 BLOOD UREA NITROGEN (test code=BUN) mg/dL 7-18 GLOMERULAR FILTRATION RATE (test code=GFR) mL/min >=60 CREATININE (test code=CREAT) mg/dL 0.55-1.02 BUN/CREATININE RATIO (test code=BUN/CREA) 10-20 CALCIUM (test code=CA) 7.5 mg/dL 8.5-10.1 [id number] 17:21:00* Test Item Value Reference Range Comments PHOSPHORUS (test code=PHOS) mg/dL 2.5-4.9 [id number] 17:21:00* Test Item Value Reference Range Comments MAGNESIUM (test code=MAG) mg/dL 1.8-2.4 CALCIUM [id number] 17:21:00* Test Item Value Reference Range Comments CALCIUM IONIZED (test code=JULIETA) mmol/L 1.12-1.32 VENOUS BLOOD [id number] 16:51:00* Test Item Value Reference Range Comments IONIZED CALCIUM (test code=CAIABG) 1.06 mmol/L 1.1-1.37 VENOUS BLOOD GAS PH (test code=PHV) 7.38 7.30-7.40 VENOUS BLOOD GAS PCO2 (test code=PCO2V) 19.6 mm Hg 39.0-51.0 Results called to and read back by shanda 16:49 - 05/07/2019; by dagmar rice VENOUS BLOOD GAS PO2 (test code=PO2V) 50.6 mm Hg 30.0-50.0 VBG HCO3 (test code=HCO3V) 11.4 mmol/L 17.0-30.0 VBG BASE EXCESS (test code=DEEPAK) -11.9 mmol/L -5.0-5.0 VENOUS BLOOD GAS O2 SAT. (test code=O2SATV) 86 % 94-98 VENOUS BLOOD GAS FIO2 (test code=FIO2V) 35.0 PT. HGB (test code=PHGBVBG) 9.4 gram/dL 11.5-15.5 VENOUS BLOOD GAS SITE (test code=SITEV) OT SODIUM (test code=NA/VBG) 128.7 mEq/L 135-148 POTASSIUM (test code=K/VBG) 4.0 mEq/L 3.4-4.4 CHLORIDE (test code=CL/VBG) 105 mEq/L 98-106 GLUCOSE (test code=GLU/VBG) 139 mg/dL 74-99 HEMATOCRIT (test code=HCT/VBG) 28 % 42-52 HGB O2 SAT (test code=HBOSAT) 85.4 % 94.00-98.00 CARBOXYHEMOGLOBIN (test code=HOHGBT) 0.8 %totalHg 0.5-1.5 METHEMOGLOBIN (test code=METHGB) 0.4 % 0.0-1.50 O2 CONTENT (test code=O2CT) 11.3 % vol 18.0-22.0 LACTIC [id number] 14:51:00* Test Item Value Reference Range Comments LACTIC ACID (test code=LACT) 6.8 mmol/L 0.4-1.9 Results called to [id number] by JACQUELYNSZ 05/07/19 1450Critical results verified and read back by Nurse? Y [id number] 12:08:00* Test Item Value Reference Range Comments GLUBED (test code=GLUBED) 155 mg/dL 74-106 Performed by certified tracing lathe set up operator at [facility] LACTIC [id number] 10:20:00* Test Item Value Reference Range Comments LACTIC ACID (test code=LACT) 6.6 mmol/L 0.4-1.9 Results called to [id number] by JACQUELYNWJC 05/07/19 1019Critical results verified and read back by Nurse? Y - XR CHEST 1 [id number] 07:52:00 FAX: Elodia Scott NP [phone] [place]: St: ADM FAX: Jayme Garcia MD [phone] Name: MARI HORVATH [facility] : 1975 Age/S: 44/F [address] [facility] Unit #: [id number] Loc: V.[address] [address] Phys: Elodia Scott NP Acct: [id number] Dis Date: Status: ADM IN PHONE #: [phone] Exam Date: 05/07/2019 0533 FAX #: [phone] Reason: sob EXAMS: CPT CODE: [id number] XR CHEST 1 V 51995 CLINICAL HISTORY: Shortness of breath TECHNIQUE: AP chest x-ray COMPARISON: Previous day. IMPRESSION: No significant interval change. Low lung volumes with basilar subsegmental atelectasis. No airspace consolidation or pleural effusion. Normal heart size. Mediastinal silhouette is unremarkable. ET tube, NG tube, and right central venous catheter. at 0752 Reported and signed by: Noelle Briceño D.O. CC: Elodia Scott PACKAGE LINER; Jayme Guillen Technologist: KYREE RUFF RT; СВЕТЛАНА MUHAMMAD RT(R) Trnscrd Date/Time/By: 05/07/2019 (0752) : By: [email or web address] Orig Print D/T: S: 05/07/2019 (0756) PAGE 1 Signed Report CBC W/AUTO [id number] 06:52:00* Test Item Value Reference Range Comments WHITE BLOOD CELL (test code=WBC) 14.6 K/mm3 4.5-12.5 RED BLOOD CELL (test code=RBC) 3.25 mill/mm3 3.7-5.2 HEMOGLOBIN (test code=HGB) 8.9 gram/dL 11.5-15.5 HEMATOCRIT (test code=HCT) 30.1 % 36.0-46.0 MEAN CELL VOLUME (test code=MCV) 92.6 fL 80-98 MEAN CELL HGB (test code=MCH) 27.4 picogram 27.0-33.0 MEAN CELL HGB CONCETRATION (test code=MCHC) 29.6 gram/dL 33.0-36.0 RED CELL DISTRIBUTION WIDTH (test code=RDW) 21.6 % 11.6-16.2 RED CELL DISTRIBUTION WIDTH SD (test code=RDW-SD) 71.9 fL 37.0-51.0 PLATELET COUNT (test code=PLT) 179 K/mm3 150-450 MEAN PLATELET VOLUME (test code=MPV) 10.0 fL 6.7-11.0 NEUTROPHIL % (test code=NT%) 89.8 % 39.0-69.0 IMMATURE GRANULOCYTE % (test code=IG%) 1.8 % 0.0-5.0 LYMPHOCYTE % (test code=LY%) 3.7 % 25.0-55.0 MONOCYTE % (test code=MO%) 3.6 % 0.0-10.0 EOSINOPHIL % (test code=EO%) 1.0 % 0.0-5.0 BASOPHIL % (test code=BA%) 0.1 % 0.0-1.0 NUCLEATED RBC % (test code=NRBC%) 0.3 % 0-0 NEUTROPHIL # (test code=NT#) 13.09 K/mm3 1.8-7.7 IMMATURE GRANULOCYTE # (test code=IG#) 0.26 x10 3/uL 0-0.03 LYMPHOCYTE # (test code=LY#) 0.54 K/mm3 1.0-5.0 MONOCYTE # (test code=MO#) 0.53 K/mm3 0-0.8 EOSINOPHIL # (test code=EO#) 0.14 K/mm3 0.0-0.5 BASOPHIL # (test code=BA#) 0.02 K/mm3 0.0-0.2 NUCLEATED RBC # (test code=NRBC#) 0.05 K/mm3 0.0-0.1 MANUAL DIFF REQUIRED (test code=MDIFF) NO, ONLY SCAN NEEDED DIFFERENTIAL [id number] 06:52:00* Test Item Value Reference Range Comments STAIN ACCEPTABILITY (test code=STN ACCEPTABLE) STAIN ACCEPTABLE POLYCHROMASIA (test code=POLC) 1+ HYPOCHROMIA (test code=HYPO) 1+ POIKILOCYTOSIS (test code=POIK) 2+ ANISOCYTOSIS (test code=ANISO) 2+ MACROCYTOSIS (test code=MACR) 2+ CRENATED CELLS (test code=CREN) 2+ PLATELET ESTIMATE (test code=PLTEST) ADEQUATE PLATELET MORPHOLOGY (test code=PLTMORPH) NORMAL BASIC METABOLIC [id number] 06:47:00* Test Item Value Reference Range Comments SODIUM (test code=NA) 134 mmol/L 136-145 POTASSIUM (test code=K) 3.8 mmol/L 3.5-5.1 CHLORIDE (test code=CL) 107.0 mmol/L 98-107 CARBON DIOXIDE (test code=CO2) 10.0 mmol/L 21-32 ANION GAP (test code=GAP) 20.8 10-20 GLUCOSE (test code=GLU) 163 mg/dL 74-106 BLOOD UREA NITROGEN (test code=BUN) 18 mg/dL 7-18 GLOMERULAR FILTRATION RATE (test code=GFR) 25 mL/min >=60 Estimated GFR by using Modified MDRD formula.Chronic kidney disease is defined as either kidney damageor GFR <60 mL/min/1.73 m2 for >3 months. CREATININE (test code=CREAT) 2.10 mg/dL 0.55-1.02 Note change in reference range due to change in reagent. BUN/CREATININE RATIO (test code=BUN/CREA) 8.4 10-20 CALCIUM (test code=CA) 7.2 mg/dL 8.5-10.1 [id number] 06:47:00* Test Item Value Reference Range Comments PHOSPHORUS (test code=PHOS) 2.3 mg/dL 2.5-4.9 [id number] 06:47:00* Test Item Value Reference Range Comments MAGNESIUM (test code=MAG) 1.7 mg/dL 1.8-2.4 CALCIUM [id number] 06:47:00* Test Item Value Reference Range Comments CALCIUM IONIZED (test code=JULIETA) 1.00 mmol/L 1.12-1.32 BASIC METABOLIC [id number] 06:43:00* Test Item Value Reference Range Comments SODIUM (test code=NA) mmol/L 136-145 POTASSIUM (test code=K) mmol/L 3.5-5.1 CHLORIDE (test code=CL) mmol/L 98-107 CARBON DIOXIDE (test code=CO2) mmol/L 21-32 ANION GAP (test code=GAP) 10-20 GLUCOSE (test code=GLU) mg/dL 74-106 BLOOD UREA NITROGEN (test code=BUN) mg/dL 7-18 GLOMERULAR FILTRATION RATE (test code=GFR) mL/min >=60 CREATININE (test code=CREAT) mg/dL 0.55-1.02 BUN/CREATININE RATIO (test code=BUN/CREA) 10-20 CALCIUM (test code=CA) mg/dL 8.5-10.1 [id number] 06:43:00* Test Item Value Reference Range Comments PHOSPHORUS (test code=PHOS) mg/dL 2.5-4.9 [id number] 06:43:00* Test Item Value Reference Range Comments MAGNESIUM (test code=MAG) mg/dL 1.8-2.4 CALCIUM [id number] 06:43:00* Test Item Value Reference Range Comments CALCIUM IONIZED (test code=JULIETA) 1.00 mmol/L 1.12-1.32 CBC W/AUTO [id number] 06:06:00* Test Item Value Reference Range Comments WHITE BLOOD CELL (test code=WBC) 14.6 K/mm3 4.5-12.5 RED BLOOD CELL (test code=RBC) 3.25 mill/mm3 3.7-5.2 HEMOGLOBIN (test code=HGB) 8.9 gram/dL 11.5-15.5 HEMATOCRIT (test code=HCT) 30.1 % 36.0-46.0 MEAN CELL VOLUME (test code=MCV) 92.6 fL 80-98 MEAN CELL HGB (test code=MCH) 27.4 picogram 27.0-33.0 MEAN CELL HGB CONCETRATION (test code=MCHC) 29.6 gram/dL 33.0-36.0 RED CELL DISTRIBUTION WIDTH (test code=RDW) 21.6 % 11.6-16.2 RED CELL DISTRIBUTION WIDTH SD (test code=RDW-SD) 71.9 fL 37.0-51.0 PLATELET COUNT (test code=PLT) 179 K/mm3 150-450 MEAN PLATELET VOLUME (test code=MPV) 10.0 fL 6.7-11.0 NEUTROPHIL % (test code=NT%) 89.8 % 39.0-69.0 IMMATURE GRANULOCYTE % (test code=IG%) 1.8 % 0.0-5.0 LYMPHOCYTE % (test code=LY%) 3.7 % 25.0-55.0 MONOCYTE % (test code=MO%) 3.6 % 0.0-10.0 EOSINOPHIL % (test code=EO%) 1.0 % 0.0-5.0 BASOPHIL % (test code=BA%) 0.1 % 0.0-1.0 NUCLEATED RBC % (test code=NRBC%) 0.3 % 0-0 NEUTROPHIL # (test code=NT#) 13.09 K/mm3 1.8-7.7 IMMATURE GRANULOCYTE # (test code=IG#) 0.26 x10 3/uL 0-0.03 LYMPHOCYTE # (test code=LY#) 0.54 K/mm3 1.0-5.0 MONOCYTE # (test code=MO#) 0.53 K/mm3 0-0.8 EOSINOPHIL # (test code=EO#) 0.14 K/mm3 0.0-0.5 BASOPHIL # (test code=BA#) 0.02 K/mm3 0.0-0.2 NUCLEATED RBC # (test code=NRBC#) 0.05 K/mm3 0.0-0.1 MANUAL DIFF REQUIRED (test code=MDIFF) NO, ONLY SCAN NEEDED DIFFERENTIAL [id number] 06:06:00* Test Item Value Reference Range Comments STAIN ACCEPTABILITY (test code=STN ACCEPTABLE) CABOT RINGS (test code=CAB) MORPHOLOGY COMMENT (test code=MOC) PLATELET ESTIMATE (test code=PLTEST) PLATELET MORPHOLOGY (test code=PLTMORPH) CBC W/AUTO [id number] 06:06:00* Test Item Value Reference Range Comments WHITE BLOOD CELL (test code=WBC) 14.6 K/mm3 4.5-12.5 RED BLOOD CELL (test code=RBC) 3.25 mill/mm3 3.7-5.2 HEMOGLOBIN (test code=HGB) 8.9 gram/dL 11.5-15.5 HEMATOCRIT (test code=HCT) 30.1 % 36.0-46.0 MEAN CELL VOLUME (test code=MCV) 92.6 fL 80-98 MEAN CELL HGB (test code=MCH) 27.4 picogram 27.0-33.0 MEAN CELL HGB CONCETRATION (test code=MCHC) 29.6 gram/dL 33.0-36.0 RED CELL DISTRIBUTION WIDTH (test code=RDW) 21.6 % 11.6-16.2 RED CELL DISTRIBUTION WIDTH SD (test code=RDW-SD) 71.9 fL 37.0-51.0 PLATELET COUNT (test code=PLT) 179 K/mm3 150-450 MEAN PLATELET VOLUME (test code=MPV) 10.0 fL 6.7-11.0 NEUTROPHIL % (test code=NT%) 89.8 % 39.0-69.0 IMMATURE GRANULOCYTE % (test code=IG%) 1.8 % 0.0-5.0 LYMPHOCYTE % (test code=LY%) 3.7 % 25.0-55.0 MONOCYTE % (test code=MO%) 3.6 % 0.0-10.0 EOSINOPHIL % (test code=EO%) 1.0 % 0.0-5.0 BASOPHIL % (test code=BA%) 0.1 % 0.0-1.0 NUCLEATED RBC % (test code=NRBC%) 0.3 % 0-0 NEUTROPHIL # (test code=NT#) 13.09 K/mm3 1.8-7.7 IMMATURE GRANULOCYTE # (test code=IG#) 0.26 x10 3/uL 0-0.03 LYMPHOCYTE # (test code=LY#) 0.54 K/mm3 1.0-5.0 MONOCYTE # (test code=MO#) 0.53 K/mm3 0-0.8 EOSINOPHIL # (test code=EO#) 0.14 K/mm3 0.0-0.5 BASOPHIL # (test code=BA#) 0.02 K/mm3 0.0-0.2 NUCLEATED RBC # (test code=NRBC#) 0.05 K/mm3 0.0-0.1 MANUAL DIFF REQUIRED (test code=MDIFF) NO, ONLY SCAN NEEDED DIFFERENTIAL [id number] 06:06:00* Test Item Value Reference Range Comments STAIN ACCEPTABILITY (test code=STN ACCEPTABLE) CABOT RINGS (test code=CAB) MORPHOLOGY COMMENT (test code=MOC) PLATELET ESTIMATE (test code=PLTEST) PLATELET MORPHOLOGY (test code=PLTMORPH) CBC W/AUTO [id number] 06:06:00* Test Item Value Reference Range Comments WHITE BLOOD CELL (test code=WBC) 14.6 K/mm3 4.5-12.5 RED BLOOD CELL (test code=RBC) 3.25 mill/mm3 3.7-5.2 HEMOGLOBIN (test code=HGB) 8.9 gram/dL 11.5-15.5 HEMATOCRIT (test code=HCT) 30.1 % 36.0-46.0 MEAN CELL VOLUME (test code=MCV) 92.6 fL 80-98 MEAN CELL HGB (test code=MCH) 27.4 picogram 27.0-33.0 MEAN CELL HGB CONCETRATION (test code=MCHC) 29.6 gram/dL 33.0-36.0 RED CELL DISTRIBUTION WIDTH (test code=RDW) 21.6 % 11.6-16.2 RED CELL DISTRIBUTION WIDTH SD (test code=RDW-SD) 71.9 fL 37.0-51.0 PLATELET COUNT (test code=PLT) 179 K/mm3 150-450 MEAN PLATELET VOLUME (test code=MPV) 10.0 fL 6.7-11.0 NEUTROPHIL % (test code=NT%) 89.8 % 39.0-69.0 IMMATURE GRANULOCYTE % (test code=IG%) 1.8 % 0.0-5.0 LYMPHOCYTE % (test code=LY%) 3.7 % 25.0-55.0 MONOCYTE % (test code=MO%) 3.6 % 0.0-10.0 EOSINOPHIL % (test code=EO%) 1.0 % 0.0-5.0 BASOPHIL % (test code=BA%) 0.1 % 0.0-1.0 NUCLEATED RBC % (test code=NRBC%) 0.3 % 0-0 NEUTROPHIL # (test code=NT#) 13.09 K/mm3 1.8-7.7 IMMATURE GRANULOCYTE # (test code=IG#) 0.26 x10 3/uL 0-0.03 LYMPHOCYTE # (test code=LY#) 0.54 K/mm3 1.0-5.0 MONOCYTE # (test code=MO#) 0.53 K/mm3 0-0.8 EOSINOPHIL # (test code=EO#) 0.14 K/mm3 0.0-0.5 BASOPHIL # (test code=BA#) 0.02 K/mm3 0.0-0.2 NUCLEATED RBC # (test code=NRBC#) 0.05 K/mm3 0.0-0.1 MANUAL DIFF REQUIRED (test code=MDIFF) NO, ONLY SCAN NEEDED DIFFERENTIAL [id number] 06:06:00* Test Item Value Reference Range Comments STAIN ACCEPTABILITY (test code=STN ACCEPTABLE) MORPHOLOGY COMMENT (test code=MOC) PLATELET ESTIMATE (test code=PLTEST) PLATELET MORPHOLOGY (test code=PLTMORPH) CBC W/AUTO [id number] 06:06:00* Test Item Value Reference Range Comments WHITE BLOOD CELL (test code=WBC) 14.6 K/mm3 4.5-12.5 RED BLOOD CELL (test code=RBC) 3.25 mill/mm3 3.7-5.2 HEMOGLOBIN (test code=HGB) 8.9 gram/dL 11.5-15.5 HEMATOCRIT (test code=HCT) 30.1 % 36.0-46.0 MEAN CELL VOLUME (test code=MCV) 92.6 fL 80-98 MEAN CELL HGB (test code=MCH) 27.4 picogram 27.0-33.0 MEAN CELL HGB CONCETRATION (test code=MCHC) 29.6 gram/dL 33.0-36.0 RED CELL DISTRIBUTION WIDTH (test code=RDW) 21.6 % 11.6-16.2 RED CELL DISTRIBUTION WIDTH SD (test code=RDW-SD) 71.9 fL 37.0-51.0 PLATELET COUNT (test code=PLT) 179 K/mm3 150-450 MEAN PLATELET VOLUME (test code=MPV) 10.0 fL 6.7-11.0 NEUTROPHIL % (test code=NT%) 89.8 % 39.0-69.0 IMMATURE GRANULOCYTE % (test code=IG%) 1.8 % 0.0-5.0 LYMPHOCYTE % (test code=LY%) 3.7 % 25.0-55.0 MONOCYTE % (test code=MO%) 3.6 % 0.0-10.0 EOSINOPHIL % (test code=EO%) 1.0 % 0.0-5.0 BASOPHIL % (test code=BA%) 0.1 % 0.0-1.0 NUCLEATED RBC % (test code=NRBC%) 0.3 % 0-0 NEUTROPHIL # (test code=NT#) 13.09 K/mm3 1.8-7.7 IMMATURE GRANULOCYTE # (test code=IG#) 0.26 x10 3/uL 0-0.03 LYMPHOCYTE # (test code=LY#) 0.54 K/mm3 1.0-5.0 MONOCYTE # (test code=MO#) 0.53 K/mm3 0-0.8 EOSINOPHIL # (test code=EO#) 0.14 K/mm3 0.0-0.5 BASOPHIL # (test code=BA#) 0.02 K/mm3 0.0-0.2 NUCLEATED RBC # (test code=NRBC#) 0.05 K/mm3 0.0-0.1 MANUAL DIFF REQUIRED (test code=MDIFF) NO, ONLY SCAN NEEDED DIFFERENTIAL [id number] 06:06:00* Test Item Value Reference Range Comments STAIN ACCEPTABILITY (test code=STN ACCEPTABLE) CABOT RINGS (test code=CAB) MORPHOLOGY COMMENT (test code=MOC) PLATELET ESTIMATE (test code=PLTEST) PLATELET MORPHOLOGY (test code=PLTMORPH) [id number] 06:00:00* Test Item Value Reference Range Comments GLUBED (test code=GLUBED) 177 mg/dL 74-106 Performed by certified tracing lathe set up operator at [facility] [id number] 00:45:00* Test Item Value Reference Range Comments GLUBED (test code=GLUBED) 136 mg/dL 74-106 Performed by certified tracing lathe set up operator at [facility] [id number] 20:57:00* Test Item Value Reference Range Comments GLUBED (test code=GLUBED) 82 mg/dL 74-106 Performed by certified tracing lathe set up operator at [facility] CBC W/AUTO [id number] 19:43:00* Test Item Value Reference Range Comments WHITE BLOOD CELL (test code=WBC) 13.6 K/mm3 4.5-12.5 RED BLOOD CELL (test code=RBC) 3.38 mill/mm3 3.7-5.2 HEMOGLOBIN (test code=HGB) 9.4 gram/dL 11.5-15.5 HEMATOCRIT (test code=HCT) 30.6 % 36.0-46.0 MEAN CELL VOLUME (test code=MCV) 90.5 fL 80-98 MEAN CELL HGB (test code=MCH) 27.8 picogram 27.0-33.0 MEAN CELL HGB CONCETRATION (test code=MCHC) 30.7 gram/dL 33.0-36.0 RED CELL DISTRIBUTION WIDTH (test code=RDW) 21.2 % 11.6-16.2 RED CELL DISTRIBUTION WIDTH SD (test code=RDW-SD) 69.1 fL 37.0-51.0 PLATELET COUNT (test code=PLT) 182 K/mm3 150-450 MEAN PLATELET VOLUME (test code=MPV) 10.0 fL 6.7-11.0 NEUTROPHIL % (test code=NT%) 91.7 % 39.0-69.0 IMMATURE GRANULOCYTE % (test code=IG%) 1.9 % 0.0-5.0 LYMPHOCYTE % (test code=LY%) 3.2 % 25.0-55.0 MONOCYTE % (test code=MO%) 2.7 % 0.0-10.0 EOSINOPHIL % (test code=EO%) 0.3 % 0.0-5.0 BASOPHIL % (test code=BA%) 0.2 % 0.0-1.0 NUCLEATED RBC % (test code=NRBC%) 0.3 % 0-0 NEUTROPHIL # (test code=NT#) 12.49 K/mm3 1.8-7.7 IMMATURE GRANULOCYTE # (test code=IG#) 0.26 x10 3/uL 0-0.03 LYMPHOCYTE # (test code=LY#) 0.44 K/mm3 1.0-5.0 MONOCYTE # (test code=MO#) 0.37 K/mm3 0-0.8 EOSINOPHIL # (test code=EO#) 0.04 K/mm3 0.0-0.5 BASOPHIL # (test code=BA#) 0.03 K/mm3 0.0-0.2 NUCLEATED RBC # (test code=NRBC#) 0.04 K/mm3 0.0-0.1 MANUAL DIFF REQUIRED (test code=MDIFF) NO, ONLY SCAN NEEDED DIFFERENTIAL [id number] 19:43:00* Test Item Value Reference Range Comments STAIN ACCEPTABILITY (test code=STN ACCEPTABLE) STAIN ACCEPTABLE POLYCHROMASIA (test code=POLC) 1+ HYPOCHROMIA (test code=HYPO) 1+ POIKILOCYTOSIS (test code=POIK) 2+ ANISOCYTOSIS (test code=ANISO) 1+ MACROCYTOSIS (test code=MACR) 1+ CRENATED CELLS (test code=CREN) 2+ PLATELET ESTIMATE (test code=PLTEST) ADEQUATE PLATELET MORPHOLOGY (test code=PLTMORPH) NORMAL BASIC METABOLIC [id number] 18:24:00* Test Item Value Reference Range Comments SODIUM (test code=NA) 135 mmol/L 136-145 POTASSIUM (test code=K) 3.6 mmol/L 3.5-5.1 CHLORIDE (test code=CL) 108.0 mmol/L 98-107 CARBON DIOXIDE (test code=CO2) 12.0 mmol/L 21-32 ANION GAP (test code=GAP) 18.6 10-20 GLUCOSE (test code=GLU) 110 mg/dL 74-106 BLOOD UREA NITROGEN (test code=BUN) 18 mg/dL 7-18 GLOMERULAR FILTRATION RATE (test code=GFR) 27 mL/min >=60 Estimated GFR by using Modified MDRD formula.Chronic kidney disease is defined as either kidney damageor GFR <60 mL/min/1.73 m2 for >3 months. CREATININE (test code=CREAT) 2.00 mg/dL 0.55-1.02 Note change in reference range due to change in reagent. BUN/CREATININE RATIO (test code=BUN/CREA) 9.0 10-20 CALCIUM (test code=CA) 7.2 mg/dL 8.5-10.1 [id number] 18:24:00* Test Item Value Reference Range Comments PHOSPHORUS (test code=PHOS) 2.6 mg/dL 2.5-4.9 [id number] 18:24:00* Test Item Value Reference Range Comments MAGNESIUM (test code=MAG) 1.7 mg/dL 1.8-2.4 CALCIUM [id number] 18:24:00* Test Item Value Reference Range Comments CALCIUM IONIZED (test code=JULIETA) 1.07 mmol/L 1.12-1.32 BASIC METABOLIC [id number] 18:22:00* Test Item Value Reference Range Comments SODIUM (test code=NA) 135 mmol/L 136-145 POTASSIUM (test code=K) 3.6 mmol/L 3.5-5.1 CHLORIDE (test code=CL) 108.0 mmol/L 98-107 CARBON DIOXIDE (test code=CO2) mmol/L 21-32 ANION GAP (test code=GAP) 10-20 GLUCOSE (test code=GLU) mg/dL 74-106 BLOOD UREA NITROGEN (test code=BUN) mg/dL 7-18 GLOMERULAR FILTRATION RATE (test code=GFR) mL/min >=60 CREATININE (test code=CREAT) mg/dL 0.55-1.02 BUN/CREATININE RATIO (test code=BUN/CREA) 10-20 CALCIUM (test code=CA) 7.2 mg/dL 8.5-10.1 [id number] 18:22:00* Test Item Value Reference Range Comments PHOSPHORUS (test code=PHOS) mg/dL 2.5-4.9 [id number] 18:22:00* Test Item Value Reference Range Comments MAGNESIUM (test code=MAG) mg/dL 1.8-2.4 CALCIUM [id number] 18:22:00* Test Item Value Reference Range Comments CALCIUM IONIZED (test code=JULIETA) 1.07 mmol/L 1.12-1.32 BASIC METABOLIC [id number] 18:17:00* Test Item Value Reference Range Comments SODIUM (test code=NA) mmol/L 136-145 POTASSIUM (test code=K) mmol/L 3.5-5.1 CHLORIDE (test code=CL) mmol/L 98-107 CARBON DIOXIDE (test code=CO2) mmol/L 21-32 ANION GAP (test code=GAP) 10-20 GLUCOSE (test code=GLU) mg/dL 74-106 BLOOD UREA NITROGEN (test code=BUN) mg/dL 7-18 GLOMERULAR FILTRATION RATE (test code=GFR) mL/min >=60 CREATININE (test code=CREAT) mg/dL 0.55-1.02 BUN/CREATININE RATIO (test code=BUN/CREA) 10-20 CALCIUM (test code=CA) mg/dL 8.5-10.1 [id number] 18:17:00* Test Item Value Reference Range Comments PHOSPHORUS (test code=PHOS) mg/dL 2.5-4.9 [id number] 18:17:00* Test Item Value Reference Range Comments MAGNESIUM (test code=MAG) mg/dL 1.8-2.4 CALCIUM [id number] 18:17:00* Test Item Value Reference Range Comments CALCIUM IONIZED (test code=JULIETA) 1.07 mmol/L 1.12-1.32 CBC W/AUTO [id number] 18:12:00* Test Item Value Reference Range Comments WHITE BLOOD CELL (test code=WBC) 13.6 K/mm3 4.5-12.5 RED BLOOD CELL (test code=RBC) 3.38 mill/mm3 3.7-5.2 HEMOGLOBIN (test code=HGB) 9.4 gram/dL 11.5-15.5 HEMATOCRIT (test code=HCT) 30.6 % 36.0-46.0 MEAN CELL VOLUME (test code=MCV) 90.5 fL 80-98 MEAN CELL HGB (test code=MCH) 27.8 picogram 27.0-33.0 MEAN CELL HGB CONCETRATION (test code=MCHC) 30.7 gram/dL 33.0-36.0 RED CELL DISTRIBUTION WIDTH (test code=RDW) 21.2 % 11.6-16.2 RED CELL DISTRIBUTION WIDTH SD (test code=RDW-SD) 69.1 fL 37.0-51.0 PLATELET COUNT (test code=PLT) 182 K/mm3 150-450 MEAN PLATELET VOLUME (test code=MPV) 10.0 fL 6.7-11.0 NEUTROPHIL % (test code=NT%) 91.7 % 39.0-69.0 IMMATURE GRANULOCYTE % (test code=IG%) 1.9 % 0.0-5.0 LYMPHOCYTE % (test code=LY%) 3.2 % 25.0-55.0 MONOCYTE % (test code=MO%) 2.7 % 0.0-10.0 EOSINOPHIL % (test code=EO%) 0.3 % 0.0-5.0 BASOPHIL % (test code=BA%) 0.2 % 0.0-1.0 NUCLEATED RBC % (test code=NRBC%) 0.3 % 0-0 NEUTROPHIL # (test code=NT#) 12.49 K/mm3 1.8-7.7 IMMATURE GRANULOCYTE # (test code=IG#) 0.26 x10 3/uL 0-0.03 LYMPHOCYTE # (test code=LY#) 0.44 K/mm3 1.0-5.0 MONOCYTE # (test code=MO#) 0.37 K/mm3 0-0.8 EOSINOPHIL # (test code=EO#) 0.04 K/mm3 0.0-0.5 BASOPHIL # (test code=BA#) 0.03 K/mm3 0.0-0.2 NUCLEATED RBC # (test code=NRBC#) 0.04 K/mm3 0.0-0.1 MANUAL DIFF REQUIRED (test code=MDIFF) NO, ONLY SCAN NEEDED DIFFERENTIAL [id number] 18:12:00* Test Item Value Reference Range Comments STAIN ACCEPTABILITY (test code=STN ACCEPTABLE) CABOT RINGS (test code=CAB) MORPHOLOGY COMMENT (test code=MOC) PLATELET ESTIMATE (test code=PLTEST) PLATELET MORPHOLOGY (test code=PLTMORPH) CBC W/AUTO [id number] 18:12:00* Test Item Value Reference Range Comments WHITE BLOOD CELL (test code=WBC) 13.6 K/mm3 4.5-12.5 RED BLOOD CELL (test code=RBC) 3.38 mill/mm3 3.7-5.2 HEMOGLOBIN (test code=HGB) 9.4 gram/dL 11.5-15.5 HEMATOCRIT (test code=HCT) 30.6 % 36.0-46.0 MEAN CELL VOLUME (test code=MCV) 90.5 fL 80-98 MEAN CELL HGB (test code=MCH) 27.8 picogram 27.0-33.0 MEAN CELL HGB CONCETRATION (test code=MCHC) 30.7 gram/dL 33.0-36.0 RED CELL DISTRIBUTION WIDTH (test code=RDW) 21.2 % 11.6-16.2 RED CELL DISTRIBUTION WIDTH SD (test code=RDW-SD) 69.1 fL 37.0-51.0 PLATELET COUNT (test code=PLT) 182 K/mm3 150-450 MEAN PLATELET VOLUME (test code=MPV) 10.0 fL 6.7-11.0 NEUTROPHIL % (test code=NT%) 91.7 % 39.0-69.0 IMMATURE GRANULOCYTE % (test code=IG%) 1.9 % 0.0-5.0 LYMPHOCYTE % (test code=LY%) 3.2 % 25.0-55.0 MONOCYTE % (test code=MO%) 2.7 % 0.0-10.0 EOSINOPHIL % (test code=EO%) 0.3 % 0.0-5.0 BASOPHIL % (test code=BA%) 0.2 % 0.0-1.0 NUCLEATED RBC % (test code=NRBC%) 0.3 % 0-0 NEUTROPHIL # (test code=NT#) 12.49 K/mm3 1.8-7.7 IMMATURE GRANULOCYTE # (test code=IG#) 0.26 x10 3/uL 0-0.03 LYMPHOCYTE # (test code=LY#) 0.44 K/mm3 1.0-5.0 MONOCYTE # (test code=MO#) 0.37 K/mm3 0-0.8 EOSINOPHIL # (test code=EO#) 0.04 K/mm3 0.0-0.5 BASOPHIL # (test code=BA#) 0.03 K/mm3 0.0-0.2 NUCLEATED RBC # (test code=NRBC#) 0.04 K/mm3 0.0-0.1 MANUAL DIFF REQUIRED (test code=MDIFF) NO, ONLY SCAN NEEDED DIFFERENTIAL [id number] 18:12:00* Test Item Value Reference Range Comments STAIN ACCEPTABILITY (test code=STN ACCEPTABLE) CABOT RINGS (test code=CAB) MORPHOLOGY COMMENT (test code=MOC) PLATELET ESTIMATE (test code=PLTEST) PLATELET MORPHOLOGY (test code=PLTMORPH) CBC W/AUTO [id number] 18:12:00* Test Item Value Reference Range Comments WHITE BLOOD CELL (test code=WBC) 13.6 K/mm3 4.5-12.5 RED BLOOD CELL (test code=RBC) 3.38 mill/mm3 3.7-5.2 HEMOGLOBIN (test code=HGB) 9.4 gram/dL 11.5-15.5 HEMATOCRIT (test code=HCT) 30.6 % 36.0-46.0 MEAN CELL VOLUME (test code=MCV) 90.5 fL 80-98 MEAN CELL HGB (test code=MCH) 27.8 picogram 27.0-33.0 MEAN CELL HGB CONCETRATION (test code=MCHC) 30.7 gram/dL 33.0-36.0 RED CELL DISTRIBUTION WIDTH (test code=RDW) 21.2 % 11.6-16.2 RED CELL DISTRIBUTION WIDTH SD (test code=RDW-SD) 69.1 fL 37.0-51.0 PLATELET COUNT (test code=PLT) 182 K/mm3 150-450 MEAN PLATELET VOLUME (test code=MPV) 10.0 fL 6.7-11.0 NEUTROPHIL % (test code=NT%) 91.7 % 39.0-69.0 IMMATURE GRANULOCYTE % (test code=IG%) 1.9 % 0.0-5.0 LYMPHOCYTE % (test code=LY%) 3.2 % 25.0-55.0 MONOCYTE % (test code=MO%) 2.7 % 0.0-10.0 EOSINOPHIL % (test code=EO%) 0.3 % 0.0-5.0 BASOPHIL % (test code=BA%) 0.2 % 0.0-1.0 NUCLEATED RBC % (test code=NRBC%) 0.3 % 0-0 NEUTROPHIL # (test code=NT#) 12.49 K/mm3 1.8-7.7 IMMATURE GRANULOCYTE # (test code=IG#) 0.26 x10 3/uL 0-0.03 LYMPHOCYTE # (test code=LY#) 0.44 K/mm3 1.0-5.0 MONOCYTE # (test code=MO#) 0.37 K/mm3 0-0.8 EOSINOPHIL # (test code=EO#) 0.04 K/mm3 0.0-0.5 BASOPHIL # (test code=BA#) 0.03 K/mm3 0.0-0.2 NUCLEATED RBC # (test code=NRBC#) 0.04 K/mm3 0.0-0.1 MANUAL DIFF REQUIRED (test code=MDIFF) NO, ONLY SCAN NEEDED DIFFERENTIAL [id number] 18:12:00* Test Item Value Reference Range Comments STAIN ACCEPTABILITY (test code=STN ACCEPTABLE) MORPHOLOGY COMMENT (test code=MOC) PLATELET ESTIMATE (test code=PLTEST) PLATELET MORPHOLOGY (test code=PLTMORPH) CBC W/AUTO [id number] 18:12:00* Test Item Value Reference Range Comments WHITE BLOOD CELL (test code=WBC) 13.6 K/mm3 4.5-12.5 RED BLOOD CELL (test code=RBC) 3.38 mill/mm3 3.7-5.2 HEMOGLOBIN (test code=HGB) 9.4 gram/dL 11.5-15.5 HEMATOCRIT (test code=HCT) 30.6 % 36.0-46.0 MEAN CELL VOLUME (test code=MCV) 90.5 fL 80-98 MEAN CELL HGB (test code=MCH) 27.8 picogram 27.0-33.0 MEAN CELL HGB CONCETRATION (test code=MCHC) 30.7 gram/dL 33.0-36.0 RED CELL DISTRIBUTION WIDTH (test code=RDW) 21.2 % 11.6-16.2 RED CELL DISTRIBUTION WIDTH SD (test code=RDW-SD) 69.1 fL 37.0-51.0 PLATELET COUNT (test code=PLT) 182 K/mm3 150-450 MEAN PLATELET VOLUME (test code=MPV) 10.0 fL 6.7-11.0 NEUTROPHIL % (test code=NT%) 91.7 % 39.0-69.0 IMMATURE GRANULOCYTE % (test code=IG%) 1.9 % 0.0-5.0 LYMPHOCYTE % (test code=LY%) 3.2 % 25.0-55.0 MONOCYTE % (test code=MO%) 2.7 % 0.0-10.0 EOSINOPHIL % (test code=EO%) 0.3 % 0.0-5.0 BASOPHIL % (test code=BA%) 0.2 % 0.0-1.0 NUCLEATED RBC % (test code=NRBC%) 0.3 % 0-0 NEUTROPHIL # (test code=NT#) 12.49 K/mm3 1.8-7.7 IMMATURE GRANULOCYTE # (test code=IG#) 0.26 x10 3/uL 0-0.03 LYMPHOCYTE # (test code=LY#) 0.44 K/mm3 1.0-5.0 MONOCYTE # (test code=MO#) 0.37 K/mm3 0-0.8 EOSINOPHIL # (test code=EO#) 0.04 K/mm3 0.0-0.5 BASOPHIL # (test code=BA#) 0.03 K/mm3 0.0-0.2 NUCLEATED RBC # (test code=NRBC#) 0.04 K/mm3 0.0-0.1 MANUAL DIFF REQUIRED (test code=MDIFF) NO, ONLY SCAN NEEDED DIFFERENTIAL [id number] 18:12:00* Test Item Value Reference Range Comments STAIN ACCEPTABILITY (test code=STN ACCEPTABLE) CABOT RINGS (test code=CAB) MORPHOLOGY COMMENT (test code=MOC) PLATELET ESTIMATE (test code=PLTEST) PLATELET MORPHOLOGY (test code=PLTMORPH) [id number] 11:55:00* Test Item Value Reference Range Comments GLUBED (test code=GLUBED) 103 mg/dL 74-106 Performed by certified tracing lathe set up operator at [facility] LACTIC [id number] 10:00:00* Test Item Value Reference Range Comments LACTIC ACID (test code=LACT) 3.9 mmol/L 0.4-1.9 Results called to [id number] by LUNA 05/06/19 1000Critical results verified and read back by Nurse? Y CBC W/AUTO [id number] 07:49:00* Test Item Value Reference Range Comments WHITE BLOOD CELL (test code=WBC) 12.2 K/mm3 4.5-12.5 RED BLOOD CELL (test code=RBC) 3.42 mill/mm3 3.7-5.2 HEMOGLOBIN (test code=HGB) 9.3 gram/dL 11.5-15.5 HEMATOCRIT (test code=HCT) 31.3 % 36.0-46.0 MEAN CELL VOLUME (test code=MCV) 91.5 fL 80-98 MEAN CELL HGB (test code=MCH) 27.2 picogram 27.0-33.0 MEAN CELL HGB CONCETRATION (test code=MCHC) 29.7 gram/dL 33.0-36.0 RED CELL DISTRIBUTION WIDTH (test code=RDW) 21.1 % 11.6-16.2 RED CELL DISTRIBUTION WIDTH SD (test code=RDW-SD) 70.6 fL 37.0-51.0 PLATELET COUNT (test code=PLT) 188 K/mm3 150-450 RESULT VERIFIED BY REPEAT ANALYSIS MEAN PLATELET VOLUME (test code=MPV) 10.4 fL 6.7-11.0 NEUTROPHIL % (test code=NT%) 85.2 % 39.0-69.0 IMMATURE GRANULOCYTE % (test code=IG%) 1.7 % 0.0-5.0 LYMPHOCYTE % (test code=LY%) 9.2 % 25.0-55.0 MONOCYTE % (test code=MO%) 3.1 % 0.0-10.0 EOSINOPHIL % (test code=EO%) 0.7 % 0.0-5.0 BASOPHIL % (test code=BA%) 0.1 % 0.0-1.0 NUCLEATED RBC % (test code=NRBC%) 0.2 % 0-0 NEUTROPHIL # (test code=NT#) 10.42 K/mm3 1.8-7.7 IMMATURE GRANULOCYTE # (test code=IG#) 0.21 x10 3/uL 0-0.03 LYMPHOCYTE # (test code=LY#) 1.13 K/mm3 1.0-5.0 MONOCYTE # (test code=MO#) 0.38 K/mm3 0-0.8 EOSINOPHIL # (test code=EO#) 0.08 K/mm3 0.0-0.5 BASOPHIL # (test code=BA#) 0.01 K/mm3 0.0-0.2 NUCLEATED RBC # (test code=NRBC#) 0.02 K/mm3 0.0-0.1 MANUAL DIFF REQUIRED (test code=MDIFF) NO, ONLY SCAN NEEDED DIFFERENTIAL [id number] 07:49:00* Test Item Value Reference Range Comments STAIN ACCEPTABILITY (test code=STN ACCEPTABLE) STAIN ACCEPTABLE POLYCHROMASIA (test code=POLC) 1+ POIKILOCYTOSIS (test code=POIK) 3+ ANISOCYTOSIS (test code=ANISO) 2+ MACROCYTOSIS (test code=MACR) 2+ JASS CELLS (test code=JASS) 3+ NONE PLATELET ESTIMATE (test code=PLTEST) ADEQUATE PLATELET MORPHOLOGY (test code=PLTMORPH) NORMAL LACTIC [id number] 07:09:00* Test Item Value Reference Range Comments LACTIC ACID (test code=LACT) 4.0 mmol/L 0.4-1.9 Results called to [id number] by LUNA 05/06/19 0709Critical results verified and read back by Nurse? Y BASIC METABOLIC [id number] 07:02:00* Test Item Value Reference Range Comments SODIUM (test code=NA) 136 mmol/L 136-145 POTASSIUM (test code=K) 3.3 mmol/L 3.5-5.1 CHLORIDE (test code=CL) 108.0 mmol/L 98-107 CARBON DIOXIDE (test code=CO2) 14.0 mmol/L 21-32 ANION GAP (test code=GAP) 17.3 10-20 GLUCOSE (test code=GLU) 113 mg/dL 74-106 BLOOD UREA NITROGEN (test code=BUN) 16 mg/dL 7-18 GLOMERULAR FILTRATION RATE (test code=GFR) 35 mL/min >=60 Estimated GFR by using Modified MDRD formula.Chronic kidney disease is defined as either kidney damageor GFR <60 mL/min/1.73 m2 for >3 months. CREATININE (test code=CREAT) 1.60 mg/dL 0.55-1.02 Note change in reference range due to change in reagent. BUN/CREATININE RATIO (test code=BUN/CREA) 9.7 10-20 CALCIUM (test code=CA) 7.1 mg/dL 8.5-10.1 [id number] 07:02:00* Test Item Value Reference Range Comments PHOSPHORUS (test code=PHOS) 2.7 mg/dL 2.5-4.9 [id number] 07:02:00* Test Item Value Reference Range Comments MAGNESIUM (test code=MAG) 1.8 mg/dL 1.8-2.4 CALCIUM [id number] 07:02:00* Test Item Value Reference Range Comments CALCIUM IONIZED (test code=JULIETA) 1.06 mmol/L 1.12-1.32 CBC W/AUTO [id number] 06:52:00* Test Item Value Reference Range Comments WHITE BLOOD CELL (test code=WBC) 12.2 K/mm3 4.5-12.5 RED BLOOD CELL (test code=RBC) 3.42 mill/mm3 3.7-5.2 HEMOGLOBIN (test code=HGB) 9.3 gram/dL 11.5-15.5 HEMATOCRIT (test code=HCT) 31.3 % 36.0-46.0 MEAN CELL VOLUME (test code=MCV) 91.5 fL 80-98 MEAN CELL HGB (test code=MCH) 27.2 picogram 27.0-33.0 MEAN CELL HGB CONCETRATION (test code=MCHC) 29.7 gram/dL 33.0-36.0 RED CELL DISTRIBUTION WIDTH (test code=RDW) 21.1 % 11.6-16.2 RED CELL DISTRIBUTION WIDTH SD (test code=RDW-SD) 70.6 fL 37.0-51.0 PLATELET COUNT (test code=PLT) 188 K/mm3 150-450 RESULT VERIFIED BY REPEAT ANALYSIS MEAN PLATELET VOLUME (test code=MPV) 10.4 fL 6.7-11.0 NEUTROPHIL % (test code=NT%) 85.2 % 39.0-69.0 IMMATURE GRANULOCYTE % (test code=IG%) 1.7 % 0.0-5.0 LYMPHOCYTE % (test code=LY%) 9.2 % 25.0-55.0 MONOCYTE % (test code=MO%) 3.1 % 0.0-10.0 EOSINOPHIL % (test code=EO%) 0.7 % 0.0-5.0 BASOPHIL % (test code=BA%) 0.1 % 0.0-1.0 NUCLEATED RBC % (test code=NRBC%) 0.2 % 0-0 NEUTROPHIL # (test code=NT#) 10.42 K/mm3 1.8-7.7 IMMATURE GRANULOCYTE # (test code=IG#) 0.21 x10 3/uL 0-0.03 LYMPHOCYTE # (test code=LY#) 1.13 K/mm3 1.0-5.0 MONOCYTE # (test code=MO#) 0.38 K/mm3 0-0.8 EOSINOPHIL # (test code=EO#) 0.08 K/mm3 0.0-0.5 BASOPHIL # (test code=BA#) 0.01 K/mm3 0.0-0.2 NUCLEATED RBC # (test code=NRBC#) 0.02 K/mm3 0.0-0.1 MANUAL DIFF REQUIRED (test code=MDIFF) NO, ONLY SCAN NEEDED DIFFERENTIAL [id number] 06:52:00* Test Item Value Reference Range Comments STAIN ACCEPTABILITY (test code=STN ACCEPTABLE) CABOT RINGS (test code=CAB) MORPHOLOGY COMMENT (test code=MOC) PLATELET ESTIMATE (test code=PLTEST) PLATELET MORPHOLOGY (test code=PLTMORPH) CBC W/AUTO [id number] 06:52:00* Test Item Value Reference Range Comments WHITE BLOOD CELL (test code=WBC) 12.2 K/mm3 4.5-12.5 RED BLOOD CELL (test code=RBC) 3.42 mill/mm3 3.7-5.2 HEMOGLOBIN (test code=HGB) 9.3 gram/dL 11.5-15.5 HEMATOCRIT (test code=HCT) 31.3 % 36.0-46.0 MEAN CELL VOLUME (test code=MCV) 91.5 fL 80-98 MEAN CELL HGB (test code=MCH) 27.2 picogram 27.0-33.0 MEAN CELL HGB CONCETRATION (test code=MCHC) 29.7 gram/dL 33.0-36.0 RED CELL DISTRIBUTION WIDTH (test code=RDW) 21.1 % 11.6-16.2 RED CELL DISTRIBUTION WIDTH SD (test code=RDW-SD) 70.6 fL 37.0-51.0 PLATELET COUNT (test code=PLT) 188 K/mm3 150-450 RESULT VERIFIED BY REPEAT ANALYSIS MEAN PLATELET VOLUME (test code=MPV) 10.4 fL 6.7-11.0 NEUTROPHIL % (test code=NT%) 85.2 % 39.0-69.0 IMMATURE GRANULOCYTE % (test code=IG%) 1.7 % 0.0-5.0 LYMPHOCYTE % (test code=LY%) 9.2 % 25.0-55.0 MONOCYTE % (test code=MO%) 3.1 % 0.0-10.0 EOSINOPHIL % (test code=EO%) 0.7 % 0.0-5.0 BASOPHIL % (test code=BA%) 0.1 % 0.0-1.0 NUCLEATED RBC % (test code=NRBC%) 0.2 % 0-0 NEUTROPHIL # (test code=NT#) 10.42 K/mm3 1.8-7.7 IMMATURE GRANULOCYTE # (test code=IG#) 0.21 x10 3/uL 0-0.03 LYMPHOCYTE # (test code=LY#) 1.13 K/mm3 1.0-5.0 MONOCYTE # (test code=MO#) 0.38 K/mm3 0-0.8 EOSINOPHIL # (test code=EO#) 0.08 K/mm3 0.0-0.5 BASOPHIL # (test code=BA#) 0.01 K/mm3 0.0-0.2 NUCLEATED RBC # (test code=NRBC#) 0.02 K/mm3 0.0-0.1 MANUAL DIFF REQUIRED (test code=MDIFF) NO, ONLY SCAN NEEDED DIFFERENTIAL [id number] 06:52:00* Test Item Value Reference Range Comments STAIN ACCEPTABILITY (test code=STN ACCEPTABLE) CABOT RINGS (test code=CAB) MORPHOLOGY COMMENT (test code=MOC) PLATELET ESTIMATE (test code=PLTEST) PLATELET MORPHOLOGY (test code=PLTMORPH) CBC W/AUTO [id number] 06:52:00* Test Item Value Reference Range Comments WHITE BLOOD CELL (test code=WBC) 12.2 K/mm3 4.5-12.5 RED BLOOD CELL (test code=RBC) 3.42 mill/mm3 3.7-5.2 HEMOGLOBIN (test code=HGB) 9.3 gram/dL 11.5-15.5 HEMATOCRIT (test code=HCT) 31.3 % 36.0-46.0 MEAN CELL VOLUME (test code=MCV) 91.5 fL 80-98 MEAN CELL HGB (test code=MCH) 27.2 picogram 27.0-33.0 MEAN CELL HGB CONCETRATION (test code=MCHC) 29.7 gram/dL 33.0-36.0 RED CELL DISTRIBUTION WIDTH (test code=RDW) 21.1 % 11.6-16.2 RED CELL DISTRIBUTION WIDTH SD (test code=RDW-SD) 70.6 fL 37.0-51.0 PLATELET COUNT (test code=PLT) 188 K/mm3 150-450 RESULT VERIFIED BY REPEAT ANALYSIS MEAN PLATELET VOLUME (test code=MPV) 10.4 fL 6.7-11.0 NEUTROPHIL % (test code=NT%) 85.2 % 39.0-69.0 IMMATURE GRANULOCYTE % (test code=IG%) 1.7 % 0.0-5.0 LYMPHOCYTE % (test code=LY%) 9.2 % 25.0-55.0 MONOCYTE % (test code=MO%) 3.1 % 0.0-10.0 EOSINOPHIL % (test code=EO%) 0.7 % 0.0-5.0 BASOPHIL % (test code=BA%) 0.1 % 0.0-1.0 NUCLEATED RBC % (test code=NRBC%) 0.2 % 0-0 NEUTROPHIL # (test code=NT#) 10.42 K/mm3 1.8-7.7 IMMATURE GRANULOCYTE # (test code=IG#) 0.21 x10 3/uL 0-0.03 LYMPHOCYTE # (test code=LY#) 1.13 K/mm3 1.0-5.0 MONOCYTE # (test code=MO#) 0.38 K/mm3 0-0.8 EOSINOPHIL # (test code=EO#) 0.08 K/mm3 0.0-0.5 BASOPHIL # (test code=BA#) 0.01 K/mm3 0.0-0.2 NUCLEATED RBC # (test code=NRBC#) 0.02 K/mm3 0.0-0.1 MANUAL DIFF REQUIRED (test code=MDIFF) NO, ONLY SCAN NEEDED DIFFERENTIAL [id number] 06:52:00* Test Item Value Reference Range Comments STAIN ACCEPTABILITY (test code=STN ACCEPTABLE) MORPHOLOGY COMMENT (test code=MOC) PLATELET ESTIMATE (test code=PLTEST) PLATELET MORPHOLOGY (test code=PLTMORPH) CBC W/AUTO [id number] 06:52:00* Test Item Value Reference Range Comments WHITE BLOOD CELL (test code=WBC) 12.2 K/mm3 4.5-12.5 RED BLOOD CELL (test code=RBC) 3.42 mill/mm3 3.7-5.2 HEMOGLOBIN (test code=HGB) 9.3 gram/dL 11.5-15.5 HEMATOCRIT (test code=HCT) 31.3 % 36.0-46.0 MEAN CELL VOLUME (test code=MCV) 91.5 fL 80-98 MEAN CELL HGB (test code=MCH) 27.2 picogram 27.0-33.0 MEAN CELL HGB CONCETRATION (test code=MCHC) 29.7 gram/dL 33.0-36.0 RED CELL DISTRIBUTION WIDTH (test code=RDW) 21.1 % 11.6-16.2 RED CELL DISTRIBUTION WIDTH SD (test code=RDW-SD) 70.6 fL 37.0-51.0 PLATELET COUNT (test code=PLT) 188 K/mm3 150-450 RESULT VERIFIED BY REPEAT ANALYSIS MEAN PLATELET VOLUME (test code=MPV) 10.4 fL 6.7-11.0 NEUTROPHIL % (test code=NT%) 85.2 % 39.0-69.0 IMMATURE GRANULOCYTE % (test code=IG%) 1.7 % 0.0-5.0 LYMPHOCYTE % (test code=LY%) 9.2 % 25.0-55.0 MONOCYTE % (test code=MO%) 3.1 % 0.0-10.0 EOSINOPHIL % (test code=EO%) 0.7 % 0.0-5.0 BASOPHIL % (test code=BA%) 0.1 % 0.0-1.0 NUCLEATED RBC % (test code=NRBC%) 0.2 % 0-0 NEUTROPHIL # (test code=NT#) 10.42 K/mm3 1.8-7.7 IMMATURE GRANULOCYTE # (test code=IG#) 0.21 x10 3/uL 0-0.03 LYMPHOCYTE # (test code=LY#) 1.13 K/mm3 1.0-5.0 MONOCYTE # (test code=MO#) 0.38 K/mm3 0-0.8 EOSINOPHIL # (test code=EO#) 0.08 K/mm3 0.0-0.5 BASOPHIL # (test code=BA#) 0.01 K/mm3 0.0-0.2 NUCLEATED RBC # (test code=NRBC#) 0.02 K/mm3 0.0-0.1 MANUAL DIFF REQUIRED (test code=MDIFF) NO, ONLY SCAN NEEDED DIFFERENTIAL [id number] 06:52:00* Test Item Value Reference Range Comments STAIN ACCEPTABILITY (test code=STN ACCEPTABLE) CABOT RINGS (test code=CAB) MORPHOLOGY COMMENT (test code=MOC) PLATELET ESTIMATE (test code=PLTEST) PLATELET MORPHOLOGY (test code=PLTMORPH) BASIC METABOLIC [id number] 06:43:00* Test Item Value Reference Range Comments SODIUM (test code=NA) mmol/L 136-145 POTASSIUM (test code=K) mmol/L 3.5-5.1 CHLORIDE (test code=CL) mmol/L 98-107 CARBON DIOXIDE (test code=CO2) mmol/L 21-32 ANION GAP (test code=GAP) 10-20 GLUCOSE (test code=GLU) mg/dL 74-106 BLOOD UREA NITROGEN (test code=BUN) mg/dL 7-18 GLOMERULAR FILTRATION RATE (test code=GFR) mL/min >=60 CREATININE (test code=CREAT) mg/dL 0.55-1.02 BUN/CREATININE RATIO (test code=BUN/CREA) 10-20 CALCIUM (test code=CA) mg/dL 8.5-10.1 [id number] 06:43:00* Test Item Value Reference Range Comments PHOSPHORUS (test code=PHOS) mg/dL 2.5-4.9 [id number] 06:43:00* Test Item Value Reference Range Comments MAGNESIUM (test code=MAG) mg/dL 1.8-2.4 CALCIUM [id number] 06:43:00* Test Item Value Reference Range Comments CALCIUM IONIZED (test code=JULIETA) 1.06 mmol/L 1.12-1.32 - XR CHEST 1 [id number] 06:41:00 FAX: Elodia Scott NP [phone] [place]: [address] St: ADM FAX: Jayme Garcia MD [phone] Name: MARI HORVATH [facility] : 1975 Age/S: 44/F [address] Unit #: [id number] Loc: V.S[address] [place], [place] [address] Phys: Elodia Scott NP Acct: [id number] Dis Date: Status: ADM IN PHONE #: [phone] Exam Date: 05/06/2019526 FAX #: [phone] Reason: sob EXAMS: CPT CODE: [id number] XR CHEST 1 V 74739 REASON FOR EXAM: sob EXAM ORDER DATE: 05/06/2019 5:00 AM Ordering Mita: Elodia Scott NP PROCEDURE: - XR CHEST 1 V COMPARISON: 05/05/2019 FINDINGS: Portable AP frontal view of the chest obtained at 4:42 AM shows clear lungs without evidence of consolidation. There is no evidence of effusion. The heart size is within normal limits. Pulmonary vasculatures are minimally congested. Stable appearance of the ET tube, right IJ central line, and OG tube. IMPRESSION: Minimal atelectasis of the left base at 0641 Reported and signed by: Cuauhtemoc Benjamin M.D. CC: Elodia Scott PACKAGE LINER; Jayme Guillen Technologist: Beau Cuevas RT(R); СВЕТЛАНА MUHAMMAD RT(R) Trnscrd Date/Time/By: 05/06/2019 (0641) : By: Shelia Orig Print D/T: S: 05/06/2019 (0674) PAGE 1 Signed Report GLUBED 2019-05-06 06:14:00* Test Item Value Reference Range Comments GLUBED (test code=GLUBED) 108 mg/dL 74-106 Performed by certified tracing lathe set up operator at [facility] [id number] 04:01:00* Test Item Value Reference Range Comments GLUBED (test code=GLUBED) 148 mg/dL 74-106 Performed by certified tracing lathe set up operator at [facility] LACTIC [id number] 01:15:00* Test Item Value Reference Range Comments LACTIC ACID (test code=LACT) 3.6 mmol/L 0.4-1.9 Results called to [id number] by V.LAB.AG1 05/06/19 0113Critical results verified and read back by Nurse? Y LACTIC [id number] 22:00:00* Test Item Value Reference Range Comments LACTIC ACID (test code=LACT) 3.8 mmol/L 0.4-1.9 Results called to [id number] by V.LAB.AA 05/05/19 2159Critical results verified and read back by Nurse? Y [id number] 16:49:00* Test Item Value Reference Range Comments GLUBED (test code=GLUBED) 190 mg/dL 74-106 Performed by certified tracing lathe set up operator at [facility] [id number] 11:25:00* Test Item Value Reference Range Comments GLUBED (test code=GLUBED) 179 mg/dL 74-106 Performed by certified tracing lathe set up operator at [facility] LACTIC [id number] 11:14:00* Test Item Value Reference Range Comments LACTIC ACID (test code=LACT) 4.5 mmol/L 0.4-1.9 Results called to [id number] by V.LAB.LDB 05/05/19 1112Critical results verified and read back by Nurse? Y LACTIC [id number] 09:34:00* Test Item Value Reference Range Comments LACTIC ACID (test code=LACT) 5.2 mmol/L 0.4-1.9 Results called to [id number] by V.LAB.LDB 05/05/19 0933Critical results verified and read back by Nurse? Y - XR CHEST 1 [id number] 09:00:00 FAX: Elodia Scott NP [phone] [place]: St: [facility] FAX: Jayme Garcia MD [phone] Name: MARI HORVATH [facility] : 1975 Age/S: 44/F [address] Unit #: [id number] Loc: [place] [address] Phys: Elodia Scott NP Acct: [id number] Dis Date: Status: ADM IN PHONE #: [phone] Exam Date: 05/05/2019 0845 FAX #: [phone] Reason: sob EXAMS: CPT CODE: [id number] XR CHEST 1 V 83757 HISTORY: Shortness of breath. COMPARISON: May 03, 2019. ET tube, NG tube in the right jugular catheter are unchanged in position. Dependent changes. No acute infiltrates, effusion or congestion. Cardiac silhouette is normal IMPRESSION: No acute infiltrates, effusion or congestion. at 0900 Reported and signed by: Aaron Timmons M.D. CC: Elodia Scott PACKAGE LINER; Jayme Guillen Technologist: RT HILDA(R) Trnscrd Date/Time/By: 05/05/2019 (09) : By: [email or web address] Orig Print D/T: S: 05/05/2019 (0903) PAGE 1 Signed Report [id number] 06:53:00* Test Item Value Reference Range Comments GLUBED (test code=GLUBED) 180 mg/dL 74-106 Performed by certified tracing lathe set up operator at [facility] CBC W/AUTO [id number] 06:28:00* Test Item Value Reference Range Comments WHITE BLOOD CELL (test code=WBC) 17.5 K/mm3 4.5-12.5 RED BLOOD CELL (test code=RBC) 3.27 mill/mm3 3.7-5.2 HEMOGLOBIN (test code=HGB) 9.1 gram/dL 11.5-15.5 HEMATOCRIT (test code=HCT) 30.7 % 36.0-46.0 MEAN CELL VOLUME (test code=MCV) 93.9 fL 80-98 MEAN CELL HGB (test code=MCH) 27.8 picogram 27.0-33.0 MEAN CELL HGB CONCETRATION (test code=MCHC) 29.6 gram/dL 33.0-36.0 RED CELL DISTRIBUTION WIDTH (test code=RDW) 21.0 % 11.6-16.2 RED CELL DISTRIBUTION WIDTH SD (test code=RDW-SD) 71.5 fL 37.0-51.0 PLATELET COUNT (test code=PLT) 243 K/mm3 150-450 MEAN PLATELET VOLUME (test code=MPV) 9.7 fL 6.7-11.0 NEUTROPHIL % (test code=NT%) 77.9 % 39.0-69.0 IMMATURE GRANULOCYTE % (test code=IG%) 2.0 % 0.0-5.0 LYMPHOCYTE % (test code=LY%) 15.0 % 25.0-55.0 MONOCYTE % (test code=MO%) 4.8 % 0.0-10.0 EOSINOPHIL % (test code=EO%) 0.1 % 0.0-5.0 BASOPHIL % (test code=BA%) 0.2 % 0.0-1.0 NUCLEATED RBC % (test code=NRBC%) 0.3 % 0-0 NEUTROPHIL # (test code=NT#) 13.59 K/mm3 1.8-7.7 IMMATURE GRANULOCYTE # (test code=IG#) 0.35 x10 3/uL 0-0.03 LYMPHOCYTE # (test code=LY#) 2.62 K/mm3 1.0-5.0 MONOCYTE # (test code=MO#) 0.84 K/mm3 0-0.8 EOSINOPHIL # (test code=EO#) 0.02 K/mm3 0.0-0.5 BASOPHIL # (test code=BA#) 0.03 K/mm3 0.0-0.2 NUCLEATED RBC # (test code=NRBC#) 0.05 K/mm3 0.0-0.1 MANUAL DIFF REQUIRED (test code=MDIFF) NO, ONLY SCAN NEEDED DIFFERENTIAL [id number] 06:28:00* Test Item Value Reference Range Comments STAIN ACCEPTABILITY (test code=STN ACCEPTABLE) STAIN ACCEPTABLE POLYCHROMASIA (test code=POLC) 1+ POIKILOCYTOSIS (test code=POIK) 2+ ANISOCYTOSIS (test code=ANISO) 2+ MACROCYTOSIS (test code=MACR) 2+ JASS CELLS (test code=JASS) 1+ NONE HYPERSEGMENTED POLYS (test code=HYPP) 1+ VACUOLATED NEUTROPHILS (test code=VN) 1+ PLATELET ESTIMATE (test code=PLTEST) ADEQUATE PLATELET MORPHOLOGY (test code=PLTMORPH) NORMAL BASIC METABOLIC [id number] 06:02:00* Test Item Value Reference Range Comments SODIUM (test code=NA) 138 mmol/L 136-145 POTASSIUM (test code=K) 3.6 mmol/L 3.5-5.1 CHLORIDE (test code=CL) 110.0 mmol/L 98-107 CARBON DIOXIDE (test code=CO2) 14.0 mmol/L 21-32 ANION GAP (test code=GAP) 17.6 10-20 GLUCOSE (test code=GLU) 189 mg/dL 74-106 BLOOD UREA NITROGEN (test code=BUN) 17 mg/dL 7-18 GLOMERULAR FILTRATION RATE (test code=GFR) 28 mL/min >=60 Estimated GFR by using Modified MDRD formula.Chronic kidney disease is defined as either kidney damageor GFR <60 mL/min/1.73 m2 for >3 months. CREATININE (test code=CREAT) 1.90 mg/dL 0.55-1.02 Note change in reference range due to change in reagent. BUN/CREATININE RATIO (test code=BUN/CREA) 8.9 10-20 CALCIUM (test code=CA) 6.6 mg/dL 8.5-10.1 [id number] 06:02:00* Test Item Value Reference Range Comments PHOSPHORUS (test code=PHOS) 1.4 mg/dL 2.5-4.9 [id number] 06:02:00* Test Item Value Reference Range Comments MAGNESIUM (test code=MAG) 2.1 mg/dL 1.8-2.4 CALCIUM [id number] 06:02:00* Test Item Value Reference Range Comments CALCIUM IONIZED (test code=JULIETA) 1.02 mmol/L 1.12-1.32 BASIC METABOLIC [id number] 05:54:00* Test Item Value Reference Range Comments SODIUM (test code=NA) 138 mmol/L 136-145 POTASSIUM (test code=K) 3.6 mmol/L 3.5-5.1 CHLORIDE (test code=CL) 110.0 mmol/L 98-107 CARBON DIOXIDE (test code=CO2) mmol/L 21-32 ANION GAP (test code=GAP) 10-20 GLUCOSE (test code=GLU) mg/dL 74-106 BLOOD UREA NITROGEN (test code=BUN) mg/dL 7-18 GLOMERULAR FILTRATION RATE (test code=GFR) mL/min >=60 CREATININE (test code=CREAT) mg/dL 0.55-1.02 BUN/CREATININE RATIO (test code=BUN/CREA) 10-20 CALCIUM (test code=CA) mg/dL 8.5-10.1 [id number] 05:54:00* Test Item Value Reference Range Comments PHOSPHORUS (test code=PHOS) mg/dL 2.5-4.9 [id number] 05:54:00* Test Item Value Reference Range Comments MAGNESIUM (test code=MAG) mg/dL 1.8-2.4 CALCIUM [id number] 05:54:00* Test Item Value Reference Range Comments CALCIUM IONIZED (test code=JULIETA) 1.02 mmol/L 1.12-1.32 CBC W/AUTO [id number] 05:52:00* Test Item Value Reference Range Comments WHITE BLOOD CELL (test code=WBC) 17.5 K/mm3 4.5-12.5 RED BLOOD CELL (test code=RBC) 3.27 mill/mm3 3.7-5.2 HEMOGLOBIN (test code=HGB) 9.1 gram/dL 11.5-15.5 HEMATOCRIT (test code=HCT) 30.7 % 36.0-46.0 MEAN CELL VOLUME (test code=MCV) 93.9 fL 80-98 MEAN CELL HGB (test code=MCH) 27.8 picogram 27.0-33.0 MEAN CELL HGB CONCETRATION (test code=MCHC) 29.6 gram/dL 33.0-36.0 RED CELL DISTRIBUTION WIDTH (test code=RDW) 21.0 % 11.6-16.2 RED CELL DISTRIBUTION WIDTH SD (test code=RDW-SD) 71.5 fL 37.0-51.0 PLATELET COUNT (test code=PLT) 243 K/mm3 150-450 MEAN PLATELET VOLUME (test code=MPV) 9.7 fL 6.7-11.0 NEUTROPHIL % (test code=NT%) 77.9 % 39.0-69.0 IMMATURE GRANULOCYTE % (test code=IG%) 2.0 % 0.0-5.0 LYMPHOCYTE % (test code=LY%) 15.0 % 25.0-55.0 MONOCYTE % (test code=MO%) 4.8 % 0.0-10.0 EOSINOPHIL % (test code=EO%) 0.1 % 0.0-5.0 BASOPHIL % (test code=BA%) 0.2 % 0.0-1.0 NUCLEATED RBC % (test code=NRBC%) 0.3 % 0-0 NEUTROPHIL # (test code=NT#) 13.59 K/mm3 1.8-7.7 IMMATURE GRANULOCYTE # (test code=IG#) 0.35 x10 3/uL 0-0.03 LYMPHOCYTE # (test code=LY#) 2.62 K/mm3 1.0-5.0 MONOCYTE # (test code=MO#) 0.84 K/mm3 0-0.8 EOSINOPHIL # (test code=EO#) 0.02 K/mm3 0.0-0.5 BASOPHIL # (test code=BA#) 0.03 K/mm3 0.0-0.2 NUCLEATED RBC # (test code=NRBC#) 0.05 K/mm3 0.0-0.1 MANUAL DIFF REQUIRED (test code=MDIFF) NO, ONLY SCAN NEEDED DIFFERENTIAL [id number] 05:52:00* Test Item Value Reference Range Comments STAIN ACCEPTABILITY (test code=STN ACCEPTABLE) CABOT RINGS (test code=CAB) MORPHOLOGY COMMENT (test code=MOC) PLATELET ESTIMATE (test code=PLTEST) PLATELET MORPHOLOGY (test code=PLTMORPH) CBC W/AUTO [id number] 05:52:00* Test Item Value Reference Range Comments WHITE BLOOD CELL (test code=WBC) 17.5 K/mm3 4.5-12.5 RED BLOOD CELL (test code=RBC) 3.27 mill/mm3 3.7-5.2 HEMOGLOBIN (test code=HGB) 9.1 gram/dL 11.5-15.5 HEMATOCRIT (test code=HCT) 30.7 % 36.0-46.0 MEAN CELL VOLUME (test code=MCV) 93.9 fL 80-98 MEAN CELL HGB (test code=MCH) 27.8 picogram 27.0-33.0 MEAN CELL HGB CONCETRATION (test code=MCHC) 29.6 gram/dL 33.0-36.0 RED CELL DISTRIBUTION WIDTH (test code=RDW) 21.0 % 11.6-16.2 RED CELL DISTRIBUTION WIDTH SD (test code=RDW-SD) 71.5 fL 37.0-51.0 PLATELET COUNT (test code=PLT) 243 K/mm3 150-450 MEAN PLATELET VOLUME (test code=MPV) 9.7 fL 6.7-11.0 NEUTROPHIL % (test code=NT%) 77.9 % 39.0-69.0 IMMATURE GRANULOCYTE % (test code=IG%) 2.0 % 0.0-5.0 LYMPHOCYTE % (test code=LY%) 15.0 % 25.0-55.0 MONOCYTE % (test code=MO%) 4.8 % 0.0-10.0 EOSINOPHIL % (test code=EO%) 0.1 % 0.0-5.0 BASOPHIL % (test code=BA%) 0.2 % 0.0-1.0 NUCLEATED RBC % (test code=NRBC%) 0.3 % 0-0 NEUTROPHIL # (test code=NT#) 13.59 K/mm3 1.8-7.7 IMMATURE GRANULOCYTE # (test code=IG#) 0.35 x10 3/uL 0-0.03 LYMPHOCYTE # (test code=LY#) 2.62 K/mm3 1.0-5.0 MONOCYTE # (test code=MO#) 0.84 K/mm3 0-0.8 EOSINOPHIL # (test code=EO#) 0.02 K/mm3 0.0-0.5 BASOPHIL # (test code=BA#) 0.03 K/mm3 0.0-0.2 NUCLEATED RBC # (test code=NRBC#) 0.05 K/mm3 0.0-0.1 MANUAL DIFF REQUIRED (test code=MDIFF) NO, ONLY SCAN NEEDED DIFFERENTIAL [id number] 05:52:00* Test Item Value Reference Range Comments STAIN ACCEPTABILITY (test code=STN ACCEPTABLE) CABOT RINGS (test code=CAB) MORPHOLOGY COMMENT (test code=MOC) PLATELET ESTIMATE (test code=PLTEST) PLATELET MORPHOLOGY (test code=PLTMORPH) CBC W/AUTO [id number] 05:52:00* Test Item Value Reference Range Comments WHITE BLOOD CELL (test code=WBC) 17.5 K/mm3 4.5-12.5 RED BLOOD CELL (test code=RBC) 3.27 mill/mm3 3.7-5.2 HEMOGLOBIN (test code=HGB) 9.1 gram/dL 11.5-15.5 HEMATOCRIT (test code=HCT) 30.7 % 36.0-46.0 MEAN CELL VOLUME (test code=MCV) 93.9 fL 80-98 MEAN CELL HGB (test code=MCH) 27.8 picogram 27.0-33.0 MEAN CELL HGB CONCETRATION (test code=MCHC) 29.6 gram/dL 33.0-36.0 RED CELL DISTRIBUTION WIDTH (test code=RDW) 21.0 % 11.6-16.2 RED CELL DISTRIBUTION WIDTH SD (test code=RDW-SD) 71.5 fL 37.0-51.0 PLATELET COUNT (test code=PLT) 243 K/mm3 150-450 MEAN PLATELET VOLUME (test code=MPV) 9.7 fL 6.7-11.0 NEUTROPHIL % (test code=NT%) 77.9 % 39.0-69.0 IMMATURE GRANULOCYTE % (test code=IG%) 2.0 % 0.0-5.0 LYMPHOCYTE % (test code=LY%) 15.0 % 25.0-55.0 MONOCYTE % (test code=MO%) 4.8 % 0.0-10.0 EOSINOPHIL % (test code=EO%) 0.1 % 0.0-5.0 BASOPHIL % (test code=BA%) 0.2 % 0.0-1.0 NUCLEATED RBC % (test code=NRBC%) 0.3 % 0-0 NEUTROPHIL # (test code=NT#) 13.59 K/mm3 1.8-7.7 IMMATURE GRANULOCYTE # (test code=IG#) 0.35 x10 3/uL 0-0.03 LYMPHOCYTE # (test code=LY#) 2.62 K/mm3 1.0-5.0 MONOCYTE # (test code=MO#) 0.84 K/mm3 0-0.8 EOSINOPHIL # (test code=EO#) 0.02 K/mm3 0.0-0.5 BASOPHIL # (test code=BA#) 0.03 K/mm3 0.0-0.2 NUCLEATED RBC # (test code=NRBC#) 0.05 K/mm3 0.0-0.1 MANUAL DIFF REQUIRED (test code=MDIFF) NO, ONLY SCAN NEEDED DIFFERENTIAL [id number] 05:52:00* Test Item Value Reference Range Comments STAIN ACCEPTABILITY (test code=STN ACCEPTABLE) MORPHOLOGY COMMENT (test code=MOC) PLATELET ESTIMATE (test code=PLTEST) PLATELET MORPHOLOGY (test code=PLTMORPH) CBC W/AUTO [id number] 05:52:00* Test Item Value Reference Range Comments WHITE BLOOD CELL (test code=WBC) 17.5 K/mm3 4.5-12.5 RED BLOOD CELL (test code=RBC) 3.27 mill/mm3 3.7-5.2 HEMOGLOBIN (test code=HGB) 9.1 gram/dL 11.5-15.5 HEMATOCRIT (test code=HCT) 30.7 % 36.0-46.0 MEAN CELL VOLUME (test code=MCV) 93.9 fL 80-98 MEAN CELL HGB (test code=MCH) 27.8 picogram 27.0-33.0 MEAN CELL HGB CONCETRATION (test code=MCHC) 29.6 gram/dL 33.0-36.0 RED CELL DISTRIBUTION WIDTH (test code=RDW) 21.0 % 11.6-16.2 RED CELL DISTRIBUTION WIDTH SD (test code=RDW-SD) 71.5 fL 37.0-51.0 PLATELET COUNT (test code=PLT) 243 K/mm3 150-450 MEAN PLATELET VOLUME (test code=MPV) 9.7 fL 6.7-11.0 NEUTROPHIL % (test code=NT%) 77.9 % 39.0-69.0 IMMATURE GRANULOCYTE % (test code=IG%) 2.0 % 0.0-5.0 LYMPHOCYTE % (test code=LY%) 15.0 % 25.0-55.0 MONOCYTE % (test code=MO%) 4.8 % 0.0-10.0 EOSINOPHIL % (test code=EO%) 0.1 % 0.0-5.0 BASOPHIL % (test code=BA%) 0.2 % 0.0-1.0 NUCLEATED RBC % (test code=NRBC%) 0.3 % 0-0 NEUTROPHIL # (test code=NT#) 13.59 K/mm3 1.8-7.7 IMMATURE GRANULOCYTE # (test code=IG#) 0.35 x10 3/uL 0-0.03 LYMPHOCYTE # (test code=LY#) 2.62 K/mm3 1.0-5.0 MONOCYTE # (test code=MO#) 0.84 K/mm3 0-0.8 EOSINOPHIL # (test code=EO#) 0.02 K/mm3 0.0-0.5 BASOPHIL # (test code=BA#) 0.03 K/mm3 0.0-0.2 NUCLEATED RBC # (test code=NRBC#) 0.05 K/mm3 0.0-0.1 MANUAL DIFF REQUIRED (test code=MDIFF) NO, ONLY SCAN NEEDED DIFFERENTIAL [id number] 05:52:00* Test Item Value Reference Range Comments STAIN ACCEPTABILITY (test code=STN ACCEPTABLE) CABOT RINGS (test code=CAB) MORPHOLOGY COMMENT (test code=MOC) PLATELET ESTIMATE (test code=PLTEST) PLATELET MORPHOLOGY (test code=PLTMORPH) BASIC METABOLIC [id number] 05:51:00* Test Item Value Reference Range Comments SODIUM (test code=NA) mmol/L 136-145 POTASSIUM (test code=K) mmol/L 3.5-5.1 CHLORIDE (test code=CL) mmol/L 98-107 CARBON DIOXIDE (test code=CO2) mmol/L 21-32 ANION GAP (test code=GAP) 10-20 GLUCOSE (test code=GLU) mg/dL 74-106 BLOOD UREA NITROGEN (test code=BUN) mg/dL 7-18 GLOMERULAR FILTRATION RATE (test code=GFR) mL/min >=60 CREATININE (test code=CREAT) mg/dL 0.55-1.02 BUN/CREATININE RATIO (test code=BUN/CREA) 10-20 CALCIUM (test code=CA) mg/dL 8.5-10.1 [id number] 05:51:00* Test Item Value Reference Range Comments PHOSPHORUS (test code=PHOS) mg/dL 2.5-4.9 [id number] 05:51:00* Test Item Value Reference Range Comments MAGNESIUM (test code=MAG) mg/dL 1.8-2.4 CALCIUM [id number] 05:51:00* Test Item Value Reference Range Comments CALCIUM IONIZED (test code=JULIETA) 1.02 mmol/L 1.12-1.32 CBC W/AUTO [id number] 01:56:00* Test Item Value Reference Range Comments WHITE BLOOD CELL (test code=WBC) 17.0 K/mm3 4.5-12.5 RED BLOOD CELL (test code=RBC) 3.38 mill/mm3 3.7-5.2 HEMOGLOBIN (test code=HGB) 9.4 gram/dL 11.5-15.5 HEMATOCRIT (test code=HCT) 31.1 % 36.0-46.0 MEAN CELL VOLUME (test code=MCV) 92.0 fL 80-98 MEAN CELL HGB (test code=MCH) 27.8 picogram 27.0-33.0 MEAN CELL HGB CONCETRATION (test code=MCHC) 30.2 gram/dL 33.0-36.0 RED CELL DISTRIBUTION WIDTH (test code=RDW) 21.2 % 11.6-16.2 RED CELL DISTRIBUTION WIDTH SD (test code=RDW-SD) 71.5 fL 37.0-51.0 PLATELET COUNT (test code=PLT) 268 K/mm3 150-450 MEAN PLATELET VOLUME (test code=MPV) 9.8 fL 6.7-11.0 NEUTROPHIL % (test code=NT%) 84.0 % 39.0-69.0 IMMATURE GRANULOCYTE % (test code=IG%) 2.2 % 0.0-5.0 LYMPHOCYTE % (test code=LY%) 9.7 % 25.0-55.0 MONOCYTE % (test code=MO%) 3.8 % 0.0-10.0 EOSINOPHIL % (test code=EO%) 0.1 % 0.0-5.0 BASOPHIL % (test code=BA%) 0.2 % 0.0-1.0 NUCLEATED RBC % (test code=NRBC%) 0.3 % 0-0 NEUTROPHIL # (test code=NT#) 14.25 K/mm3 1.8-7.7 IMMATURE GRANULOCYTE # (test code=IG#) 0.38 x10 3/uL 0-0.03 LYMPHOCYTE # (test code=LY#) 1.65 K/mm3 1.0-5.0 MONOCYTE # (test code=MO#) 0.65 K/mm3 0-0.8 EOSINOPHIL # (test code=EO#) 0.01 K/mm3 0.0-0.5 BASOPHIL # (test code=BA#) 0.03 K/mm3 0.0-0.2 NUCLEATED RBC # (test code=NRBC#) 0.05 K/mm3 0.0-0.1 MANUAL DIFF REQUIRED (test code=MDIFF) NO, ONLY SCAN NEEDED DIFFERENTIAL [id number] 01:56:00* Test Item Value Reference Range Comments STAIN ACCEPTABILITY (test code=STN ACCEPTABLE) STAIN ACCEPTABLE POLYCHROMASIA (test code=POLC) 1+ POIKILOCYTOSIS (test code=POIK) 2+ ANISOCYTOSIS (test code=ANISO) 1+ MACROCYTOSIS (test code=MACR) 1+ JASS CELLS (test code=JASS) 2+ NONE PLATELET ESTIMATE (test code=PLTEST) ADEQUATE PLATELET MORPHOLOGY (test code=PLTMORPH) NORMAL COMPREHENSIVE METABOLIC [id number] 01:15:00* Test Item Value Reference Range Comments SODIUM (test code=NA) 140 mmol/L 136-145 RESULT VERIFIED BY REPEAT ANALYSIS POTASSIUM (test code=K) 3.0 mmol/L 3.5-5.1 CHLORIDE (test code=CL) 110.0 mmol/L 98-107 CARBON DIOXIDE (test code=CO2) 14.0 mmol/L 21-32 ANION GAP (test code=GAP) 19.0 10-20 GLUCOSE (test code=GLU) 208 mg/dL 74-106 BLOOD UREA NITROGEN (test code=BUN) 17 mg/dL 7-18 GLOMERULAR FILTRATION RATE (test code=GFR) 32 mL/min >=60 Estimated GFR by using Modified MDRD formula.Chronic kidney disease is defined as either kidney damageor GFR <60 mL/min/1.73 m2 for >3 months. CREATININE (test code=CREAT) 1.70 mg/dL 0.55-1.02 Note change in reference range due to change in reagent. BUN/CREATININE RATIO (test code=BUN/CREA) 10.0 10-20 TOTAL PROTEIN (test code=PROT) 4.8 gram/dL 6.4-8.2 ALBUMIN (test code=ALB) 1.4 g/dL 3.4-5.0 GLOBULIN (test code=GLOB) 3.4 gram/dL 2.7-4.2 ALBUMIN/GLOBULIN RATIO (test code=A/G) 0.4 0.75-1.50 CALCIUM (test code=CA) 6.3 mg/dL 8.5-10.1 Results called to [id number] by [email or web address] 05/05/19 0114Critical results verified and read back by Nurse? Y BILIRUBIN TOTAL (test code=BILT) 0.40 mg/dL 0.0-1.0 SGOT/AST (test code=AST) 28 IUnit/L 15-37 SGPT/ALT (test code=ALT) 37 IUnit/L 12-78 ALKALINE PHOSPHATASE TOTAL (test code=ALKP) 300 IUnit/L 45-117 Note change in reference range due to change in reagent. [id number] 01:15:00* Test Item Value Reference Range Comments PHOSPHORUS (test code=PHOS) 2.8 mg/dL 2.5-4.9 [id number] 01:15:00* Test Item Value Reference Range Comments MAGNESIUM (test code=MAG) 1.4 mg/dL 1.8-2.4 CALCIUM [id number] 01:15:00* Test Item Value Reference Range Comments CALCIUM IONIZED (test code=JULIETA) 0.95 mmol/L 1.12-1.32 RESULT VERIFIED BY REPEAT ANALYSIS LACTIC [id number] 01:14:00* Test Item Value Reference Range Comments LACTIC ACID (test code=LACT) 5.7 mmol/L 0.4-1.9 Results called to [id number] by [email or web address] 05/05/19 0114Critical results verified and read back by Nurse? Y COMPREHENSIVE METABOLIC [id number] 01:04:00* Test Item Value Reference Range Comments SODIUM (test code=NA) mmol/L 136-145 POTASSIUM (test code=K) mmol/L 3.5-5.1 CHLORIDE (test code=CL) mmol/L 98-107 CARBON DIOXIDE (test code=CO2) mmol/L 21-32 ANION GAP (test code=GAP) 10-20 GLUCOSE (test code=GLU) mg/dL 74-106 BLOOD UREA NITROGEN (test code=BUN) mg/dL 7-18 GLOMERULAR FILTRATION RATE (test code=GFR) mL/min >=60 CREATININE (test code=CREAT) mg/dL 0.55-1.02 BUN/CREATININE RATIO (test code=BUN/CREA) 10-20 TOTAL PROTEIN (test code=PROT) gram/dL 6.4-8.2 ALBUMIN (test code=ALB) g/dL 3.4-5.0 GLOBULIN (test code=GLOB) gram/dL 2.7-4.2 ALBUMIN/GLOBULIN RATIO (test code=A/G) 0.75-1.50 CALCIUM (test code=CA) mg/dL 8.5-10.1 BILIRUBIN TOTAL (test code=BILT) mg/dL 0.0-1.0 SGOT/AST (test code=AST) IUnit/L 15-37 SGPT/ALT (test code=ALT) IUnit/L 12-78 ALKALINE PHOSPHATASE TOTAL (test code=ALKP) IUnit/L 45-117 [id number] 01:04:00* Test Item Value Reference Range Comments PHOSPHORUS (test code=PHOS) mg/dL 2.5-4.9 [id number] 01:04:00* Test Item Value Reference Range Comments MAGNESIUM (test code=MAG) mg/dL 1.8-2.4 CALCIUM [id number] 01:04:00* Test Item Value Reference Range Comments CALCIUM IONIZED (test code=JULIETA) 0.95 mmol/L 1.12-1.32 RESULT VERIFIED BY REPEAT ANALYSIS CBC W/AUTO [id number] 23:53:00* Test Item Value Reference Range Comments WHITE BLOOD CELL (test code=WBC) 17.0 K/mm3 4.5-12.5 RED BLOOD CELL (test code=RBC) 3.38 mill/mm3 3.7-5.2 HEMOGLOBIN (test code=HGB) 9.4 gram/dL 11.5-15.5 HEMATOCRIT (test code=HCT) 31.1 % 36.0-46.0 MEAN CELL VOLUME (test code=MCV) 92.0 fL 80-98 MEAN CELL HGB (test code=MCH) 27.8 picogram 27.0-33.0 MEAN CELL HGB CONCETRATION (test code=MCHC) 30.2 gram/dL 33.0-36.0 RED CELL DISTRIBUTION WIDTH (test code=RDW) 21.2 % 11.6-16.2 RED CELL DISTRIBUTION WIDTH SD (test code=RDW-SD) 71.5 fL 37.0-51.0 PLATELET COUNT (test code=PLT) 268 K/mm3 150-450 MEAN PLATELET VOLUME (test code=MPV) 9.8 fL 6.7-11.0 NEUTROPHIL % (test code=NT%) 84.0 % 39.0-69.0 IMMATURE GRANULOCYTE % (test code=IG%) 2.2 % 0.0-5.0 LYMPHOCYTE % (test code=LY%) 9.7 % 25.0-55.0 MONOCYTE % (test code=MO%) 3.8 % 0.0-10.0 EOSINOPHIL % (test code=EO%) 0.1 % 0.0-5.0 BASOPHIL % (test code=BA%) 0.2 % 0.0-1.0 NUCLEATED RBC % (test code=NRBC%) 0.3 % 0-0 NEUTROPHIL # (test code=NT#) 14.25 K/mm3 1.8-7.7 IMMATURE GRANULOCYTE # (test code=IG#) 0.38 x10 3/uL 0-0.03 LYMPHOCYTE # (test code=LY#) 1.65 K/mm3 1.0-5.0 MONOCYTE # (test code=MO#) 0.65 K/mm3 0-0.8 EOSINOPHIL # (test code=EO#) 0.01 K/mm3 0.0-0.5 BASOPHIL # (test code=BA#) 0.03 K/mm3 0.0-0.2 NUCLEATED RBC # (test code=NRBC#) 0.05 K/mm3 0.0-0.1 MANUAL DIFF REQUIRED (test code=MDIFF) NO, ONLY SCAN NEEDED DIFFERENTIAL [id number] 23:53:00* Test Item Value Reference Range Comments STAIN ACCEPTABILITY (test code=STN ACCEPTABLE) CABOT RINGS (test code=CAB) MORPHOLOGY COMMENT (test code=MOC) PLATELET ESTIMATE (test code=PLTEST) PLATELET MORPHOLOGY (test code=PLTMORPH) CBC W/AUTO [id number] 23:53:00* Test Item Value Reference Range Comments WHITE BLOOD CELL (test code=WBC) 17.0 K/mm3 4.5-12.5 RED BLOOD CELL (test code=RBC) 3.38 mill/mm3 3.7-5.2 HEMOGLOBIN (test code=HGB) 9.4 gram/dL 11.5-15.5 HEMATOCRIT (test code=HCT) 31.1 % 36.0-46.0 MEAN CELL VOLUME (test code=MCV) 92.0 fL 80-98 MEAN CELL HGB (test code=MCH) 27.8 picogram 27.0-33.0 MEAN CELL HGB CONCETRATION (test code=MCHC) 30.2 gram/dL 33.0-36.0 RED CELL DISTRIBUTION WIDTH (test code=RDW) 21.2 % 11.6-16.2 RED CELL DISTRIBUTION WIDTH SD (test code=RDW-SD) 71.5 fL 37.0-51.0 PLATELET COUNT (test code=PLT) 268 K/mm3 150-450 MEAN PLATELET VOLUME (test code=MPV) 9.8 fL 6.7-11.0 NEUTROPHIL % (test code=NT%) 84.0 % 39.0-69.0 IMMATURE GRANULOCYTE % (test code=IG%) 2.2 % 0.0-5.0 LYMPHOCYTE % (test code=LY%) 9.7 % 25.0-55.0 MONOCYTE % (test code=MO%) 3.8 % 0.0-10.0 EOSINOPHIL % (test code=EO%) 0.1 % 0.0-5.0 BASOPHIL % (test code=BA%) 0.2 % 0.0-1.0 NUCLEATED RBC % (test code=NRBC%) 0.3 % 0-0 NEUTROPHIL # (test code=NT#) 14.25 K/mm3 1.8-7.7 IMMATURE GRANULOCYTE # (test code=IG#) 0.38 x10 3/uL 0-0.03 LYMPHOCYTE # (test code=LY#) 1.65 K/mm3 1.0-5.0 MONOCYTE # (test code=MO#) 0.65 K/mm3 0-0.8 EOSINOPHIL # (test code=EO#) 0.01 K/mm3 0.0-0.5 BASOPHIL # (test code=BA#) 0.03 K/mm3 0.0-0.2 NUCLEATED RBC # (test code=NRBC#) 0.05 K/mm3 0.0-0.1 MANUAL DIFF REQUIRED (test code=MDIFF) NO, ONLY SCAN NEEDED DIFFERENTIAL [id number] 23:53:00* Test Item Value Reference Range Comments STAIN ACCEPTABILITY (test code=STN ACCEPTABLE) MORPHOLOGY COMMENT (test code=MOC) PLATELET ESTIMATE (test code=PLTEST) PLATELET MORPHOLOGY (test code=PLTMORPH) CBC W/AUTO [id number] 23:52:00* Test Item Value Reference Range Comments WHITE BLOOD CELL (test code=WBC) 17.0 K/mm3 4.5-12.5 RED BLOOD CELL (test code=RBC) 3.38 mill/mm3 3.7-5.2 HEMOGLOBIN (test code=HGB) 9.4 gram/dL 11.5-15.5 HEMATOCRIT (test code=HCT) 31.1 % 36.0-46.0 MEAN CELL VOLUME (test code=MCV) 92.0 fL 80-98 MEAN CELL HGB (test code=MCH) 27.8 picogram 27.0-33.0 MEAN CELL HGB CONCETRATION (test code=MCHC) 30.2 gram/dL 33.0-36.0 RED CELL DISTRIBUTION WIDTH (test code=RDW) 21.2 % 11.6-16.2 RED CELL DISTRIBUTION WIDTH SD (test code=RDW-SD) 71.5 fL 37.0-51.0 PLATELET COUNT (test code=PLT) 268 K/mm3 150-450 MEAN PLATELET VOLUME (test code=MPV) 9.8 fL 6.7-11.0 NEUTROPHIL % (test code=NT%) 84.0 % 39.0-69.0 IMMATURE GRANULOCYTE % (test code=IG%) 2.2 % 0.0-5.0 LYMPHOCYTE % (test code=LY%) 9.7 % 25.0-55.0 MONOCYTE % (test code=MO%) 3.8 % 0.0-10.0 EOSINOPHIL % (test code=EO%) 0.1 % 0.0-5.0 BASOPHIL % (test code=BA%) 0.2 % 0.0-1.0 NUCLEATED RBC % (test code=NRBC%) 0.3 % 0-0 NEUTROPHIL # (test code=NT#) 14.25 K/mm3 1.8-7.7 IMMATURE GRANULOCYTE # (test code=IG#) 0.38 x10 3/uL 0-0.03 LYMPHOCYTE # (test code=LY#) 1.65 K/mm3 1.0-5.0 MONOCYTE # (test code=MO#) 0.65 K/mm3 0-0.8 EOSINOPHIL # (test code=EO#) 0.01 K/mm3 0.0-0.5 BASOPHIL # (test code=BA#) 0.03 K/mm3 0.0-0.2 NUCLEATED RBC # (test code=NRBC#) 0.05 K/mm3 0.0-0.1 MANUAL DIFF REQUIRED (test code=MDIFF) NO, ONLY SCAN NEEDED DIFFERENTIAL [id number] 23:52:00* Test Item Value Reference Range Comments STAIN ACCEPTABILITY (test code=STN ACCEPTABLE) CABOT RINGS (test code=CAB) MORPHOLOGY COMMENT (test code=MOC) PLATELET ESTIMATE (test code=PLTEST) PLATELET MORPHOLOGY (test code=PLTMORPH) CBC W/AUTO [id number] 23:52:00* Test Item Value Reference Range Comments WHITE BLOOD CELL (test code=WBC) 17.0 K/mm3 4.5-12.5 RED BLOOD CELL (test code=RBC) 3.38 mill/mm3 3.7-5.2 HEMOGLOBIN (test code=HGB) 9.4 gram/dL 11.5-15.5 HEMATOCRIT (test code=HCT) 31.1 % 36.0-46.0 MEAN CELL VOLUME (test code=MCV) 92.0 fL 80-98 MEAN CELL HGB (test code=MCH) 27.8 picogram 27.0-33.0 MEAN CELL HGB CONCETRATION (test code=MCHC) 30.2 gram/dL 33.0-36.0 RED CELL DISTRIBUTION WIDTH (test code=RDW) 21.2 % 11.6-16.2 RED CELL DISTRIBUTION WIDTH SD (test code=RDW-SD) 71.5 fL 37.0-51.0 PLATELET COUNT (test code=PLT) 268 K/mm3 150-450 MEAN PLATELET VOLUME (test code=MPV) 9.8 fL 6.7-11.0 NEUTROPHIL % (test code=NT%) 84.0 % 39.0-69.0 IMMATURE GRANULOCYTE % (test code=IG%) 2.2 % 0.0-5.0 LYMPHOCYTE % (test code=LY%) 9.7 % 25.0-55.0 MONOCYTE % (test code=MO%) 3.8 % 0.0-10.0 EOSINOPHIL % (test code=EO%) 0.1 % 0.0-5.0 BASOPHIL % (test code=BA%) 0.2 % 0.0-1.0 NUCLEATED RBC % (test code=NRBC%) 0.3 % 0-0 NEUTROPHIL # (test code=NT#) 14.25 K/mm3 1.8-7.7 IMMATURE GRANULOCYTE # (test code=IG#) 0.38 x10 3/uL 0-0.03 LYMPHOCYTE # (test code=LY#) 1.65 K/mm3 1.0-5.0 MONOCYTE # (test code=MO#) 0.65 K/mm3 0-0.8 EOSINOPHIL # (test code=EO#) 0.01 K/mm3 0.0-0.5 BASOPHIL # (test code=BA#) 0.03 K/mm3 0.0-0.2 NUCLEATED RBC # (test code=NRBC#) 0.05 K/mm3 0.0-0.1 MANUAL DIFF REQUIRED (test code=MDIFF) NO, ONLY SCAN NEEDED DIFFERENTIAL [id number] 23:52:00* Test Item Value Reference Range Comments STAIN ACCEPTABILITY (test code=STN ACCEPTABLE) CABOT RINGS (test code=CAB) MORPHOLOGY COMMENT (test code=MOC) PLATELET ESTIMATE (test code=PLTEST) PLATELET MORPHOLOGY (test code=PLTMORPH) [id number] 23:16:00* Test Item Value Reference Range Comments GLUBED (test code=GLUBED) 202 mg/dL 74-106 Performed by certified tracing lathe set up operator at [facility] [id number] 23:16:00* Test Item Value Reference Range Comments GLUBED (test code=GLUBED) 129 mg/dL 74-106 Performed by certified tracing lathe set up operator at [facility] LACTIC [id number] 22:31:00* Test Item Value Reference Range Comments LACTIC ACID (test code=LACT) 5.8 mmol/L 0.4-1.9 Results called to [id number] by MOY 05/04/19 2231Critical results verified and read back by Nurse? Y - US ABDOMEN [id number] 18:51:00 Name: MARI HORVATH [facility] : 1975 Age/S: 44 / F Lamar Benjamin Unit #: [id number] Loc: [place] [address] Phys: Jayme Guillen MD Acct: [id number] Dis Date: Status: ADM IN PHONE #: [phone] Exam Date: 05/04/2019 181 FAX #: [phone] Reason: ARF,high lft EXAMS: CPT CODE: [id number] US ABDOMEN COMPLETE [id number] REASON FOR EXAM: ARF,high lft EXAM ORDER DATE: 05/04/2019 4:49 PM Attending MMeghan: Jayme Guillen MD PROCEDURE: - US ABDOMEN COMPLETE FINDINGS: The liver is unremarkable. There is no evidence of focal mass identified. The pancreas is obscured by bowel gas. The right kidney measures 10.5 x 4.9 cm. The left kidney measures 9.6 x 4.7 cm. There is no evidence of hydronephrosis. There is no evidence of nephrolithiasis. There is no evidence of renal mass. The spleen measures 11.8 cm. The patient is status post cholecystectomy.The common bile duct measures 0.5 cm. There is no evidence of ascites. The aorta and IVC were not visualized. The portal vein is patent with hepatopetal flow IMPRESSION: 2 cm right renal cyst. No acute findings in the abdomen at 1851 Reported and signed by: Cuauhtemoc Benjamin M.D. CC: Jayme Guillen Technologist: Areli Victoria RT(S), RD Trnscb Date/Time: 05/04/2019 (1850) Shelia Orig Print D/T: S: 05/04/2019 (1853) Probe: PAGE 1 Signed Report LACTIC [id number] 18:24:00* Test Item Value Reference Range Comments LACTIC ACID (test code=LACT) 5.3 mmol/L 0.4-1.9 Results called to [id number] by [facility] 05/04/19 1824Critical results verified and read back by Nurse? Y LACTIC [id number] 14:45:00* Test Item Value Reference Range Comments LACTIC ACID (test code=LACT) 4.5 mmol/L 0.4-1.9 Results called to [id number] by [facility] 05/04/19 1445Critical results verified and read back by Nurse? Y [id number] 11:17:00* Test Item Value Reference Range Comments GLUBED (test code=GLUBED) 93 mg/dL 74-106 Performed by certified tracing lathe set up operator at [facility] LACTIC [id number] 10:01:00* Test Item Value Reference Range Comments LACTIC ACID (test code=LACT) 4.2 mmol/L 0.4-1.9 Results called to [id number] by [facility].DRP 05/04/19 1001Critical results verified and read back by Nurse? Y CBC W/MANUAL [id number] 05:43:00* Test Item Value Reference Range Comments WHITE BLOOD CELL (test code=WBC) 13.2 K/mm3 4.5-12.5 RED BLOOD CELL (test code=RBC) 3.30 mill/mm3 3.7-5.2 HEMOGLOBIN (test code=HGB) 9.1 gram/dL 11.5-15.5 RESULT VERIFIED BY REPEAT ANALYSIS HEMATOCRIT (test code=HCT) 29.7 % 36.0-46.0 MEAN CELL VOLUME (test code=MCV) 90.0 fL 80-98 MEAN CELL HGB (test code=MCH) 27.6 picogram 27.0-33.0 MEAN CELL HGB CONCETRATION (test code=MCHC) 30.6 gram/dL 33.0-36.0 RED CELL DISTRIBUTION WIDTH (test code=RDW) 20.8 % 11.6-16.2 RED CELL DISTRIBUTION WIDTH SD (test code=RDW-SD) 67.0 fL 37.0-51.0 PLATELET COUNT (test code=PLT) 281 K/mm3 150-450 RESULT VERIFIED BY REPEAT ANALYSIS MEAN PLATELET VOLUME (test code=MPV) 10.2 fL 6.7-11.0 IMMATURE GRANULOCYTE % (test code=IG%) 6.4 % 0.0-5.0 "The appearance of immature granulocytes (myelocytes,pro-myelocytes, meta-myelocytes) in the peripheral blood ofnon- individuals can indicate a response toinfection, inflammation, or other stimulus to the bonemarrow" NUCLEATED RBC % (test code=NRBC%) 0.8 % 0-0 NEUTROPHIL # (test code=NT#) 11.06 K/mm3 1.8-7.7 IMMATURE GRANULOCYTE # (test code=IG#) 0.85 x10 3/uL 0-0.03 LYMPHOCYTE # (test code=LY#) 0.86 K/mm3 1.0-5.0 MONOCYTE # (test code=MO#) 0.37 K/mm3 0-0.8 EOSINOPHIL # (test code=EO#) 0.00 K/mm3 0.0-0.5 BASOPHIL # (test code=BA#) 0.05 K/mm3 0.0-0.2 NUCLEATED RBC # (test code=NRBC#) 0.11 K/mm3 0.0-0.1 MANUAL DIFF REQUIRED (test code=MDIFF) YES STAIN ACCEPTABILITY (test code=STN ACCEPTABLE) STAIN ACCEPTABLE TOTAL CELLS COUNTED (test code=TCC) 113 #CELLS SEGMENTED NEUTROPHILS (test code=SEG) 85.8 % 39-69 BAND NEUTROPHIL (test code=BAND) 1.8 % 0-10 LYMPHOCYTE (test code=LYMPH) 8.0 % 25-55 REACTIVE LYMPH (test code=RELYMPH) 0 % MONOCYTE (test code=MON) 1.8 % 0-10 EOSINOPHIL (test code=EOS) 0 % 0.0-5.0 BASOPHIL (test code=BASO) 0 % 0-1.0 METAMYELOCYTE (test code=META) 2.6 % 0-0 MYELOCYTE (test code=MYELO) 0 % 0.0-0.0 PROMYELOCYTE (test code=PROM) 0 % 0-0 POLYCHROMASIA (test code=POLC) 1+ POIKILOCYTOSIS (test code=POIK) 3+ ANISOCYTOSIS (test code=ANISO) 1+ MACROCYTOSIS (test code=MACR) 1+ HYPERSEGMENTED POLYS (test code=HYPP) 1+ PLATELET ESTIMATE (test code=PLTEST) ADEQUATE PLATELET MORPHOLOGY (test code=PLTMORPH) NORMAL IMMATURE FORMS (test code=IMMAT) 0 % 0-0 BASIC METABOLIC [id number] 04:37:00* Test Item Value Reference Range Comments SODIUM (test code=NA) 147 mmol/L 136-145 POTASSIUM (test code=K) 2.4 mmol/L 3.5-5.1 Results called to [id number] by [employer] 05/04/19 0437Critical results verified and read back by Nurse? Y CHLORIDE (test code=CL) 114.0 mmol/L 98-107 CARBON DIOXIDE (test code=CO2) 17.0 mmol/L 21-32 ANION GAP (test code=GAP) 18.4 10-20 GLUCOSE (test code=GLU) 205 mg/dL 74-106 BLOOD UREA NITROGEN (test code=BUN) 15 mg/dL 7-18 GLOMERULAR FILTRATION RATE (test code=GFR) 37 mL/min >=60 Estimated GFR by using Modified MDRD formula.Chronic kidney disease is defined as either kidney damageor GFR <60 mL/min/1.73 m2 for >3 months. CREATININE (test code=CREAT) 1.50 mg/dL 0.55-1.02 Note change in reference range due to change in reagent. BUN/CREATININE RATIO (test code=BUN/CREA) 10.1 10-20 CALCIUM (test code=CA) 6.6 mg/dL 8.5-10.1 [id number] 04:37:00* Test Item Value Reference Range Comments PHOSPHORUS (test code=PHOS) 3.5 mg/dL 2.5-4.9 [id number] 04:37:00* Test Item Value Reference Range Comments MAGNESIUM (test code=MAG) 1.5 mg/dL 1.8-2.4 LACTIC [id number] 04:36:00* Test Item Value Reference Range Comments LACTIC ACID (test code=LACT) 6.8 mmol/L 0.4-1.9 Results called to [id number] by [employer] 05/04/19 0432Critical results verified and read back by Nurse? Y [id number] 04:25:00* Test Item Value Reference Range Comments AMMONIA (test code=AMM) 40 umol/L 11-32 CBC W/MANUAL [id number] 04:22:00* Test Item Value Reference Range Comments WHITE BLOOD CELL (test code=WBC) 13.2 K/mm3 4.5-12.5 RED BLOOD CELL (test code=RBC) 3.30 mill/mm3 3.7-5.2 HEMOGLOBIN (test code=HGB) 9.1 gram/dL 11.5-15.5 RESULT VERIFIED BY REPEAT ANALYSIS HEMATOCRIT (test code=HCT) 29.7 % 36.0-46.0 MEAN CELL VOLUME (test code=MCV) 90.0 fL 80-98 MEAN CELL HGB (test code=MCH) 27.6 picogram 27.0-33.0 MEAN CELL HGB CONCETRATION (test code=MCHC) 30.6 gram/dL 33.0-36.0 RED CELL DISTRIBUTION WIDTH (test code=RDW) 20.8 % 11.6-16.2 RED CELL DISTRIBUTION WIDTH SD (test code=RDW-SD) 67.0 fL 37.0-51.0 PLATELET COUNT (test code=PLT) 281 K/mm3 150-450 RESULT VERIFIED BY REPEAT ANALYSIS MEAN PLATELET VOLUME (test code=MPV) 10.2 fL 6.7-11.0 IMMATURE GRANULOCYTE % (test code=IG%) 6.4 % 0.0-5.0 "The appearance of immature granulocytes (myelocytes,pro-myelocytes, meta-myelocytes) in the peripheral blood ofnon- individuals can indicate a response toinfection, inflammation, or other stimulus to the bonemarrow" NUCLEATED RBC % (test code=NRBC%) 0.8 % 0-0 NEUTROPHIL # (test code=NT#) 11.06 K/mm3 1.8-7.7 IMMATURE GRANULOCYTE # (test code=IG#) 0.85 x10 3/uL 0-0.03 LYMPHOCYTE # (test code=LY#) 0.86 K/mm3 1.0-5.0 MONOCYTE # (test code=MO#) 0.37 K/mm3 0-0.8 EOSINOPHIL # (test code=EO#) 0.00 K/mm3 0.0-0.5 BASOPHIL # (test code=BA#) 0.05 K/mm3 0.0-0.2 NUCLEATED RBC # (test code=NRBC#) 0.11 K/mm3 0.0-0.1 MANUAL DIFF REQUIRED (test code=MDIFF) YES STAIN ACCEPTABILITY (test code=STN ACCEPTABLE) TOTAL CELLS COUNTED (test code=TCC) #CELLS SEGMENTED NEUTROPHILS (test code=SEG) % 39-69 LYMPHOCYTE (test code=LYMPH) % 25-55 MONOCYTE (test code=MON) % 0-10 EOSINOPHIL (test code=EOS) % 0.0-5.0 CABOT RINGS (test code=CAB) MORPHOLOGY COMMENT (test code=MOC) PLATELET ESTIMATE (test code=PLTEST) PLATELET MORPHOLOGY (test code=PLTMORPH) CBC W/MANUAL [id number] 04:22:00* Test Item Value Reference Range Comments WHITE BLOOD CELL (test code=WBC) 13.2 K/mm3 4.5-12.5 RED BLOOD CELL (test code=RBC) 3.30 mill/mm3 3.7-5.2 HEMOGLOBIN (test code=HGB) 9.1 gram/dL 11.5-15.5 RESULT VERIFIED BY REPEAT ANALYSIS HEMATOCRIT (test code=HCT) 29.7 % 36.0-46.0 MEAN CELL VOLUME (test code=MCV) 90.0 fL 80-98 MEAN CELL HGB (test code=MCH) 27.6 picogram 27.0-33.0 MEAN CELL HGB CONCETRATION (test code=MCHC) 30.6 gram/dL 33.0-36.0 RED CELL DISTRIBUTION WIDTH (test code=RDW) 20.8 % 11.6-16.2 RED CELL DISTRIBUTION WIDTH SD (test code=RDW-SD) 67.0 fL 37.0-51.0 PLATELET COUNT (test code=PLT) 281 K/mm3 150-450 RESULT VERIFIED BY REPEAT ANALYSIS MEAN PLATELET VOLUME (test code=MPV) 10.2 fL 6.7-11.0 IMMATURE GRANULOCYTE % (test code=IG%) 6.4 % 0.0-5.0 "The appearance of immature granulocytes (myelocytes,pro-myelocytes, meta-myelocytes) in the peripheral blood ofnon- individuals can indicate a response toinfection, inflammation, or other stimulus to the bonemarrow" NUCLEATED RBC % (test code=NRBC%) 0.8 % 0-0 NEUTROPHIL # (test code=NT#) 11.06 K/mm3 1.8-7.7 IMMATURE GRANULOCYTE # (test code=IG#) 0.85 x10 3/uL 0-0.03 LYMPHOCYTE # (test code=LY#) 0.86 K/mm3 1.0-5.0 MONOCYTE # (test code=MO#) 0.37 K/mm3 0-0.8 EOSINOPHIL # (test code=EO#) 0.00 K/mm3 0.0-0.5 BASOPHIL # (test code=BA#) 0.05 K/mm3 0.0-0.2 NUCLEATED RBC # (test code=NRBC#) 0.11 K/mm3 0.0-0.1 MANUAL DIFF REQUIRED (test code=MDIFF) YES STAIN ACCEPTABILITY (test code=STN ACCEPTABLE) TOTAL CELLS COUNTED (test code=TCC) #CELLS SEGMENTED NEUTROPHILS (test code=SEG) % 39-69 LYMPHOCYTE (test code=LYMPH) % 25-55 MONOCYTE (test code=MON) % 0-10 EOSINOPHIL (test code=EOS) % 0.0-5.0 CABOT RINGS (test code=CAB) MORPHOLOGY COMMENT (test code=MOC) PLATELET ESTIMATE (test code=PLTEST) PLATELET MORPHOLOGY (test code=PLTMORPH) CBC W/MANUAL [id number] 04:22:00* Test Item Value Reference Range Comments WHITE BLOOD CELL (test code=WBC) 13.2 K/mm3 4.5-12.5 RED BLOOD CELL (test code=RBC) 3.30 mill/mm3 3.7-5.2 HEMOGLOBIN (test code=HGB) 9.1 gram/dL 11.5-15.5 RESULT VERIFIED BY REPEAT ANALYSIS HEMATOCRIT (test code=HCT) 29.7 % 36.0-46.0 MEAN CELL VOLUME (test code=MCV) 90.0 fL 80-98 MEAN CELL HGB (test code=MCH) 27.6 picogram 27.0-33.0 MEAN CELL HGB CONCETRATION (test code=MCHC) 30.6 gram/dL 33.0-36.0 RED CELL DISTRIBUTION WIDTH (test code=RDW) 20.8 % 11.6-16.2 RED CELL DISTRIBUTION WIDTH SD (test code=RDW-SD) 67.0 fL 37.0-51.0 PLATELET COUNT (test code=PLT) 281 K/mm3 150-450 RESULT VERIFIED BY REPEAT ANALYSIS MEAN PLATELET VOLUME (test code=MPV) 10.2 fL 6.7-11.0 IMMATURE GRANULOCYTE % (test code=IG%) 6.4 % 0.0-5.0 "The appearance of immature granulocytes (myelocytes,pro-myelocytes, meta-myelocytes) in the peripheral blood ofnon- individuals can indicate a response toinfection, inflammation, or other stimulus to the bonemarrow" NUCLEATED RBC % (test code=NRBC%) 0.8 % 0-0 NEUTROPHIL # (test code=NT#) 11.06 K/mm3 1.8-7.7 IMMATURE GRANULOCYTE # (test code=IG#) 0.85 x10 3/uL 0-0.03 LYMPHOCYTE # (test code=LY#) 0.86 K/mm3 1.0-5.0 MONOCYTE # (test code=MO#) 0.37 K/mm3 0-0.8 EOSINOPHIL # (test code=EO#) 0.00 K/mm3 0.0-0.5 BASOPHIL # (test code=BA#) 0.05 K/mm3 0.0-0.2 NUCLEATED RBC # (test code=NRBC#) 0.11 K/mm3 0.0-0.1 MANUAL DIFF REQUIRED (test code=MDIFF) YES STAIN ACCEPTABILITY (test code=STN ACCEPTABLE) TOTAL CELLS COUNTED (test code=TCC) #CELLS SEGMENTED NEUTROPHILS (test code=SEG) % 39-69 LYMPHOCYTE (test code=LYMPH) % 25-55 MONOCYTE (test code=MON) % 0-10 EOSINOPHIL (test code=EOS) % 0.0-5.0 MORPHOLOGY COMMENT (test code=MOC) PLATELET ESTIMATE (test code=PLTEST) PLATELET MORPHOLOGY (test code=PLTMORPH) CBC W/MANUAL [id number] 04:22:00* Test Item Value Reference Range Comments WHITE BLOOD CELL (test code=WBC) 13.2 K/mm3 4.5-12.5 RED BLOOD CELL (test code=RBC) 3.30 mill/mm3 3.7-5.2 HEMOGLOBIN (test code=HGB) 9.1 gram/dL 11.5-15.5 RESULT VERIFIED BY REPEAT ANALYSIS HEMATOCRIT (test code=HCT) 29.7 % 36.0-46.0 MEAN CELL VOLUME (test code=MCV) 90.0 fL 80-98 MEAN CELL HGB (test code=MCH) 27.6 picogram 27.0-33.0 MEAN CELL HGB CONCETRATION (test code=MCHC) 30.6 gram/dL 33.0-36.0 RED CELL DISTRIBUTION WIDTH (test code=RDW) 20.8 % 11.6-16.2 RED CELL DISTRIBUTION WIDTH SD (test code=RDW-SD) 67.0 fL 37.0-51.0 PLATELET COUNT (test code=PLT) 281 K/mm3 150-450 RESULT VERIFIED BY REPEAT ANALYSIS MEAN PLATELET VOLUME (test code=MPV) 10.2 fL 6.7-11.0 IMMATURE GRANULOCYTE % (test code=IG%) 6.4 % 0.0-5.0 "The appearance of immature granulocytes (myelocytes,pro-myelocytes, meta-myelocytes) in the peripheral blood ofnon- individuals can indicate a response toinfection, inflammation, or other stimulus to the bonemarrow" NUCLEATED RBC % (test code=NRBC%) 0.8 % 0-0 NEUTROPHIL # (test code=NT#) 11.06 K/mm3 1.8-7.7 IMMATURE GRANULOCYTE # (test code=IG#) 0.85 x10 3/uL 0-0.03 LYMPHOCYTE # (test code=LY#) 0.86 K/mm3 1.0-5.0 MONOCYTE # (test code=MO#) 0.37 K/mm3 0-0.8 EOSINOPHIL # (test code=EO#) 0.00 K/mm3 0.0-0.5 BASOPHIL # (test code=BA#) 0.05 K/mm3 0.0-0.2 NUCLEATED RBC # (test code=NRBC#) 0.11 K/mm3 0.0-0.1 MANUAL DIFF REQUIRED (test code=MDIFF) YES STAIN ACCEPTABILITY (test code=STN ACCEPTABLE) TOTAL CELLS COUNTED (test code=TCC) #CELLS SEGMENTED NEUTROPHILS (test code=SEG) % 39-69 LYMPHOCYTE (test code=LYMPH) % 25-55 MONOCYTE (test code=MON) % 0-10 MORPHOLOGY COMMENT (test code=MOC) PLATELET ESTIMATE (test code=PLTEST) PLATELET MORPHOLOGY (test code=PLTMORPH) CBC W/MANUAL [id number] 04:22:00* Test Item Value Reference Range Comments WHITE BLOOD CELL (test code=WBC) 13.2 K/mm3 4.5-12.5 RED BLOOD CELL (test code=RBC) 3.30 mill/mm3 3.7-5.2 HEMOGLOBIN (test code=HGB) 9.1 gram/dL 11.5-15.5 RESULT VERIFIED BY REPEAT ANALYSIS HEMATOCRIT (test code=HCT) 29.7 % 36.0-46.0 MEAN CELL VOLUME (test code=MCV) 90.0 fL 80-98 MEAN CELL HGB (test code=MCH) 27.6 picogram 27.0-33.0 MEAN CELL HGB CONCETRATION (test code=MCHC) 30.6 gram/dL 33.0-36.0 RED CELL DISTRIBUTION WIDTH (test code=RDW) 20.8 % 11.6-16.2 RED CELL DISTRIBUTION WIDTH SD (test code=RDW-SD) 67.0 fL 37.0-51.0 PLATELET COUNT (test code=PLT) 281 K/mm3 150-450 RESULT VERIFIED BY REPEAT ANALYSIS MEAN PLATELET VOLUME (test code=MPV) 10.2 fL 6.7-11.0 IMMATURE GRANULOCYTE % (test code=IG%) 6.4 % 0.0-5.0 "The appearance of immature granulocytes (myelocytes,pro-myelocytes, meta-myelocytes) in the peripheral blood ofnon- individuals can indicate a response toinfection, inflammation, or other stimulus to the bonemarrow" NUCLEATED RBC % (test code=NRBC%) 0.8 % 0-0 NEUTROPHIL # (test code=NT#) 11.06 K/mm3 1.8-7.7 IMMATURE GRANULOCYTE # (test code=IG#) 0.85 x10 3/uL 0-0.03 LYMPHOCYTE # (test code=LY#) 0.86 K/mm3 1.0-5.0 MONOCYTE # (test code=MO#) 0.37 K/mm3 0-0.8 EOSINOPHIL # (test code=EO#) 0.00 K/mm3 0.0-0.5 BASOPHIL # (test code=BA#) 0.05 K/mm3 0.0-0.2 NUCLEATED RBC # (test code=NRBC#) 0.11 K/mm3 0.0-0.1 MANUAL DIFF REQUIRED (test code=MDIFF) YES STAIN ACCEPTABILITY (test code=STN ACCEPTABLE) TOTAL CELLS COUNTED (test code=TCC) #CELLS SEGMENTED NEUTROPHILS (test code=SEG) % 39-69 LYMPHOCYTE (test code=LYMPH) % 25-55 MONOCYTE (test code=MON) % 0-10 EOSINOPHIL (test code=EOS) % 0.0-5.0 CABOT RINGS (test code=CAB) MORPHOLOGY COMMENT (test code=MOC) PLATELET ESTIMATE (test code=PLTEST) PLATELET MORPHOLOGY (test code=PLTMORPH) [id number] 03:35:00* Test Item Value Reference Range Comments GLUBED (test code=GLUBED) 221 mg/dL 74-106 Performed by certified tracing lathe set up operator at [facility] LACTIC [id number] 02:04:00* Test Item Value Reference Range Comments LACTIC ACID (test code=LACT) 9.3 mmol/L 0.4-1.9 Results called to [id number] by ULNA 05/04/19 0204Critical results verified and read back by Nurse? Y HCG SERUM [id number] 01:22:00* Test Item Value Reference Range Comments HCG SERUM QUAL (test code=HCGQL) NEGATIVE NEGATIVE This HCGQL test is NOT applicable for MALE patients.Check with nurse about probable order error.If Tumor Marker Test needed, nurse should order test "HCGTU"(Test #[id number]) URINALYSIS [id number] 01:15:00* Test Item Value Reference Range Comments UA COLOR (test code=COLU) YELLOW YELLOW UA APPEARANCE (test code=APPU) Cloudy CLEAR UA GLUCOSE DIPSTICK (test code=DGLUU) NEGATIVE mg/dL NEGATIVE UA BILIRUBIN DIPSTICK (test code=BILU) NEGATIVE mg/dL NEGATIVE UA KETONE DIPSTICK (test code=KETU) TRACE mg/dL NEGATIVE UA SPECIFIC GRAVITY (test code=SGU) 1.027 1.001-1.035 UA BLOOD DIPSTICK (test code=TAMMY) 0.03 mg/dL (Trace) mg/dL NEGATIVE UA PH DIPSTICK (test code=ANA) 5.5 5.0-8.0 UA PROTEIN DIPSTICK (test code=PROU) 50 (1+) mg/dL NEGATIVE UA UROBILINIOGEN DIPSTICK (test code=URO) 2.0 (1+) mg/dL NEGATIVE UA NITRITE DIPSTICK (test code=ANGEL) NEGATIVE NEGATIVE UA LEUKOCYTE ESTERASE W REFLEX (test code=LEUUR) 25 Eleazar/uL (Trace) Eleazar/uL NEGATIVE UA WBC (test code=WBCU) 11-20 per HPF 0-5 UA RBC (test code=RBCU) 11-20 #/HPF 0-5 UA WBC CLUMPS (test code=WBCUCL) 3-6 /HPF NONE UA EPITHELIAL CELLS (test code=EPIU) FEW per HPF FEW UA BACTERIA (test code=BACU) MANY #/HPF NONE UA HYALINE CAST (test code=HYALU) 3-5 #/LPF 0-5 UA MUCUS (test code=MUCU) FEW #/LPF FEW Urine Source? Clean Catch- XR CHEST 1 [id number] 00:25:00 FAX: Jeff Dennis DO [place]: [address] St: ADM Name: [facility] : [birth year] 71 Age/S: 44/F [address] [facility] Unit #: [id number] Loc: [place] [address] Phys: Jeff Dennis DO Acct: [id number] Dis Date: Status: ADM IN PHONE #: [phone] Exam Date: 05/03/2019 2323 FAX #: [phone] Reason: CODE SEPSIS EXAMS: CPT CODE: [id number] XR CHEST 1 V [id number] LOCATION: Q15 HISTORY: 44-year-old female, sepsis workup. COMMENT: A fro ntal chest radiograph was obtained at the bedside at 11:56 p.m., and julian red to study of August 05, 2018. The lungs are clear. The cardiac silhouette, jacky, and mediastinum are unremarkable. The pat ient is intubated. The endotracheal tube is above the nohemy at the level of the aortic arch. Nasogastric tube is well within the stomach. There is also a right-sided IJ central line seen with the tip located in the mid right atrium. If the location in the superior vena cava is alexander ired this tip should be pulled back 7 cm. IMPRESSION: There is no radiographic evidence of acute cardiopulmonary disease. The patient is status post adequate endotracheal intubation and nasogastric intubation. The right IJ central line tip is in the mid right atrium. The tip should be pulled back 7 cm. at 0025 Reported and signed by: Prabha Hobbs M.D. CC: Jeff Dennis DO Technologist: Radha Thompson Trnscrd Date/Time/By: 05/04/2019 (0025) : By: [email or web address] Orig Print D/T: S: 05/04/2019 (0028) PAGE 1 Signed Report ARTERIAL BLOOD [id number] 00:22:00* Test Item Value Reference Range Comments ARTERIAL BLOOD GAS PH (test code=PHA) 7.31 7.35-7.45 ARTERIAL BLOOD GAS PCO2 (test code=PCO2A) 30.3 mm Hg 35-45 ARTERIAL BLOOD GAS PO2 (test code=PO2A) 148.4 mmHg 80-100 BICARBONATE TOTAL HCO3 (test code=HCO3) 15.0 mmol/L 23.0-27.0 BASE EXCESS (test code=SUMMER) -10.0 mmol/L -3.0-5.0 Results called to and read back by Balbir 00:20 - 05/04/2019; by Morgan Barahona BAND EDGER-COBBLER UPPER ABG O2 SATURATION (test code=SATA) 98.4 % 90.0-98.0 ABG TYPE (test code=TYPEA) Arterial FIO2 (test code=FIO2A) 40.0 ABG L/M (test code=L/M) 50.00 L/MIN ABG VENT MODE (test code=MODEA) Assist Control ABG VENT RESP RATE (test code=RRA) 14.0 per min ABG TIDAL VOLUME (test code=TVA) 420.0 mL ABG PEEP (test code=PEEPA) 5.0 cmH2O ABG SITE (test code=SITEA) Rt RADIAL ARTERY MODIFIED ALLENS (test code=MODALL) Yes CHECK PERFORMED HEMATOCRIT (test code=HCT/ABG) 34 % 35-47 TOTAL HGB (test code=THB) 11.6 gram/dL 11.5-15.5 HGB O2 SAT (test code=HBOSAT) 97.9 % 94.00-98.00 CARBOXYHEMOGLOBIN (test code=HOHGBT) 0.3 %totalHg 0.5-1.5 Results called to and read back by Balbir 00:20 - 05/04/2019; by Morgan Barahona, BAND EDGER-COBBLER UPPER METHEMOGLOBIN (test code=METHGB) 0.2 % 0.0-1.50 O2 CONTENT (test code=O2CT) 16.3 % vol 18.0-22.0 - CT ABD PELVIS W/O [id number] 22:38:00 Name: MARI HORVATH [facility] : 1975 Age/S: 44 / F [address] [facility] Unit #: [id number] Loc: [facility] [place] [address] Phys: Jeff Dennis DO Acct: [id number] Dis Date: Status: REG ER PHONE #: [phone] Exam Date: 05/03/20193 FAX #: [phone] Reason: vomiting EXAMS: CPT CODE: [id number] CT ABD PELVIS W/O CONT [id number] REASON FOR EXAM: vomiting EXAM ORDER DATE: 05/03/2019 10:21 PM Ordering MMeghan: Jeff Dennis DO PROCEDURE: - CT ABD PELVIS W/O CONT COMPARISON: FINDINGS: CT images of the abdomen and pelvis were obtained without IV and without oral contrast at 5mm. Dose modulation, iterative reconstruction, and/or weight based adjustment of the MA/KV was utilized to reduce the radiation dose to as low as reasonably achievable. The liver, spleen, and pancreas are grossly within normal limits. The patient is status post cholecystectomy. An IVC filter noted The kidneys are within normal limits. The urinary bladder is partially contracted The colon, small bowel, and stomach are within normal limits without evidence of obstruction. The appendix is unremarkable No evidence of free air or free fluid. The uterus is unremarkable. IMPRESSION: No acute findings in the abdomen. at 2238 Reported and signed by: Cuauhtemoc Benjamin M.D. CC: Jeff Dennis DO Technologist:Paula Cooney RT(R); PRABHA Britton CTDI: DLP: Trnscb Date/Time: 05/03/2019 (2238) [email or web address] Orig Print D/T: S: 05/03/2019 (8444) PAGE 1 Signed Report - CT HEAD/BRAIN W/O [id number] 22:36:00 Name: MARI HORVATH [facility] : 1975 Age/S: 44 / F [address] [facility] Unit #: [id number] Loc: [place] [address] Phys: Jeff Dennis DO Acct: [id number] Dis Date: Status: REG ER PHONE #: [phone] Exam Date: 05/03/20192232 FAX #: [phone] Reason: ams EXAMS: CPT CODE: [id number] CT HEAD/BRAIN W/O CONT [id number] REASON FOR EXAM: ams EXAM ORDER DATE: 05/03/2019 9:46 PM Ordering Mita: Jeff Dennis DO PROCEDURE: - CT HEAD/BRAIN W/O CONT COMPARISON: 08-21 FINDINGS: CT images of the brain were obtained without IV contrast. Dose modulation, iterative reconstruction, and/or weight based adjustment of the MA/KV was utilized to reduce the radiation dose to as low as reasonably achievable. The brain parenchyma is within normal limits. The hauser-white matter delineation is unremarkable. The ventricles, cisterns, and sulci are unremarkable. There is no evidence of hemorrhage, mass, mass effect. There is no evidence of acute or old infarct. 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 No acute findings at 2236 Reported and signed by: Cuauhtemoc Benjamin M.D. CC: Jeff Dennis DO Technologist:Paula Cooney RT(R); PRABHA Britton CTDI: DLP: Trnscb Date/Time: 05/03/2019 (2236) [email or web address] Orig Print D/T: S: 05/03/2019 (9320) PAGE 1 Signed Report BASIC METABOLIC [id number] 22:29:00* Test Item Value Reference Range Comments SODIUM (test code=NA) 146 mmol/L 136-145 POTASSIUM (test code=K) 4.0 mmol/L 3.5-5.1 CHLORIDE (test code=CL) 110.0 mmol/L 98-107 CARBON DIOXIDE (test code=CO2) 17.0 mmol/L 21-32 ANION GAP (test code=GAP) 23.0 10-20 GLUCOSE (test code=GLU) 156 mg/dL 74-106 BLOOD UREA NITROGEN (test code=BUN) 17 mg/dL 7-18 GLOMERULAR FILTRATION RATE (test code=GFR) 28 mL/min >=60 Estimated GFR by using Modified MDRD formula.Chronic kidney disease is defined as either kidney damageor GFR <60 mL/min/1.73 m2 for >3 months. CREATININE (test code=CREAT) 1.90 mg/dL 0.55-1.02 Note change in reference range due to change in reagent. BUN/CREATININE RATIO (test code=BUN/CREA) 9.0 10-20 CALCIUM (test code=CA) 8.4 mg/dL 8.5-10.1 HEPATIC FUNCTION [id number] 22:29:00* Test Item Value Reference Range Comments TOTAL PROTEIN (test code=PROT) 7.0 gram/dL 6.4-8.2 ALBUMIN (test code=ALB) 2.0 g/dL 3.4-5.0 GLOBULIN (test code=GLOB) 5.0 gram/dL 2.7-4.2 ALBUMIN/GLOBULIN RATIO (test code=A/G) 0.4 0.75-1.50 BILIRUBIN TOTAL (test code=BILT) 0.50 mg/dL 0.0-1.0 BILIRUBIN DIRECT (test code=BILD) 0.31 mg/dL 0.0-0.20 SGOT/AST (test code=AST) 51 IUnit/L 15-37 SGPT/ALT (test code=ALT) 56 IUnit/L 12-78 ALKALINE PHOSPHATASE TOTAL (test code=ALKP) 439 IUnit/L 45-117 Note change in reference range due to change in reagent. [id number] 22:29:00* Test Item Value Reference Range Comments LIPASE (test code=LIP) 119 U/L 73.0-393.0 [id number] 22:29:00* Test Item Value Reference Range Comments TROPONIN-I (test code=TROPI) <0.015 ng/mL 0-0.045 LACTIC [id number] 22:18:00* Test Item Value Reference Range Comments LACTIC ACID (test code=LACT) 9.4 mmol/L 0.4-1.9 Results called to [id number] by JACQUELYN 05/03/19 2218Critical results verified and read back by Nurse? Y BASIC METABOLIC [id number] 22:16:00* Test Item Value Reference Range Comments SODIUM (test code=NA) 146 mmol/L 136-145 POTASSIUM (test code=K) 4.0 mmol/L 3.5-5.1 CHLORIDE (test code=CL) 110.0 mmol/L 98-107 CARBON DIOXIDE (test code=CO2) 17.0 mmol/L 21-32 ANION GAP (test code=GAP) 23.0 10-20 GLUCOSE (test code=GLU) 156 mg/dL 74-106 BLOOD UREA NITROGEN (test code=BUN) 17 mg/dL 7-18 GLOMERULAR FILTRATION RATE (test code=GFR) 28 mL/min >=60 Estimated GFR by using Modified MDRD formula.Chronic kidney disease is defined as either kidney damageor GFR <60 mL/min/1.73 m2 for >3 months. CREATININE (test code=CREAT) 1.90 mg/dL 0.55-1.02 Note change in reference range due to change in reagent. BUN/CREATININE RATIO (test code=BUN/CREA) 9.0 10-20 CALCIUM (test code=CA) 8.4 mg/dL 8.5-10.1 HEPATIC FUNCTION [id number] 22:16:00* Test Item Value Reference Range Comments TOTAL PROTEIN (test code=PROT) 7.0 gram/dL 6.4-8.2 ALBUMIN (test code=ALB) 2.0 g/dL 3.4-5.0 GLOBULIN (test code=GLOB) 5.0 gram/dL 2.7-4.2 ALBUMIN/GLOBULIN RATIO (test code=A/G) 0.4 0.75-1.50 BILIRUBIN TOTAL (test code=BILT) 0.50 mg/dL 0.0-1.0 BILIRUBIN DIRECT (test code=BILD) 0.31 mg/dL 0.0-0.20 SGOT/AST (test code=AST) IUnit/L 15-37 SGPT/ALT (test code=ALT) 56 IUnit/L 12-78 ALKALINE PHOSPHATASE TOTAL (test code=ALKP) 439 IUnit/L 45-117 Note change in reference range due to change in reagent. [id number] 22:16:00* Test Item Value Reference Range Comments LIPASE (test code=LIP) 119 U/L 73.0-393.0 [id number] 22:16:00* Test Item Value Reference Range Comments TROPONIN-I (test code=TROPI) <0.015 ng/mL 0-0.045 CBC W/MANUAL [id number] 22:10:00* Test Item Value Reference Range Comments WHITE BLOOD CELL (test code=WBC) 11.4 K/mm3 4.5-12.5 RED BLOOD CELL (test code=RBC) 4.46 mill/mm3 3.7-5.2 HEMOGLOBIN (test code=HGB) 12.0 gram/dL 11.5-15.5 HEMATOCRIT (test code=HCT) 39.9 % 36.0-46.0 MEAN CELL VOLUME (test code=MCV) 89.5 fL 80-98 MEAN CELL HGB (test code=MCH) 26.9 picogram 27.0-33.0 MEAN CELL HGB CONCETRATION (test code=MCHC) 30.1 gram/dL 33.0-36.0 RED CELL DISTRIBUTION WIDTH (test code=RDW) 20.7 % 11.6-16.2 RED CELL DISTRIBUTION WIDTH SD (test code=RDW-SD) 65.8 fL 37.0-51.0 PLATELET COUNT (test code=PLT) 402 K/mm3 150-450 MEAN PLATELET VOLUME (test code=MPV) 10.1 fL 6.7-11.0 IMMATURE GRANULOCYTE % (test code=IG%) 5.9 % 0.0-5.0 "The appearance of immature granulocytes (myelocytes,pro-myelocytes, meta-myelocytes) in the peripheral blood ofnon- individuals can indicate a response toinfection, inflammation, or other stimulus to the bonemarrow" NUCLEATED RBC % (test code=NRBC%) 1.3 % 0-0 NEUTROPHIL # (test code=NT#) 8.26 K/mm3 1.8-7.7 IMMATURE GRANULOCYTE # (test code=IG#) 0.67 x10 3/uL 0-0.03 LYMPHOCYTE # (test code=LY#) 1.82 K/mm3 1.0-5.0 MONOCYTE # (test code=MO#) 0.55 K/mm3 0-0.8 EOSINOPHIL # (test code=EO#) 0.01 K/mm3 0.0-0.5 BASOPHIL # (test code=BA#) 0.07 K/mm3 0.0-0.2 NUCLEATED RBC # (test code=NRBC#) 0.15 K/mm3 0.0-0.1 MANUAL DIFF REQUIRED (test code=MDIFF) YES STAIN ACCEPTABILITY (test code=STN ACCEPTABLE) STAIN ACCEPTABLE TOTAL CELLS COUNTED (test code=TCC) 112 #CELLS SEGMENTED NEUTROPHILS (test code=SEG) 70.5 % 39-69 BAND NEUTROPHIL (test code=BAND) 0.9 % 0-10 LYMPHOCYTE (test code=LYMPH) 13.4 % 25-55 REACTIVE LYMPH (test code=RELYMPH) 0 % MONOCYTE (test code=MON) 10.7 % 0-10 EOSINOPHIL (test code=EOS) 0 % 0.0-5.0 BASOPHIL (test code=BASO) 0 % 0-1.0 METAMYELOCYTE (test code=META) 0.9 % 0-0 MYELOCYTE (test code=MYELO) 3.6 % 0.0-0.0 PROMYELOCYTE (test code=PROM) 0 % 0-0 POIKILOCYTOSIS (test code=POIK) 3+ ANISOCYTOSIS (test code=ANISO) 2+ MACROCYTOSIS (test code=MACR) 2+ CRENATED CELLS (test code=CREN) 3+ PLATELET ESTIMATE (test code=PLTEST) ADEQUATE PLATELET MORPHOLOGY (test code=PLTMORPH) NORMAL IMMATURE FORMS (test code=IMMAT) 0 % 0-0 PROCALCITONIN (PCT)[id number] 21:57:00* Test Item Value Reference Range Comments PROCALCITONIN (PCT) (test code=PROCAL) 39.33 ng/ml Concentration Interpretation (ng/mL) <0.51 Sepsis is not likely. Local bacterial infection is possible. (LOW RISK for progression to Sepsis) 0.51 - 2.00 Sepsis is possible, but other conditions are known to elevate PCT as well. (MODERATE RISK for progression to Sepsis) > 2.00 Sepsis is likely, unless other causes are known. (HIGH RISK for progression to Severe Sepsis or Septic Shock) 10.00 High likelihood of Severe Sepsis or Septic or higher Shock. *Increased PCT levels may not always be related to systemic bacterial infection.*Low PCT levels do not automatically exclude the presence of bacterial infection.*All results should be interpreted taking into account the patients history. PROTHROMBIN [id number] 21:47:00* Test Item Value Reference Range Comments PROTHROMBIN TIME PATIENT (test code=PTP) 24.0 seconds 9.0-14.0 INTERNATIONAL NORMAL RATIO (test code=INR) 2.1 0.8-1.2 The therapeutic range for oral anticoagulant therapy formost indications is an international normalized ratio (INR)of between 2.0 and 3.0. The recommended therapeutic INRrange for various clinical situations is listed below: Clinical Situation INR range Pulmonary e mbolism treatment (2.0-3.0)Venous thrombosis treatmentVenous thrombosis prophylaxis (high risk surgery)Prevention of systemic embolism from: Acute myocardial infarction Valvular heart disease Atrial fibrillation Mechanical prosthetic heart valves (2.5-3.5) IS PATIENT ON ANTICOAGULANTS? NTHROMBOPLASTIN TIME [id number] 21:47:00* Test Item Value Reference Range Comments THROMBOPLASTIN TIME PARTIAL (test code=PTT) 36.7 seconds 25.0-36.5 IS PATIENT ON ANTICOAGULANTS? NBASIC METABOLIC [id number] 21:42:00* Test Item Value Reference Range Comments SODIUM (test code=NA) 146 mmol/L 136-145 POTASSIUM (test code=K) 4.0 mmol/L 3.5-5.1 CHLORIDE (test code=CL) 110.0 mmol/L 98-107 CARBON DIOXIDE (test code=CO2) mmol/L 21-32 ANION GAP (test code=GAP) 10-20 GLUCOSE (test code=GLU) mg/dL 74-106 BLOOD UREA NITROGEN (test code=BUN) mg/dL 7-18 GLOMERULAR FILTRATION RATE (test code=GFR) mL/min >=60 CREATININE (test code=CREAT) mg/dL 0.55-1.02 BUN/CREATININE RATIO (test code=BUN/CREA) 10-20 CALCIUM (test code=CA) mg/dL 8.5-10.1 HEPATIC FUNCTION [id number] 21:42:00* Test Item Value Reference Range Comments TOTAL PROTEIN (test code=PROT) gram/dL 6.4-8.2 ALBUMIN (test code=ALB) g/dL 3.4-5.0 GLOBULIN (test code=GLOB) gram/dL 2.7-4.2 ALBUMIN/GLOBULIN RATIO (test code=A/G) 0.75-1.50 BILIRUBIN TOTAL (test code=BILT) mg/dL 0.0-1.0 BILIRUBIN DIRECT (test code=BILD) mg/dL 0.0-0.20 SGOT/AST (test code=AST) IUnit/L 15-37 SGPT/ALT (test code=ALT) IUnit/L 12-78 ALKALINE PHOSPHATASE TOTAL (test code=ALKP) IUnit/L 45-117 [id number] 21:42:00* Test Item Value Reference Range Comments LIPASE (test code=LIP) U/L 73.0-393.0 [id number] 21:42:00* Test Item Value Reference Range Comments TROPONIN-I (test code=TROPI) ng/mL 0-0.045 CBC W/MANUAL [id number] 21:34:00* Test Item Value Reference Range Comments WHITE BLOOD CELL (test code=WBC) 11.4 K/mm3 4.5-12.5 RED BLOOD CELL (test code=RBC) 4.46 mill/mm3 3.7-5.2 HEMOGLOBIN (test code=HGB) 12.0 gram/dL 11.5-15.5 HEMATOCRIT (test code=HCT) 39.9 % 36.0-46.0 MEAN CELL VOLUME (test code=MCV) 89.5 fL 80-98 MEAN CELL HGB (test code=MCH) 26.9 picogram 27.0-33.0 MEAN CELL HGB CONCETRATION (test code=MCHC) 30.1 gram/dL 33.0-36.0 RED CELL DISTRIBUTION WIDTH (test code=RDW) 20.7 % 11.6-16.2 RED CELL DISTRIBUTION WIDTH SD (test code=RDW-SD) 65.8 fL 37.0-51.0 PLATELET COUNT (test code=PLT) 402 K/mm3 150-450 MEAN PLATELET VOLUME (test code=MPV) 10.1 fL 6.7-11.0 IMMATURE GRANULOCYTE % (test code=IG%) 5.9 % 0.0-5.0 "The appearance of immature granulocytes (myelocytes,pro-myelocytes, meta-myelocytes) in the peripheral blood ofnon- individuals can indicate a response toinfection, inflammation, or other stimulus to the bonemarrow" NUCLEATED RBC % (test code=NRBC%) 1.3 % 0-0 NEUTROPHIL # (test code=NT#) 8.26 K/mm3 1.8-7.7 IMMATURE GRANULOCYTE # (test code=IG#) 0.67 x10 3/uL 0-0.03 LYMPHOCYTE # (test code=LY#) 1.82 K/mm3 1.0-5.0 MONOCYTE # (test code=MO#) 0.55 K/mm3 0-0.8 EOSINOPHIL # (test code=EO#) 0.01 K/mm3 0.0-0.5 BASOPHIL # (test code=BA#) 0.07 K/mm3 0.0-0.2 NUCLEATED RBC # (test code=NRBC#) 0.15 K/mm3 0.0-0.1 MANUAL DIFF REQUIRED (test code=MDIFF) YES STAIN ACCEPTABILITY (test code=STN ACCEPTABLE) TOTAL CELLS COUNTED (test code=TCC) #CELLS SEGMENTED NEUTROPHILS (test code=SEG) % 39-69 LYMPHOCYTE (test code=LYMPH) % 25-55 MONOCYTE (test code=MON) % 0-10 MORPHOLOGY COMMENT (test code=MOC) PLATELET ESTIMATE (test code=PLTEST) PLATELET MORPHOLOGY (test code=PLTMORPH) CBC W/MANUAL [id number] 21:28:00* Test Item Value Reference Range Comments WHITE BLOOD CELL (test code=WBC) 11.4 K/mm3 4.5-12.5 RED BLOOD CELL (test code=RBC) 4.46 mill/mm3 3.7-5.2 HEMOGLOBIN (test code=HGB) 12.0 gram/dL 11.5-15.5 HEMATOCRIT (test code=HCT) 39.9 % 36.0-46.0 MEAN CELL VOLUME (test code=MCV) 89.5 fL 80-98 MEAN CELL HGB (test code=MCH) 26.9 picogram 27.0-33.0 MEAN CELL HGB CONCETRATION (test code=MCHC) 30.1 gram/dL 33.0-36.0 RED CELL DISTRIBUTION WIDTH (test code=RDW) 20.7 % 11.6-16.2 RED CELL DISTRIBUTION WIDTH SD (test code=RDW-SD) 65.8 fL 37.0-51.0 PLATELET COUNT (test code=PLT) 402 K/mm3 150-450 MEAN PLATELET VOLUME (test code=MPV) 10.1 fL 6.7-11.0 IMMATURE GRANULOCYTE % (test code=IG%) 5.9 % 0.0-5.0 "The appearance of immature granulocytes (myelocytes,pro-myelocytes, meta-myelocytes) in the peripheral blood ofnon- individuals can indicate a response toinfection, inflammation, or other stimulus to the bonemarrow" NUCLEATED RBC % (test code=NRBC%) 1.3 % 0-0 NEUTROPHIL # (test code=NT#) 8.26 K/mm3 1.8-7.7 IMMATURE GRANULOCYTE # (test code=IG#) 0.67 x10 3/uL 0-0.03 LYMPHOCYTE # (test code=LY#) 1.82 K/mm3 1.0-5.0 MONOCYTE # (test code=MO#) 0.55 K/mm3 0-0.8 EOSINOPHIL # (test code=EO#) 0.01 K/mm3 0.0-0.5 BASOPHIL # (test code=BA#) 0.07 K/mm3 0.0-0.2 NUCLEATED RBC # (test code=NRBC#) 0.15 K/mm3 0.0-0.1 MANUAL DIFF REQUIRED (test code=MDIFF) YES STAIN ACCEPTABILITY (test code=STN ACCEPTABLE) TOTAL CELLS COUNTED (test code=TCC) #CELLS SEGMENTED NEUTROPHILS (test code=SEG) % 39-69 LYMPHOCYTE (test code=LYMPH) % 25-55 MONOCYTE (test code=MON) % 0-10 EOSINOPHIL (test code=EOS) % 0.0-5.0 CABOT RINGS (test code=CAB) MORPHOLOGY COMMENT (test code=MOC) PLATELET ESTIMATE (test code=PLTEST) PLATELET MORPHOLOGY (test code=PLTMORPH) CBC W/MANUAL [id number] 21:28:00* Test Item Value Reference Range Comments WHITE BLOOD CELL (test code=WBC) 11.4 K/mm3 4.5-12.5 RED BLOOD CELL (test code=RBC) 4.46 mill/mm3 3.7-5.2 HEMOGLOBIN (test code=HGB) 12.0 gram/dL 11.5-15.5 HEMATOCRIT (test code=HCT) 39.9 % 36.0-46.0 MEAN CELL VOLUME (test code=MCV) 89.5 fL 80-98 MEAN CELL HGB (test code=MCH) 26.9 picogram 27.0-33.0 MEAN CELL HGB CONCETRATION (test code=MCHC) 30.1 gram/dL 33.0-36.0 RED CELL DISTRIBUTION WIDTH (test code=RDW) 20.7 % 11.6-16.2 RED CELL DISTRIBUTION WIDTH SD (test code=RDW-SD) 65.8 fL 37.0-51.0 PLATELET COUNT (test code=PLT) 402 K/mm3 150-450 MEAN PLATELET VOLUME (test code=MPV) 10.1 fL 6.7-11.0 IMMATURE GRANULOCYTE % (test code=IG%) 5.9 % 0.0-5.0 "The appearance of immature granulocytes (myelocytes,pro-myelocytes, meta-myelocytes) in the peripheral blood ofnon- individuals can indicate a response toinfection, inflammation, or other stimulus to the bonemarrow" NUCLEATED RBC % (test code=NRBC%) 1.3 % 0-0 NEUTROPHIL # (test code=NT#) 8.26 K/mm3 1.8-7.7 IMMATURE GRANULOCYTE # (test code=IG#) 0.67 x10 3/uL 0-0.03 LYMPHOCYTE # (test code=LY#) 1.82 K/mm3 1.0-5.0 MONOCYTE # (test code=MO#) 0.55 K/mm3 0-0.8 EOSINOPHIL # (test code=EO#) 0.01 K/mm3 0.0-0.5 BASOPHIL # (test code=BA#) 0.07 K/mm3 0.0-0.2 NUCLEATED RBC # (test code=NRBC#) 0.15 K/mm3 0.0-0.1 MANUAL DIFF REQUIRED (test code=MDIFF) YES STAIN ACCEPTABILITY (test code=STN ACCEPTABLE) TOTAL CELLS COUNTED (test code=TCC) #CELLS SEGMENTED NEUTROPHILS (test code=SEG) % 39-69 LYMPHOCYTE (test code=LYMPH) % 25-55 MONOCYTE (test code=MON) % 0-10 EOSINOPHIL (test code=EOS) % 0.0-5.0 CABOT RINGS (test code=CAB) MORPHOLOGY COMMENT (test code=MOC) PLATELET ESTIMATE (test code=PLTEST) PLATELET MORPHOLOGY (test code=PLTMORPH) CBC W/MANUAL [id number] 21:28:00* Test Item Value Reference Range Comments WHITE BLOOD CELL (test code=WBC) 11.4 K/mm3 4.5-12.5 RED BLOOD CELL (test code=RBC) 4.46 mill/mm3 3.7-5.2 HEMOGLOBIN (test code=HGB) 12.0 gram/dL 11.5-15.5 HEMATOCRIT (test code=HCT) 39.9 % 36.0-46.0 MEAN CELL VOLUME (test code=MCV) 89.5 fL 80-98 MEAN CELL HGB (test code=MCH) 26.9 picogram 27.0-33.0 MEAN CELL HGB CONCETRATION (test code=MCHC) 30.1 gram/dL 33.0-36.0 RED CELL DISTRIBUTION WIDTH (test code=RDW) 20.7 % 11.6-16.2 RED CELL DISTRIBUTION WIDTH SD (test code=RDW-SD) 65.8 fL 37.0-51.0 PLATELET COUNT (test code=PLT) 402 K/mm3 150-450 MEAN PLATELET VOLUME (test code=MPV) 10.1 fL 6.7-11.0 IMMATURE GRANULOCYTE % (test code=IG%) 5.9 % 0.0-5.0 "The appearance of immature granulocytes (myelocytes,pro-myelocytes, meta-myelocytes) in the peripheral blood ofnon- individuals can indicate a response toinfection, inflammation, or other stimulus to the bonemarrow" NUCLEATED RBC % (test code=NRBC%) 1.3 % 0-0 NEUTROPHIL # (test code=NT#) 8.26 K/mm3 1.8-7.7 IMMATURE GRANULOCYTE # (test code=IG#) 0.67 x10 3/uL 0-0.03 LYMPHOCYTE # (test code=LY#) 1.82 K/mm3 1.0-5.0 MONOCYTE # (test code=MO#) 0.55 K/mm3 0-0.8 EOSINOPHIL # (test code=EO#) 0.01 K/mm3 0.0-0.5 BASOPHIL # (test code=BA#) 0.07 K/mm3 0.0-0.2 NUCLEATED RBC # (test code=NRBC#) 0.15 K/mm3 0.0-0.1 MANUAL DIFF REQUIRED (test code=MDIFF) YES STAIN ACCEPTABILITY (test code=STN ACCEPTABLE) TOTAL CELLS COUNTED (test code=TCC) #CELLS SEGMENTED NEUTROPHILS (test code=SEG) % 39-69 LYMPHOCYTE (test code=LYMPH) % 25-55 MONOCYTE (test code=MON) % 0-10 EOSINOPHIL (test code=EOS) % 0.0-5.0 MORPHOLOGY COMMENT (test code=MOC) PLATELET ESTIMATE (test code=PLTEST) PLATELET MORPHOLOGY (test code=PLTMORPH) CBC W/MANUAL [id number] 21:28:00* Test Item Value Reference Range Comments WHITE BLOOD CELL (test code=WBC) 11.4 K/mm3 4.5-12.5 RED BLOOD CELL (test code=RBC) 4.46 mill/mm3 3.7-5.2 HEMOGLOBIN (test code=HGB) 12.0 gram/dL 11.5-15.5 HEMATOCRIT (test code=HCT) 39.9 % 36.0-46.0 MEAN CELL VOLUME (test code=MCV) 89.5 fL 80-98 MEAN CELL HGB (test code=MCH) 26.9 picogram 27.0-33.0 MEAN CELL HGB CONCETRATION (test code=MCHC) 30.1 gram/dL 33.0-36.0 RED CELL DISTRIBUTION WIDTH (test code=RDW) 20.7 % 11.6-16.2 RED CELL DISTRIBUTION WIDTH SD (test code=RDW-SD) 65.8 fL 37.0-51.0 PLATELET COUNT (test code=PLT) 402 K/mm3 150-450 MEAN PLATELET VOLUME (test code=MPV) 10.1 fL 6.7-11.0 IMMATURE GRANULOCYTE % (test code=IG%) 5.9 % 0.0-5.0 "The appearance of immature granulocytes (myelocytes,pro-myelocytes, meta-myelocytes) in the peripheral blood ofnon- individuals can indicate a response toinfection, inflammation, or other stimulus to the bonemarrow" NUCLEATED RBC % (test code=NRBC%) 1.3 % 0-0 NEUTROPHIL # (test code=NT#) 8.26 K/mm3 1.8-7.7 IMMATURE GRANULOCYTE # (test code=IG#) 0.67 x10 3/uL 0-0.03 LYMPHOCYTE # (test code=LY#) 1.82 K/mm3 1.0-5.0 MONOCYTE # (test code=MO#) 0.55 K/mm3 0-0.8 EOSINOPHIL # (test code=EO#) 0.01 K/mm3 0.0-0.5 BASOPHIL # (test code=BA#) 0.07 K/mm3 0.0-0.2 NUCLEATED RBC # (test code=NRBC#) 0.15 K/mm3 0.0-0.1 MANUAL DIFF REQUIRED (test code=MDIFF) YES STAIN ACCEPTABILITY (test code=STN ACCEPTABLE) TOTAL CELLS COUNTED (test code=TCC) #CELLS SEGMENTED NEUTROPHILS (test code=SEG) % 39-69 LYMPHOCYTE (test code=LYMPH) % 25-55 MONOCYTE (test code=MON) % 0-10 EOSINOPHIL (test code=EOS) % 0.0-5.0 CABOT RINGS (test code=CAB) MORPHOLOGY COMMENT (test code=MOC) PLATELET ESTIMATE (test code=PLTEST) PLATELET MORPHOLOGY (test code=PLTMORPH) [id number] 11:04:00 RUN DATE: 05/06/18 [facility] PAGE 1 RUN TIME: 1104 Specimen Inqui ry RUN USER: INTERFACE PATIENT: MARI HORVATH ACCT #: V [id number] LOC: SATYA U #: [id number] AGE/SX: 43/F ROOM: [facility] RE04/21/18REG DR: Jayme Guillen MD : 71 BED: A DIS: STATUS: ADM IN TLOC: SPEC #: [id number] RECD: 05/05/18 STATUS: TAMMI REQ #: [id number] LUZ: 05/05/18- SUBM DR: Kelly Silver MD ENTERED: 05/05/18 SP TYPE: DEVICE OTHR DR: Krysta Chavira DPM, Daniel Haryanto MD Goldstein, Steven S MD Goldsmith, William DO Jeroudi,Ahmad M MD Shebib,Zaher MDORDERED: COPIES TO: RahelrandallChuy DPM [address] [place] [address] Nando Mccray MD [address] [place] [address] Kelly Silver MD [address] [place] [address] [place] [address] [place] [address] Bakari Ruelas DO [address] [place] [address] Viviana Raya MD [address] [place] [address] Gaby Valenzuela MD [address] [place] [address] CONTINUED ON NEXT PAGE ------ ------RUN DATE: 05/06/18 [facility] PAGE 2 RUN TIME: 1104 Specimen Inquiry RUN USER: INTERFACE SPEC #: [id number] PATIENT: YULIETMARI URIAS #[id number] (Continued) COPIES TO: (Vcdvirtst) PROCEDURES: GROSS (05/05/18-1237) TISSUES: NO TISSUE - GASTR IC BAND CLINICAL HISTORY COLLECTION DATE: 05/05/18 ERODED GASTRIC BAND, ANEMIA FINAL DIAGNOSIS Gastric band, removal: PLASTIC S YNTHETIC MATERIAL FOR GROSS IDENTIFICATION MILLY/sm D [id number] MAC ROSCOPIC The specimen is received fresh labeled with the patient's name and i dentified as "gastric band". It consists of a tenorio-brown to black plastic synt hetic material with attached suture. The plastic material measures 3.5 cm in length by 0.4 cm in diameter. The attached blue suture measures 2.1 cm in catrachito gth by less than 0.1 cm in diameter. The specimen is for gross identification only. GROSS PERFORMED AT [facility] [address] [place] [address] [phone])[phone] PERFORMING SI TE Diagnosis performed at: [place] [facility] [place] [address] [place], [place] [id number] Si gned SIGNATURE ON FILE Diana Cobb 05/06/18 1104 END OF REPORT
[2019-08-08] MEDS ORDERED: PANTOPRAZOLE 40 MG 10ML VIAL IV STA (12:37)
[2019-08-08] MEDS ORDERED: ONDANSETRON HCL INJ 2MG/ML 2ML 2 MG/ML VIAL IV STA (12:37)
[2019-08-08] MEDS ORDERED: SODIUM CHLORIDE 0.9% 1000ML 1,000 ML IV STA (12:37)
[2019-08-08] MEDS ORDERED: MORPHINE SULFATE 2 MG/ML SYR 1ML IV STA (12:37)
[2019-08-08] MEDS ORDERED: SODIUM CHLORIDE 0.9% 1000ML 1,000 ML IV SCH (12:44)
--- NOTE | 2019-08-08 14:16 | Diagnostic Imaging Report ---
EXAM: Right upper quadrant abdominal ultrasound INDICATION: Abdominal pain COMPARISON: CT abdomen pelvis of 06/16/2015 (images not available for comparison) TECHNIQUE: Transverse and longitudinal images of the right upper quadrant abdomen were obtained FINDINGS: Liver: Size: 11.7 cm in the right midclavicular line, normal Appearance: Normal echogenicity, nodular contour Mass: No focal masses Gallbladder: Status post cholecystectomy. Bile Ducts: Intrahepatic Ducts: No dilatation Extrahepatic Ducts: Common bile duct measures 5 mm, no dilatation Pancreas: Visualized portions of the pancreatic head, neck and proximal body are normal. Kidney: The right kidney measures 8.2 cm without evidence of hydronephrosis or stone. Vessels: Aorta: Visualized portions are normal Inferior Vena Cava: Visualized portions are normal Main Portal Vein: 0.7 cm. Free Fluid: Trace abdominal ascites. IMPRESSION: Status post cholecystectomy. Mildly nodular liver surface contour can be seen with cirrhosis. Trace abdominal ascites, insufficient for paracentesis. Signed by: Inocencio Velazquez MD on 08/08/2019 2:12 PM
[2019-08-08 15:08] LABS: BILIRUBIN,URINE SMALL (NEGATIVE); CLARITY,URINE SL CLOUDY (CLEAR); KETONES,URINE TRACE (NEGATIVE); LEUKOCYTE ESTERASE ,URINE NEGATIVE (NEGATIVE); NITRITE,URINE NEGATIVE (NEGATIVE); PROTEIN,URINE DIPSTICK TRACE (NEGATIVE); URINE UROBILINOGEN 0.2 mg/dL (0.2 - 1)
[2019-08-08 15:10] LABS: COLOR,URINE STRAW (YELLOW)
--- NOTE | 2019-08-08 15:16 | Diagnostic Imaging Report ---
EXAMINATION: CHEST SINGLE (PORTABLE) INDICATION: Weakness, nausea, vomiting COMPARISON: None FINDINGS: LINES/TUBES:EKG leads overlie the chest. LUNGS:The lungs are moderately inflated. No focal consolidation or pulmonary edema. PLEURA:No pleural effusion or pneumothorax. MEDIASTINUM:The cardiomediastinal silhouette appears normal in size and shape. BONES/SOFT TISSUES:No acute osseous injury. ABDOMEN:No free air under the diaphragm. IMPRESSION: No focal pneumonia or pulmonary edema. Signed by: Inocencio Velazquez MD on 08/08/2019 3:12 PM
[2019-08-08 15:17] LABS: BASOPHILS % 0.1 % (0.0-1.0); HEMATOCRIT 31.5 % (34.2-44.1); HEMOGLOBIN 9.8 g/dL (12.0-16.0); LYMPHOCYTES # (AUTO) 0.9 (1.0-3.2); LYMPHOCYTES % 10.3 % (18.0-39.1); MEAN CORPUSCULAR HEMOGLOBIN 27.8 pg (28-32); MEAN CORPUSCULAR HGB CONC 31.1 g/dL (31-35); MEAN CORPUSCULAR VOLUME 89.5 fL (81-99); MONOCYTES # (AUTO) 0.4 (0.2-0.8); MONOCYTES % 4.2 % (4.4-11.3); NEUTROPHILS # (AUTO) 7.3 (2.1-6.9); NEUTROPHILS % 84.6 % (38.7-80.0); PLATELET COUNT 264 x10e3/uL (140-360); RED BLOOD COUNT 3.52 x10e6/uL (3.6-5.1); RED CELL DISTRIBUTION WIDTH 21.6 % (11.7-14.4)
[2019-08-08 15:21] LABS: AMORPHOUS SEDIMENT,URINE MODERATE (FEW); BACTERIA,URINE MODERATE /HPF; EPITHELIAL CELLS,URINE MODERATE /LPF
[2019-08-08 15:27] LABS: INR 2.58; PROTHROMBIN TIME 28.4 seconds (11.9-14.5)
[2019-08-08 15:28] LABS: PARTIAL THROMBOPLASTIN TIME 33.7 seconds (23.8-35.5)
[2019-08-08 15:36] LABS: ALANINE AMINOTRANSFERASE 16 IU/L (0-55); ALBUMIN 1.8 g/dL (3.5-5.0); ALBUMIN/GLOBULIN RATIO 0.5 (0.8-2.0); ALKALINE PHOSPHATASE 179 IU/L (40-150); ANION GAP 15.2 mmol/L (8-16); BLOOD UREA NITROGEN 10 mg/dL (7-26); BUN/CREATININE RATIO 13 (6-25); CALCIUM 7.7 mg/dL (8.4-10.2); CARBON DIOXIDE 17 mmol/L (22-29); CHLORIDE 118 mmol/L (98-107); CREATINE KINASE 27 IU/L (29-168); CREATININE, SERUM 0.77 mg/dL (0.57-1.11); EST GLOMERULAR FILTRATION RATE > 60 ML/MIN (60-); GLUCOSE 116 mg/dL (74-118); LIPASE 28 U/L (8-78); POTASSIUM 3.2 mmol/L (3.5-5.1); SODIUM 147 mmol/L (136-145)
[2019-08-08 15:40] LABS: B-TYPE NATRIURETIC PEPTIDE2 106.3 pg/mL (0-100)
[2019-08-08 15:56] LABS: THYROID STIMULATING HORMONE 4.026 uIU/mL (0.350-4.940)
[2019-08-08 16:50] VITALS: BP 109/61
[2019-08-08] MEDS ORDERED: SODIUM CHLORIDE 0.9% 1000ML 1,000 ML ONE (17:10)
[2019-08-08] MEDS: MORPHINE SULFATE 2 MG/ML SYR 1ML IV PRN ×2 (17:24→21:06)
[2019-08-08] MEDS: ONDANSETRON HCL INJ 2MG/ML 2ML 2 MG/ML VIAL IV PRN (17:24)
[2019-08-08 18:16] VITALS: BP 109/61
[2019-08-08 18:35] VITALS: BP 109/61
--- NOTE | 2019-08-08 18:56 | Diagnostic Imaging Report ---
CT Abdomen And Pelvis with Intravenous Contrast INDICATION: Nausea, vomiting ^ABD PAIN ^[id number] ^1735 ^Y TECHNIQUE: Thin collimation axial images obtained from the diaphragm to the level of the pubic symphysis following the uneventful administration of 100 cc of low osmolar, nonionic intravenous contrast. Dose reduction techniques used: Automated exposure control, adjustment of the mAs and/or kVp according to patient size, standardized low-dose protocol, and/or iterative reconstruction technique. RADIATION DOSE: Total DLP: 520.6 mGy*cm Estimated effective dose: (DLP x 0.015 x size factor) mSv CTDIvol has been reviewed. It is below the limits set by the Radiation Protocol Committee (RPC). COMPARISON: Right upper quadrant ultrasound 1330 hours, CT abdomen/pelvis 11/16/2014 and 06/16/2015. ABDOMEN FINDINGS: Lung Bases: Stable eventration of the right diaphragm. There are bilateral pleural effusions layering posterior measuring 1.9 cm on the right and left. No mass or infiltrate in the visualized lung bases. Visualized portion of the mediastinum is normal. Liver: Severe steatosis has developed. By CT, a cirrhotic morphology is not visible.. At the inferior aspect of the right lobe is geographic increased attenuation. There is a somewhat nodular component at the medial aspect measuring 2.2 cm (image 30). Portal vein: Cavernous transformation is redemonstrated Biliary tree: The common bile duct measures 8 mm and comes to a tight taper at the ampulla. Previously, the common bile duct measured 5 mm. No intrahepatic biliary ductal dilatation. Gallbladder: Absent. Pancreas: Diffuse calcifications suggestive of chronic pancreatitis. At the inferior head of the pancreas is a heterogeneously enhancing mass measuring 2.2 x 2.5 cm. This is new. The pancreas duct is not dilated. SMA: Patent. No evidence of involvement by the pancreas mass. SMV: Patent. There is a tissue plane visible between the pancreas mass and the vessel. Spleen: Normal in size. No evidence of mass. The splenic vein is chronically thrombosed. This is stable. Adrenal Glands: No evidence for mass. Kidneys: Right: Normal enhancement. Low attenuating lesions in the upper pole are stable and suggestive of cysts. No hydronephrosis. Left: Normal enhancement. No soft tissue mass. No hydronephrosis. Lymph Nodes: No enlarged lymph nodes in the tiana hepatis or surrounding the aorta. Aorta: Normal in diameter. Multiple varices are redemonstrated in the left upper quadrant. PELVIS FINDINGS: Bowel: Stomach: Stable postoperative changes. The stomach is not dilated.. Small Bowel: Normal in caliber with normal wall thickness. Large Bowel: Diffusely collapsed with mild circumferential mural thickening but no significant pericolonic inflammation. No diverticula are appreciated.. Appendix: Normal appendix. Bladder: Underdistended but otherwise normal. The uterus is present and normal in morphology. No adnexal mass. Peritoneum/retroperitoneum: Small amount of abdominopelvic ascites. No loculated fluid collection. Lymph nodes: No enlarged mesenteric, pelvic, or inguinal lymph nodes. Bones: Diffusely demineralized. Impression deformity of L3 of at least 75%. Mild posterior cortical bowing into the spinal canal. Stable compression deformities of T11, T12, and L1. Soft tissues: Mild subcutaneous edema. IMPRESSION: 1. New severe steatosis. Nodular enhancing area in the medial aspect of the right lobe may be the result of mass or fatty sparing. 2. Suspected mass in the pancreas head without pancreas ductal dilatation or vascular involvement. Chronic pancreatitis. 3. 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 4. Status post cholecystectomy. Increasing common bile duct dilatation. No intrahepatic biliary ductal dilatation. 5. Mild anasarca. 6. New compression deformity of L3 as described above. 7. Diffuse colon wall thickening is suggestive of colitis but there are no secondary signs of inflammation. No bowel obstruction. Signed by: Dr. Rohan Espinal MD on 08/08/2019 6:52 PM
[2019-08-08] MEDS ORDERED: IOPAMIDOL 370 MG/ML 200 ML INFUS..BTL INJ ONE (19:19)
[2019-08-08 19:30] VITALS: BP 120/81
[2019-08-08 23:30] VITALS: BP 107/76
[2019-08-09] VITALS (9 sets, daily range): BP systolic 105–120; BP diastolic 65–78
[2019-08-09] MEDS: MORPHINE SULFATE 2 MG/ML SYR 1ML IV PRN ×4 (02:03→22:56)
[2019-08-09 06:08] LABS: BASOPHILS % 0.3 % (0.0-1.0); EOSINOPHILS # (AUTO) 0.2 (0.0-0.4); EOSINOPHILS % 2.9 % (0.0-6.0); HEMATOCRIT 32.6 % (34.2-44.1); HEMOGLOBIN 10.1 g/dL (12.0-16.0); LYMPHOCYTES # (AUTO) 1.7 (1.0-3.2); LYMPHOCYTES % 22.7 % (18.0-39.1); MEAN CORPUSCULAR HEMOGLOBIN 28.1 pg (28-32); MEAN CORPUSCULAR VOLUME 90.6 fL (81-99); MONOCYTES # (AUTO) 0.4 (0.2-0.8); MONOCYTES % 5.6 % (4.4-11.3); NEUTROPHILS # (AUTO) 4.9 (2.1-6.9); NEUTROPHILS % 67.3 % (38.7-80.0); PLATELET COUNT 259 x10e3/uL (140-360); RED CELL DISTRIBUTION WIDTH 22.2 % (11.7-14.4)
[2019-08-09 06:34] LABS: ALANINE AMINOTRANSFERASE 14 IU/L (0-55); ALBUMIN 1.8 g/dL (3.5-5.0); ALBUMIN/GLOBULIN RATIO 0.5 (0.8-2.0); ALKALINE PHOSPHATASE 187 IU/L (40-150); ANION GAP 14.6 mmol/L (8-16); BILIRUBIN,DIRECT 0.4 mg/dL (0.0-0.5); BLOOD UREA NITROGEN 11 mg/dL (7-26); BUN/CREATININE RATIO 14 (6-25); CALCIUM 7.7 mg/dL (8.4-10.2); CARBON DIOXIDE 19 mmol/L (22-29); CHLORIDE 118 mmol/L (98-107); EST GLOMERULAR FILTRATION RATE > 60 ML/MIN (60-); GLUCOSE 103 mg/dL (74-118); LIPASE 26 U/L (8-78); SODIUM 149 mmol/L (136-145)
[2019-08-09 06:44] LABS: POTASSIUM 2.6 mmol/L (3.5-5.1)
[2019-08-09] MEDS: POTASSIUM CHL IV SCH ×2 (09:30→18:42)
[2019-08-09] MEDS: DEXTROSE IV SCH ×2 (09:30→18:42)
[2019-08-09] MEDS: SOD CHL IV SCH ×2 (09:30→18:42)
[2019-08-09] MEDS ORDERED: SODIUM CHLORIDE 0.9% 100 ML ONE (12:50)
[2019-08-09] MEDS ORDERED: GADOBENATE DIMEGLUMINE 1 ML IV ONE (12:50)
--- NOTE | 2019-08-09 16:59 | Diagnostic Imaging Report ---
History: ^Pancreatic mass ^Y Comparison: CT abdomen/pelvis 08/08/2019 and 06/16/2015. Technique: Multiplanar, multisequence images of the abdomen were. 3D volume rendered reformation images of the biliary tree were performed. No intravenous contrast was administered. Findings: All pulse sequences are motion degraded. MRCP: The central intrahepatic ducts are distended. The proximal right intrahepatic duct measures 7 mm. The proximal left intrahepatic duct measures 7 mm. No beading or narrowing. The common hepatic duct measures 7 mm. The common bile duct measures 5 mm in diameter. The distal common bile duct measures 3 to 4 mm and appears circumferentially narrowed on 3-D images. The distal most common bile duct measures 3 mm. There are no intraluminal filling defects. The cystic duct is visualized and appears normal. Pancreas duct: Not dilated. Gallbladder: Absent Liver: Severe steatosis. Calculated hepatic fat fraction is 33.6%. The right lobe measures 18 cm in craniocaudal dimension. No discrete mass is identified. Spleen: Measures 10 mm. No mass. Pancreas: The calcifications identified on CT within the parenchyma are poorly visualized by MRI. There is a ground soft tissue mass in the inferior head/uncinate measuring 2.0 x 1.9 cm. This is best visualized on the gradient echo sequences. It is poorly visualized on the T2 sequence. Diffusion sequences are nondiagnostic due to motion. The pancreas duct is not dilated. Kidneys: No hydronephrosis. There are multiple cysts in the right kidney measuring up to 12 mm. Adrenal glands: No mass Lymph nodes: No lymph nodes in the tiana hepatis or surrounding the aorta. Bowel: There are postoperative changes of the stomach but there is no conclusive evidence of Erica-en-Y bypass. The stomach is collapsed. The visualized small bowel is normal in diameter with normal wall thickness. Mural edema of the large bowel is redemonstrated. No dilatation. Peritoneum/Retroperitoneum: There is diffuse abdominal ascites, small in amount. No loculated fluid collections. Vasculature: IVC filter is present with the tip at the confluence of the renal veins. The aorta is normal in diameter. Multiple right upper quadrant varices are poorly visualized. Lung bases: Posterior layering pleural effusions are similar in size. Bones: Compression deformity of L3. There appears to be increased signal within the vertebral body suggestive of acuity. Soft tissues: Diffuse subcutaneous edema. IMPRESSION: 1. Severely compromised examination due to motion degradation and the absence of intravenous contrast. 2. The suspected mass in the pancreas head/uncinate is poorly visualized by MRI. CT of the pancreas is recommended for further characterization. 3. Postoperative changes of the stomach. Based on the surgery, endoscopic ultrasound may be possible to evaluate the pancreas. 4. Severe steatosis. No MRI evidence of hepatic mass. 5. Anasarca. 6. Subacute compression fracture of L3. 4. Large bowel wall thickening suggestive of colitis. Thank you for your referral. Signed by: Dr. Rohan Espinal MD on 08/09/2019 4:55 PM
[2019-08-09] MEDS: CLONAZEPAM 1 MG TAB PO SCH (17:00)
--- NOTE | 2019-08-09 17:41 | History and Physical ---
ADDENDUM: DIAGNOSIS: L3 fracture, for which reason we are going to call Orthopedic Surgery and also because of that we are going to order a serum protein electrophoresis. We are going to also consult Dr. Iraheta for Hematology because the globulins are elevated. Pain control of course with morphine as needed because of new L3 fracture. Also, she has portal vein thrombosis also, which is going to be evaluated by Hematology also. Continue n.p.o. Continue IV fluids. MD MARCO Foster/ALBA /[id number]
--- NOTE | 2019-08-09 17:51 | History and Physical ---
HISTORY OF PRESENT ILLNESS: She is a 44-year-old female with past medical history positive for left CVA with right hemiplegia and history of seizure disorder. The patient came to the clinic complaining of vomiting and abdominal pain, admitted to the hospital. REVIEW OF SYSTEMS: CARDIOVASCULAR: No chest pain or palpitation. RESPIRATORY: No shortness of breath. No cough. GASTROINTESTINAL: She has nausea and abdominal pain. No diarrhea. GENITOURINARY: No frequency or dysuria. ALLERGIES: SHE IS ALLERGIC TO PENICILLIN, EFFEXOR, KETOROLAC, AND LATEX. PAST MEDICAL HISTORY: Positive for left CVA with right hemiplegia and coma, seizure disorder, also. SOCIAL HISTORY: She smokes. She drinks occasionally. PHYSICAL EXAMINATION: VITAL SIGNS: The blood pressure is 111/70, temperature 97.8, heart rate 97 per minute, respiratory rate is 12 per minute, and oxygen saturation 98%. HEART: Showed regular rhythm. Normal S1 and S2 sound. LUNGS: Clear bilaterally. ABDOMEN: Soft. Mild tenderness in the left lower quadrant. LABORATORY DATA: On the CMP with sodium of 149, potassium 2.6, chloride 118, CO2 19, BUN 11, creatinine 0.80, and glucose 103. Lactic acid 1.2. Calcium 7.7. Total bilirubin 0.5, direct bilirubin 0.4, AST 37, ALT 14, and alkaline phosphatase 187. Beta natriuretic peptide 106.3. Total protein 5.8 and albumin 1.8. Globulin is elevated at 4.0. Lipase normal 26. On the CBC; white blood count 7.32, hemoglobin 10.1, hematocrit 32.6, and platelet count 259,000. We did a CT of the abdomen and pelvis, which showed the followin. New severe steatosis, area in the medial aspect of the right lobe may be result of a mass or fatty sparing. 2. Suspect a mass in the pancreas here without pancreatic ductal dilatation or vascular involvement. Chronic pancreatitis. 3. 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 4. Status post cholecystectomy, increasing common bile dilatation. No intrahepatic biliary ductal dilatation. 5. Mild anasarca. 6. New compression fracture L3 as described above. 7. Diffuse colon wall thickening suggestive of colitis, but there are no secondary signs of inflammation. No bowel obstruction. FINAL IMPRESSION: 1. Abdominal pain. 2. Vomiting. 3. Colitis. 4. Hypokalemia. 5. Seizure disorder. 6. Fatty liver. 7. Chronic pancreatitis. 8. Splenic vein thrombosis. 9. Pancreatic mass. PLAN OF TREATMENT: Gastroenterology consult with Dr. Evans per family request. Continue IV fluids. We are going to order an MRI of the abdomen to get a better picture of the pancreas and the liver. In the meantime, continue D5 half-normal saline at 100 mL an hour and 40 mEq of potassium. We are going to recheck the BMP today. Continue clonazepam 1 mg twice a day as needed for anxiety. Continue morphine 2 mg IV every 4 hours as needed for severe pain. Protonix has been given one time, trazodone 150 mg at bedtime, Zofran 4 mg IV q.4 hours as needed for nausea and vomiting. Continue Keppra 500 mg daily and escitalopram 40 mg daily. Diet as tolerated. We are going to wait for input from the Gastroenterology of course. I am going to recheck the potassium and magnesium levels also. MD MARCO Foster/ALBA /[id number]
[2019-08-09] MEDS: TRAZODONE HCL 50 MG TAB PO SCH (21:00)
[2019-08-10] VITALS (7 sets, daily range): BP systolic 115–133; BP diastolic 73–102
--- NOTE | 2019-08-10 00:08 | Consultation ---
DATE OF CONSULTATION: 08/09/2019 REASON FOR CONSULTATION: L3 compression fracture. HISTORY OF PRESENT ILLNESS: This patient is a 44-year-old female with a significant history of multiple hemorrhagic strokes, who is recently admitted for recurrent complaints of nausea, vomiting, and intractable abdominal pain. The patient has expressive aphasia secondary to her hemorrhagic stroke. Thus, current history of present illness is obtained from the . The patient states that the patient has had multiple recent hospitalizations for abdominal pain and nausea and vomiting. She also was recently hospitalized secondary to pneumonia. He states that she originally had a hemorrhagic stroke in 1998. She had a second hemorrhagic stroke in 2016 with aphasia. She typically uses a wheelchair, sometimes she is able to pivot on the left side with assistance. He states she has not had any recent falls or injuries. When discussing the symptoms with the patient, she points to the majority of her pain being in the right lower quadrant. She denies any significant back pain. She denies any pain radiating to the legs. PAST MEDICAL HISTORY: Multiple hemorrhagic strokes with right-sided hemiparesis, history of craniotomy, and pancreatitis. SOCIAL HISTORY: Denies smoking or drinking. ALLERGIES: NSAIDS, PENICILLIN, AND LATEX. PHYSICAL EXAMINATION: GENERAL: This is a well-nourished patient, who is in mild distress. She is somewhat weepy about her symptoms. She exhibits expressive aphasia and has difficulty answering questions appropriately, examination is somewhat limited due to this. EXTREMITIES: She has flexion contractures in the right wrist and elbow of the right upper extremity. There is no midline tenderness to palpation in the lumbar spine, though this is somewhat limited due to the patient's current habitus in abdominal pain and she has painless passive range of motion in both hips. IMAGING: There is a CT scan of the abdomen, which shows an insufficiency compression fracture of L3 with roughly 75% loss of height. There does not appear any significant retropulsion. She also has chronic compression fractures of T11, T12 and L1. ASSESSMENT AND PLAN: This is a 44-year-old female with an insufficiency compression fracture of L3. The findings were discussed with the patient's . Given her current disposition and extreme limited mobility secondary to multiple hemorrhagic strokes, I would not recommend any aggressive measures. Certainly, I would not recommend kyphoplasty or vertebroplasty. I will recommend mobilizing with physical therapy as tolerated and analgesics as needed. No further inpatient orthopedic intervention is anticipated at this time. Thank you for the consultation. Bryce Smith MD DR/ALBA /[id number]
--- NOTE | 2019-08-10 02:34 | Consultation ---
DATE OF CONSULTATION: 08/09/2019 HISTORY OF PRESENT ILLNESS: This is a 44-year-old, who presented to the hospital because of abdominal pain along with some nausea and vomiting. The patient apparently has no bleeding. Her workup shows that she is anemic. Hemoglobin is 10.1. She also has low potassiums. Lipase is normal. PT is 28.4 with an INR of 2.58. She had a CAT scan of the abdomen and pelvis. It shows fatty liver with some nodularity. Bile duct measures about 8 mm. Absent gallbladder. Evidence of chronic pancreatitis and also 2.2 x 2.5 cm mass in the head of the pancreas that was seen. She had an ultrasound, which also shows post cholecystectomy and mild nodular liver, questionable cirrhosis. She did have an MRI, which showed fatty liver and thickening of the colon. PAST MEDICAL HISTORY: Significant for history of CVA with right hemiplegia and history of chronic pancreatitis, possible history of hepatitis, and also history of gastric bypass and seizures. ALLERGIES: PENICILLIN, EFFEXOR, KETOROLAC, AND LATEX. SOCIAL HISTORY: No alcohol use. FAMILY HISTORY: Noncontributory. REVIEW OF SYSTEMS: At this point, denies any chest pain or shortness of breath. Denies any dysphagia, odynophagia. Denies any dysuria, hematuria, or any kind of syncopal episode. PHYSICAL EXAMINATION: GENERAL: Awake, alert, appears to be stable. VITAL SIGNS: Afebrile. HEAD, EYES, EARS, NOSE, AND THROAT: Normocephalic, atraumatic. Sclerae are anicteric. NECK: Supple. HEART: Regular. ABDOMEN: Soft. There is some tenderness mainly in the epigastric area. There is no rebound or mass. EXTREMITIES: No cyanosis. No clubbing. LAB VALUES: Today WBC of 7.32, hemoglobin 10.1, hematocrit 32.6. Potassium 2.6 earlier. Liver enzymes normal. Lipase 26. PT 28.4, INR 2.58. CAT scan and ultrasound, as mentioned before. IMPRESSION: 1. Abdominal pain, nausea and vomiting. 2. Chronic pancreatitis with possible mass in the pancreas. 3. Possible cirrhosis. RECOMMENDATION: Continue current care at this point, with IV fluid hydration. Agree with getting a tumor marker. The patient is going to have an EGD with endoscopic ultrasound to look at the pancreas, status post pancreatic mass when coagulopathy stays corrected. Follow labs and clinically. MD HOA Marte/ALBA /[id number] cc: MD Jayme Duarte MD
[2019-08-10] MEDS: DEXTROSE IV SCH ×2 (03:22→12:55)
[2019-08-10] MEDS: POTASSIUM CHL IV SCH ×2 (03:22→12:55)
[2019-08-10] MEDS: SOD CHL IV SCH ×2 (03:22→12:55)
[2019-08-10 07:26] LABS: ANION GAP 11.1 mmol/L (8-16); BLOOD UREA NITROGEN 12 mg/dL (7-26); BUN/CREATININE RATIO 14 (6-25); CALCIUM 7.7 mg/dL (8.4-10.2); CARBON DIOXIDE 21 mmol/L (22-29); CHLORIDE 123 mmol/L (98-107); CREATININE, SERUM 0.83 mg/dL (0.57-1.11); EST GLOMERULAR FILTRATION RATE > 60 ML/MIN (60-); GLUCOSE 134 mg/dL (74-118); POTASSIUM 3.1 mmol/L (3.5-5.1); SODIUM 152 mmol/L (136-145)
[2019-08-10] MEDS: LEVETIRACETAM 500 MG PO SCH (09:00)
[2019-08-10] MEDS: ESCITALOPRAM OXALATE 10 MG TAB PO SCH (09:00)
[2019-08-10] MEDS: CLONAZEPAM 1 MG TAB PO SCH ×2 (09:00→17:00)
[2019-08-10] MEDS: MORPHINE SULFATE 2 MG/ML SYR 1ML IV PRN ×3 (11:25→20:09)
[2019-08-10] MEDS ORDERED: POTASSIUM CHLORIDE 20MEQ/100ML 200 ML IV ONE (15:00)
[2019-08-10] MEDS ORDERED: SODIUM CHLORIDE 0.9% 1000ML 1,000 ML ONE (15:37)
--- NOTE | 2019-08-10 17:32 | Progress Note ---
DATE: Internal Medicine Progress Note SUBJECTIVE: The patient is still complaining of abdominal pain. PHYSICAL EXAMINATION: HEART: Showed regular rhythm. Normal S1 and S2 sound. LUNGS: Clear bilaterally. ABDOMEN: Soft. Slight diffuse tenderness on the abdomen. EXTREMITIES: Show 2+ bilateral pedal edema, more on the right than the left. LABORATORY DATA: On the blood work, we have BMP; sodium 152, potassium 3.1, chloride 123, CO2 of 21, BUN 12, creatinine 0.83, GFR is 60, calcium 7.7, alkaline phosphatase 187, PTT 28.4, and INR 2.58. Urinalysis showed some bacteria and sediment. Blood cultures negative so far. Urine culture is negative for 36-48 hours. MRI of the abdomen was done also which showed severe in the pancrease is poorly visualized on MRI. CT of the pancreas recommended for further characterization. Postoperative changes in the stomach endoscopic ultrasound may be possible to evaluate the pancreas, severe steatosis, no MRI evidence of hepatic mass, anasarca, subacute compression L3, large bowel wall thickening suggestive of colitis, so we are going to order a CT of the pancreas to evaluate the possibility of abdominal mass. FINAL IMPRESSION: 1. Abdominal pain. 2. Vomiting. 3. Colitis. 4. Hypokalemia. 5. Seizure disorder. 6. Hypernatremia. 7. Fatty liver. 8. Pancreatic lesion. 9. Chronic pancreatitis. 10. Splenic vein thrombosis. PLAN OF TREATMENT: We are going to start the patient on a diet. We are going to do a CT of the pancreas to evaluate the pancreas better. We are going to replete the potassium. We are going to discontinue the IV fluids due to the swelling in both lower extremities. We are going to get a repeat BNP and magnesium level tomorrow. Continue with the Lexapro 40 mg daily, morphine 2 mg IV every 4 hours as needed for severe pain, trazodone 150 mg at bedtime, Zofran 4 mg IV every 4 hours as needed for nausea, Keppra she takes 500 mg daily. Blood culture and urine culture completely negative as I said before. Gastroenterology is on the case also because of severe colitis. MD MARCO Foster/ALBA /[id number]
[2019-08-10] MEDS: TRAZODONE HCL 50 MG TAB PO SCH (20:52)
[2019-08-11] VITALS (10 sets, daily range): BP systolic 105–131; BP diastolic 63–89
[2019-08-11 07:13] LABS: ANION GAP 12.3 mmol/L (8-16); BLOOD UREA NITROGEN 12 mg/dL (7-26); BUN/CREATININE RATIO 16 (6-25); CALCIUM 7.8 mg/dL (8.4-10.2); CARBON DIOXIDE 20 mmol/L (22-29); CHLORIDE 127 mmol/L (98-107); CREATININE, SERUM 0.77 mg/dL (0.57-1.11); EST GLOMERULAR FILTRATION RATE > 60 ML/MIN (60-); GLUCOSE 103 mg/dL (74-118); POTASSIUM 4.3 mmol/L (3.5-5.1); SODIUM 155 mmol/L (136-145)
[2019-08-11] MEDS: ESCITALOPRAM OXALATE 10 MG TAB PO SCH (09:00)
[2019-08-11] MEDS: MORPHINE SULFATE 2 MG/ML SYR 1ML IV PRN ×3 (09:00→21:04)
[2019-08-11] MEDS: ONDANSETRON HCL INJ 2MG/ML 2ML 2 MG/ML VIAL IV PRN ×3 (09:00→21:05)
[2019-08-11] MEDS: CLONAZEPAM 1 MG TAB PO SCH ×2 (09:00→17:45)
[2019-08-11] MEDS: LEVETIRACETAM 500 MG PO SCH (09:00)
[2019-08-11] MEDS: D5.45%NS/KCL 20MEQ 1,000 ML IV SCH (14:08)
--- NOTE | 2019-08-11 15:12 | Progress Note ---
DATE: Internal Medicine Progress Note The patient is complaining of back pain. PHYSICAL EXAMINATION: HEART: Showed regular rhythm. Normal S1, S2 sound. LUNGS: Clear bilaterally. ABDOMEN: Soft. Mild tenderness of the left lower quadrant. VITAL SIGNS: Blood pressure 108/63, temperature 36 degrees, heart rate 113 per minute, respiratory rate is 18 per minute, and oxygen saturation 95%. RADIOGRAPHIC DATA: Blood cultures and urine cultures are essentially negative. MRI of the abdomen showed some compromised examination due to motion . The suspected mass in the pancreas head is poorly visualized on MRI. It was seen on the CT of the pancreas, but there was also positive operative changes in the stoma, severe steatosis, anasarca, acute compression fracture of L3, large bowel wall thickening suggestive of colitis. FINAL IMPRESSION: 1. Colitis. 2. Vomiting. 3. Hypokalemia. 4. Seizure disorder. 5. Fatty liver. 6. Chronic pancreatitis. 7. Splenic vein thrombosis. 8. Possible pancreatic mass. PLAN OF TREATMENT: 1. Continue with diet as tolerated. 2. Lexapro 40 mg daily. 3. Morphine 2 mg IV q.4 hours as needed for pain. 4. Trazodone 150 mg at bedtime. 5. Zofran 4 mg IV q.4 hours as needed for nausea. 6. Keppra XR 500 mg daily. We have a consultation with Dr. Smith because of the L3 fracture. Dr. Iraheta, the Oncology to be consulted for pancreatic mass and hypergammaglobulinemia, and Dr. Evans, Gastroenterology, also to be consulted for pancreatic mass. The patient also going to have a speech therapy evaluation with a fully modified barium swallow for concerns of difficulty swallowing. I am going to put her back on D5 half-normal saline at 80 mL an hour. Also, I recall the patient is not eating well and the possibility of not be able to swallow. MD MARCO Foster/ALBA /[id number]
[2019-08-11] MEDS: TRAZODONE HCL 50 MG TAB PO SCH (21:17)
[2019-08-12] VITALS (9 sets, daily range): BP systolic 102–154; BP diastolic 57–82
[2019-08-12] MEDS: D5.45%NS/KCL 20MEQ 1,000 ML IV SCH (05:30)
[2019-08-12] MEDS: ONDANSETRON HCL INJ 2MG/ML 2ML 2 MG/ML VIAL IV PRN ×2 (05:47→12:15)
[2019-08-12] MEDS: MORPHINE SULFATE 2 MG/ML SYR 1ML IV PRN ×2 (05:47→12:15)
[2019-08-12 06:37] LABS: ANION GAP 13.7 mmol/L (8-16); BLOOD UREA NITROGEN 12 mg/dL (7-26); BUN/CREATININE RATIO 15 (6-25); CALCIUM 7.7 mg/dL (8.4-10.2); CARBON DIOXIDE 16 mmol/L (22-29); CHLORIDE 129 mmol/L (98-107); CREATININE, SERUM 0.79 mg/dL (0.57-1.11); EST GLOMERULAR FILTRATION RATE > 60 ML/MIN (60-); GLUCOSE 96 mg/dL (74-118); POTASSIUM 3.7 mmol/L (3.5-5.1); SODIUM 155 mmol/L (136-145)
[2019-08-12] MEDS: ESCITALOPRAM OXALATE 10 MG TAB PO SCH (08:34)
[2019-08-12] MEDS: CLONAZEPAM 1 MG TAB PO SCH ×2 (08:34→17:00)
[2019-08-12] MEDS: LEVETIRACETAM 500 MG PO SCH (09:00)
--- NOTE | 2019-08-12 14:03 | Progress Note ---
DATE: Internal Medicine Progress Note SUBJECTIVE: The patient is doing well. OBJECTIVE: VITAL SIGNS: Blood pressure 154/60, temperature 36.8, heart rate 95 per minute, respiratory rate 20 per minute, and oxygen saturation 100%. HEART: Showed regular rate and rhythm. Normal S1 and S2 sound. LUNGS: Clear bilaterally. ABDOMEN: Soft. Mild tenderness in the left lower quadrant. EXTREMITIES: Show 2+ bilateral pedal edema. LABORATORY DATA: On the BMP; sodium 155, potassium 3.7, chloride 129, CO2 of 16, BUN 12, creatinine 0.79, and glucose 96. On CBC, white blood count 7.32, hemoglobin 10.1, hematocrit 32.6, and platelet count 259,000. PTT 28.4, INR 2.58, and PTT 33.7. AST 27, ALT 14, total bilirubin 0.5, and alkaline phosphatase 187. FINAL IMPRESSION: 1. Vomiting. 2. Colitis. 3. Edema in both lower extremities. 4. Left cerebrovascular accident with right hemiplegia. 5. Abdominal pain secondary to colitis. 6. History of hypokalemia. 7. Seizure disorder. 8. History of chronic pancreatitis. 9. Splenic vein thrombosis. 10. Hypergammaglobulinemia. PLAN OF TREATMENT: We are going to discontinue IV fluids. Continue with morphine 2 mg IV every 4 hours as needed, Zofran 4 mg every 4 hours as needed, clonazepam 1 mg twice a day as needed, trazodone 150 mg daily, citalopram 40 mg daily, and Keppra 500 mg daily. We are going to give her some Lasix 40 mg IV daily along with potassium 40 mEq daily due to the increased swelling in both lower extremities. Continue monitoring BUN, creatinine, and electrolytes. MD MARCO Foster/NSESL /[id number]
[2019-08-12] MEDS: FUROSEMIDE INJ 10 MG/ML 4 ML VIAL IV SCH (17:00)
[2019-08-12] MEDS: POTASSIUM CHLORIDE 20 MEQ TAB CR PO SCH (17:00)
[2019-08-12] MEDS: TRAZODONE HCL 50 MG TAB PO SCH (20:21)
[2019-08-13] VITALS (9 sets, daily range): BP systolic 90–119; BP diastolic 58–69
[2019-08-13] MEDS: ONDANSETRON HCL INJ 2MG/ML 2ML 2 MG/ML VIAL IV PRN ×4 (06:45→20:50)
[2019-08-13] MEDS: MORPHINE SULFATE 2 MG/ML SYR 1ML IV PRN ×2 (06:45→11:31)
[2019-08-13] MEDS: ESCITALOPRAM OXALATE 10 MG TAB PO SCH (09:00)
[2019-08-13] MEDS: LEVETIRACETAM 500 MG PO SCH (09:00)
[2019-08-13] MEDS: CLONAZEPAM 1 MG TAB PO SCH ×2 (09:00→17:00)
[2019-08-13] MEDS: POTASSIUM CHLORIDE 20 MEQ TAB CR PO SCH (09:00)
[2019-08-13] MEDS: FUROSEMIDE INJ 10 MG/ML 4 ML VIAL IV SCH (09:00)
[2019-08-13 10:01] LABS: ANION GAP 11.4 mmol/L (8-16); BLOOD UREA NITROGEN 11 mg/dL (7-26); BUN/CREATININE RATIO 16 (6-25); CALCIUM 7.9 mg/dL (8.4-10.2); CARBON DIOXIDE 19 mmol/L (22-29); CHLORIDE 126 mmol/L (98-107); CREATININE, SERUM 0.69 mg/dL (0.57-1.11); EST GLOMERULAR FILTRATION RATE > 60 ML/MIN (60-); GLUCOSE 107 mg/dL (74-118); POTASSIUM 3.4 mmol/L (3.5-5.1); SODIUM 153 mmol/L (136-145)
[2019-08-13] MEDS ORDERED: POTASSIUM CHLORIDE 20 MEQ TAB CR PO ONE (14:00)
--- NOTE | 2019-08-13 14:37 | Progress Note ---
DATE: Internal Medicine Progress Note SUBJECTIVE: The patient has extremely poor appetite. IV fluids were discontinued due to the swelling of the lower extremities. Lasix IV was started. The potassium is low. I am going to replace the potassium. The patient does have a pancreatic tumor, most likely malignant. Dr. Iraheta talked with the patient. She is going to talk with tomorrow to see if he will be willing to make the patient hospice since the prognosis is very poor even with treatment. PHYSICAL EXAMINATION: HEART: Showed regular rhythm. Normal S1, S2 sound. LUNGS: Clear bilaterally. ABDOMEN: Soft. She has epigastric pain and tenderness. VITAL SIGNS: Blood pressure 118/69, temperature 36.7, heart rate 102 per minute, respiratory rate is 18 per minute, oxygen saturation 95%. LABORATORY DATA: On the BMP; sodium 153, potassium 3.4, chloride 126, carbon dioxide 18, BUN 11.4, creatinine 0.69, glucose 107. On the CBC, white blood count 7.32, hemoglobin 10.1, hematocrit 32.6, and platelet count is 259,000. Blood culture negative x2. Urine culture showed no evidence of any infection. FINAL IMPRESSION: 1. Abdominal pain. 2. Pancreatic mass. 3. Colitis. 4. Hypokalemia. 5. Seizure disorder. 6. Left cerebrovascular accident with right hemiplegia. 7. Fatty liver. 8. Chronic pancreatitis. 9. Splenic vein thrombosis. PLAN OF TREATMENT: We are going to replace potassium IV because the patient cannot tolerate anything p.o. The patient has very poor appetite. I am going to resume the fluids at a very slow rate. The patient is apparently refusing to eat. Continue clonazepam 1 mg twice a day, citalopram 40 mg daily, furosemide 40 mg IV daily, morphine 2 mg IV q.4 hours as needed for severe pain, which we are going to increase to 4 mg IV q.4 hours as needed. Continue trazodone 150 mg at bedtime, Zofran 4 mg IV q.4 hours as needed for nausea, Keppra [address] Iraheta Hematology/Oncology will talk with the tomorrow about the possibility of hospice since the patient has very poor prognosis. She is not eating. Potassium going to be replaced. I am going to recheck the potassium level tomorrow. MD MARCO Foster/ALBA /[id number]
[2019-08-13] MEDS: POTASSIUM CHLORIDE 20MEQ/100ML 200 ML IV SCH (15:24)
[2019-08-13] MEDS: D5NS/KCL 20MEQ 1,000 ML IV SCH (15:25)
[2019-08-13] MEDS: MORPHINE SULFATE INJ 4 MG/ML INJ 1ML IV PRN ×2 (15:47→20:49)
[2019-08-13] MEDS: BALSAM PERU/CASTOR OIL 60 GM OINT...G. TP SCH (17:00)
[2019-08-13] MEDS: TRAZODONE HCL 50 MG TAB PO SCH (20:55)
[2019-08-14] VITALS (7 sets, daily range): BP systolic 96–125; BP diastolic 55–76
[2019-08-14] MEDS: ONDANSETRON HCL INJ 2MG/ML 2ML 2 MG/ML VIAL IV PRN ×4 (01:00→15:41)
[2019-08-14] MEDS: MORPHINE SULFATE INJ 4 MG/ML INJ 1ML IV PRN ×4 (01:00→15:41)
[2019-08-14] MEDS: D5NS/KCL 20MEQ 1,000 ML IV SCH ×2 (01:33→12:32)
[2019-08-14 06:26] LABS: ANION GAP 8.7 mmol/L (8-16); BLOOD UREA NITROGEN 11 mg/dL (7-26); BUN/CREATININE RATIO 15 (6-25); CALCIUM 7.4 mg/dL (8.4-10.2); CARBON DIOXIDE 23 mmol/L (22-29); CHLORIDE 124 mmol/L (98-107); CREATININE, SERUM 0.73 mg/dL (0.57-1.11); EST GLOMERULAR FILTRATION RATE > 60 ML/MIN (60-); GLUCOSE 119 mg/dL (74-118); POTASSIUM 3.7 mmol/L (3.5-5.1); SODIUM 152 mmol/L (136-145)
[2019-08-14] MEDS: FUROSEMIDE INJ 10 MG/ML 4 ML VIAL IV SCH (08:27)
[2019-08-14] MEDS: ESCITALOPRAM OXALATE 10 MG TAB PO SCH (08:29)
[2019-08-14] MEDS: CLONAZEPAM 1 MG TAB PO SCH ×2 (08:29→16:04)
[2019-08-14] MEDS: BALSAM PERU/CASTOR OIL 60 GM OINT...G. TP SCH ×2 (08:34→17:00)
[2019-08-14] MEDS: LEVETIRACETAM 500 MG PO SCH (09:00)
[2019-08-14] MEDS: POTASSIUM CHLORIDE 20MEQ/100ML 200 ML IV SCH (09:14)
--- NOTE | 2019-08-14 09:57 | Progress Note ---
DATE: Internal Medicine Progress Note SUBJECTIVE: The patient is with poor appetite. at the bedside. He is aware of the diagnosis of possible pancreatic cancer. Dr. Evans has seen the patient from the Gastroenterology point of view. Dr. Iraheta is the oncologist on the case. Prognosis is very poor. She is not a surgical candidate. The patient most likely going to need hospice as per Dr. Iraheta's opinion due to the poor prognosis. PHYSICAL EXAMINATION: HEART: Regular rhythm. Normal S1, S2 sound. LUNGS: Clear bilaterally. ABDOMEN: Soft. Mild epigastric tenderness and periumbilical tenderness. VITAL SIGNS: Blood pressure 106/66, temperature 96.4, heart rate 94 per minute, respiratory rate 16 per minute, oxygen saturation 96%. LABORATORY DATA: On the blood work, we have BMP; sodium 152, potassium 3.7, chloride 124, CO2 of 23, BUN 11, creatinine 0.73, glucose 118. CBC white count 7.32, hemoglobin 10.1, hematocrit 32.6, platelet count 259,000. PT 28.4, INR 2.58, PTT 33.7. AST 27, ALT 14, total bilirubin 0.5, alkaline phosphatase 187. FINAL IMPRESSION: 1. Colitis. 2. [id number] protein calorie malnutrition. 3. Anemia of chronic disease. 4. Coagulopathy. 5. Pancreatic cancer. PLAN OF TREATMENT: Continue IV fluids with potassium at 75 mL an hour. Continue Zofran 4 mg IV q.4 hours as needed, clonazepam 1 mg twice a day as needed, furosemide 40 mg daily, trazodone 150 mg at bedtime, Balsam Geeta/castor oil one application topically twice a day, morphine 4 mg IV q.4 hours as needed, citalopram 40 mg daily. We are going to start on Marinol 2.5 mg twice a day because of poor appetite. The patient is declining the PEG tube right now. Prognosis is very poor. Dr. Iraheta, Oncology will meet with at the bedside. is aware of diagnosis. Hospice is one of the possibilities. According to Dr. Iraheta, the chemotherapy will not provide enough survival benefits. Jayme Guillen MD LAS/MODL /[id number]
[2019-08-14] MEDS: DRONABINOL 2.5MG PO SCH (16:04)
--- NOTE | 2019-08-14 17:47 | Diagnostic Imaging Report ---
Modified barium swallow, 08/14/2019. History: Dysphagia. Fluoro time: 0.7 min. Dose: 0.76 mGy (MARIO) Discussion: Fluoroscopic observation and imaging of the oral cavity, oropharynx, and hypopharynx was performed in the lateral projection during swallowing of liquids and solids, administered by speech pathology. Silent aspiration was noted with thin liquids. See speech pathologist report for complete findings. Signed by: Jonah Villareal on 08/14/2019 5:44 PM
[2019-08-14] MEDS: TRAZODONE HCL 50 MG TAB PO SCH (21:00)
[2019-08-15] VITALS (9 sets, daily range): BP systolic 94–123; BP diastolic 55–76
[2019-08-15] MEDS: D5NS/KCL 20MEQ 1,000 ML IV SCH ×2 (06:25→20:31)
[2019-08-15] MEDS: MORPHINE SULFATE INJ 4 MG/ML INJ 1ML IV PRN ×4 (08:00→23:00)
[2019-08-15] MEDS: ONDANSETRON HCL INJ 2MG/ML 2ML 2 MG/ML VIAL IV PRN ×4 (08:00→23:00)
[2019-08-15] MEDS: FUROSEMIDE INJ 10 MG/ML 4 ML VIAL IV SCH (08:02)
[2019-08-15] MEDS: DRONABINOL 2.5MG PO SCH ×2 (08:05→16:36)
[2019-08-15] MEDS: CLONAZEPAM 1 MG TAB PO SCH ×2 (08:05→16:36)
[2019-08-15] MEDS: ESCITALOPRAM OXALATE 10 MG TAB PO SCH (08:05)
[2019-08-15] MEDS: BALSAM PERU/CASTOR OIL 60 GM OINT...G. TP SCH ×2 (08:05→16:34)
[2019-08-15] MEDS: LEVETIRACETAM 500 MG PO SCH (08:06)
[2019-08-15] MEDS: POTASSIUM CHLORIDE 20MEQ/100ML 200 ML IV SCH (08:07)
[2019-08-15 08:17] LABS: ANION GAP 11.9 mmol/L (8-16); BLOOD UREA NITROGEN 9 mg/dL (7-26); BUN/CREATININE RATIO 12 (6-25); CALCIUM 7.7 mg/dL (8.4-10.2); CARBON DIOXIDE 24 mmol/L (22-29); CHLORIDE 119 mmol/L (98-107); CREATININE, SERUM 0.74 mg/dL (0.57-1.11); EST GLOMERULAR FILTRATION RATE > 60 ML/MIN (60-); GLUCOSE 95 mg/dL (74-118); POTASSIUM 3.9 mmol/L (3.5-5.1); SODIUM 151 mmol/L (136-145)
--- NOTE | 2019-08-15 11:08 | Progress Note ---
DATE: Internal Medicine Progress Note SUBJECTIVE: Dr. Iraheta and myself talked with the about the diagnosis of the patient and the poor prognosis since she has had pancreatic cancer. They understood the terminal situation and they agree with hospice. PHYSICAL EXAMINATION: HEART: Regular rhythm. Normal S1, S2 sound. ABDOMEN: Soft. She has some periumbilical epigastric tenderness. LABORATORY DATA: BMP; sodium 142, potassium 3.7, chloride 124, CO2 of 23, BUN 11, creatinine 0.73, and glucose 111. On the CBC, white blood count 7.32, hemoglobin 10.1, hematocrit 32.6, and platelet count 259,000. PT 28.4, INR 2.58, and PTT 33.7. AST 27, ALT 14, total bilirubin 0.5, and alkaline phosphatase 187. FINAL IMPRESSION: 1. Colitis. 2. Moderate protein calorie malnutrition. 3. Pancreatic cancer. 4. Anemia. 5. Coagulopathy. PLAN OF TREATMENT: We are going to have the case management assistant arrange for hospice for comfort care. Continue pain control. She is on IV fluids right now because of dehydration, not able to eat. The patient does not want a feeding tube. I put her on Marinol also 2 mg twice a day. She is on morphine 4 mg IV q.4 hours as needed, citalopram 40 mg daily, Balsam Geeta/castor oil 60 g topically twice a day, trazodone 150 mg daily, furosemide 40 mg daily, and clonazepam 1 mg twice a day. Prognosis is very poor. Hospice will be arranged by case management assistant. MD MARCO Foster/ALBA /[id number]
[2019-08-15] MEDS: TRAZODONE HCL 50 MG TAB PO SCH (20:43)
[2019-08-16] VITALS: BP 134/75
[2019-08-16 04:00] VITALS: BP 118/36
[2019-08-16] MEDS: ONDANSETRON HCL INJ 2MG/ML 2ML 2 MG/ML VIAL IV PRN (05:50)
[2019-08-16] MEDS: MORPHINE SULFATE INJ 4 MG/ML INJ 1ML IV PRN ×2 (05:50→13:15)
[2019-08-16 08:06] VITALS: BP 117/90
[2019-08-16 08:07] VITALS: BP 117/90
[2019-08-16] MEDS: DRONABINOL 2.5MG PO SCH (08:26)
[2019-08-16] MEDS: FUROSEMIDE INJ 10 MG/ML 4 ML VIAL IV SCH (08:27)
[2019-08-16] MEDS: D5NS/KCL 20MEQ 1,000 ML IV SCH (08:27)
[2019-08-16] MEDS: POTASSIUM CHLORIDE 20MEQ/100ML 200 ML IV SCH (08:27)
[2019-08-16] MEDS: BALSAM PERU/CASTOR OIL 60 GM OINT...G. TP SCH (08:28)
[2019-08-16] MEDS: ESCITALOPRAM OXALATE 10 MG TAB PO SCH (08:28)
[2019-08-16] MEDS: CLONAZEPAM 1 MG TAB PO SCH (08:28)
[2019-08-16] MEDS: LEVETIRACETAM 500 MG PO SCH (08:31)
--- NOTE | 2019-08-16 10:20 | Discharge Summary ---
HOSPITAL COURSE: The patient is a 44-year-old female with past medical history positive for left CVA with right hemiplegia, history of hypertension, hypercholesterolemia, smoking, history of fatty liver, admitted with nausea, vomiting, abdominal pain. She was found to have a pancreatic tumour. She was seen by Dr. Iraheta, Hematology/Oncology, who diagnosed with advanced pancreatic cancer. He recommended hospice due to the poor prognosis, on this case they have spent and the patient agree with that they are going home with hospice today. PHYSICAL EXAMINATION: HEART: Showed regular rhythm. Normal S1, S2 sound. LUNGS: Clear bilaterally. ABDOMEN: Soft. EXTREMITIES: Show no evidence of cyanosis or hematoma. VITAL SIGNS: Blood pressure 117/90, temperature 36.2, heart rate 94 per minute, respiratory rate 20 per minute, and oxygen saturation 100%. LABORATORY DATA: On the blood work, we have BMP with sodium 151, potassium 3.9, chloride 118, CO2 of 24, BUN 9, creatinine 0.74, glucose 95, calcium 7.7. On the CBC, white blood count 7.32, hemoglobin 10.1, hematocrit 32.6, and platelet count 259,000. She had elevated lambda light chain and kappa light chain. Urinalysis was essentially unremarkable. IMPRESSION: 1. Pancreatic cancer. 2. Possible cirrhosis of the liver. 3. Coagulopathy. 4. Seizure disorder. 5. Left CVA with right hemiplegia. 6. Hypernatremia. PLAN OF TREATMENT: The patient going to go home with hospice for comfort care. Prognosis is very poor. Case has been discussed with the and the patient at the bedside. MD MARCO Foster/ALBA /[id number]
[2019-08-16 12:00] VITALS: BP 83/66
== END 2019-08-16 13:30 | disposition hospice, home (50) | DRG 436 ==
LOC: ER 11:59 → ERHOLD 12:44 → MED/SURG3 16:17 → UNDODISIN 08-12 14:04
PROVIDERS: ADMIT Internal Medicine; ATTEND Internal Medicine
PROC: 02HV33Z Insertion of Infusion Device into Superior Vena Cava, Percutaneous Approach (ICD-10-PCS; principal; 2019-08-09)
DX: C25.0 Malignant neoplasm of head of pancreas (principal); K86.1 Other chronic pancreatitis; D68.9 Coagulation defect, unspecified; E44.0 Moderate protein-calorie malnutrition; I69.351 Hemiplegia and hemiparesis following cerebral infarction affecting right dominant side; I82.890 Acute embolism and thrombosis of other specified veins; M48.56XA Collapsed vertebra, not elsewhere classified, lumbar region, initial encounter for fracture; R18.8 Other ascites; E87.0 Hyperosmolality and hypernatremia; K52.9 Noninfective gastroenteritis and colitis, unspecified; D89.2 Hypergammaglobulinemia, unspecified; Z68.24 Body mass index [BMI] 24.0-24.9, adult; I69.320 Aphasia following cerebral infarction; M24.521 Contracture, right elbow; M24.531 Contracture, right wrist; K76.0 Fatty (change of) liver, not elsewhere classified; E87.6 Hypokalemia; K82.8 Other specified diseases of gallbladder; D63.8 Anemia in other chronic diseases classified elsewhere; K74.69 Other cirrhosis of liver; N28.1 Cyst of kidney, acquired; G40.909 Epilepsy, unspecified, not intractable, without status epilepticus
CPT/HCPCS: 36415; 71045; 74177; 74181; 74230; 74470; 76705; 80048; 80053; 80076; 81001; 81025; 82378; 82550; 82553; 83605; 83690; 83735; 83880; 84165; 84443; 84484; 85025; 85379; 85610; 85730; 86301; 86850; 86870; 86880; 86900; 86905; 87040; 87086; 93005; 96361; 97139; 99001; 99284; J1940; J2270; J2405; J3480; J7030; J7042; J7050; Q9967